=== PATIENT | male | born 1955 | race African-American/Black ===

== ENCOUNTER 2017-04-11 03:02 | Inpatient (IN) | payer MEDICARE, OTHER ==
[2017-04-11] VITALS (21 sets, daily range): BP systolic 63–154; BP diastolic 40–89
[~2017-04-11] VITALS: Ht 177.8 cm; Wt 82.2 kg
[2017-04-11] MEDS ORDERED: PROPOFOL 50 ML IV ONE ×2 (03:11→04:00)
--- NOTE | 2017-04-11 03:21 | PHYS DOC ---
Adult General Chief Complaint Chief Complaint: SHORTNESS OF BREATH HPI HPI This is a 61-year-old male who presents with acute onset of shortness of breath at home and having some mild chest pain as well. Upon arrival, the EMS team states his O2 sats were in the 60 percentile range. Patient was placed on nonrebreather and refusing CPAP mask. Patient apparently per EMS missed a dialysis appointment today. Upon arrival, the patient cannot provide any history as he is lethargic and significantly short of air. No other family at bedside currently to provide any history. Review of Systems Review of Systems 10 point review systems is unable to be obtained secondary to the patient's mental status Current Medications Current Medications Current Medications Medications (Trade) Dose Ordered Sig/Thuan Start Time Stop Time Status Last Admin Dose Admin Propofol 50 ml @ As Directed STK-MED ONCE 04/11/17 03:11 04/11/17 03:12 DC Allergies Allergies Allergies Coded Allergies Type Severity Reaction Last Updated Verified Unable to Assess 04/11/17 No Physical Exam Physical Exam Constitutional: In acute distress, non-verbal. [] HENT: Normocephalic, atraumatic, bilateral external ears normal, oropharynx moist, no oral exudates, nose normal. [] Eyes: PERRLA, conjunctiva normal, no discharge. [] Neck: Normal range of motion, no tenderness, supple, no stridor. [] Cardiovascular:Heart rate tachycardic with regular rhythm, no murmur [] Lungs & Thorax: Rales bilaterally with noted tachypnea and significant respiratory distress [] Abdomen: Bowel sounds normal, soft, no tenderness, no masses, no pulsatile masses. [] Skin: Warm, dry, no erythema, no rash. [] Back: No tenderness, no CVA tenderness. [] Extremities: No tenderness, no cyanosis, no clubbing, ROM intact, no edema. [] Neurologic: No focal deficits noted, unable to obtain full neurologic assessment secondary to the patient's mental status. [] Psychologic: Affect normal, judgement normal, mood normal. [] Current Patient Data Vital Signs Vital Signs Date Time Temp Pulse Resp B/P (MAP) Pulse Ox O2 Delivery O2 Flow Rate FiO2 04/11/17 03:15 97 Ventilator 04/11/17 03:03 97.6 126 4 243/122 (162) 97.6 EKG EKG EKG as interpreted by me shows a sinus tachycardia with a rate of 141 bpm. There is some lateral ischemic findings in leads V4 to V6 with some ST depression noted. EKG does not meet STEMI criteria. Radiology/Procedures Radiology/Procedures One view of the chest as interpreted by me shows an ET tube in appropriate position. OG tube appears appropriate. Patient has massive pulmonary edema as interpreted by me. Course & Med Decision Making Course & Med Decision Making Pertinent Labs and Imaging studies reviewed. (See chart for details) 61-year-old male who presents with acute pulmonary edema was immediately intubated upon arrival for acute respiratory failure. Nitroglycerin drips and propofol drips are currently running. A dose of Lasix was given as well. Portable view of his chest indicates he has extensive pulmonary edema and cannot rule out underlying pneumonia as well. A dose of IV Zosyn will also be given. Laboratory workup is pending at this time. His laboratory workup is consistent with fluid overload with an elevated BNP of over 8000. His blood gas is 7.176 with a pCO2 of 53.6 and pO2 of 88.6 and his HCO3 of 19.4. She is consistent with a respiratory acidosis with some metabolic compensation. Surgery was continuously titrated upward to a rate of 160 g/min and his propofol was also continually titrated upward. His ventilator rate was increased and his PEEP was increased as well. His blood pressure and heart rate improved significantly with both propofol and nitroglycerin drips. His case was discussed with both the hotel front desk clerk, Dr. Guajardo, and the airline hostess, Dr. Leon. His case was discussed with the hospitalist, Dr. Juarez, who agreed to accept the patient for further evaluation and treatment. He was admitted to the ICU without incident. Approximately 60 minutes of critical care time were used in consultation with specialists. Dragon Disclaimer Dragon Disclaimer This electronic medical record was generated, in whole or in part, using a voice recognition dictation system. Intubation Procedure Intub Indication: Respiratory failure Consent: Unable to give consent due to emergent nature. Medications Used: see nursing note Procedure: The patient was placed in the appropriate position. Intubation was performed using direct laryngoscopy with a 7.5 endotracheal tube. ET tube was then appropriately secured. Initial confirmation of placement included bilateral breath sounds, tube fogging, adequate chest rise, adequate pulse oximetry reading. A chest x-ray to verify correct placement of the tube showed appropriate tube position. The patient tolerated the procedure well. Complications: none. Critical Care Time Critical care time was 60 minutes exclusive of procedures. Departure Departure Impression: Primary Impression: Pulmonary edema Additional Impressions: Acute respiratory failure Hypertensive emergency Disposition: 09 ADMITTED INPATIENT Admitting Physician: Danielle Juarez Condition: CRITICAL Referrals: NO PCP (PCP) Problem Qualifiers HIPOLITO CHOI DO April 11, 2017 03:21
[2017-04-11] MEDS ORDERED: PROPOFOL 20 ML IV ONE (03:30)
[2017-04-11] MEDS ORDERED: ETOMIDATE 20 MG/10 ML VIAL. IV ONE (03:30)
[2017-04-11] MEDS ORDERED: NITROGLYCERIN PREMIX 250 ML IV ONE (03:30)
[2017-04-11] MEDS ORDERED: ROCURONIUM 50 MG/5 ML VIAL. IV ONE (03:30)
[2017-04-11] MEDS ORDERED: ONDANSETRON PF 4 MG/2 ML VIAL. IV PRN (03:45)
[2017-04-11] MEDS ORDERED: FUROSEMIDE 40 MG/4 ML VIAL. IVP ONE (03:45)
[2017-04-11 03:57] LABS: BILIRUBIN,URINE NEGATIVE (NEG); GLUCOSE,URINE NEGATIVE (NEG); NITRITE,URINE NEGATIVE (NEG); PH,URINE 7.5; PROTEIN,URINE 100 mg/dL (NEG-TRACE); UROBILINOGEN,URINE 0.2 mg/dL (0.2 mg/dL)
[2017-04-11 03:57] LABS: BASO % 0 % (0-3); EOS % 2 % (0-3); HEMATOCRIT 37.5 % (39.0-53.0); HEMOGLOBIN 11.6 g/dL (13.0-17.5); LYMPH # 5.5 x10^3/uL (1.0-4.8); LYMPH % 42 % (24-48); MEAN CORPUSCULAR HEMOGLOBIN 25 pg (25-35); MEAN CORPUSCULAR HGB CONC 31 g/dL (31-37); MEAN CORPUSCULAR VOLUME 82 fL (79-100); MONO % 6 % (0-9); NEUT % 50 % (31-73); PLATELET COUNT 207 x10^3/uL (140-400); RED BLOOD COUNT 4.56 x10^6/uL (4.30-5.70); RED CELL DISTRIBUTION WIDTH 14.2 % (11.5-14.5); WHITE BLOOD COUNT 13.1 x10^3/uL (4.0-11.0)
[2017-04-11 03:58] LABS: BACTERIA,URINE 0 /HPF (0-FEW); SQUAMOUS EPITHELIAL CELL,UR FEW /LPF
[2017-04-11] MEDS ORDERED: PIP/TAZO PER PHARMACY MC PRN (04:00)
[2017-04-11 04:02] LABS: POTASSIUM ISTAT 4.4 mmol/L (3.5-5.0)
[2017-04-11] MEDS ORDERED: PIPERACILLIN/TAZOBACTAM 2.25 GM in IV NORMAL SALINE 50ML 50 ML IV ONE (04:15)
[2017-04-11] MEDS ORDERED: PROPOFOL 10 MG/ML (50ML) VIAL. IV ONE (04:17)
[2017-04-11 04:19] LABS: ALBUMIN 3.3 g/dL (3.4-5.0); CALCIUM 8.4 mg/dL (8.5-10.1); CREATININE 18.7 mg/dL (0.7-1.3); DIRECT BILIRUBIN 0.2 mg/dL (0.0-0.2); GFR 3.1; POTASSIUM 4.5 mmol/L (3.5-5.1); TOTAL BILIRUBIN 0.4 mg/dL (0.2-1.0); TOTAL PROTEIN 7.8 g/dL (6.4-8.2)
[2017-04-11 04:35] LABS: HCO3 ABG 19 mmol/L (21-28); PCO2 ABG 54 mmHg (35-46); PH ABG 7.18 (7.35-7.45); PO2 ABG 89 mmHg (65-108); SAT O2 ABG 94 % (92-99)
--- NOTE | 2017-04-11 04:51 | ACF ---
Admission Forms Criteria RESPIRATORY FAILURE [facility] Clinical Indications for Admission to Inpatient Care (Place 'X' for any and all applicable criteria): Hospital admission is needed for appropriate care of the patient because of acute respiratory failure or insufficiency as indicated by ANY ONE of the following(1)(2)(3)(4)(5)(6)(7)(8): [ ]I. Mechanical ventilation needed (acute invasive or noninvasive) [ ]II. Severe ventilation deficit as indicated by ANY ONE of the following (9) [ ]a) Respiratory acidosis (pH less than 7.32 and partial pressure of carbon dioxide greater than 40 mm Hg (5.3 kPa)) [ ]b) Partial pressure of carbon dioxide greater than 44 mm Hg (5.9 kPa ) (new) [ ]c) Airflow measurements less than 25% of predicted (eg, peak expiratory flow rate less than 100 L/minute) [ ]d) Forced vital capacity less than 15 mL/kg of ideal body weight, or 50% decrease in vital capacity from baseline [ ]III. Noncardiac pulmonary edema not resolving with rapid emergency treatment (8) [ ]IV. Severe respiratory distress as indicated by ANY ONE of the following: [ ]a) Severe tachypnea (respiratory rate greater than 30, greater than 45 for 6-month-old, greater than 60 for ) [ ]b) Severe hypoxemia (partial pressure of oxygen less than 50 mm Hg ( 6.7 kPa) on greater than 50% oxygen or partial pressure of oxygen to FIO2 ratio less than 200) [ ]c) Mental status deterioration from respiratory disease [ ]V. Airway obstruction or inadequate protection [A](10)(11) The original [employer] content created by [employer] has been revised. The portions of the content which have been revised are identified through the use of italic text or in bold, and [employer] has neither reviewed nor approved the modified material. All other unmodified content is copyright [employer]. Please see references footnoted in the original [employer] edition 2016 JACKSON CAO April 11, 2017 04:51
--- NOTE | 2017-04-11 05:00 | ACF ---
Admission Forms Criteria PULMONARY EDEMA Clinical Indications for Admission to Inpatient Care (Place 'X' for any and all applicable criteria): Admission is indicated by ANY ONE of the following(1)(2)(3)(4): [ ]I. Severe electrolyte abnormalities requiring inpatient care(9) [ ]II. Hemodynamic instability [ ]III. Anasarca [ ]IV. Acute cardiac ischemia causing or associated with failure (Also use Angina or Myocardial Infarction as appropriate) [ ]V. Cardiac arrhythmias of immediate concern [ ]. Precipitating cause for acute decompensation (eg, pneumonia, pulmonary embolism) requires inpatient care [X]VII. Pulmonary edema that is very severe (eg, mechanical ventilation needed, imminent or likely, need for 100% oxygen to keep oxygen saturation above 90%) [ ]VIII. Inpatient admission required rather than observation care (Also use Heart Failure: Observation Care as appropriate) because of ANY ONE of the following: [ ]a) Pulmonary edema that is severe or worsening as indicated by ALL of the following: [ ]i) New need for oxygen therapy to keep oxygen saturation above 90% (or increased FiO2 need from baseline) [ ]ii) Has not improved sufficiently with emergency department or observation care IV diuretics or other heart failure treatments[C] [ ]b) Cognitive impairment that is severe or persistent [ ]c) Increased creatinine (new on laboratory test) with reduction of more than 50% in estimated glomerular filtration rate from baseline. [ ]d) Acute renal insufficiency (progressively (ongoing) rising creatinine (known from past laboratory test) with reduction of more than 25% in estimated glomerular filtration rate from baseline) [ ]e) Acute peripheral ischemia (eg, pulseless, cool, mottled, or cyanotic extremity) [ ]f) Acute renal failure [ ]g) Supplemental O2 or respiratory treatment for >24 hr that are performable only in acute inpatient setting [ ]h) Pulmonary artery catheter monitoring [ ]i) Other condition, treatment or monitoring requiring inpatient admission Extended stay beyond goal length of stay may be needed for(1)(3)(21)(25): [ ]a) Cardiac ischemia, confirmed or suspected as precipitant [ ]b) Cardiogenic shock or refractory pulmonary edema [ ]c) Acute kidney injury or renal failure [ ]d) Respiratory failure (eg, need for noninvasive or invasive mechanical ventilation) (23) [ ]e) Concomitant pneumonia or significant electrolyte abnormality (eg, severe hyponatremia) [ ]f) Newly diagnosed (new onset) atrial fibrillation [ ]g) Stage IV chronic kidney disease (estimated glomerular filtration rate of less than 30 mL/min/1.73m2 (0.50 mL/sec/1.73m2), and not previously on chronic dialysis (Contents from HEART FAILURE clinical indications for admission to inpatient care have been integrated in this form) The original [facility] content created by [facility] [employer] has been revised. The portions of the content which have been revised are identified through the use of italic text or in bold, and [facility] has neither reviewed nor approved the modified material. All other unmodified content is copyright [facility] Please see references footnoted in the original [facility] [employer] edition 2016 Admission Criteria Met?: Yes JACKSON CAO April 11, 2017 05:00
[2017-04-11] MEDS ORDERED: PROPOFOL 100 ML IV ONE (06:05)
[2017-04-11] MEDS ORDERED: PNEUMOCOCCAL VAX SCREEN BY RX. MC ONE (06:15)
--- NOTE | 2017-04-11 07:08 | RAD ---
Portable chest, 04/11/2017: History: Check ET tube placement Comparison is made to a study from 04/20/2010. An ET tube is in place with its tip located 5 cm above the rafia. An NG tube extends into the distal esophagus. The heart size is normal. There are moderate patchy bilateral pulmonary infiltrates. The underlying pulmonary vascularity is poorly defined and congested. No definite pleural fluid is seen. IMPRESSION: 1. The ET tube is in satisfactory position. 2. The tip of the NG tube lies in the distal esophagus. 3. Moderate bilateral pulmonary infiltrates most compatible with pulmonary edema.
--- NOTE | 2017-04-11 07:10 | RAD ---
Portable abdomen, 04/11/2017: History: Check gastric tube placement A supine view of the upper abdomen demonstrates the tip of the NG tube overlying the distal esophagus near the GE junction level. The abdominal gas pattern is unremarkable. Bilateral pulmonary infiltrates are again noted. IMPRESSION: The tip of the NG tube lies in the distal esophagus near the GE junction level.
[2017-04-11 08:13] LABS: HCO3 ABG 19 mmol/L (21-28); PCO2 ABG 34 mmHg (35-46); PH ABG 7.37 (7.35-7.45); PO2 ABG 140 mmHg (65-108); SAT O2 ABG 98 % (92-99)
[2017-04-11 08:16] LABS: FIO2 ABG 100
[2017-04-11] MEDS ORDERED: IV NORMAL SALINE 1000ML BAG 1,000 ML IV PRN ×2 (09:51)
--- NOTE | 2017-04-11 09:58 | PDOC1 ---
History and Physical Current Problem List Problem List Problems Medical Problems: (1) Acute respiratory failure Status: Acute (2) Hypertensive emergency Status: Acute (3) Pulmonary edema Status: Acute Current Medications Current Medications Current Medications Medications (Trade) Dose Ordered Sig/Thuan Start Time Stop Time Status Last Admin Dose Admin Etomidate (Amidate) 20 mg 1X ONCE 04/11/17 03:30 04/11/17 03:31 DC 04/11/17 03:09 20 MG Furosemide (Lasix) 40 mg 1X ONCE 04/11/17 03:45 04/11/17 03:47 DC 04/11/17 03:50 40 MG Nicardipine HCl 50 mg/Sodium Chloride 270 ml @ 0 mls/hr CONT PRN 04/11/17 04:30 Nitroglycerin/ Dextrose 250 ml @ 0 mls/hr 1X ONCE 04/11/17 03:30 04/11/17 03:31 DC 04/11/17 03:21 6 MLS/HR Ondansetron HCl (Zofran) 4 mg PRN Q8HRS PRN 04/11/17 03:45 04/12/17 03:44 Piperacillin Sod/ Tazobactam Sod (Zosyn Per Pharmacy) 1 each PRN DAILY PRN 04/11/17 04:00 Piperacillin Sod/ Tazobactam Sod 2.25 gm/Sodium Chloride 50 ml @ 100 mls/hr Q12H 04/11/17 16:00 Pneumococcal Polyvalent Vaccine (Do NOT chart on this placeholder) 1 each 1X ONCE 04/11/17 06:15 04/11/17 06:16 UNV Pneumococcal Polyvalent Vaccine (Pneumovax 23) 0.5 ml ONCE ONCE 04/12/17 09:00 04/12/17 09:01 Propofol 100 ml @ 0 mls/hr CONT PRN 04/11/17 07:00 Propofol (Diprivan) 20 mg 1X ONCE 04/11/17 04:17 04/11/17 05:45 DC Rocuronium [place] (Zemuron) 50 mg 1X ONCE 04/11/17 03:30 04/11/17 03:31 DC 04/11/17 03:09 50 MG Allergies Allergies Allergies Coded Allergies Type Severity Reaction Last Updated Verified Unable to Assess 04/11/17 No ROS Review of System intubated, d/w family acute sob Physical Exam Physical Exam GEN.: No apparent distress. sedated, intubated. HEENT: Head is normocephalic, atraumatic NECK: Supple. no JVD LUNGS: Rales and crepitus base HEART: RRR, S1, S2 present. Peripheral pulses intact ABDOMEN: Soft, nontender. Positive bowel sounds. EXTREMITIES: Without any cyanosis. NEUROLOGIC: Normal speech, normal tone PSYCHIATRIC: Normal affect, normal mood. SKIN: dry. no visible rash Vitals Vitals Vital Signs Date Time Temp Pulse Resp B/P (MAP) Pulse Ox O2 Delivery O2 Flow Rate FiO2 04/11/17 08:00 100 Ventilator 04/11/17 06:15 86 24 84/50 (61) 04/11/17 05:30 97.5 97.5 04/11/17 04:21 96.0 Labs Labs Laboratory Tests Test 04/11/17 03:30 04/11/17 03:50 04/11/17 03:51 04/11/17 03:54 Urine Collection Type U cath Urine Color Yellow Urine Clarity Clear Urine pH 7.5 Urine Specific Mccarley 1.010 Urine Protein 100 mg/dL (NEG-TRACE) Urine Glucose (UA) Negative mg/dL (NEG) Urine Ketones (Stick) Negative mg/dL (NEG) Urine Blood Moderate (NEG) Urine Nitrite Negative (NEG) Urine Bilirubin Negative (NEG) Urine Urobilinogen Dipstick 0.2 mg/dL (0.2 mg/dL) Urine Leukocyte Esterase Negative (NEG) Urine RBC 6-10 /HPF (0-2) Urine WBC 1-4 /HPF (0-4) Urine Squamous Epithelial Cells Few /LPF Urine Bacteria 0 /HPF (0-FEW) Urine Mucus Mod /LPF White Blood Count 13.1 x10^3/uL (4.0-11.0) Red Blood Count 4.56 x10^6/uL (4.30-5.70) Hemoglobin 11.6 g/dL (13.0-17.5) Hematocrit 37.5 % (39.0-53.0) Mean Corpuscular Volume 82 fL (79-100) Mean Corpuscular Hemoglobin 25 pg (25-35) Mean Corpuscular Hemoglobin Concent 31 g/dL (31-37) Red Cell Distribution Width 14.2 % (11.5-14.5) Platelet Count 207 x10^3/uL (140-400) Neutrophils (%) (Auto) 50 % (31-73) Lymphocytes (%) (Auto) 42 % (24-48) Monocytes (%) (Auto) 6 % (0-9) Eosinophils (%) (Auto) 2 % (0-3) Basophils (%) (Auto) 0 % (0-3) Neutrophils # (Auto) 6.5 x10^3uL (1.8-7.7) Lymphocytes # (Auto) 5.5 x10^3/uL (1.0-4.8) Monocytes # (Auto) 0.8 x10^3/uL (0.0-1.1) Eosinophils # (Auto) 0.3 x10^3/uL (0.0-0.7) Basophils # (Auto) 0.0 x10^3/uL (0.0-0.2) Sodium Level 143 mmol/L (136-145) Potassium Level 4.5 mmol/L (3.5-5.1) Chloride Level 102 mmol/L (98-107) Carbon Dioxide Level 22 mmol/L (21-32) Anion Gap 19 (6-14) 17 mmol/L (6-14) Blood Urea Nitrogen 74 mg/dL (8-26) Creatinine 18.7 mg/dL (0.7-1.3) Estimated GFR (Cockcroft-Gault) 3.1 Glucose Level 178 mg/dL (70-99) 165 mg/dL (70-99) Lactic Acid Level 4.4 mmol/L (0.4-2.0) Calcium Level 8.4 mg/dL (8.5-10.1) Total Bilirubin 0.4 mg/dL (0.2-1.0) Direct Bilirubin 0.2 mg/dL (0.0-0.2) Aspartate Amino Transf (AST/SGOT) 41 U/L (15-37) Alanine Aminotransferase (ALT/SGPT) 33 U/L (16-63) Alkaline Phosphatase 79 U/L (46-116) Troponin I Quantitative 0.030 ng/mL (0.000-0.055) NR-Sxw-W-Type Natriuretic Peptide 8491 pg/mL (0-124) Total Protein 7.8 g/dL (6.4-8.2) Albumin 3.3 g/dL (3.4-5.0) Bedside Troponin I 0.04 ng/ml (<0.08) Bedside Hemoglobin 12.9 g/dL (14-18) Bedside Hematocrit 38 % (37-52) Bedside Sodium 138 mmol/L (135-145) Bedside Potassium 4.4 mmol/L (3.5-5.0) Bedside Chloride 104 mmol/L (98-110) Bedside Total CO2 23 mmol/L (23-32) Bedside Blood Urea Nitrogen 76 mg/dL (8-26) Bedside Creatinine 17.8 mg/dL (0.5-1.4) Bedside Ionized Calcium (Devon) 1.00 mmol/L (1.13-1.32) Test 04/11/17 04:14 04/11/17 06:40 04/11/17 08:20 O2 Saturation 94 % (92-99) 98 % (92-99) Arterial Blood pH 7.18 (7.35-7.45) 7.37 (7.35-7.45) Arterial Blood pCO2 at Patient Temp 54 mmHg (35-46) 34 mmHg (35-46) Arterial Blood pO2 at Patient Temp 89 mmHg (65-108) 140 mmHg (65-108) Arterial Blood HCO3 19 mmol/L (21-28) 19 mmol/L (21-28) Arterial Blood Base Excess -9 mmol/L (-3-3) -5 mmol/L (-3-3) FiO2 100.0 100 Lactic Acid Level 2.6 mmol/L (0.4-2.0) Laboratory Tests Test 04/11/17 03:30 04/11/17 03:50 04/11/17 03:51 04/11/17 03:54 Urine Collection Type U cath Urine Color Yellow Urine Clarity Clear Urine pH 7.5 Urine Specific Mccarley 1.010 Urine Protein 100 mg/dL (NEG-TRACE) Urine Glucose (UA) Negative mg/dL (NEG) Urine Ketones (Stick) Negative mg/dL (NEG) Urine Blood Moderate (NEG) Urine Nitrite Negative (NEG) Urine Bilirubin Negative (NEG) Urine Urobilinogen Dipstick 0.2 mg/dL (0.2 mg/dL) Urine Leukocyte Esterase Negative (NEG) Urine RBC 6-10 /HPF (0-2) Urine WBC 1-4 /HPF (0-4) Urine Squamous Epithelial Cells Few /LPF Urine Bacteria 0 /HPF (0-FEW) Urine Mucus Mod /LPF White Blood Count 13.1 x10^3/uL (4.0-11.0) Red Blood Count 4.56 x10^6/uL (4.30-5.70) Hemoglobin 11.6 g/dL (13.0-17.5) Hematocrit 37.5 % (39.0-53.0) Mean Corpuscular Volume 82 fL (79-100) Mean Corpuscular Hemoglobin 25 pg (25-35) Mean Corpuscular Hemoglobin Concent 31 g/dL (31-37) Red Cell Distribution Width 14.2 % (11.5-14.5) Platelet Count 207 x10^3/uL (140-400) Neutrophils (%) (Auto) 50 % (31-73) Lymphocytes (%) (Auto) 42 % (24-48) Monocytes (%) (Auto) 6 % (0-9) Eosinophils (%) (Auto) 2 % (0-3) Basophils (%) (Auto) 0 % (0-3) Neutrophils # (Auto) 6.5 x10^3uL (1.8-7.7) Lymphocytes # (Auto) 5.5 x10^3/uL (1.0-4.8) Monocytes # (Auto) 0.8 x10^3/uL (0.0-1.1) Eosinophils # (Auto) 0.3 x10^3/uL (0.0-0.7) Basophils # (Auto) 0.0 x10^3/uL (0.0-0.2) Sodium Level 143 mmol/L (136-145) Potassium Level 4.5 mmol/L (3.5-5.1) Chloride Level 102 mmol/L (98-107) Carbon Dioxide Level 22 mmol/L (21-32) Anion Gap 19 (6-14) 17 mmol/L (6-14) Blood Urea Nitrogen 74 mg/dL (8-26) Creatinine 18.7 mg/dL (0.7-1.3) Estimated GFR (Cockcroft-Gault) 3.1 Glucose Level 178 mg/dL (70-99) 165 mg/dL (70-99) Lactic Acid Level 4.4 mmol/L (0.4-2.0) Calcium Level 8.4 mg/dL (8.5-10.1) Total Bilirubin 0.4 mg/dL (0.2-1.0) Direct Bilirubin 0.2 mg/dL (0.0-0.2) Aspartate Amino Transf (AST/SGOT) 41 U/L (15-37) Alanine Aminotransferase (ALT/SGPT) 33 U/L (16-63) Alkaline Phosphatase 79 U/L (46-116) Troponin I Quantitative 0.030 ng/mL (0.000-0.055) FE-Bhn-G-Type Natriuretic Peptide 8491 pg/mL (0-124) Total Protein 7.8 g/dL (6.4-8.2) Albumin 3.3 g/dL (3.4-5.0) Bedside Troponin I 0.04 ng/ml (<0.08) Bedside Hemoglobin 12.9 g/dL (14-18) Bedside Hematocrit 38 % (37-52) Bedside Sodium 138 mmol/L (135-145) Bedside Potassium 4.4 mmol/L (3.5-5.0) Bedside Chloride 104 mmol/L (98-110) Bedside Total CO2 23 mmol/L (23-32) Bedside Blood Urea Nitrogen 76 mg/dL (8-26) Bedside Creatinine 17.8 mg/dL (0.5-1.4) Bedside Ionized Calcium (Devon) 1.00 mmol/L (1.13-1.32) Test 04/11/17 04:14 04/11/17 06:40 04/11/17 08:20 O2 Saturation 94 % (92-99) 98 % (92-99) Arterial Blood pH 7.18 (7.35-7.45) 7.37 (7.35-7.45) Arterial Blood pCO2 at Patient Temp 54 mmHg (35-46) 34 mmHg (35-46) Arterial Blood pO2 at Patient Temp 89 mmHg (65-108) 140 mmHg (65-108) Arterial Blood HCO3 19 mmol/L (21-28) 19 mmol/L (21-28) Arterial Blood Base Excess -9 mmol/L (-3-3) -5 mmol/L (-3-3) FiO2 100.0 100 Lactic Acid Level 2.6 mmol/L (0.4-2.0) VTE Prophylaxis Ordered VTE Prophylaxis Devices: Yes VTE Pharmacological Prophylaxi: Yes BEL SANDOVAL MD April 11, 2017 09:58
[2017-04-11] MEDS ORDERED: diphenhydrAMINE 50 MG/ML VIAL IV PRN ×2 (10:00)
[2017-04-11] MEDS ORDERED: ALBUMIN HUMAN 25% 200 ML IV PRN (10:00)
[2017-04-11] MEDS ORDERED: DIALYSIS PATIENT. MC PRN (10:00)
--- NOTE | 2017-04-11 10:26 | PDOC2 ---
CARDIAC CONSULT DATE OF CONSULT Date of Consult DATE: 04/11/17 TIME: 10:21 REASON FOR CONSULT Reason for Consult: CHF REFERRING PHYSICIAN Referring Physician: Dr. Vincent Alva SOURCE Source: Chart review, Unable to obtain due to (family unavailable) HISTORY OF PRESENT ILLNESS HISTORY OF PRESENT ILLNESS 61 year old male who presented to ER with dyspnea and chest pain occurring at home. Missed HD on Monday. Intubated on arrival due to acidosis. Malignant HTN POA with systolic > 240. Lactate level was 4.4. Initial troponin was 0.03 and then increased to 0.627, No EKG for review. Reason for Visit: CHF; elevated troponin PAST MEDICAL HISTORY Cardiovascular: CHF, HTN GI: Constipation Heme/Onc: Anemia NOS Renal/: Chronic renal failure Endocrine: Hyperparathyroidism PAST SURGICAL HISTORY Past Surgical History: Other (right AVF) FAMILY HISTORY Family History: Family History Unknown SOCIAL HISTORY Social History unknown CURRENT MEDICATIONS CURRENT MEDICATIONS Current Medications Medications (Trade) Dose Ordered Sig/Thuan Route PRN Reason Start Time Stop Time Status Last Admin Dose Admin Nitroglycerin/ Dextrose 250 ml @ 0 mls/hr 1X ONCE IV 04/11/17 03:30 04/11/17 03:31 DC 04/11/17 03:21 Rocuronium [place] (Zemuron) 50 mg 1X ONCE IV 04/11/17 03:30 04/11/17 03:31 DC 04/11/17 03:09 Etomidate (Amidate) 20 mg 1X ONCE IV 04/11/17 03:30 04/11/17 03:31 DC 04/11/17 03:09 Furosemide (Lasix) 40 mg 1X ONCE IVP 04/11/17 03:45 04/11/17 03:47 DC 04/11/17 03:50 Propofol 50 ml @ 0 mls/hr 1X ONCE IV 04/11/17 04:00 04/11/17 04:01 DC 04/11/17 03:16 Piperacillin Sod/ Tazobactam Sod 2.25 gm/Sodium Chloride 50 ml @ 100 mls/hr 1X ONCE IV 04/11/17 04:15 04/11/17 04:44 DC 04/11/17 04:15 ALLERGIES ALLERGIES: Coded Allergies: Unable to Assess (Unverified , 04/11/17) ROS Review of System unobtainable as patient intubated/sedated PHYSICAL EXAM General: No acute distress, Other (sedated) HEENT: Atraumatic Lungs: Other (basilar crackles) Heart: Normal S1, Normal S2, No murmurs Abdomen: Normal bowel sounds, Soft Extremities: No edema, Normal pulses Skin: No rashes Neuro: Other (unable to assess/sedated) Psych/Mental Status: Mental status NL, Mood NL MUSCULOSKELETAL: No deformity VITALS VITALS Vital Signs Date Time Temp Pulse Resp B/P (MAP) Pulse Ox O2 Delivery O2 Flow Rate FiO2 04/11/17 08:00 100 Ventilator 04/11/17 06:15 86 24 84/50 (61) 04/11/17 05:30 97.5 97.5 04/11/17 04:21 96.0 LABS Lab: Laboratory Tests Test 04/11/17 03:30 04/11/17 03:50 04/11/17 03:51 04/11/17 03:54 Urine Collection Type U cath Urine Color Yellow Urine Clarity Clear Urine pH 7.5 Urine Specific [place] 1.010 Urine Protein 100 mg/dL (NEG-TRACE) Urine Glucose (UA) Negative mg/dL (NEG) Urine Ketones (Stick) Negative mg/dL (NEG) Urine Blood Moderate (NEG) Urine Nitrite Negative (NEG) Urine Bilirubin Negative (NEG) Urine Urobilinogen Dipstick 0.2 mg/dL (0.2 mg/dL) Urine Leukocyte Esterase Negative (NEG) Urine RBC 6-10 /HPF (0-2) Urine WBC 1-4 /HPF (0-4) Urine Squamous Epithelial Cells Few /LPF Urine Bacteria 0 /HPF (0-FEW) Urine Mucus Mod /LPF White Blood Count 13.1 x10^3/uL (4.0-11.0) Red Blood Count 4.56 x10^6/uL (4.30-5.70) Hemoglobin 11.6 g/dL (13.0-17.5) Hematocrit 37.5 % (39.0-53.0) Mean Corpuscular Volume 82 fL (79-100) Mean Corpuscular Hemoglobin 25 pg (25-35) Mean Corpuscular Hemoglobin Concent 31 g/dL (31-37) Red Cell Distribution Width 14.2 % (11.5-14.5) Platelet Count 207 x10^3/uL (140-400) Neutrophils (%) (Auto) 50 % (31-73) Lymphocytes (%) (Auto) 42 % (24-48) Monocytes (%) (Auto) 6 % (0-9) Eosinophils (%) (Auto) 2 % (0-3) Basophils (%) (Auto) 0 % (0-3) Neutrophils # (Auto) 6.5 x10^3uL (1.8-7.7) Lymphocytes # (Auto) 5.5 x10^3/uL (1.0-4.8) Monocytes # (Auto) 0.8 x10^3/uL (0.0-1.1) Eosinophils # (Auto) 0.3 x10^3/uL (0.0-0.7) Basophils # (Auto) 0.0 x10^3/uL (0.0-0.2) Sodium Level 143 mmol/L (136-145) Potassium Level 4.5 mmol/L (3.5-5.1) Chloride Level 102 mmol/L (98-107) Carbon Dioxide Level 22 mmol/L (21-32) Anion Gap 19 (6-14) 17 mmol/L (6-14) Blood Urea Nitrogen 74 mg/dL (8-26) Creatinine 18.7 mg/dL (0.7-1.3) Estimated GFR (Cockcroft-Gault) 3.1 Glucose Level 178 mg/dL (70-99) 165 mg/dL (70-99) Lactic Acid Level 4.4 mmol/L (0.4-2.0) Calcium Level 8.4 mg/dL (8.5-10.1) Total Bilirubin 0.4 mg/dL (0.2-1.0) Direct Bilirubin 0.2 mg/dL (0.0-0.2) Aspartate Amino Transf (AST/SGOT) 41 U/L (15-37) Alanine Aminotransferase (ALT/SGPT) 33 U/L (16-63) Alkaline Phosphatase 79 U/L (46-116) Troponin I Quantitative 0.030 ng/mL (0.000-0.055) VQ-Iip-Z-Type Natriuretic Peptide 8491 pg/mL (0-124) Total Protein 7.8 g/dL (6.4-8.2) Albumin 3.3 g/dL (3.4-5.0) Bedside Troponin I 0.04 ng/ml (<0.08) Bedside Hemoglobin 12.9 g/dL (14-18) Bedside Hematocrit 38 % (37-52) Bedside Sodium 138 mmol/L (135-145) Bedside Potassium 4.4 mmol/L (3.5-5.0) Bedside Chloride 104 mmol/L (98-110) Bedside Total CO2 23 mmol/L (23-32) Bedside Blood Urea Nitrogen 76 mg/dL (8-26) Bedside Creatinine 17.8 mg/dL (0.5-1.4) Bedside Ionized Calcium (Devon) 1.00 mmol/L (1.13-1.32) Test 04/11/17 04:14 04/11/17 06:40 04/11/17 08:20 04/11/17 09:30 O2 Saturation 94 % (92-99) 98 % (92-99) Arterial Blood pH 7.18 (7.35-7.45) 7.37 (7.35-7.45) Arterial Blood pCO2 at Patient Temp 54 mmHg (35-46) 34 mmHg (35-46) Arterial Blood pO2 at Patient Temp 89 mmHg (65-108) 140 mmHg (65-108) Arterial Blood HCO3 19 mmol/L (21-28) 19 mmol/L (21-28) Arterial Blood Base Excess -9 mmol/L (-3-3) -5 mmol/L (-3-3) FiO2 100.0 100 Lactic Acid Level 2.6 mmol/L (0.4-2.0) Troponin I Quantitative 0.627 ng/mL (0.000-0.055) IMAGES IMAGES CXR: 1. The ET tube is in satisfactory position. 2. The tip of the NG tube lies in the distal esophagus. 3. Moderate bilateral pulmonary infiltrates most compatible with pulmonary edema. EKG EKG none for review - ordered ECHOCARDIOGRAM ECHOCARDIOGRAM pending ASSESSMENT/PLAN ASSESSMENT/PLAN 1. acute CHF, suspect diastolic will need fluid management via HD/nephrology echo to evaluate LV function 2. NSTEMI suspect demand related due to acute respiratory failure however, with risk factors for ischemic disease will need to consider further evaluation prior to discharge 3. acute respiratory failure vent per pulm 4. HTN control with meds & HD 5. anemia of chronic disease 6. ESRD with HD missed HD last Sat Problems: [employer]MENT April 11, 2017 10:26
--- NOTE | 2017-04-11 11:07 | PDOC2 ---
CONSULT Date of Consult Date of Consult DATE: 04/11/17 TIME: 11:02 Reason for Consult Reason for Consult: ESRD AND HYPERVOLEMIA Referring Physician Referring Physician: GREGG Identification/Chief Complaint Chief Complaint SOB Source Source: Chart review History of Present Illness Reason for Visit: THIS IS A 61 YR OLD ADMITTED WITH SOB. HE WAS INTUBATED IN THE ER DUE TO HYPOXIA AND FAILURE TO MAINTAIN HIS AIRWAY. HE HAS ESRD AND IS ON HD ON TTS. HE SKIPPED HIS SAT DIALYSIS. LABS ARE C/W ESRD. THERE IS MILD LEUCOCYTOSIS. LACTIC ACID IS SLIGHTLY ELEVATED. HE WAS ALSO VERY HYPERTENSIVE ON ADMIT BUT ON NTG GTT IT IS IMPROVED Past Medical History Cardiovascular: CHF, HTN GI: Constipation Heme/Onc: Anemia NOS Renal/: Chronic renal failure Endocrine: Hyperparathyroidism Past Surgical History Past Surgical History RIGHT ARM AVF Social History Quit ALCOHOL: rare Drugs: None Lives: with Family Current Problem List Problem List Problems Medical Problems: (1) Acute respiratory failure Status: Acute (2) Hypertensive emergency Status: Acute (3) Pulmonary edema Status: Acute Current Medications Current Medications Current Medications Propofol 50 ml @ As Directed STK-MED ONCE IV ; Start 04/11/17 at 03:11; Stop at 03:12; Status DC Propofol 20 ml @ 20 mls/hr 1X ONCE IV ; Start 04/11/17 at 03:30; Stop 04/11/17 at 03:47; Status DC Nitroglycerin/ Dextrose 250 ml @ 0 mls/hr 1X ONCE IV Last administered on 04/11 03:21; Start 04/11/17 at 03:30; Stop 04/11/17 at 03:31; Status DC Rocuronium [place] (Zemuron) 50 mg 1X ONCE IV Last administered on 04/11/17 03:09; Start 04/11/17 at 03:30; Stop 04/11/17 at 03:31; Status DC Etomidate (Amidate) 20 mg 1X ONCE IV Last administered on 04/11/17 03:09; Start 04/11/17 at 03:30; Stop 04/11/17 at 03:31; Status DC Furosemide (Lasix) 40 mg 1X ONCE IVP Last administered on 04/11/17 03:50; Start 04/11/17 at 03:45; Stop 04/11/17 at 03:47; Status DC Ondansetron HCl (Zofran) 4 mg PRN Q8HRS PRN IV NAUSEA/VOMITING; Start 04/11/17 at 03:45; Stop 04/12/17 at 03:44 Piperacillin Sod/ Tazobactam Sod (Zosyn Per Pharmacy) 1 each PRN DAILY PRN MC SEE COMMENTS; Start 04/11/17 at 04:00 Propofol 50 ml @ 0 mls/hr 1X ONCE IV Last administered on 04/11/17 03:16; Start 04/11/17 at 04:00; Stop 04/11/17 at 04:01; Status DC Piperacillin Sod/ Tazobactam Sod 2.25 gm/Sodium Chloride 50 ml @ 100 mls/hr 1X ONCE IV Last administered on 04/11/17 04:15; Start 04/11/17 at 04:15; Stop 04/11/17 at 04:44; Status DC Nicardipine HCl 50 mg/Sodium Chloride 270 ml @ 0 mls/hr CONT PRN IV SEE I/O RECORD; Start 04/11/17 at 04:30; Status Cancel Nicardipine HCl 50 mg/Sodium Chloride 270 ml @ 0 mls/hr CONT PRN IV SEE I/O RECORD; Start 04/11/17 at 04:30 Piperacillin Sod/ Tazobactam Sod 2.25 gm/Sodium Chloride 50 ml @ 100 mls/hr Q12H IV ; Start 04/11/17 at 16:00 Propofol (Diprivan) 20 mg 1X ONCE IV ; Start 04/11/17 at 04:17; Stop 04/11/17 at 05:45; Status DC Propofol 100 ml @ As Directed STK-MED ONCE IV ; Start 04/11/17 at 06:05; Stop 04/11/17 at 06:06; Status DC Pneumococcal Polyvalent Vaccine (Do NOT chart on this placeholder) 1 each 1X ONCE MC ; Start 04/11/17 at 06:15; Stop 04/11/17 at 06:16; Status UNV Pneumococcal Polyvalent Vaccine (Pneumovax 23) 0.5 ml ONCE ONCE VAX IM ; Start 04/12/17 at 09:00; Stop 04/12/17 at 09:01 Propofol 100 ml @ 0 mls/hr CONT PRN IV SEE I/O RECORD; Start 04/11/17 at 07:00 Sodium Chloride 1,000 ml @ 1,000 mls/hr Q1H PRN IV hypotension; Start 04/11/17 at 09:51; Stop 04/11/17 at 15:50 Albumin Human 200 ml @ 200 mls/hr 1X PRN PRN IV Hypotension; Start 04/11/17 at 10:00; Stop 04/11/17 at 15:59 Diphenhydramine HCl (Benadryl) 25 mg 1X PRN PRN IV ITCHING; Start 04/11/17 at 10:00; Stop 04/12/17 at 09:59 Diphenhydramine HCl (Benadryl) 25 mg 1X PRN PRN IV ITCHING; Start 04/11/17 at 10:00; Stop 04/12/17 at 09:59 Sodium Chloride 1,000 ml @ 400 mls/hr Q2H30M PRN IV PATENCY; Start 04/11/17 at 09:51; Stop 04/11/17 at 21:50 Info (PHARMACY MONITORING -- do not chart) 1 each PRN DAILY PRN MC SEE COMMENTS ; Start 04/11/17 at 10:00 Allergies Allergies: Coded Allergies: Unable to Assess (Unverified , 04/11/17) ROS Review of System UNABLE TO OBTAIN Physical Exam General: No acute distress HEENT: Atraumatic, PERRLA Lungs: Other (DECREASED AT BASES) Abdomen: Normal bowel sounds Extremities: No edema Neuro: Other (SEDATED) Psych/Mental Status: Other (SEDATED) Vitals VITALS Vital Signs Date Time Temp Pulse Resp B/P (MAP) Pulse Ox O2 Delivery O2 Flow Rate FiO2 04/11/17 08:00 100 Ventilator 04/11/17 06:15 86 24 84/50 (61) 04/11/17 05:30 97.5 97.5 04/11/17 04:21 96.0 Labs Labs Laboratory Tests Test 04/11/17 03:30 04/11/17 03:50 04/11/17 03:51 04/11/17 03:54 Urine Collection Type U cath Urine Color Yellow Urine Clarity Clear Urine pH 7.5 Urine Specific [place] 1.010 Urine Protein 100 mg/dL (NEG-TRACE) Urine Glucose (UA) Negative mg/dL (NEG) Urine Ketones (Stick) Negative mg/dL (NEG) Urine Blood Moderate (NEG) Urine Nitrite Negative (NEG) Urine Bilirubin Negative (NEG) Urine Urobilinogen Dipstick 0.2 mg/dL (0.2 mg/dL) Urine Leukocyte Esterase Negative (NEG) Urine RBC 6-10 /HPF (0-2) Urine WBC 1-4 /HPF (0-4) Urine Squamous Epithelial Cells Few /LPF Urine Bacteria 0 /HPF (0-FEW) Urine Mucus Mod /LPF White Blood Count 13.1 x10^3/uL (4.0-11.0) Red Blood Count 4.56 x10^6/uL (4.30-5.70) Hemoglobin 11.6 g/dL (13.0-17.5) Hematocrit 37.5 % (39.0-53.0) Mean Corpuscular Volume 82 fL (79-100) Mean Corpuscular Hemoglobin 25 pg (25-35) Mean Corpuscular Hemoglobin Concent 31 g/dL (31-37) Red Cell Distribution Width 14.2 % (11.5-14.5) Platelet Count 207 x10^3/uL (140-400) Neutrophils (%) (Auto) 50 % (31-73) Lymphocytes (%) (Auto) 42 % (24-48) Monocytes (%) (Auto) 6 % (0-9) Eosinophils (%) (Auto) 2 % (0-3) Basophils (%) (Auto) 0 % (0-3) Neutrophils # (Auto) 6.5 x10^3uL (1.8-7.7) Lymphocytes # (Auto) 5.5 x10^3/uL (1.0-4.8) Monocytes # (Auto) 0.8 x10^3/uL (0.0-1.1) Eosinophils # (Auto) 0.3 x10^3/uL (0.0-0.7) Basophils # (Auto) 0.0 x10^3/uL (0.0-0.2) Sodium Level 143 mmol/L (136-145) Potassium Level 4.5 mmol/L (3.5-5.1) Chloride Level 102 mmol/L (98-107) Carbon Dioxide Level 22 mmol/L (21-32) Anion Gap 19 (6-14) 17 mmol/L (6-14) Blood Urea Nitrogen 74 mg/dL (8-26) Creatinine 18.7 mg/dL (0.7-1.3) Estimated GFR (Cockcroft-Gault) 3.1 Glucose Level 178 mg/dL (70-99) 165 mg/dL (70-99) Lactic Acid Level 4.4 mmol/L (0.4-2.0) Calcium Level 8.4 mg/dL (8.5-10.1) Total Bilirubin 0.4 mg/dL (0.2-1.0) Direct Bilirubin 0.2 mg/dL (0.0-0.2) Aspartate Amino Transf (AST/SGOT) 41 U/L (15-37) Alanine Aminotransferase (ALT/SGPT) 33 U/L (16-63) Alkaline Phosphatase 79 U/L (46-116) Troponin I Quantitative 0.030 ng/mL (0.000-0.055) LX-Nqy-B-Type Natriuretic Peptide 8491 pg/mL (0-124) Total Protein 7.8 g/dL (6.4-8.2) Albumin 3.3 g/dL (3.4-5.0) Bedside Troponin I 0.04 ng/ml (<0.08) Bedside Hemoglobin 12.9 g/dL (14-18) Bedside Hematocrit 38 % (37-52) Bedside Sodium 138 mmol/L (135-145) Bedside Potassium 4.4 mmol/L (3.5-5.0) Bedside Chloride 104 mmol/L (98-110) Bedside Total CO2 23 mmol/L (23-32) Bedside Blood Urea Nitrogen 76 mg/dL (8-26) Bedside Creatinine 17.8 mg/dL (0.5-1.4) Bedside Ionized Calcium (Devon) 1.00 mmol/L (1.13-1.32) Test 04/11/17 04:14 04/11/17 06:40 04/11/17 08:20 04/11/17 09:30 O2 Saturation 94 % (92-99) 98 % (92-99) Arterial Blood pH 7.18 (7.35-7.45) 7.37 (7.35-7.45) Arterial Blood pCO2 at Patient Temp 54 mmHg (35-46) 34 mmHg (35-46) Arterial Blood pO2 at Patient Temp 89 mmHg (65-108) 140 mmHg (65-108) Arterial Blood HCO3 19 mmol/L (21-28) 19 mmol/L (21-28) Arterial Blood Base Excess -9 mmol/L (-3-3) -5 mmol/L (-3-3) FiO2 100.0 100 Lactic Acid Level 2.6 mmol/L (0.4-2.0) Troponin I Quantitative 0.627 ng/mL (0.000-0.055) Laboratory Tests Test 04/11/17 03:30 04/11/17 03:50 04/11/17 03:51 04/11/17 03:54 Urine Collection Type U cath Urine Color Yellow Urine Clarity Clear Urine pH 7.5 Urine Specific [place] 1.010 Urine Protein 100 mg/dL (NEG-TRACE) Urine Glucose (UA) Negative mg/dL (NEG) Urine Ketones (Stick) Negative mg/dL (NEG) Urine Blood Moderate (NEG) Urine Nitrite Negative (NEG) Urine Bilirubin Negative (NEG) Urine Urobilinogen Dipstick 0.2 mg/dL (0.2 mg/dL) Urine Leukocyte Esterase Negative (NEG) Urine RBC 6-10 /HPF (0-2) Urine WBC 1-4 /HPF (0-4) Urine Squamous Epithelial Cells Few /LPF Urine Bacteria 0 /HPF (0-FEW) Urine Mucus Mod /LPF White Blood Count 13.1 x10^3/uL (4.0-11.0) Red Blood Count 4.56 x10^6/uL (4.30-5.70) Hemoglobin 11.6 g/dL (13.0-17.5) Hematocrit 37.5 % (39.0-53.0) Mean Corpuscular Volume 82 fL (79-100) Mean Corpuscular Hemoglobin 25 pg (25-35) Mean Corpuscular Hemoglobin Concent 31 g/dL (31-37) Red Cell Distribution Width 14.2 % (11.5-14.5) Platelet Count 207 x10^3/uL (140-400) Neutrophils (%) (Auto) 50 % (31-73) Lymphocytes (%) (Auto) 42 % (24-48) Monocytes (%) (Auto) 6 % (0-9) Eosinophils (%) (Auto) 2 % (0-3) Basophils (%) (Auto) 0 % (0-3) Neutrophils # (Auto) 6.5 x10^3uL (1.8-7.7) Lymphocytes # (Auto) 5.5 x10^3/uL (1.0-4.8) Monocytes # (Auto) 0.8 x10^3/uL (0.0-1.1) Eosinophils # (Auto) 0.3 x10^3/uL (0.0-0.7) Basophils # (Auto) 0.0 x10^3/uL (0.0-0.2) Sodium Level 143 mmol/L (136-145) Potassium Level 4.5 mmol/L (3.5-5.1) Chloride Level 102 mmol/L (98-107) Carbon Dioxide Level 22 mmol/L (21-32) Anion Gap 19 (6-14) 17 mmol/L (6-14) Blood Urea Nitrogen 74 mg/dL (8-26) Creatinine 18.7 mg/dL (0.7-1.3) Estimated GFR (Cockcroft-Gault) 3.1 Glucose Level 178 mg/dL (70-99) 165 mg/dL (70-99) Lactic Acid Level 4.4 mmol/L (0.4-2.0) Calcium Level 8.4 mg/dL (8.5-10.1) Total Bilirubin 0.4 mg/dL (0.2-1.0) Direct Bilirubin 0.2 mg/dL (0.0-0.2) Aspartate Amino Transf (AST/SGOT) 41 U/L (15-37) Alanine Aminotransferase (ALT/SGPT) 33 U/L (16-63) Alkaline Phosphatase 79 U/L (46-116) Troponin I Quantitative 0.030 ng/mL (0.000-0.055) AO-Tgf-X-Type Natriuretic Peptide 8491 pg/mL (0-124) Total Protein 7.8 g/dL (6.4-8.2) Albumin 3.3 g/dL (3.4-5.0) Bedside Troponin I 0.04 ng/ml (<0.08) Bedside Hemoglobin 12.9 g/dL (14-18) Bedside Hematocrit 38 % (37-52) Bedside Sodium 138 mmol/L (135-145) Bedside Potassium 4.4 mmol/L (3.5-5.0) Bedside Chloride 104 mmol/L (98-110) Bedside Total CO2 23 mmol/L (23-32) Bedside Blood Urea Nitrogen 76 mg/dL (8-26) Bedside Creatinine 17.8 mg/dL (0.5-1.4) Bedside Ionized Calcium (Devon) 1.00 mmol/L (1.13-1.32) Test 04/11/17 04:14 04/11/17 06:40 04/11/17 08:20 04/11/17 09:30 O2 Saturation 94 % (92-99) 98 % (92-99) Arterial Blood pH 7.18 (7.35-7.45) 7.37 (7.35-7.45) Arterial Blood pCO2 at Patient Temp 54 mmHg (35-46) 34 mmHg (35-46) Arterial Blood pO2 at Patient Temp 89 mmHg (65-108) 140 mmHg (65-108) Arterial Blood HCO3 19 mmol/L (21-28) 19 mmol/L (21-28) Arterial Blood Base Excess -9 mmol/L (-3-3) -5 mmol/L (-3-3) FiO2 100.0 100 Lactic Acid Level 2.6 mmol/L (0.4-2.0) Troponin I Quantitative 0.627 ng/mL (0.000-0.055) Assessment/Plan Assessment/Plan IMP CHF ANEMIA POSSIBLE PNEUMONIA RESP FAILURE ESRD HTN PLAN ENC COMPLIANCE VENT SUPPORT ANTIBIOTICS HD TODAY UF TO DW UPDATED FAMILY YENI COSTA MD April 11, 2017 11:06
[2017-04-11] MEDS ORDERED: DEXTROSE 50% 25 GM / 50ML DISP.SYRIN. IV PRN ×2 (11:15→17:45)
--- NOTE | 2017-04-11 11:46 | HP ---
ADMIT DATE: 04/11/2017 CHIEF COMPLAINT: Shortness of breath. HISTORY OF PRESENT ILLNESS: A 61-year-old -Congol[place] male patient with prior history of diabetes, brought to the hospital for acute shortness of breath. Most of the history obtained from the family member. The patient was last seen was yesterday. He missed the hemodialysis and developed acute shortness of breath, called EMS. At the time of EMS arrival, his saturation was 60%. He was hypoxic at the time of his arrival to the ER and could not able to tolerate BiPAP and he ended up on mechanical ventilation. This morning, the patient is on 60% oxygen and resting comfortably on ventilator and sedated. PAST MEDICAL HISTORY: End-stage renal disease, hypertension and diabetes mellitus. PAST SURGICAL HISTORY: Hemodialysis catheter and peritoneal dialysis catheter. ALLERGIES: Unknown to family members. REVIEW OF SYSTEMS AND PHYSICAL EXAMINATION: Please see my electronic H and P. FAMILY HISTORY: Hypertension. EKG as per ER report; sinus tachycardia from lateral lead V4-V6, ST depressions. LABORATORY FINDINGS: CBC; WBC 13.1, hemoglobin is 11.6, platelets 207. Chemistries: Sodium 143, potassium is 4.5, chloride is 102, BUN is 74, creatinine 18.1, glucose 178 and calcium 8.4. ProBNP 8491. Troponin is less than 0.030. Blood gases; oxygen saturation 94, pH is 7.18, pO2 89, FiO2 100%. IMAGING STUDIES: Chest x-ray; moderate bilateral pulmonary infiltrates compatible with pulmonary edema. ASSESSMENT AND PLAN: 1. Acute hypoxic respiratory failure, on mechanical ventilation, present on admission. 2. End-stage renal disease, on hemodialysis, missed hemodialysis. 3. Type 2 diabetes mellitus, insulin-dependent, hyperglycemia. 4. Mild elevation of troponin . 5. Sinus tachycardia. 6. Obesity. PLAN: 1. The patient is currently sedated and intubated on mechanical ventilation and 60% oxygen. Pulmonology has been consulted. 2. Nephrology has been consulted, scheduled for a hemodialysis today. 3. For questionable infection, he was started on Zosyn. We will repeat chest x-ray in a.m. 4. Not able to provide IV hydration due to fluid overload. 5. Sliding scale insulin. 6. DVT prophylaxis and GI prophylaxis for vent bundle. 7. Daily ABGs and daily chest x-ray. 8. Echocardiogram has been ordered. 9. Three sets of troponin ordered. Cardiology has been consulted. 10. Prognosis guarded. I discussed with family members, daughters and at bedside. Current plan explained, agreeable with the management. BEL SANDOVAL MD DR: JOSE MANUEL/jose alberto JOB#: [id number] / [id number] FILIPE
[2017-04-11] MEDS: PROPOFOL 100 ML IV PRN ×3 (11:54→22:27)
[2017-04-11] MEDS: INSULIN ASPART 300 UNITS/3 ML INSULN.PEN SQ SCH ×2 (11:58→16:39)
--- NOTE | 2017-04-11 13:04 | CARD ---
APPROVED REPORT EXAM: Two-dimensional and M-mode echocardiogram with Doppler and color Doppler. Other Information Quality : Good INDICATION Congestive Heart Failure 2D DIMENSIONS RVDd3.2 (2.9-3.5cm)Left Atrium(2D)3.8 (1.6-4.0cm) IVSd1.1 (0.7-1.1cm)Aortic Root(2D)2.9 (2.0-3.7cm) LVDd5.0 (3.9-5.9cm)LVOT Diameter2.1 (1.8-2.4cm) PWd1.2 (0.7-1.1cm)LVDs3.3 (2.5-4.0cm) FS (%) 34.2 %SV73.7 ml LVEF(%)62.9 (>50%) Aortic Valve AoV Peak Nikos.147.3cm/sAoV VTI26.0cm AO Peak GR.8.7mmHgLVOT VTI 19.63cm AO Mean GR.6mmHgAVA (VTI)2.60cm2 Mitral Valve MV E Zjjfjmbv40.3cm/sMV DECEL GCTB337ml MV A Ifwvnipw675.9cm/sE/A Ratio0.8 TDI Lateral E' P. V5.66cm/sMedial E' P. V4.76cm/s E/Lateral E'13.8E/Medial E'16.4 Tricuspid Valve TR P. Rbslkzpv228xp/sRAP [id number] TR Peak Gr.[id number] LEFT VENTRICLE The left ventricle is normal size. There is mild concentric left ventricular hypertrophy. The Ejectio n Fraction is 35-40%. The systolic function is moderately impaired. There is global hypokinesis of th e left ventricle with moderate inferior and infero-septal hypokinesis. Transmitral Doppler flow patte rn is Grade I-abnormal relaxation pattern. RIGHT VENTRICLE The right ventricle is normal size. The right ventricular systolic function is normal. ATRIA The left atrium size is normal. The right atrium size is normal. The interatrial septum is intact wit h no evidence for an atrial septal defect or patent foramen ovale as noted on 2-D or Doppler imaging. AORTIC VALVE The aortic valve is calcified but opens well and is trileaflet. Doppler and Color Flow revealed no si gnificant aortic regurgitation. There is no significant aortic valvular stenosis. MITRAL VALVE The mitral valve is normal in structure and function. There is no evidence of mitral valve prolapse. There is no mitral valve stenosis. Doppler and Color-flow revealed trace mitral regurgitation. TRICUSPID VALVE The tricuspid valve is normal in structure and function. Doppler and Color Flow revealed trace to mil d tricuspid regurgitation. There is moderate pulmonary hypertension. The PA pressure was estimated at 56 mmHg. There is no tricuspid valve stenosis. PULMONIC VALVE Doppler and Color Flow revealed no pulmonic valvular regurgitation. There is no pulmonic valvular devon nosis. GREAT VESSELS The aortic root is normal in size. The ascending aorta is not well seen. The IVC is dilated and colla pses <50% with inspiration. PERICARDIAL EFFUSION There is no evidence of significant pericardial effusion. Critical Notification Critical Value: No <Conclusion> The Ejection Fraction is 35-40%. The systolic function is moderately impaired. There is global hypokinesis of the left ventricle with moderate inferior and infero-septal hypokinesi s. Doppler and Color Flow revealed trace to mild tricuspid regurgitation. There is moderate pulmonary hy pertension. The PA pressure was estimated at 56 mmHg.
[2017-04-11] MEDS: HEPARIN PF for SUB-Q USE 5,000 UNIT/0.5 ML VIAL. SQ SCH ×2 (14:00→21:42)
[2017-04-11] MEDS ORDERED: MULT1TAB52 PO (14:18)
[2017-04-11] MEDS ORDERED: NPH,100V SQ (14:18)
[2017-04-11] MEDS ORDERED: SEVE800T9 PO (14:18)
[2017-04-11] MEDS ORDERED: METO10TA81 PO (14:18)
--- NOTE | 2017-04-11 14:26 | PDOC ---
PULMONARY PROGRESS NOTES Vitals Vital Signs Date Time Temp Pulse Resp B/P (MAP) Pulse Ox O2 Delivery O2 Flow Rate FiO2 04/11/17 13:16 100 Ventilator 04/11/17 13:00 98.6 97 24 116/73 (87) 98.6 04/11/17 04:21 96.0 Labs Laboratory Tests Test 04/11/17 03:30 04/11/17 03:50 04/11/17 03:51 04/11/17 03:54 Urine Collection Type U cath Urine Color Yellow Urine Clarity Clear Urine pH 7.5 Urine Specific [place] 1.010 Urine Protein 100 mg/dL (NEG-TRACE) Urine Glucose (UA) Negative mg/dL (NEG) Urine Ketones (Stick) Negative mg/dL (NEG) Urine Blood Moderate (NEG) Urine Nitrite Negative (NEG) Urine Bilirubin Negative (NEG) Urine Urobilinogen Dipstick 0.2 mg/dL (0.2 mg/dL) Urine Leukocyte Esterase Negative (NEG) Urine RBC 6-10 /HPF (0-2) Urine WBC 1-4 /HPF (0-4) Urine Squamous Epithelial Cells Few /LPF Urine Bacteria 0 /HPF (0-FEW) Urine Mucus Mod /LPF White Blood Count 13.1 x10^3/uL (4.0-11.0) Red Blood Count 4.56 x10^6/uL (4.30-5.70) Hemoglobin 11.6 g/dL (13.0-17.5) Hematocrit 37.5 % (39.0-53.0) Mean Corpuscular Volume 82 fL (79-100) Mean Corpuscular Hemoglobin 25 pg (25-35) Mean Corpuscular Hemoglobin Concent 31 g/dL (31-37) Red Cell Distribution Width 14.2 % (11.5-14.5) Platelet Count 207 x10^3/uL (140-400) Neutrophils (%) (Auto) 50 % (31-73) Lymphocytes (%) (Auto) 42 % (24-48) Monocytes (%) (Auto) 6 % (0-9) Eosinophils (%) (Auto) 2 % (0-3) Basophils (%) (Auto) 0 % (0-3) Neutrophils # (Auto) 6.5 x10^3uL (1.8-7.7) Lymphocytes # (Auto) 5.5 x10^3/uL (1.0-4.8) Monocytes # (Auto) 0.8 x10^3/uL (0.0-1.1) Eosinophils # (Auto) 0.3 x10^3/uL (0.0-0.7) Basophils # (Auto) 0.0 x10^3/uL (0.0-0.2) Sodium Level 143 mmol/L (136-145) Potassium Level 4.5 mmol/L (3.5-5.1) Chloride Level 102 mmol/L (98-107) Carbon Dioxide Level 22 mmol/L (21-32) Anion Gap 19 (6-14) 17 mmol/L (6-14) Blood Urea Nitrogen 74 mg/dL (8-26) Creatinine 18.7 mg/dL (0.7-1.3) Estimated GFR (Cockcroft-Gault) 3.1 Glucose Level 178 mg/dL (70-99) 165 mg/dL (70-99) Lactic Acid Level 4.4 mmol/L (0.4-2.0) Calcium Level 8.4 mg/dL (8.5-10.1) Total Bilirubin 0.4 mg/dL (0.2-1.0) Direct Bilirubin 0.2 mg/dL (0.0-0.2) Aspartate Amino Transf (AST/SGOT) 41 U/L (15-37) Alanine Aminotransferase (ALT/SGPT) 33 U/L (16-63) Alkaline Phosphatase 79 U/L (46-116) Troponin I Quantitative 0.030 ng/mL (0.000-0.055) WQ-Ccw-V-Type Natriuretic Peptide 8491 pg/mL (0-124) Total Protein 7.8 g/dL (6.4-8.2) Albumin 3.3 g/dL (3.4-5.0) Bedside Troponin I 0.04 ng/ml (<0.08) Bedside Hemoglobin 12.9 g/dL (14-18) Bedside Hematocrit 38 % (37-52) Bedside Sodium 138 mmol/L (135-145) Bedside Potassium 4.4 mmol/L (3.5-5.0) Bedside Chloride 104 mmol/L (98-110) Bedside Total CO2 23 mmol/L (23-32) Bedside Blood Urea Nitrogen 76 mg/dL (8-26) Bedside Creatinine 17.8 mg/dL (0.5-1.4) Bedside Ionized Calcium (Devon) 1.00 mmol/L (1.13-1.32) Test 04/11/17 04:14 04/11/17 06:40 04/11/17 08:20 04/11/17 09:30 O2 Saturation 94 % (92-99) 98 % (92-99) Arterial Blood pH 7.18 (7.35-7.45) 7.37 (7.35-7.45) Arterial Blood pCO2 at Patient Temp 54 mmHg (35-46) 34 mmHg (35-46) Arterial Blood pO2 at Patient Temp 89 mmHg (65-108) 140 mmHg (65-108) Arterial Blood HCO3 19 mmol/L (21-28) 19 mmol/L (21-28) Arterial Blood Base Excess -9 mmol/L (-3-3) -5 mmol/L (-3-3) FiO2 100.0 100 Lactic Acid Level 2.6 mmol/L (0.4-2.0) Troponin I Quantitative 0.627 ng/mL (0.000-0.055) Test 04/11/17 11:56 Glucose (Fingerstick) 89 mg/dL (70-99) Laboratory Tests Test 04/11/17 03:30 04/11/17 03:50 04/11/17 03:51 04/11/17 03:54 Urine Collection Type U cath Urine Color Yellow Urine Clarity Clear Urine pH 7.5 Urine Specific [place] 1.010 Urine Protein 100 mg/dL (NEG-TRACE) Urine Glucose (UA) Negative mg/dL (NEG) Urine Ketones (Stick) Negative mg/dL (NEG) Urine Blood Moderate (NEG) Urine Nitrite Negative (NEG) Urine Bilirubin Negative (NEG) Urine Urobilinogen Dipstick 0.2 mg/dL (0.2 mg/dL) Urine Leukocyte Esterase Negative (NEG) Urine RBC 6-10 /HPF (0-2) Urine WBC 1-4 /HPF (0-4) Urine Squamous Epithelial Cells Few /LPF Urine Bacteria 0 /HPF (0-FEW) Urine Mucus Mod /LPF White Blood Count 13.1 x10^3/uL (4.0-11.0) Red Blood Count 4.56 x10^6/uL (4.30-5.70) Hemoglobin 11.6 g/dL (13.0-17.5) Hematocrit 37.5 % (39.0-53.0) Mean Corpuscular Volume 82 fL (79-100) Mean Corpuscular Hemoglobin 25 pg (25-35) Mean Corpuscular Hemoglobin Concent 31 g/dL (31-37) Red Cell Distribution Width 14.2 % (11.5-14.5) Platelet Count 207 x10^3/uL (140-400) Neutrophils (%) (Auto) 50 % (31-73) Lymphocytes (%) (Auto) 42 % (24-48) Monocytes (%) (Auto) 6 % (0-9) Eosinophils (%) (Auto) 2 % (0-3) Basophils (%) (Auto) 0 % (0-3) Neutrophils # (Auto) 6.5 x10^3uL (1.8-7.7) Lymphocytes # (Auto) 5.5 x10^3/uL (1.0-4.8) Monocytes # (Auto) 0.8 x10^3/uL (0.0-1.1) Eosinophils # (Auto) 0.3 x10^3/uL (0.0-0.7) Basophils # (Auto) 0.0 x10^3/uL (0.0-0.2) Sodium Level 143 mmol/L (136-145) Potassium Level 4.5 mmol/L (3.5-5.1) Chloride Level 102 mmol/L (98-107) Carbon Dioxide Level 22 mmol/L (21-32) Anion Gap 19 (6-14) 17 mmol/L (6-14) Blood Urea Nitrogen 74 mg/dL (8-26) Creatinine 18.7 mg/dL (0.7-1.3) Estimated GFR (Cockcroft-Gault) 3.1 Glucose Level 178 mg/dL (70-99) 165 mg/dL (70-99) Lactic Acid Level 4.4 mmol/L (0.4-2.0) Calcium Level 8.4 mg/dL (8.5-10.1) Total Bilirubin 0.4 mg/dL (0.2-1.0) Direct Bilirubin 0.2 mg/dL (0.0-0.2) Aspartate Amino Transf (AST/SGOT) 41 U/L (15-37) Alanine Aminotransferase (ALT/SGPT) 33 U/L (16-63) Alkaline Phosphatase 79 U/L (46-116) Troponin I Quantitative 0.030 ng/mL (0.000-0.055) BY-Jtg-Q-Type Natriuretic Peptide 8491 pg/mL (0-124) Total Protein 7.8 g/dL (6.4-8.2) Albumin 3.3 g/dL (3.4-5.0) Bedside Troponin I 0.04 ng/ml (<0.08) Bedside Hemoglobin 12.9 g/dL (14-18) Bedside Hematocrit 38 % (37-52) Bedside Sodium 138 mmol/L (135-145) Bedside Potassium 4.4 mmol/L (3.5-5.0) Bedside Chloride 104 mmol/L (98-110) Bedside Total CO2 23 mmol/L (23-32) Bedside Blood Urea Nitrogen 76 mg/dL (8-26) Bedside Creatinine 17.8 mg/dL (0.5-1.4) Bedside Ionized Calcium (Devon) 1.00 mmol/L (1.13-1.32) Test 04/11/17 04:14 04/11/17 06:40 04/11/17 08:20 04/11/17 09:30 O2 Saturation 94 % (92-99) 98 % (92-99) Arterial Blood pH 7.18 (7.35-7.45) 7.37 (7.35-7.45) Arterial Blood pCO2 at Patient Temp 54 mmHg (35-46) 34 mmHg (35-46) Arterial Blood pO2 at Patient Temp 89 mmHg (65-108) 140 mmHg (65-108) Arterial Blood HCO3 19 mmol/L (21-28) 19 mmol/L (21-28) Arterial Blood Base Excess -9 mmol/L (-3-3) -5 mmol/L (-3-3) FiO2 100.0 100 Lactic Acid Level 2.6 mmol/L (0.4-2.0) Troponin I Quantitative 0.627 ng/mL (0.000-0.055) Test 04/11/17 11:56 Glucose (Fingerstick) 89 mg/dL (70-99) Medications Active Scripts Medications Dose Route/Sig Max Daily Dose Days Date Category Renvela (Sevelamer Carbonate) 800 Mg Tablet 2 Tab PO TID 04/11/17 Reported Multivitamins (Multivitamin) 1 Each Tablet 1 Tab PO DAILY 04/11/17 Reported Humulin N (Nph, Human Insulin Isophane) 100 Unit/1 Ml Vial 30 Unit SQ DAILY 04/11/17 Reported Reglan (Metoclopramide Hcl) 10 Mg Tablet 5 Mg PO TID 04/11/17 Reported Impression . FULL CONSULT DICTATED ACUTE RESP FAILURE SEC TO ACUTE PULMONARY EDEMA WILL POSSIBLE EXTUBATE IN AM NIRALI MENESES MD April 11, 2017 14:26
[2017-04-11] MEDS: PANTOPRAZOLE IV PUSH 40 MG VIAL. IVP SCH (16:18)
[2017-04-11 16:26] LABS: HCO3 ABG 29 mmol/L (21-28); PCO2 ABG 30 mmHg (35-46); PO2 ABG 63 mmHg (65-108); SAT O2 ABG 94 % (92-99)
[2017-04-11 16:28] LABS: FIO2 ABG 40; PH ABG 7.61 (7.35-7.45)
[2017-04-11] MEDS: PIPERACILLIN/TAZOBACTAM 2.25 GM in IV NORMAL SALINE 50ML 50 ML IV SCH (16:43)
[2017-04-11] MEDS ORDERED: CARV12.52 PO (19:49)
[2017-04-11] MEDS ORDERED: CALC667T PO (19:49)
[2017-04-11] MEDS ORDERED: CALC0.5C PO (19:49)
[2017-04-11] MEDS ORDERED: ATOR20TA58 PO (19:49)
[2017-04-11] MEDS: CHLORHEXIDINE 0.12% 15 ML MOUTHWASH. MM SCH (21:41)
[2017-04-12] VITALS (24 sets, daily range): BP systolic 67–159; BP diastolic 46–88
[2017-04-12] MEDS: PROPOFOL 100 ML IV PRN ×3 (02:09→11:51)
[2017-04-12] MEDS: PIPERACILLIN/TAZOBACTAM 2.25 GM in IV NORMAL SALINE 50ML 50 ML IV SCH ×3 (04:15→21:41)
--- NOTE | 2017-04-12 04:38 | CONS ---
DATE OF CONSULTATION: 04/11/2017 ATTENDING PHYSICIAN: Dallas Vale M.D. REASON FOR CONSULTATION: The patient is seen in pulmonary consultation at the request of Dr. Vale for acute respiratory failure requiring mechanical ventilation. HISTORY OF PRESENT ILLNESS: The patient is a 61-year-old male with a history of renal failure, apparently missed his dialysis, presented to the Emergency Room with acute onset of shortness of breath and some chest discomfort. He was found to have saturations of 60% on room air. He was in significant respiratory distress. He refused CPAP. He was eventually intubated. He is currently on rate of 24, tidal volume of 600, PEEP of 7 on 40% FiO2. He is currently undergoing hemodialysis. I was asked to manage the vent. Chest x-ray was reviewed, revealed evidence of bilateral pulmonary infiltrates compatible with pulmonary edema. PAST MEDICAL HISTORY: End-stage renal disease, hypertension, diabetes. PAST SURGICAL HISTORY: Status post hemodialysis catheter, peritoneal dialysis catheter. ALLERGIES: Unknown. REVIEW OF SYSTEMS: Unobtainable secondary to the patient's condition. FAMILY HISTORY: Remarkable for hypertension. PHYSICAL EXAMINATION: GENERAL: The patient was sedated, on mechanical ventilation, undergoing hemodialysis. HEENT: Eyes: The sclerae were nonicteric. NECK: Jugular venous distention was not elevated. LUNGS: Anteriorly were clear. CARDIOVASCULAR: Regular rate and rhythm with S1 and S2, no S3. ABDOMEN: Soft, nontender, nondistended. EXTREMITIES: No clubbing or cyanosis. Minimal edema. NEUROLOGIC: The patient was sedated. LABORATORY DATA: White count was slightly elevated. Arterial blood gas initially revealed a pH of 7.18, PaCO2 of 54, pO2 of 89. Repeat arterial blood gas with pH of 7.37, pCO2 of 34, pO2 of 140. Electrolytes were noted. Lactic acid was initially elevated, repeat was decreased. Troponin was elevated. BNP was elevated. IMPRESSION: 1. Acute respiratory failure secondary to acute pulmonary edema. 2. Acute pulmonary edema, suspect combination of missing dialysis and partially cardiac in origin. 3. Cardiomyopathy with recent ejection fraction estimated at 35%. It is unknown if this is new or old. 4. Elevated troponin level, possibly [id number] elevation myocardial infarction. 5. Chronic renal failure. 6. Increased lactic acidosis secondary to increased work of breathing, doubt sepsis. 7. Combination of metabolic and respiratory acidosis, improved. PLAN: 1. Continue hemodialysis, negative fluid balance. 2. Decreased rate to 18, decreased PEEP to 4, repeat arterial blood gas once hemodialysis has been terminated. 3. Possible extubation in the a.m. 4. No need for antibiotics. 5. Monitor glucose. 6. DVT and GI prophylaxis. 7. Consult Cardiology, already performed. I do appreciate the privilege in sharing in the patient's care. Total cumulative critical care time of 45 minutes. NIRALI MENESES MD DR: JAMILA/jose alberto JOB#: [id number] / [id number]
[2017-04-12 05:11] LABS: CALCIUM 8.4 mg/dL (8.5-10.1); CREATININE 12.7 mg/dL (0.7-1.3); GFR 4.9; POTASSIUM 4.4 mmol/L (3.5-5.1)
[2017-04-12 05:26] LABS: BASO % 0 % (0-3); EOS % 0 % (0-3); HEMATOCRIT 31.2 % (39.0-53.0); HEMOGLOBIN 10.3 g/dL (13.0-17.5); LYMPH # 1.1 x10^3/uL (1.0-4.8); LYMPH % 14 % (24-48); MEAN CORPUSCULAR HEMOGLOBIN 26 pg (25-35); MEAN CORPUSCULAR HGB CONC 33 g/dL (31-37); MEAN CORPUSCULAR VOLUME 78 fL (79-100); MONO % 9 % (0-9); NEUT % 76 % (31-73); PLATELET COUNT 116 x10^3/uL (140-400); RED BLOOD COUNT 4.02 x10^6/uL (4.30-5.70); WHITE BLOOD COUNT 7.9 x10^3/uL (4.0-11.0)
[2017-04-12 05:34] LABS: CHOLESTEROL/HDL RATIO 2.3
[2017-04-12] MEDS: HEPARIN PF for SUB-Q USE 5,000 UNIT/0.5 ML VIAL. SQ SCH ×3 (06:11→21:42)
[2017-04-12] MEDS: INSULIN ASPART 300 UNITS/3 ML INSULN.PEN SQ SCH ×4 (07:20→20:37)
[2017-04-12 07:44] LABS: HCO3 ABG 28 mmol/L (21-28); PCO2 ABG 40 mmHg (35-46); PH ABG 7.47 (7.35-7.45); PO2 ABG 87 mmHg (65-108); SAT O2 ABG 96 % (92-99)
[2017-04-12 07:47] LABS: FIO2 ABG 40
--- NOTE | 2017-04-12 08:28 | EKG ---
[facility] [address] [place] [address] Test Date: 2017-04-11 Test Time: 03:11:03 Pat Name: RUSSEL MAE Department: Room: 111 1 Gender: M [employer]otype Operator: : [id number] Requested By: HIPOLITO CHOI Order Number: [id number] Reading MD: Trisha Duran Measurements Intervals [place] Rate: 141 P: 63 TN: 96 QRS: -10 QRSD: 98 T: 122 QT: 282 QTc: 434 Interpretive Statements SINUS TACHYCARDIA LEFTWARD AXIS ST & T ABNORMALITY, CONSIDER ANTEROLATERAL ISCHEMIA RI6.01 Unconfirmed report No previous ECG available for comparison Electronically Signed On 04-13-2017 21:46:03 CDT by Trisha Duran
--- NOTE | 2017-04-12 08:47 | RAD ---
Indication respiratory failure. A single view of the chest was obtained and is compared to a study one day earlier. Widespread pulmonary alveolar infiltrates, most compatible with pulmonary edema, seen previously have improved substantially. There is volume loss in the left lower lobe likely reflecting pleural fluid and atelectasis. There is no pneumothorax. Endotracheal tube is appropriately positioned above the rafia. Nasogastric tube is in the stomach. IMPRESSION: Interval improvement in widespread infiltrates which, previously, likely reflected pulmonary edema. New volume loss in the left lower lobe likely reflecting pleural fluid and atelectasis. Appropriately positioned endotracheal and nasogastric tubes
[2017-04-12] MEDS: CHLORHEXIDINE 0.12% 15 ML MOUTHWASH. MM SCH (09:00)
[2017-04-12] MEDS ORDERED: PNEUMOC CONJ VACC 23-VALENT 0.5 ML VIAL. VAX IM ONE (09:00)
--- NOTE | 2017-04-12 09:59 | PDOC ---
Renal-Progress Notes Subjective Notes Notes REMAINS INTUBATED History of Present Illness Hx of present illness STABLE Vitals Vitals Vital Signs Date Time Temp Pulse Resp B/P (MAP) Pulse Ox O2 Delivery O2 Flow Rate FiO2 04/12/17 07:28 99 Ventilator 04/12/17 06:00 84 12 95/58 (70) 04/12/17 04:00 98.6 98.6 Weight Weight [ ] I.O. Intake and Output Intake and Output 04/12/17 07:00 Intake Total 711 ml Output Total 678 ml Balance 33 ml Intake IV Total 572 ml Tube Feeding 139 ml Output Urine Total 78 ml Gastric Drainage Total 600 ml # Bowel Movements 2 Labs Labs Laboratory Tests Test 04/11/17 11:56 04/11/17 15:39 04/11/17 15:45 04/11/17 16:20 Glucose (Fingerstick) 89 mg/dL (70-99) 105 mg/dL (70-99) O2 Saturation 94 % (92-99) Arterial Blood pH 7.61 (7.35-7.45) Arterial Blood pCO2 at Patient Temp 30 mmHg (35-46) Arterial Blood pO2 at Patient Temp 63 mmHg (65-108) Arterial Blood HCO3 29 mmol/L (21-28) Arterial Blood Base Excess 7 mmol/L (-3-3) FiO2 40 Troponin I Quantitative 0.811 ng/mL (0.000-0.055) Test 04/12/17 00:13 04/12/17 04:10 04/12/17 06:10 04/12/17 07:40 Glucose (Fingerstick) 109 mg/dL (70-99) 124 mg/dL (70-99) White Blood Count 7.9 x10^3/uL (4.0-11.0) Red Blood Count 4.02 x10^6/uL (4.30-5.70) Hemoglobin 10.3 g/dL (13.0-17.5) Hematocrit 31.2 % (39.0-53.0) Mean Corpuscular Volume 78 fL (79-100) Mean Corpuscular Hemoglobin 26 pg (25-35) Mean Corpuscular Hemoglobin Concent 33 g/dL (31-37) Red Cell Distribution Width 14.0 % (11.5-14.5) Platelet Count 116 x10^3/uL (140-400) Neutrophils (%) (Auto) 76 % (31-73) Lymphocytes (%) (Auto) 14 % (24-48) Monocytes (%) (Auto) 9 % (0-9) Eosinophils (%) (Auto) 0 % (0-3) Basophils (%) (Auto) 0 % (0-3) Neutrophils # (Auto) 6.0 x10^3uL (1.8-7.7) Lymphocytes # (Auto) 1.1 x10^3/uL (1.0-4.8) Monocytes # (Auto) 0.7 x10^3/uL (0.0-1.1) Eosinophils # (Auto) 0.0 x10^3/uL (0.0-0.7) Basophils # (Auto) 0.0 x10^3/uL (0.0-0.2) Sodium Level 141 mmol/L (136-145) Potassium Level 4.4 mmol/L (3.5-5.1) Chloride Level 97 mmol/L (98-107) Carbon Dioxide Level 31 mmol/L (21-32) Anion Gap 13 (6-14) Blood Urea Nitrogen 45 mg/dL (8-26) Creatinine 12.7 mg/dL (0.7-1.3) Estimated GFR (Cockcroft-Gault) 4.9 Glucose Level 130 mg/dL (70-99) Calcium Level 8.4 mg/dL (8.5-10.1) Troponin I Quantitative 0.423 ng/mL (0.000-0.055) Triglycerides Level 150 mg/dL (0-150) Cholesterol Level 100 mg/dL (0-200) LDL Cholesterol, Calculated 26 mg/dL (0-100) VLDL Cholesterol, Calculated 30 mg/dL (0-40) Non-HDL Cholesterol Calculated 56 mg/dL (0-129) HDL Cholesterol 44 mg/dL (40-60) Cholesterol/HDL Ratio 2.3 O2 Saturation 96 % (92-99) Arterial Blood pH 7.47 (7.35-7.45) Arterial Blood pCO2 at Patient Temp 40 mmHg (35-46) Arterial Blood pO2 at Patient Temp 87 mmHg (65-108) Arterial Blood HCO3 28 mmol/L (21-28) Arterial Blood Base Excess 4 mmol/L (-3-3) FiO2 40 Micro Micro Microbiology 04/11/17 Blood Culture - Preliminary, Resulted NO GROWTH AFTER 1 DAY Review of Systems Constitutional: yes: no symptom reported Physical Exam General Appearance: no apparent distress Respiratory: bilateral CTA Heart: S1S2 Abdomen: soft, bowel sounds present Genitourinary: bladder flat Extremities: pulses present, no edema, atrophy Assessment Assessment IMP RESP FAILURE HYPERVOLEMIA PULMONARY EDEMA ESRD PLAN HD AGAIN TODAY UF TO DW TOLERATED VENT WEAN YENI COSTA MD April 12, 2017 09:59
[2017-04-12] MEDS ORDERED: IV NORMAL SALINE 1000ML BAG 1,000 ML IV PRN (11:52)
--- NOTE | 2017-04-12 11:53 | PDOC ---
CARDIO Progress Notes Date and Time Date of Service 04/12/2017 Time of Evaluation 1152 Subjective Subjective: Other (intubated/sedated) Vitals Vitals Vital Signs Date Time Temp Pulse Resp B/P (MAP) Pulse Ox O2 Delivery O2 Flow Rate FiO2 04/12/17 10:54 100 Ventilator 04/12/17 06:00 84 12 95/58 (70) 04/12/17 04:00 98.6 98.6 Weight Weight [ ] Stability Assessment Stability Assess.: unstable for transfer (Intesive V. sign monit. req) Input and Output Intake and Output Intake and Output 04/12/17 06:59 Intake Total 711 ml Output Total 678 ml Balance 33 ml Intake IV Total 572 ml Tube Feeding 139 ml Output Urine Total 78 ml Gastric Drainage Total 600 ml # Bowel Movements 2 Laboratory Labs Laboratory Tests Test 04/11/17 11:56 04/11/17 15:39 04/11/17 15:45 04/11/17 16:20 Glucose (Fingerstick) 89 mg/dL (70-99) 105 mg/dL (70-99) O2 Saturation 94 % (92-99) Arterial Blood pH 7.61 (7.35-7.45) Arterial Blood pCO2 at Patient Temp 30 mmHg (35-46) Arterial Blood pO2 at Patient Temp 63 mmHg (65-108) Arterial Blood HCO3 29 mmol/L (21-28) Arterial Blood Base Excess 7 mmol/L (-3-3) FiO2 40 Troponin I Quantitative 0.811 ng/mL (0.000-0.055) Test 04/12/17 00:13 04/12/17 04:10 04/12/17 06:10 04/12/17 07:40 Glucose (Fingerstick) 109 mg/dL (70-99) 124 mg/dL (70-99) White Blood Count 7.9 x10^3/uL (4.0-11.0) Red Blood Count 4.02 x10^6/uL (4.30-5.70) Hemoglobin 10.3 g/dL (13.0-17.5) Hematocrit 31.2 % (39.0-53.0) Mean Corpuscular Volume 78 fL (79-100) Mean Corpuscular Hemoglobin 26 pg (25-35) Mean Corpuscular Hemoglobin Concent 33 g/dL (31-37) Red Cell Distribution Width 14.0 % (11.5-14.5) Platelet Count 116 x10^3/uL (140-400) Neutrophils (%) (Auto) 76 % (31-73) Lymphocytes (%) (Auto) 14 % (24-48) Monocytes (%) (Auto) 9 % (0-9) Eosinophils (%) (Auto) 0 % (0-3) Basophils (%) (Auto) 0 % (0-3) Neutrophils # (Auto) 6.0 x10^3uL (1.8-7.7) Lymphocytes # (Auto) 1.1 x10^3/uL (1.0-4.8) Monocytes # (Auto) 0.7 x10^3/uL (0.0-1.1) Eosinophils # (Auto) 0.0 x10^3/uL (0.0-0.7) Basophils # (Auto) 0.0 x10^3/uL (0.0-0.2) Sodium Level 141 mmol/L (136-145) Potassium Level 4.4 mmol/L (3.5-5.1) Chloride Level 97 mmol/L (98-107) Carbon Dioxide Level 31 mmol/L (21-32) Anion Gap 13 (6-14) Blood Urea Nitrogen 45 mg/dL (8-26) Creatinine 12.7 mg/dL (0.7-1.3) Estimated GFR (Cockcroft-Gault) 4.9 Glucose Level 130 mg/dL (70-99) Calcium Level 8.4 mg/dL (8.5-10.1) Troponin I Quantitative 0.423 ng/mL (0.000-0.055) Triglycerides Level 150 mg/dL (0-150) Cholesterol Level 100 mg/dL (0-200) LDL Cholesterol, Calculated 26 mg/dL (0-100) VLDL Cholesterol, Calculated 30 mg/dL (0-40) Non-HDL Cholesterol Calculated 56 mg/dL (0-129) HDL Cholesterol 44 mg/dL (40-60) Cholesterol/HDL Ratio 2.3 O2 Saturation 96 % (92-99) Arterial Blood pH 7.47 (7.35-7.45) Arterial Blood pCO2 at Patient Temp 40 mmHg (35-46) Arterial Blood pO2 at Patient Temp 87 mmHg (65-108) Arterial Blood HCO3 28 mmol/L (21-28) Arterial Blood Base Excess 4 mmol/L (-3-3) FiO2 40 Microbiology Micro Microbiology 04/11/17 Blood Culture - Preliminary, Resulted NO GROWTH AFTER 1 DAY Physical Exam HEENT: Neck Supple W Full Motion Chest: Symmetric LUNGS: Other (crackles - bases anteriorly) Heart: S1S2, other (tele: SR) Abdomen: Soft N/T Extremities: No Edema Neurology: other (sedated) Assessment Assessment 1. acute CHF, systolic and diastolic LVEF depressed @ 35-40% with inferior and inferoseptal hypokinesis - ? new will need fluid management via HD/nephrology control BP 2. NSTEMI troponin peaked @ 0.8; inferior and inferoseptal hypokinesis on echo risk factors for ischemic disease likely needs ischemic evaluation prior to discharge - ? of cardiac cath done at in the past - will try to obtain records 3. acute respiratory failure vent per pulm 4. HTN control with meds & HD 5. anemia of chronic disease 6. ESRD with HD dialyzing again today CAPO CHEATHAM APRN April 12, 2017 11:53
[2017-04-12] MEDS ORDERED: DIALYSIS PATIENT. MC PRN (12:00)
[2017-04-12] MEDS ORDERED: ASPIRIN 300 MG SUPP.RECT PR SCH (12:00)
--- NOTE | 2017-04-12 12:06 | PDOC ---
PULMONARY PROGRESS NOTES Subjective pt did well on trial Extubated no resp complaints Vitals Vital Signs Date Time Temp Pulse Resp B/P (MAP) Pulse Ox O2 Delivery O2 Flow Rate FiO2 04/12/17 10:54 100 Ventilator 04/12/17 06:00 84 12 95/58 (70) 04/12/17 04:00 98.6 98.6 ROS: No Nausea, No Chest Pain, No Abdominal Pain, No Increase Cough General: Alert Lungs: Clear Cardiovascular: S1, S2 Abdomen: Soft Neuro Exam: Alert Extremities: No Edema Skin: Warm Labs Laboratory Tests Test 04/11/17 03:30 04/11/17 03:50 04/11/17 03:51 04/11/17 03:54 Urine Collection Type U cath Urine Color Yellow Urine Clarity Clear Urine pH 7.5 Urine Specific [place] 1.010 Urine Protein 100 mg/dL (NEG-TRACE) Urine Glucose (UA) Negative mg/dL (NEG) Urine Ketones (Stick) Negative mg/dL (NEG) Urine Blood Moderate (NEG) Urine Nitrite Negative (NEG) Urine Bilirubin Negative (NEG) Urine Urobilinogen Dipstick 0.2 mg/dL (0.2 mg/dL) Urine Leukocyte Esterase Negative (NEG) Urine RBC 6-10 /HPF (0-2) Urine WBC 1-4 /HPF (0-4) Urine Squamous Epithelial Cells Few /LPF Urine Bacteria 0 /HPF (0-FEW) Urine Mucus Mod /LPF White Blood Count 13.1 x10^3/uL (4.0-11.0) Red Blood Count 4.56 x10^6/uL (4.30-5.70) Hemoglobin 11.6 g/dL (13.0-17.5) Hematocrit 37.5 % (39.0-53.0) Mean Corpuscular Volume 82 fL (79-100) Mean Corpuscular Hemoglobin 25 pg (25-35) Mean Corpuscular Hemoglobin Concent 31 g/dL (31-37) Red Cell Distribution Width 14.2 % (11.5-14.5) Platelet Count 207 x10^3/uL (140-400) Neutrophils (%) (Auto) 50 % (31-73) Lymphocytes (%) (Auto) 42 % (24-48) Monocytes (%) (Auto) 6 % (0-9) Eosinophils (%) (Auto) 2 % (0-3) Basophils (%) (Auto) 0 % (0-3) Neutrophils # (Auto) 6.5 x10^3uL (1.8-7.7) Lymphocytes # (Auto) 5.5 x10^3/uL (1.0-4.8) Monocytes # (Auto) 0.8 x10^3/uL (0.0-1.1) Eosinophils # (Auto) 0.3 x10^3/uL (0.0-0.7) Basophils # (Auto) 0.0 x10^3/uL (0.0-0.2) Sodium Level 143 mmol/L (136-145) Potassium Level 4.5 mmol/L (3.5-5.1) Chloride Level 102 mmol/L (98-107) Carbon Dioxide Level 22 mmol/L (21-32) Anion Gap 19 (6-14) 17 mmol/L (6-14) Blood Urea Nitrogen 74 mg/dL (8-26) Creatinine 18.7 mg/dL (0.7-1.3) Estimated GFR (Cockcroft-Gault) 3.1 Glucose Level 178 mg/dL (70-99) 165 mg/dL (70-99) Lactic Acid Level 4.4 mmol/L (0.4-2.0) Calcium Level 8.4 mg/dL (8.5-10.1) Total Bilirubin 0.4 mg/dL (0.2-1.0) Direct Bilirubin 0.2 mg/dL (0.0-0.2) Aspartate Amino Transf (AST/SGOT) 41 U/L (15-37) Alanine Aminotransferase (ALT/SGPT) 33 U/L (16-63) Alkaline Phosphatase 79 U/L (46-116) Troponin I Quantitative 0.030 ng/mL (0.000-0.055) [id number]-Type Natriuretic Peptide 8491 pg/mL (0-124) Total Protein 7.8 g/dL (6.4-8.2) Albumin 3.3 g/dL (3.4-5.0) Hepatitis B Surface Antigen Negative (Negative) Bedside Troponin I 0.04 ng/ml (<0.08) Bedside Hemoglobin 12.9 g/dL (14-18) Bedside Hematocrit 38 % (37-52) Bedside Sodium 138 mmol/L (135-145) Bedside Potassium 4.4 mmol/L (3.5-5.0) Bedside Chloride 104 mmol/L (98-110) Bedside Total CO2 23 mmol/L (23-32) Bedside Blood Urea Nitrogen 76 mg/dL (8-26) Bedside Creatinine 17.8 mg/dL (0.5-1.4) Bedside Ionized Calcium ([place]) 1.00 mmol/L (1.13-1.32) Test 04/11/17 04:14 04/11/17 05:50 04/11/17 06:40 04/11/17 08:20 O2 Saturation 94 % (92-99) 98 % (92-99) Arterial Blood pH 7.18 (7.35-7.45) 7.37 (7.35-7.45) Arterial Blood pCO2 at Patient Temp 54 mmHg (35-46) 34 mmHg (35-46) Arterial Blood pO2 at Patient Temp 89 mmHg (65-108) 140 mmHg (65-108) Arterial Blood HCO3 19 mmol/L (21-28) 19 mmol/L (21-28) Arterial Blood Base Excess -9 mmol/L (-3-3) -5 mmol/L (-3-3) FiO2 100.0 100 Nasal Screen MRSA (PCR) Negative (Negative) Lactic Acid Level 2.6 mmol/L (0.4-2.0) Test 04/11/17 09:30 04/11/17 11:56 04/11/17 15:39 04/11/17 15:45 Troponin I Quantitative 0.627 ng/mL (0.000-0.055) 0.811 ng/mL (0.000-0.055) Glucose (Fingerstick) 89 mg/dL (70-99) O2 Saturation 94 % (92-99) Arterial Blood pH 7.61 (7.35-7.45) Arterial Blood pCO2 at Patient Temp 30 mmHg (35-46) Arterial Blood pO2 at Patient Temp 63 mmHg (65-108) Arterial Blood HCO3 29 mmol/L (21-28) Arterial Blood Base Excess 7 mmol/L (-3-3) FiO2 40 Test 04/11/17 16:20 04/12/17 00:13 04/12/17 04:10 04/12/17 06:10 Glucose (Fingerstick) 105 mg/dL (70-99) 109 mg/dL (70-99) 124 mg/dL (70-99) White Blood Count 7.9 x10^3/uL (4.0-11.0) Red Blood Count 4.02 x10^6/uL (4.30-5.70) Hemoglobin 10.3 g/dL (13.0-17.5) Hematocrit 31.2 % (39.0-53.0) Mean Corpuscular Volume 78 fL (79-100) Mean Corpuscular Hemoglobin 26 pg (25-35) Mean Corpuscular Hemoglobin Concent 33 g/dL (31-37) Red Cell Distribution Width 14.0 % (11.5-14.5) Platelet Count 116 x10^3/uL (140-400) Neutrophils (%) (Auto) 76 % (31-73) Lymphocytes (%) (Auto) 14 % (24-48) Monocytes (%) (Auto) 9 % (0-9) Eosinophils (%) (Auto) 0 % (0-3) Basophils (%) (Auto) 0 % (0-3) Neutrophils # (Auto) 6.0 x10^3uL (1.8-7.7) Lymphocytes # (Auto) 1.1 x10^3/uL (1.0-4.8) Monocytes # (Auto) 0.7 x10^3/uL (0.0-1.1) Eosinophils # (Auto) 0.0 x10^3/uL (0.0-0.7) Basophils # (Auto) 0.0 x10^3/uL (0.0-0.2) Sodium Level 141 mmol/L (136-145) Potassium Level 4.4 mmol/L (3.5-5.1) Chloride Level 97 mmol/L (98-107) Carbon Dioxide Level 31 mmol/L (21-32) Anion Gap 13 (6-14) Blood Urea Nitrogen 45 mg/dL (8-26) Creatinine 12.7 mg/dL (0.7-1.3) Estimated GFR (Cockcroft-Gault) 4.9 Glucose Level 130 mg/dL (70-99) Calcium Level 8.4 mg/dL (8.5-10.1) Troponin I Quantitative 0.423 ng/mL (0.000-0.055) Triglycerides Level 150 mg/dL (0-150) Cholesterol Level 100 mg/dL (0-200) LDL Cholesterol, Calculated 26 mg/dL (0-100) VLDL Cholesterol, Calculated 30 mg/dL (0-40) Non-HDL Cholesterol Calculated 56 mg/dL (0-129) HDL Cholesterol 44 mg/dL (40-60) Cholesterol/HDL Ratio 2.3 Test 04/12/17 07:40 O2 Saturation 96 % (92-99) Arterial Blood pH 7.47 (7.35-7.45) Arterial Blood pCO2 at Patient Temp 40 mmHg (35-46) Arterial Blood pO2 at Patient Temp 87 mmHg (65-108) Arterial Blood HCO3 28 mmol/L (21-28) Arterial Blood Base Excess 4 mmol/L (-3-3) FiO2 40 Laboratory Tests Test 04/11/17 15:39 04/11/17 15:45 04/11/17 16:20 04/12/17 00:13 O2 Saturation 94 % (92-99) Arterial Blood pH 7.61 (7.35-7.45) Arterial Blood pCO2 at Patient Temp 30 mmHg (35-46) Arterial Blood pO2 at Patient Temp 63 mmHg (65-108) Arterial Blood HCO3 29 mmol/L (21-28) Arterial Blood Base Excess 7 mmol/L (-3-3) FiO2 40 Troponin I Quantitative 0.811 ng/mL (0.000-0.055) Glucose (Fingerstick) 105 mg/dL (70-99) 109 mg/dL (70-99) Test 04/12/17 04:10 04/12/17 06:10 04/12/17 07:40 White Blood Count 7.9 x10^3/uL (4.0-11.0) Red Blood Count 4.02 x10^6/uL (4.30-5.70) Hemoglobin 10.3 g/dL (13.0-17.5) Hematocrit 31.2 % (39.0-53.0) Mean Corpuscular Volume 78 fL (79-100) Mean Corpuscular Hemoglobin 26 pg (25-35) Mean Corpuscular Hemoglobin Concent 33 g/dL (31-37) Red Cell Distribution Width 14.0 % (11.5-14.5) Platelet Count 116 x10^3/uL (140-400) Neutrophils (%) (Auto) 76 % (31-73) Lymphocytes (%) (Auto) 14 % (24-48) Monocytes (%) (Auto) 9 % (0-9) Eosinophils (%) (Auto) 0 % (0-3) Basophils (%) (Auto) 0 % (0-3) Neutrophils # (Auto) 6.0 x10^3uL (1.8-7.7) Lymphocytes # (Auto) 1.1 x10^3/uL (1.0-4.8) Monocytes # (Auto) 0.7 x10^3/uL (0.0-1.1) Eosinophils # (Auto) 0.0 x10^3/uL (0.0-0.7) Basophils # (Auto) 0.0 x10^3/uL (0.0-0.2) Sodium Level 141 mmol/L (136-145) Potassium Level 4.4 mmol/L (3.5-5.1) Chloride Level 97 mmol/L (98-107) Carbon Dioxide Level 31 mmol/L (21-32) Anion Gap 13 (6-14) Blood Urea Nitrogen 45 mg/dL (8-26) Creatinine 12.7 mg/dL (0.7-1.3) Estimated GFR (Cockcroft-Gault) 4.9 Glucose Level 130 mg/dL (70-99) Calcium Level 8.4 mg/dL (8.5-10.1) Troponin I Quantitative 0.423 ng/mL (0.000-0.055) Triglycerides Level 150 mg/dL (0-150) Cholesterol Level 100 mg/dL (0-200) LDL Cholesterol, Calculated 26 mg/dL (0-100) VLDL Cholesterol, Calculated 30 mg/dL (0-40) Non-HDL Cholesterol Calculated 56 mg/dL (0-129) HDL Cholesterol 44 mg/dL (40-60) Cholesterol/HDL Ratio 2.3 Glucose (Fingerstick) 124 mg/dL (70-99) O2 Saturation 96 % (92-99) Arterial Blood pH 7.47 (7.35-7.45) Arterial Blood pCO2 at Patient Temp 40 mmHg (35-46) Arterial Blood pO2 at Patient Temp 87 mmHg (65-108) Arterial Blood HCO3 28 mmol/L (21-28) Arterial Blood Base Excess 4 mmol/L (-3-3) FiO2 40 Medications Active Scripts Medications Dose Route/Sig Max Daily Dose Days Date Category Renvela (Sevelamer Carbonate) 800 Mg Tablet 2 Tab PO TID 04/11/17 Reported Multivitamins (Multivitamin) 1 Each Tablet 1 Tab PO DAILY 04/11/17 Reported Humulin N (Nph, Human Insulin Isophane) 100 Unit/1 Ml Vial 30 Unit SQ DAILY 04/11/17 Reported Reglan (Metoclopramide Hcl) 10 Mg Tablet 5 Mg PO TID 04/11/17 Reported Impression . 1. Acute respiratory failure secondary to acute pulmonary edema. 2. Acute pulmonary edema, suspect combination of missing dialysis and partially cardiac in origin. 3. Cardiomyopathy with recent ejection fraction estimated at 35%. It is unknown if this is new or old. 4. Elevated troponin level, possibly [id number] elevation myocardial infarction. 5. Chronic renal failure. 6. Increased lactic acidosis secondary to increased work of breathing, doubt sepsis. 7. Combination of metabolic and respiratory acidosis, improved. Plan . 1. Continue hemodialysis, negative fluid balance. 2. trial did well now extubated 3. 6 min walk prior to d/c 4. No need for antibiotics. 5. Monitor glucose. 6. DVT and GI prophylaxis. 7. Follow card input NIRALI MENESES MD April 12, 2017 12:06
[2017-04-12 14:19] LABS: HCO3 ABG 33 mmol/L (21-28); PCO2 ABG 36 mmHg (35-46); PO2 ABG 129 mmHg (65-108); SAT O2 ABG 98 % (92-99)
[2017-04-12 14:23] LABS: FIO2 ABG 40; PH ABG 7.57 (7.35-7.45)
[2017-04-12] MEDS: PANTOPRAZOLE IV PUSH 40 MG VIAL. IVP SCH (18:10)
--- NOTE | 2017-04-12 20:51 | PDOC ---
PROGRESS NOTES Chief Complaint Chief Complaint cc: sob A/P 1. Acute hypoxic respiratory failure, on mechanical ventilation, present on admission: On 40% oxygen, ABG reviewed, SBT trail today as cxr shows improvement. DC Zosyn in AM If cxr better. Protonix for GI prophylaxis, heparin for DVT prophylaxis. 2. End-stage renal disease, on hemodialysis, missed hemodialysis.: HD today, had yesterday 3. Type 2 diabetes mellitus, insulin-dependent, hyperglycemia.: SSI 4. Cardiomyopathy with elevated troponin: ? had cath at , RN will obtain records, Possible Cath once stable, extubated. optimization of medications 5. Sinus tachycardia. 6. Obesity. Prognosis: guarded. cc time 31 min History of Present Illness History of Present Illness PT Seen this am d/w RN, no family at bedside on 40% oxygen Vitals Vitals Vital Signs Date Time Temp Pulse Resp B/P (MAP) Pulse Ox O2 Delivery O2 Flow Rate FiO2 04/12/17 20:00 98.4 92 14 123/69 (87) 92 Room Air 98.4 04/12/17 17:00 2.0 Physical Exam General: No acute distress, Other (sedated) Heart: Normal S1, Normal S2, No murmurs Lungs: Clear Abdomen: Normal bowel sounds, Soft Extremities: No edema, Normal pulses Skin: No rashes Labs LABS Laboratory Tests Test 04/12/17 00:13 04/12/17 04:10 04/12/17 06:10 04/12/17 07:40 Glucose (Fingerstick) 109 mg/dL (70-99) 124 mg/dL (70-99) White Blood Count 7.9 x10^3/uL (4.0-11.0) Red Blood Count 4.02 x10^6/uL (4.30-5.70) Hemoglobin 10.3 g/dL (13.0-17.5) Hematocrit 31.2 % (39.0-53.0) Mean Corpuscular Volume 78 fL (79-100) Mean Corpuscular Hemoglobin 26 pg (25-35) Mean Corpuscular Hemoglobin Concent 33 g/dL (31-37) Red Cell Distribution Width 14.0 % (11.5-14.5) Platelet Count 116 x10^3/uL (140-400) Neutrophils (%) (Auto) 76 % (31-73) Lymphocytes (%) (Auto) 14 % (24-48) Monocytes (%) (Auto) 9 % (0-9) Eosinophils (%) (Auto) 0 % (0-3) Basophils (%) (Auto) 0 % (0-3) Neutrophils # (Auto) 6.0 x10^3uL (1.8-7.7) Lymphocytes # (Auto) 1.1 x10^3/uL (1.0-4.8) Monocytes # (Auto) 0.7 x10^3/uL (0.0-1.1) Eosinophils # (Auto) 0.0 x10^3/uL (0.0-0.7) Basophils # (Auto) 0.0 x10^3/uL (0.0-0.2) Sodium Level 141 mmol/L (136-145) Potassium Level 4.4 mmol/L (3.5-5.1) Chloride Level 97 mmol/L (98-107) Carbon Dioxide Level 31 mmol/L (21-32) Anion Gap 13 (6-14) Blood Urea Nitrogen 45 mg/dL (8-26) Creatinine 12.7 mg/dL (0.7-1.3) Estimated GFR (Cockcroft-Gault) 4.9 Glucose Level 130 mg/dL (70-99) Calcium Level 8.4 mg/dL (8.5-10.1) Troponin I Quantitative 0.423 ng/mL (0.000-0.055) Triglycerides Level 150 mg/dL (0-150) Cholesterol Level 100 mg/dL (0-200) LDL Cholesterol, Calculated 26 mg/dL (0-100) VLDL Cholesterol, Calculated 30 mg/dL (0-40) Non-HDL Cholesterol Calculated 56 mg/dL (0-129) HDL Cholesterol 44 mg/dL (40-60) Cholesterol/HDL Ratio 2.3 O2 Saturation 96 % (92-99) Arterial Blood pH 7.47 (7.35-7.45) Arterial Blood pCO2 at Patient Temp 40 mmHg (35-46) Arterial Blood pO2 at Patient Temp 87 mmHg (65-108) Arterial Blood HCO3 28 mmol/L (21-28) Arterial Blood Base Excess 4 mmol/L (-3-3) FiO2 40 Test 04/12/17 13:50 04/12/17 20:35 O2 Saturation 98 % (92-99) Arterial Blood pH 7.57 (7.35-7.45) Arterial Blood pCO2 at Patient Temp 36 mmHg (35-46) Arterial Blood pO2 at Patient Temp 129 mmHg (65-108) Arterial Blood HCO3 33 mmol/L (21-28) Arterial Blood Base Excess 10 mmol/L (-3-3) FiO2 40 Glucose (Fingerstick) 212 mg/dL (70-99) Assessment and Plan Assessmemt and Plan Problems Medical Problems: (1) Acute respiratory failure Status: Acute (2) Hypertensive emergency Status: Acute (3) Pulmonary edema Status: Acute Problems: Comment Review of Relevant I have reviewed the following items connie (where applicable) has been applied. Labs Laboratory Tests Test 04/11/17 03:30 04/11/17 03:50 04/11/17 03:51 04/11/17 03:54 Urine Collection Type U cath Urine Color Yellow Urine Clarity Clear Urine pH 7.5 Urine Specific [place] 1.010 Urine Protein 100 mg/dL (NEG-TRACE) Urine Glucose (UA) Negative mg/dL (NEG) Urine Ketones (Stick) Negative mg/dL (NEG) Urine Blood Moderate (NEG) Urine Nitrite Negative (NEG) Urine Bilirubin Negative (NEG) Urine Urobilinogen Dipstick 0.2 mg/dL (0.2 mg/dL) Urine Leukocyte Esterase Negative (NEG) Urine RBC 6-10 /HPF (0-2) Urine WBC 1-4 /HPF (0-4) Urine Squamous Epithelial Cells Few /LPF Urine Bacteria 0 /HPF (0-FEW) Urine Mucus Mod /LPF White Blood Count 13.1 x10^3/uL (4.0-11.0) Red Blood Count 4.56 x10^6/uL (4.30-5.70) Hemoglobin 11.6 g/dL (13.0-17.5) Hematocrit 37.5 % (39.0-53.0) Mean Corpuscular Volume 82 fL (79-100) Mean Corpuscular Hemoglobin 25 pg (25-35) Mean Corpuscular Hemoglobin Concent 31 g/dL (31-37) Red Cell Distribution Width 14.2 % (11.5-14.5) Platelet Count 207 x10^3/uL (140-400) Neutrophils (%) (Auto) 50 % (31-73) Lymphocytes (%) (Auto) 42 % (24-48) Monocytes (%) (Auto) 6 % (0-9) Eosinophils (%) (Auto) 2 % (0-3) Basophils (%) (Auto) 0 % (0-3) Neutrophils # (Auto) 6.5 x10^3uL (1.8-7.7) Lymphocytes # (Auto) 5.5 x10^3/uL (1.0-4.8) Monocytes # (Auto) 0.8 x10^3/uL (0.0-1.1) Eosinophils # (Auto) 0.3 x10^3/uL (0.0-0.7) Basophils # (Auto) 0.0 x10^3/uL (0.0-0.2) Sodium Level 143 mmol/L (136-145) Potassium Level 4.5 mmol/L (3.5-5.1) Chloride Level 102 mmol/L (98-107) Carbon Dioxide Level 22 mmol/L (21-32) Anion Gap 19 (6-14) 17 mmol/L (6-14) Blood Urea Nitrogen 74 mg/dL (8-26) Creatinine 18.7 mg/dL (0.7-1.3) Estimated GFR (Cockcroft-Gault) 3.1 Glucose Level 178 mg/dL (70-99) 165 mg/dL (70-99) Lactic Acid Level 4.4 mmol/L (0.4-2.0) Calcium Level 8.4 mg/dL (8.5-10.1) Total Bilirubin 0.4 mg/dL (0.2-1.0) Direct Bilirubin 0.2 mg/dL (0.0-0.2) Aspartate Amino Transf (AST/SGOT) 41 U/L (15-37) Alanine Aminotransferase (ALT/SGPT) 33 U/L (16-63) Alkaline Phosphatase 79 U/L (46-116) Troponin I Quantitative 0.030 ng/mL (0.000-0.055) CU-[id number]-Type Natriuretic Peptide 8491 pg/mL (0-124) Total Protein 7.8 g/dL (6.4-8.2) Albumin 3.3 g/dL (3.4-5.0) Hepatitis B Surface Antigen Negative (Negative) Bedside Troponin I 0.04 ng/ml (<0.08) Bedside Hemoglobin 12.9 g/dL (14-18) Bedside Hematocrit 38 % (37-52) Bedside Sodium 138 mmol/L (135-145) Bedside Potassium 4.4 mmol/L (3.5-5.0) Bedside Chloride 104 mmol/L (98-110) Bedside Total CO2 23 mmol/L (23-32) Bedside Blood Urea Nitrogen 76 mg/dL (8-26) Bedside Creatinine 17.8 mg/dL (0.5-1.4) Bedside Ionized Calcium ([place]) 1.00 mmol/L (1.13-1.32) Test 04/11/17 04:14 04/11/17 05:50 04/11/17 06:40 04/11/17 08:20 O2 Saturation 94 % (92-99) 98 % (92-99) Arterial Blood pH 7.18 (7.35-7.45) 7.37 (7.35-7.45) Arterial Blood pCO2 at Patient Temp 54 mmHg (35-46) 34 mmHg (35-46) Arterial Blood pO2 at Patient Temp 89 mmHg (65-108) 140 mmHg (65-108) Arterial Blood HCO3 19 mmol/L (21-28) 19 mmol/L (21-28) Arterial Blood Base Excess -9 mmol/L (-3-3) -5 mmol/L (-3-3) FiO2 100.0 100 Nasal Screen MRSA (PCR) Negative (Negative) Lactic Acid Level 2.6 mmol/L (0.4-2.0) Test 04/11/17 09:30 04/11/17 11:56 04/11/17 15:39 04/11/17 15:45 Troponin I Quantitative 0.627 ng/mL (0.000-0.055) 0.811 ng/mL (0.000-0.055) Glucose (Fingerstick) 89 mg/dL (70-99) O2 Saturation 94 % (92-99) Arterial Blood pH 7.61 (7.35-7.45) Arterial Blood pCO2 at Patient Temp 30 mmHg (35-46) Arterial Blood pO2 at Patient Temp 63 mmHg (65-108) Arterial Blood HCO3 29 mmol/L (21-28) Arterial Blood Base Excess 7 mmol/L (-3-3) FiO2 40 Test 04/11/17 16:20 5/24/17 00:13 04/12/17 04:10 04/12/17 06:10 Glucose (Fingerstick) 105 mg/dL (70-99) 109 mg/dL (70-99) 124 mg/dL (70-99) White Blood Count 7.9 x10^3/uL (4.0-11.0) Red Blood Count 4.02 x10^6/uL (4.30-5.70) Hemoglobin 10.3 g/dL (13.0-17.5) Hematocrit 31.2 % (39.0-53.0) Mean Corpuscular Volume 78 fL (79-100) Mean Corpuscular Hemoglobin 26 pg (25-35) Mean Corpuscular Hemoglobin Concent 33 g/dL (31-37) Red Cell Distribution Width 14.0 % (11.5-14.5) Platelet Count 116 x10^3/uL (140-400) Neutrophils (%) (Auto) 76 % (31-73) Lymphocytes (%) (Auto) 14 % (24-48) Monocytes (%) (Auto) 9 % (0-9) Eosinophils (%) (Auto) 0 % (0-3) Basophils (%) (Auto) 0 % (0-3) Neutrophils # (Auto) 6.0 x10^3uL (1.8-7.7) Lymphocytes # (Auto) 1.1 x10^3/uL (1.0-4.8) Monocytes # (Auto) 0.7 x10^3/uL (0.0-1.1) Eosinophils # (Auto) 0.0 x10^3/uL (0.0-0.7) Basophils # (Auto) 0.0 x10^3/uL (0.0-0.2) Sodium Level 141 mmol/L (136-145) Potassium Level 4.4 mmol/L (3.5-5.1) Chloride Level 97 mmol/L (98-107) Carbon Dioxide Level 31 mmol/L (21-32) Anion Gap 13 (6-14) Blood Urea Nitrogen 45 mg/dL (8-26) Creatinine 12.7 mg/dL (0.7-1.3) Estimated GFR (Cockcroft-Gault) 4.9 Glucose Level 130 mg/dL (70-99) Calcium Level 8.4 mg/dL (8.5-10.1) Troponin I Quantitative 0.423 ng/mL (0.000-0.055) Triglycerides Level 150 mg/dL (0-150) Cholesterol Level 100 mg/dL (0-200) LDL Cholesterol, Calculated 26 mg/dL (0-100) VLDL Cholesterol, Calculated 30 mg/dL (0-40) Non-HDL Cholesterol Calculated 56 mg/dL (0-129) HDL Cholesterol 44 mg/dL (40-60) Cholesterol/HDL Ratio 2.3 Test 04/12/17 07:40 04/12/17 13:50 04/12/17 20:35 O2 Saturation 96 % (92-99) 98 % (92-99) Arterial Blood pH 7.47 (7.35-7.45) 7.57 (7.35-7.45) Arterial Blood pCO2 at Patient Temp 40 mmHg (35-46) 36 mmHg (35-46) Arterial Blood pO2 at Patient Temp 87 mmHg (65-108) 129 mmHg (65-108) Arterial Blood HCO3 28 mmol/L (21-28) 33 mmol/L (21-28) Arterial Blood Base Excess 4 mmol/L (-3-3) 10 mmol/L (-3-3) FiO2 40 40 Glucose (Fingerstick) 212 mg/dL (70-99) Laboratory Tests Test 04/12/17 00:13 04/12/17 04:10 04/12/17 06:10 04/12/17 07:40 Glucose (Fingerstick) 109 mg/dL (70-99) 124 mg/dL (70-99) White Blood Count 7.9 x10^3/uL (4.0-11.0) Red Blood Count 4.02 x10^6/uL (4.30-5.70) Hemoglobin 10.3 g/dL (13.0-17.5) Hematocrit 31.2 % (39.0-53.0) Mean Corpuscular Volume 78 fL (79-100) Mean Corpuscular Hemoglobin 26 pg (25-35) Mean Corpuscular Hemoglobin Concent 33 g/dL (31-37) Red Cell Distribution Width 14.0 % (11.5-14.5) Platelet Count 116 x10^3/uL (140-400) Neutrophils (%) (Auto) 76 % (31-73) Lymphocytes (%) (Auto) 14 % (24-48) Monocytes (%) (Auto) 9 % (0-9) Eosinophils (%) (Auto) 0 % (0-3) Basophils (%) (Auto) 0 % (0-3) Neutrophils # (Auto) 6.0 x10^3uL (1.8-7.7) Lymphocytes # (Auto) 1.1 x10^3/uL (1.0-4.8) Monocytes # (Auto) 0.7 x10^3/uL (0.0-1.1) Eosinophils # (Auto) 0.0 x10^3/uL (0.0-0.7) Basophils # (Auto) 0.0 x10^3/uL (0.0-0.2) Sodium Level 141 mmol/L (136-145) Potassium Level 4.4 mmol/L (3.5-5.1) Chloride Level 97 mmol/L (98-107) Carbon Dioxide Level 31 mmol/L (21-32) Anion Gap 13 (6-14) Blood Urea Nitrogen 45 mg/dL (8-26) Creatinine 12.7 mg/dL (0.7-1.3) Estimated GFR (Cockcroft-Gault) 4.9 Glucose Level 130 mg/dL (70-99) Calcium Level 8.4 mg/dL (8.5-10.1) Troponin I Quantitative 0.423 ng/mL (0.000-0.055) Triglycerides Level 150 mg/dL (0-150) Cholesterol Level 100 mg/dL (0-200) LDL Cholesterol, Calculated 26 mg/dL (0-100) VLDL Cholesterol, Calculated 30 mg/dL (0-40) Non-HDL Cholesterol Calculated 56 mg/dL (0-129) HDL Cholesterol 44 mg/dL (40-60) Cholesterol/HDL Ratio 2.3 O2 Saturation 96 % (92-99) Arterial Blood pH 7.47 (7.35-7.45) Arterial Blood pCO2 at Patient Temp 40 mmHg (35-46) Arterial Blood pO2 at Patient Temp 87 mmHg (65-108) Arterial Blood HCO3 28 mmol/L (21-28) Arterial Blood Base Excess 4 mmol/L (-3-3) FiO2 40 Test 04/12/17 13:50 04/12/17 20:35 O2 Saturation 98 % (92-99) Arterial Blood pH 7.57 (7.35-7.45) Arterial Blood pCO2 at Patient Temp 36 mmHg (35-46) Arterial Blood pO2 at Patient Temp 129 mmHg (65-108) Arterial Blood HCO3 33 mmol/L (21-28) Arterial Blood Base Excess 10 mmol/L (-3-3) FiO2 40 Glucose (Fingerstick) 212 mg/dL (70-99) Microbiology 04/11/17 Blood Culture - Preliminary, Resulted NO GROWTH AFTER 1 DAY Medications Current Medications Propofol 50 ml @ As Directed STK-MED ONCE IV ; Start 04/11/17 at 03:11; Stop at 03:12; Status DC Propofol 20 ml @ 20 mls/hr 1X ONCE IV ; Start 04/11/17 at 03:30; Stop 04/11/17 at 03:47; Status DC Nitroglycerin/ Dextrose 250 ml @ 0 mls/hr 1X ONCE IV Last administered on 04/11 03:21; Start 04/11/17 at 03:30; Stop 04/11/17 at 03:31; Status DC Rocuronium Alfred (Zemuron) 50 mg 1X ONCE IV Last administered on 04/11/17 03:09; Start 04/11/17 at 03:30; Stop 04/11/17 at 03:31; Status DC Etomidate (Amidate) 20 mg 1X ONCE IV Last administered on 04/11/17 03:09; Start 04/11/17 at 03:30; Stop 04/11/17 at 03:31; Status DC Furosemide (Lasix) 40 mg 1X ONCE IVP Last administered on 04/11/17 03:50; Start 04/11/17 at 03:45; Stop 04/11/17 at 03:47; Status DC Ondansetron HCl (Zofran) 4 mg PRN Q8HRS PRN IV NAUSEA/VOMITING; Start 04/11/17 at 03:45; Stop 04/12/17 at 03:44; Status DC Piperacillin Sod/ Tazobactam Sod (Zosyn Per Pharmacy) 1 each PRN DAILY PRN MC SEE COMMENTS; Start 04/11/17 at 04:00; Stop 04/11/17 at 13:08; Status DC Propofol 50 ml @ 0 mls/hr 1X ONCE IV Last administered on 04/11/17 03:16; Start 04/11/17 at 04:00; Stop 04/11/17 at 04:01; Status DC Piperacillin Sod/ Tazobactam Sod 2.25 gm/Sodium Chloride 50 ml @ 100 mls/hr 1X ONCE IV Last administered on 04/11/17 04:15; Start 04/11/17 at 04:15; Stop 04/11/17 at 04:44; Status DC Nicardipine HCl 50 mg/Sodium Chloride 270 ml @ 0 mls/hr CONT PRN IV SEE I/O RECORD; Start 04/11/17 at 04:30; Status Cancel Nicardipine HCl 50 mg/Sodium Chloride 270 ml @ 0 mls/hr CONT PRN IV SEE I/O RECORD; Start 04/11/17 at 04:30; Stop 04/12/17 at 19:01; Status DC Piperacillin Sod/ Tazobactam Sod 2.25 gm/Sodium Chloride 50 ml @ 100 mls/hr Q12H IV Last administered on 04/12/17 04:15; Start 04/11/17 at 16:00; Stop at 08:25; Status DC Propofol (Diprivan) 20 mg 1X ONCE IV Last administered on 04/11/17 04:17; Start 04/11/17 at 04:17; Stop 04/11/17 at 05:45; Status DC Propofol 100 ml @ As Directed STK-MED ONCE IV ; Start 04/11/17 at 06:05; Stop 04/11/17 at 06:06; Status DC Pneumococcal Polyvalent Vaccine (Do NOT chart on this placeholder) 1 each 1X ONCE MC ; Start 04/11/17 at 06:15; Stop 04/11/17 at 06:16; Status UNV Pneumococcal Polyvalent Vaccine (Pneumovax 23) 0.5 ml ONCE ONCE VAX IM ; Start 04/12/17 at 09:00; Stop 04/12/17 at 09:01; Status DC Propofol 100 ml @ 0 mls/hr CONT PRN IV SEE I/O RECORD Last administered on 04/12 11:51; Start 04/11/17 at 07:00; Stop 04/12/17 at 19:01; Status DC Sodium Chloride 1,000 ml @ 1,000 mls/hr Q1H PRN IV hypotension; Start 04/11/17 at 09:51; Stop 04/11/17 at 15:50; Status DC Albumin Human 200 ml @ 200 mls/hr 1X PRN PRN IV Hypotension Last administered on 04/11/17 14:03; Start 04/11/17 at 10:00; Stop 04/11/17 at 15:59; Status DC Diphenhydramine HCl (Benadryl) 25 mg 1X PRN PRN IV ITCHING; Start 04/11/17 at 10:00; Stop 04/12/17 at 09:59; Status DC Diphenhydramine HCl (Benadryl) 25 mg 1X PRN PRN IV ITCHING; Start 04/11/17 at 10:00; Stop 04/12/17 at 09:59; Status DC Sodium Chloride 1,000 ml @ 400 mls/hr Q2H30M PRN IV PATENCY; Start 04/11/17 at 09:51; Stop 04/11/17 at 21:50; Status DC Info (PHARMACY MONITORING -- do not chart) 1 each PRN DAILY PRN MC SEE COMMENTS ; Start 04/11/17 at 10:00 Pantoprazole Sodium (Protonix Vial) 40 mg DAILYAC IVP Last administered on 04/12 18:10; Start 04/11/17 at 11:30 Heparin Sodium (Porcine) (Heparin Sq) 5,000 unit Q8HRS SQ Last administered on 04/12/17 18:12; Start 04/11/17 at 14:00 Insulin Aspart (NovoLOG) 0-9 UNITS TIDWMEALS SQ ; Start 04/11/17 at 12:00; Stop 04/12/17 at 07:21; Status DC Dextrose (Dextrose 50%-Water Syringe) 12.5 gm PRN Q15MIN PRN IV SEE COMMENTS; Start 04/11/17 at 11:15; Stop 04/12/17 at 09:30; Status DC Chlorhexidine Gluconate (Peridex) 15 ml BID MM Last administered on 04/11/17 21:41; Start 04/11/17 at 21:00; Stop 04/12/17 at 19:01; Status DC Dextrose (Dextrose 50%-Water Syringe) 12.5 gm PRN Q15MIN PRN IV SEE COMMENTS; Start 04/11/17 at 17:45 Insulin Aspart (NovoLOG) 0-9 UNITS Q6HRS SQ ; Start 04/12/17 at 12:00; Stop at 19:01; Status DC Piperacillin Sod/ Tazobactam Sod 2.25 gm/Sodium Chloride 50 ml @ 100 mls/hr Q8HRS IV Last administered on 04/12/17 18:10; Start 04/12/17 at 14:00 Aspirin (Aspirin) 300 mg DAILY ID ; Start 04/12/17 at 12:00; Stop 04/12/17 at 19 :01; Status DC Sodium Chloride 1,000 ml @ 400 mls/hr Q2H30M PRN IV PATENCY; Start 04/12/17 at 11:52; Stop 04/12/17 at 23:51 Info (PHARMACY MONITORING -- do not chart) 1 each PRN DAILY PRN MC SEE COMMENTS ; Start 04/12/17 at 12:00; Status UNV Insulin Aspart (NovoLOG) 0-9 UNITS QIDACHS SQ Last administered on 04/12/17 20 :37; Start 04/12/17 at 21:00 Aspirin (Ecotrin) 325 mg DAILYWBKFT PO ; Start 04/13/17 at 08:00 Active Scripts Active Reported Calcium Acetate 667 Mg Tablet 667 Mg PO TIDWMEALS Calcitriol 0.5 Mcg Capsule 1 Cap PO DAILY Carvedilol 12.5 Mg Tablet 1 Tab PO BID Atorvastatin Calcium 20 Mg Tablet 1 Tab PO DAILY Renvela (Sevelamer Carbonate) 800 Mg Tablet 2 Tab PO TID Multivitamins (Multivitamin) 1 Each Tablet 1 Tab PO DAILY Humulin N (Nph, Human Insulin Isophane) 100 Unit/1 Ml Vial 30 Unit SQ DAILY Reglan (Metoclopramide Hcl) 10 Mg Tablet 5 Mg PO TID Vitals/I & O Vital Sign - Last 24 Hours 04/11/17 04/11/17 04/11/17 04/11/17 21:00 22:00 22:05 23:00 Pulse 96 93 91 Resp 12 13 20 B/P (MAP) 111/59 (76) 123/68 (86) 140/73 (95) Pulse Ox 100 97 100 99 O2 Delivery Ventilator Ventilator Ventilator Ventilator 5/23/04/12/17 04/12/17 04/12/17 23:20 00:00 00:00 00:55 Temp 98.9 98.9 Pulse 92 Resp 16 B/P (MAP) 126/88 (101) Pulse Ox 100 99 100 O2 Delivery Ventilator Ventilator Mechanical Ventilator Ventilator 04/12/17 04/12/17 04/12/17 04/12/17 01:00 02:00 03:00 03:01 Pulse 90 89 84 Resp 16 B/P (MAP) 115/58 (77) 116/61 (79) 118/60 (79) Pulse Ox 98 96 99 97 O2 Delivery Ventilator Ventilator Ventilator Ventilator 04/12/17 04/12/17 04/12/17 04/12/17 04:00 04:00 05:00 05:35 Temp 98.6 98.6 Pulse 86 86 Resp 14 B/P (MAP) 123/66 (85) 98/58 (71) Pulse Ox 98 98 99 O2 Delivery Mechanical Ventilator Ventilator Ventilator Ventilator 04/12/17 04/12/17 04/12/17 04/12/17 06:00 07:00 07:28 08:00 Pulse 84 84 Resp 12 12 B/P (MAP) 95/58 (70) 113/64 (80) Pulse Ox 98 98 99 O2 Delivery Ventilator Ventilator Ventilator Mechanical Ventilator 04/12/17 04/12/17 04/12/17 04/12/17 08:00 09:00 09:30 10:00 Temp 97.6 97.6 Pulse 84 84 84 Resp 12 12 12 B/P (MAP) 105/63 (77) 67/46 (53) 113/69 (84) Pulse Ox 98 98 99 98 O2 Delivery Ventilator Ventilator Ventilator Ventilator 04/12/17 04/12/17 04/12/17 04/12/17 10:54 11:00 12:00 12:00 Temp 97.2 97.2 Pulse 84 84 Resp 12 12 B/P (MAP) 147/83 (104) 136/82 (100) Pulse Ox 100 98 98 O2 Delivery Ventilator Ventilator Ventilator Mechanical Ventilator 04/12/17 04/12/17 04/12/17 04/12/17 13:00 13:20 14:00 15:00 Pulse 84 84 90 Resp 12 12 12 B/P (MAP) 139/82 (101) 159/78 (105) 142/76 (98) Pulse Ox 100 100 97 O2 Delivery Ventilator T-Tube Nasal Cannula Nasal Cannula O2 Flow Rate 2.0 2.0 04/12/17 04/12/17 04/12/17 04/12/17 16:00 16:00 17:00 18:00 Temp 98.2 98.2 Pulse 92 96 94 Resp 12 12 12 B/P (MAP) 142/69 (93) 149/79 (102) 150/83 (105) Pulse Ox 97 97 97 O2 Delivery Nasal Cannula Room Air Nasal Cannula Room Air O2 Flow Rate 2.0 2.0 04/12/17 04/12/17 04/12/17 19:00 19:56 20:00 Temp 98.4 98.4 Pulse 102 92 Resp 20 14 B/P (MAP) 137/79 (98) 123/69 (87) Pulse Ox 93 92 O2 Delivery Room Air Room Air Room Air Intake and Output 04/11/17 04/11/17 04/12/17 15:00 23:00 07:00 Intake Total 323 ml 388 ml Output Total 35 ml 605 ml 38 ml Balance -35 ml -282 ml 350 ml Nutrition Consultation Dietary Evaluation: Recommendations by RD: Increase Calorie Intake Comments: Rec. TF's when medically appropriate: Novasource Renal, goal rate 45 ml/hr start at 20 ml/hr, increase by 20 ml/hr q8h to goal maintenance flushes 30 cc q8h if IVF's running Expected Outcomes/Goals: Tolerate TF's at goal rate - met meet 75% estimated nutrition needs - met Malnutrition Findings: Reduced Asset Card Clerk Strength: N/A Reduced Asset Card Clerk Strength (Non-Sev: N/A Malnutrition related to morbid: No Weight Status: Overweight BEL SANDOVAL MD April 12, 2017 20:51
[2017-04-13] VITALS (20 sets, daily range): BP systolic 114–193; BP diastolic 57–101
[2017-04-13 04:31] LABS: HEMATOCRIT 30.4 % (39.0-53.0); HEMOGLOBIN 9.9 g/dL (13.0-17.5); RED BLOOD COUNT 3.86 x10^6/uL (4.30-5.70); RED CELL DISTRIBUTION WIDTH 13.9 % (11.5-14.5); WHITE BLOOD COUNT 6.1 x10^3/uL (4.0-11.0)
[2017-04-13 04:45] LABS: CALCIUM 8.8 mg/dL (8.5-10.1); GFR 6.4; POTASSIUM 4.1 mmol/L (3.5-5.1)
[2017-04-13] MEDS: PIPERACILLIN/TAZOBACTAM 2.25 GM in IV NORMAL SALINE 50ML 50 ML IV SCH (06:04)
[2017-04-13] MEDS: HEPARIN PF for SUB-Q USE 5,000 UNIT/0.5 ML VIAL. SQ SCH ×3 (06:05→22:10)
[2017-04-13] MEDS: INSULIN ASPART 300 UNITS/3 ML INSULN.PEN SQ SCH ×4 (07:30→20:50)
[2017-04-13] MEDS: ASPIRIN ENTERIC COATED 325 MG TABLET.DR. PO SCH (09:02)
[2017-04-13] MEDS: PANTOPRAZOLE IV PUSH 40 MG VIAL. IVP SCH (09:02)
--- NOTE | 2017-04-13 11:42 | PDOC ---
Renal-Progress Notes Subjective Notes Notes FEELS WELL History of Present Illness Hx of present illness EXTUBATED Vitals Vitals Vital Signs Date Time Temp Pulse Resp B/P (MAP) Pulse Ox O2 Delivery O2 Flow Rate FiO2 04/13/17 11:00 82 10 114/64 (81) 95 Nasal Cannula 2.0 04/13/17 08:00 99.3 99.3 Weight Weight [ ] Stability Assess. Stability Assess.: unstable for transfer (Intesive V. sign monit. req) I.O. Intake and Output Intake and Output 04/13/17 07:00 Intake Total 530 ml Output Total 338 ml Balance 192 ml Intake Oral 480 ml IV Total 50 ml Tube Feeding 0 ml Output Urine Total 338 ml Labs Labs Laboratory Tests Test 04/12/17 13:50 04/12/17 20:35 04/13/17 04:00 04/13/17 08:54 O2 Saturation 98 % (92-99) Arterial Blood pH 7.57 (7.35-7.45) Arterial Blood pCO2 at Patient Temp 36 mmHg (35-46) Arterial Blood pO2 at Patient Temp 129 mmHg (65-108) Arterial Blood HCO3 33 mmol/L (21-28) Arterial Blood Base Excess 10 mmol/L (-3-3) FiO2 40 Glucose (Fingerstick) 212 mg/dL (70-99) 104 mg/dL (70-99) White Blood Count 6.1 x10^3/uL (4.0-11.0) Red Blood Count 3.86 x10^6/uL (4.30-5.70) Hemoglobin 9.9 g/dL (13.0-17.5) Hematocrit 30.4 % (39.0-53.0) Mean Corpuscular Volume 79 fL (79-100) Mean Corpuscular Hemoglobin 26 pg (25-35) Mean Corpuscular Hemoglobin Concent 33 g/dL (31-37) Red Cell Distribution Width 13.9 % (11.5-14.5) Platelet Count 116 x10^3/uL (140-400) Sodium Level 143 mmol/L (136-145) Potassium Level 4.1 mmol/L (3.5-5.1) Chloride Level 100 mmol/L (98-107) Carbon Dioxide Level 30 mmol/L (21-32) Anion Gap 13 (6-14) Blood Urea Nitrogen 32 mg/dL (8-26) Creatinine 10.0 mg/dL (0.7-1.3) Estimated GFR (Cockcroft-Gault) 6.4 Glucose Level 93 mg/dL (70-99) Calcium Level 8.8 mg/dL (8.5-10.1) Micro Micro Microbiology 04/11/17 Blood Culture - Preliminary, Resulted NO GROWTH AFTER 2 DAYS Physical Exam General Appearance: no apparent distress Respiratory: bilateral CTA Heart: S1S2 Abdomen: soft, bowel sounds present Genitourinary: bladder flat Extremities: pulses present, no edema, atrophy Neurology: other (sedated) Assessment Assessment IMP RESP FAILURE HYPERVOLEMIA PULMONARY EDEMA ESRD PLAN HD TODAY UF TO DW TOLERATED ENC COMPLIANCE YENI COSTA MD April 13, 2017 11:42
--- NOTE | 2017-04-13 12:19 | PDOC ---
CARDIO Progress Notes Date and Time Date of Service 04/13/17 Time of Evaluation 1045 Subjective Subjective: No Chest Pain, No shortness of breath, Other Vitals Vitals Vital Signs Date Time Temp Pulse Resp B/P (MAP) Pulse Ox O2 Delivery O2 Flow Rate FiO2 04/13/17 11:00 82 10 114/64 (81) 95 Nasal Cannula 2.0 04/13/17 08:00 99.3 99.3 Weight Weight [ ] Input and Output Intake and Output Intake and Output 04/13/17 07:00 Intake Total 530 ml Output Total 338 ml Balance 192 ml Intake Oral 480 ml IV Total 50 ml Tube Feeding 0 ml Output Urine Total 338 ml Laboratory Labs Laboratory Tests Test 04/12/17 13:50 04/12/17 20:35 04/13/17 04:00 04/13/17 08:54 O2 Saturation 98 % (92-99) Arterial Blood pH 7.57 (7.35-7.45) Arterial Blood pCO2 at Patient Temp 36 mmHg (35-46) Arterial Blood pO2 at Patient Temp 129 mmHg (65-108) Arterial Blood HCO3 33 mmol/L (21-28) Arterial Blood Base Excess 10 mmol/L (-3-3) FiO2 40 Glucose (Fingerstick) 212 mg/dL (70-99) 104 mg/dL (70-99) White Blood Count 6.1 x10^3/uL (4.0-11.0) Red Blood Count 3.86 x10^6/uL (4.30-5.70) Hemoglobin 9.9 g/dL (13.0-17.5) Hematocrit 30.4 % (39.0-53.0) Mean Corpuscular Volume 79 fL (79-100) Mean Corpuscular Hemoglobin 26 pg (25-35) Mean Corpuscular Hemoglobin Concent 33 g/dL (31-37) Red Cell Distribution Width 13.9 % (11.5-14.5) Platelet Count 116 x10^3/uL (140-400) Sodium Level 143 mmol/L (136-145) Potassium Level 4.1 mmol/L (3.5-5.1) Chloride Level 100 mmol/L (98-107) Carbon Dioxide Level 30 mmol/L (21-32) Anion Gap 13 (6-14) Blood Urea Nitrogen 32 mg/dL (8-26) Creatinine 10.0 mg/dL (0.7-1.3) Estimated GFR (Cockcroft-Gault) 6.4 Glucose Level 93 mg/dL (70-99) Calcium Level 8.8 mg/dL (8.5-10.1) Microbiology Micro Microbiology 04/11/17 Blood Culture - Preliminary, Resulted NO GROWTH AFTER 2 DAYS Physical Exam HEENT: Neck Supple W Full Motion Chest: Symmetric LUNGS: Other (diminished bases) Heart: S1S2, RRR, other (tele: SR) Abdomen: Soft N/T Extremities: 2+ Dorsalis Pedis, No Edema Neurology: alert, oriented, follow commands Assessment Assessment 1. acute CHF, systolic and diastolic LVEF depressed @ 35-40% with inferior and inferoseptal hypokinesis - ? new Add IRMA, BB for optimization fluid offloading/management via HD per nephrology maintain BP control 2. NSTEMI troponin peaked @ 0.8; inferior and inferoseptal hypokinesis on echo risk factors for ischemic disease; Records requested from [facility]. consider further ischemic evaluation, in the form of a stress test, in the am 3. acute respiratory failure extubated 04/12 per pulm 4. HTN control with meds & HD 5. anemia of chronic disease 6. ESRD with HD per nephrology HARPER MCKEON APRN April 13, 2017 12:19
--- NOTE | 2017-04-13 12:55 | PDOC ---
PROGRESS NOTES Chief Complaint Chief Complaint Shortness of breath Acute hypoxic respiratory failure End-stage renal disease, on hemodialysis Type 2 diabetes mellitus, insulin-dependent Cardiomyopathy with elevated troponin Sinus tachycardia Obesity History of Present Illness History of Present Illness Patient was extubated and sitting up in bed eating breakfast this morning Said he feels better and would like to go home Discussed care with nurse, discussed transferring up to floor Vitals Vitals Vital Signs Date Time Temp Pulse Resp B/P (MAP) Pulse Ox O2 Delivery O2 Flow Rate FiO2 04/13/17 11:00 82 10 114/64 (81) 95 Nasal Cannula 2.0 04/13/17 08:00 99.3 99.3 Physical Exam General: Alert, Oriented X3, Cooperative, No acute distress Heart: Regular rate, Normal S1, Normal S2, No murmurs Lungs: Clear, Other (no wheezing) Abdomen: Normal bowel sounds, Soft Extremities: No edema, Normal pulses Skin: No rashes, No breakdown Labs LABS Laboratory Tests Test 04/12/17 13:50 04/12/17 20:35 04/13/17 04:00 04/13/17 08:54 O2 Saturation 98 % (92-99) Arterial Blood pH 7.57 (7.35-7.45) Arterial Blood pCO2 at Patient Temp 36 mmHg (35-46) Arterial Blood pO2 at Patient Temp 129 mmHg (65-108) Arterial Blood HCO3 33 mmol/L (21-28) Arterial Blood Base Excess 10 mmol/L (-3-3) FiO2 40 Glucose (Fingerstick) 212 mg/dL (70-99) 104 mg/dL (70-99) White Blood Count 6.1 x10^3/uL (4.0-11.0) Red Blood Count 3.86 x10^6/uL (4.30-5.70) Hemoglobin 9.9 g/dL (13.0-17.5) Hematocrit 30.4 % (39.0-53.0) Mean Corpuscular Volume 79 fL (79-100) Mean Corpuscular Hemoglobin 26 pg (25-35) Mean Corpuscular Hemoglobin Concent 33 g/dL (31-37) Red Cell Distribution Width 13.9 % (11.5-14.5) Platelet Count 116 x10^3/uL (140-400) Sodium Level 143 mmol/L (136-145) Potassium Level 4.1 mmol/L (3.5-5.1) Chloride Level 100 mmol/L (98-107) Carbon Dioxide Level 30 mmol/L (21-32) Anion Gap 13 (6-14) Blood Urea Nitrogen 32 mg/dL (8-26) Creatinine 10.0 mg/dL (0.7-1.3) Estimated GFR (Cockcroft-Gault) 6.4 Glucose Level 93 mg/dL (70-99) Calcium Level 8.8 mg/dL (8.5-10.1) Test 04/13/17 12:38 Glucose (Fingerstick) 130 mg/dL (70-99) Review of Systems Review of Systems General: denies weakness GI: denies N/V/D/C Assessment and Plan Assessmemt and Plan Problems Medical Problems: (1) Acute respiratory failure Status: Acute (2) Hypertensive emergency Status: Acute (3) Pulmonary edema Status: Acute Shortness of breath Acute hypoxic respiratory failure End-stage renal disease, on hemodialysis Type 2 diabetes mellitus, insulin-dependent NSTEMI Cardiomyopathy with elevated troponin Sinus tachycardia Obesity Plan: -Transfer to floor -Cardio following- added IRMA-i and BB for acute CHF -Renal following- managing HD -Pulm following- would be ok to D/C antibiotics -Plan for 6-min walk prior to discharge -Discharge disposition pending ok from subspecialists -Subspecialist input appreciated -Will recheck am labs -PT/OT as appropriate Problems: Comment Review of Relevant I have reviewed the following items connie (where applicable) has been applied. Labs Laboratory Tests Test 04/11/17 15:39 04/11/17 15:45 04/11/17 16:20 04/12/17 00:13 O2 Saturation 94 % (92-99) Arterial Blood pH 7.61 (7.35-7.45) Arterial Blood pCO2 at Patient Temp 30 mmHg (35-46) Arterial Blood pO2 at Patient Temp 63 mmHg (65-108) Arterial Blood HCO3 29 mmol/L (21-28) Arterial Blood Base Excess 7 mmol/L (-3-3) FiO2 40 Troponin I Quantitative 0.811 ng/mL (0.000-0.055) Glucose (Fingerstick) 105 mg/dL (70-99) 109 mg/dL (70-99) Test 04/12/17 04:10 04/12/17 06:10 04/12/17 07:40 04/12/17 13:50 White Blood Count 7.9 x10^3/uL (4.0-11.0) Red Blood Count 4.02 x10^6/uL (4.30-5.70) Hemoglobin 10.3 g/dL (13.0-17.5) Hematocrit 31.2 % (39.0-53.0) Mean Corpuscular Volume 78 fL (79-100) Mean Corpuscular Hemoglobin 26 pg (25-35) Mean Corpuscular Hemoglobin Concent 33 g/dL (31-37) Red Cell Distribution Width 14.0 % (11.5-14.5) Platelet Count 116 x10^3/uL (140-400) Neutrophils (%) (Auto) 76 % (31-73) Lymphocytes (%) (Auto) 14 % (24-48) Monocytes (%) (Auto) 9 % (0-9) Eosinophils (%) (Auto) 0 % (0-3) Basophils (%) (Auto) 0 % (0-3) Neutrophils # (Auto) 6.0 x10^3uL (1.8-7.7) Lymphocytes # (Auto) 1.1 x10^3/uL (1.0-4.8) Monocytes # (Auto) 0.7 x10^3/uL (0.0-1.1) Eosinophils # (Auto) 0.0 x10^3/uL (0.0-0.7) Basophils # (Auto) 0.0 x10^3/uL (0.0-0.2) Sodium Level 141 mmol/L (136-145) Potassium Level 4.4 mmol/L (3.5-5.1) Chloride Level 97 mmol/L (98-107) Carbon Dioxide Level 31 mmol/L (21-32) Anion Gap 13 (6-14) Blood Urea Nitrogen 45 mg/dL (8-26) Creatinine 12.7 mg/dL (0.7-1.3) Estimated GFR (Cockcroft-Gault) 4.9 Glucose Level 130 mg/dL (70-99) Calcium Level 8.4 mg/dL (8.5-10.1) Troponin I Quantitative 0.423 ng/mL (0.000-0.055) Triglycerides Level 150 mg/dL (0-150) Cholesterol Level 100 mg/dL (0-200) LDL Cholesterol, Calculated 26 mg/dL (0-100) VLDL Cholesterol, Calculated 30 mg/dL (0-40) Non-HDL Cholesterol Calculated 56 mg/dL (0-129) HDL Cholesterol 44 mg/dL (40-60) Cholesterol/HDL Ratio 2.3 Glucose (Fingerstick) 124 mg/dL (70-99) O2 Saturation 96 % (92-99) 98 % (92-99) Arterial Blood pH 7.47 (7.35-7.45) 7.57 (7.35-7.45) Arterial Blood pCO2 at Patient Temp 40 mmHg (35-46) 36 mmHg (35-46) Arterial Blood pO2 at Patient Temp 87 mmHg (65-108) 129 mmHg (65-108) Arterial Blood HCO3 28 mmol/L (21-28) 33 mmol/L (21-28) Arterial Blood Base Excess 4 mmol/L (-3-3) 10 mmol/L (-3-3) FiO2 40 40 Test 04/12/17 20:35 04/13/17 04:00 04/13/17 08:54 04/13/17 12:38 Glucose (Fingerstick) 212 mg/dL (70-99) 104 mg/dL (70-99) 130 mg/dL (70-99) White Blood Count 6.1 x10^3/uL (4.0-11.0) Red Blood Count 3.86 x10^6/uL (4.30-5.70) Hemoglobin 9.9 g/dL (13.0-17.5) Hematocrit 30.4 % (39.0-53.0) Mean Corpuscular Volume 79 fL (79-100) Mean Corpuscular Hemoglobin 26 pg (25-35) Mean Corpuscular Hemoglobin Concent 33 g/dL (31-37) Red Cell Distribution Width 13.9 % (11.5-14.5) Platelet Count 116 x10^3/uL (140-400) Sodium Level 143 mmol/L (136-145) Potassium Level 4.1 mmol/L (3.5-5.1) Chloride Level 100 mmol/L (98-107) Carbon Dioxide Level 30 mmol/L (21-32) Anion Gap 13 (6-14) Blood Urea Nitrogen 32 mg/dL (8-26) Creatinine 10.0 mg/dL (0.7-1.3) Estimated GFR (Cockcroft-Gault) 6.4 Glucose Level 93 mg/dL (70-99) Calcium Level 8.8 mg/dL (8.5-10.1) Laboratory Tests Test 04/12/17 13:50 04/12/17 20:35 04/13/17 04:00 04/13/17 08:54 O2 Saturation 98 % (92-99) Arterial Blood pH 7.57 (7.35-7.45) Arterial Blood pCO2 at Patient Temp 36 mmHg (35-46) Arterial Blood pO2 at Patient Temp 129 mmHg (65-108) Arterial Blood HCO3 33 mmol/L (21-28) Arterial Blood Base Excess 10 mmol/L (-3-3) FiO2 40 Glucose (Fingerstick) 212 mg/dL (70-99) 104 mg/dL (70-99) White Blood Count 6.1 x10^3/uL (4.0-11.0) Red Blood Count 3.86 x10^6/uL (4.30-5.70) Hemoglobin 9.9 g/dL (13.0-17.5) Hematocrit 30.4 % (39.0-53.0) Mean Corpuscular Volume 79 fL (79-100) Mean Corpuscular Hemoglobin 26 pg (25-35) Mean Corpuscular Hemoglobin Concent 33 g/dL (31-37) Red Cell Distribution Width 13.9 % (11.5-14.5) Platelet Count 116 x10^3/uL (140-400) Sodium Level 143 mmol/L (136-145) Potassium Level 4.1 mmol/L (3.5-5.1) Chloride Level 100 mmol/L (98-107) Carbon Dioxide Level 30 mmol/L (21-32) Anion Gap 13 (6-14) Blood Urea Nitrogen 32 mg/dL (8-26) Creatinine 10.0 mg/dL (0.7-1.3) Estimated GFR (Cockcroft-Gault) 6.4 Glucose Level 93 mg/dL (70-99) Calcium Level 8.8 mg/dL (8.5-10.1) Test 04/13/17 12:38 Glucose (Fingerstick) 130 mg/dL (70-99) Microbiology 04/11/17 Blood Culture - Preliminary, Resulted NO GROWTH AFTER 2 DAYS Medications Current Medications Propofol 50 ml @ As Directed STK-MED ONCE IV ; Start 04/11/17 at 03:11; Stop at 03:12; Status DC Propofol 20 ml @ 20 mls/hr 1X ONCE IV ; Start 04/11/17 at 03:30; Stop 04/11/17 at 03:47; Status DC Nitroglycerin/ Dextrose 250 ml @ 0 mls/hr 1X ONCE IV Last administered on 04/11 03:21; Start 04/11/17 at 03:30; Stop 04/11/17 at 03:31; Status DC Rocuronium [place] (Zemuron) 50 mg 1X ONCE IV Last administered on 04/11/17 03:09; Start 04/11/17 at 03:30; Stop 04/11/17 at 03:31; Status DC Etomidate (Amidate) 20 mg 1X ONCE IV Last administered on 04/11/17 03:09; Start 04/11/17 at 03:30; Stop 04/11/17 at 03:31; Status DC Furosemide (Lasix) 40 mg 1X ONCE IVP Last administered on 04/11/17 03:50; Start 04/11/17 at 03:45; Stop 04/11/17 at 03:47; Status DC Ondansetron HCl (Zofran) 4 mg PRN Q8HRS PRN IV NAUSEA/VOMITING; Start 04/11/17 at 03:45; Stop 04/12/17 at 03:44; Status DC Piperacillin Sod/ Tazobactam Sod (Zosyn Per Pharmacy) 1 each PRN DAILY PRN MC SEE COMMENTS; Start 04/11/17 at 04:00; Stop 04/11/17 at 13:08; Status DC Propofol 50 ml @ 0 mls/hr 1X ONCE IV Last administered on 04/11/17 03:16; Start 04/11/17 at 04:00; Stop 04/11/17 at 04:01; Status DC Piperacillin Sod/ Tazobactam Sod 2.25 gm/Sodium Chloride 50 ml @ 100 mls/hr 1X ONCE IV Last administered on 04/11/17 04:15; Start 04/11/17 at 04:15; Stop 04/11/17 at 04:44; Status DC Nicardipine HCl 50 mg/Sodium Chloride 270 ml @ 0 mls/hr CONT PRN IV SEE I/O RECORD; Start 04/11/17 at 04:30; Status Cancel Nicardipine HCl 50 mg/Sodium Chloride 270 ml @ 0 mls/hr CONT PRN IV SEE I/O RECORD; Start 04/11/17 at 04:30; Stop 04/12/17 at 19:01; Status DC Piperacillin Sod/ Tazobactam Sod 2.25 gm/Sodium Chloride 50 ml @ 100 mls/hr Q12H IV Last administered on 04/12/17 04:15; Start 04/11/17 at 16:00; Stop at 08:25; Status DC Propofol (Diprivan) 20 mg 1X ONCE IV Last administered on 04/11/17 04:17; Start 04/11/17 at 04:17; Stop 04/11/17 at 05:45; Status DC Propofol 100 ml @ As Directed STK-MED ONCE IV ; Start 04/11/17 at 06:05; Stop 04/11/17 at 06:06; Status DC Pneumococcal Polyvalent Vaccine (Do NOT chart on this placeholder) 1 each 1X ONCE MC ; Start 04/11/17 at 06:15; Stop 04/11/17 at 06:16; Status UNV Pneumococcal Polyvalent Vaccine (Pneumovax 23) 0.5 ml ONCE ONCE VAX IM ; Start 04/12/17 at 09:00; Stop 04/12/17 at 09:01; Status DC Propofol 100 ml @ 0 mls/hr CONT PRN IV SEE I/O RECORD Last administered on 04/12 11:51; Start 04/11/17 at 07:00; Stop 04/12/17 at 19:01; Status DC Sodium Chloride 1,000 ml @ 1,000 mls/hr Q1H PRN IV hypotension; Start 04/11/17 at 09:51; Stop 04/11/17 at 15:50; Status DC Albumin Human 200 ml @ 200 mls/hr 1X PRN PRN IV Hypotension Last administered on 04/11/17 14:03; Start 04/11/17 at 10:00; Stop 04/11/17 at 15:59; Status DC Diphenhydramine HCl (Benadryl) 25 mg 1X PRN PRN IV ITCHING; Start 04/11/17 at 10:00; Stop 04/12/17 at 09:59; Status DC Diphenhydramine HCl (Benadryl) 25 mg 1X PRN PRN IV ITCHING; Start 04/11/17 at 10:00; Stop 04/12/17 at 09:59; Status DC Sodium Chloride 1,000 ml @ 400 mls/hr Q2H30M PRN IV PATENCY; Start 04/11/17 at 09:51; Stop 04/11/17 at 21:50; Status DC Info (PHARMACY MONITORING -- do not chart) 1 each PRN DAILY PRN MC SEE COMMENTS ; Start 04/11/17 at 10:00 Pantoprazole Sodium (Protonix Vial) 40 mg DAILYAC IVP Last administered on 04/13 09:02; Start 04/11/17 at 11:30 Heparin Sodium (Porcine) (Heparin Sq) 5,000 unit Q8HRS SQ Last administered on 04/13/17 06:05; Start 04/11/17 at 14:00 Insulin Aspart (NovoLOG) 0-9 UNITS TIDWMEALS SQ ; Start 04/11/17 at 12:00; Stop 04/12/17 at 07:21; Status DC Dextrose (Dextrose 50%-Water Syringe) 12.5 gm PRN Q15MIN PRN IV SEE COMMENTS; Start 04/11/17 at 11:15; Stop 04/12/17 at 09:30; Status DC Chlorhexidine Gluconate (Peridex) 15 ml BID MM Last administered on 04/11/17 21:41; Start 04/11/17 at 21:00; Stop 04/12/17 at 19:01; Status DC Dextrose (Dextrose 50%-Water Syringe) 12.5 gm PRN Q15MIN PRN IV SEE COMMENTS; Start 04/11/17 at 17:45 Insulin Aspart (NovoLOG) 0-9 UNITS Q6HRS SQ ; Start 04/12/17 at 12:00; Stop at 19:01; Status DC Piperacillin Sod/ Tazobactam Sod 2.25 gm/Sodium Chloride 50 ml @ 100 mls/hr Q8HRS IV Last administered on 04/13/17 06:04; Start 04/12/17 at 14:00 Aspirin (Aspirin) 300 mg DAILY FL ; Start 04/12/17 at 12:00; Stop 04/12/17 at 19 :01; Status DC Sodium Chloride 1,000 ml @ 400 mls/hr Q2H30M PRN IV PATENCY; Start 04/12/17 at 11:52; Stop 04/12/17 at 23:51; Status DC Info (PHARMACY MONITORING -- do not chart) 1 each PRN DAILY PRN MC SEE COMMENTS ; Start 04/12/17 at 12:00; Status UNV Insulin Aspart (NovoLOG) 0-9 UNITS QIDACHS SQ Last administered on 04/12/17 20 :37; Start 04/12/17 at 21:00 Aspirin (Ecotrin) 325 mg DAILYWBKFT PO Last administered on 04/13/17 09:02; Start 04/13/17 at 08:00 Lisinopril (Prinivil) 5 mg DAILY PO ; Start 04/13/17 at 13:00 Metoprolol Tartrate (Lopressor) 12.5 mg BID PO ; Start 04/13/17 at 21:00; Status UNV Carvedilol (Coreg) 3.125 mg BIDWMEALS PO ; Start 04/13/17 at 17:00 Active Scripts Active Reported Calcium Acetate 667 Mg Tablet 667 Mg PO TIDWMEALS Calcitriol 0.5 Mcg Capsule 1 Cap PO DAILY Carvedilol 12.5 Mg Tablet 1 Tab PO BID Atorvastatin Calcium 20 Mg Tablet 1 Tab PO DAILY Renvela (Sevelamer Carbonate) 800 Mg Tablet 2 Tab PO TID Multivitamins (Multivitamin) 1 Each Tablet 1 Tab PO DAILY Humulin N (Nph, Human Insulin Isophane) 100 Unit/1 Ml Vial 30 Unit SQ DAILY Reglan (Metoclopramide Hcl) 10 Mg Tablet 5 Mg PO TID Vitals/I & O Vital Sign - Last 24 Hours 04/12/17 04/12/17 04/12/17 04/12/17 13:00 13:20 14:00 15:00 Pulse 84 84 90 Resp 12 12 12 B/P (MAP) 139/82 (101) 159/78 (105) 142/76 (98) Pulse Ox 100 100 97 O2 Delivery Ventilator T-Tube Nasal Cannula Nasal Cannula O2 Flow Rate 2.0 2.0 5/24/17 5/24/17 5/24/17 5/24/17 16:00 16:00 17:00 18:00 Temp 98.2 98.2 Pulse 92 96 94 Resp 12 12 12 B/P (MAP) 142/69 (93) 149/79 (102) 150/83 (105) Pulse Ox 97 97 97 O2 Delivery Nasal Cannula Room Air Nasal Cannula Room Air O2 Flow Rate 2.0 2.0 04/12/17 04/12/17 04/12/17 04/12/17 19:00 19:56 20:00 21:00 Temp 98.4 98.4 Pulse 102 92 93 Resp 20 14 18 B/P (MAP) 137/79 (98) 123/69 (87) 143/73 (96) Pulse Ox 93 92 95 O2 Delivery Room Air Room Air Room Air Room Air 04/12/17 04/12/17 04/12/17 04/13/17 22:00 23:00 23:59 00:00 Temp 98.3 98.3 Pulse 90 94 87 Resp 18 12 14 B/P (MAP) 142/80 (100) 152/76 (101) 139/75 (96) Pulse Ox 97 96 96 O2 Delivery Room Air Room Air Room Air Room Air 04/13/17 04/13/17 04/13/17 04/13/17 01:00 02:00 03:00 04:00 Temp 100.0 100.0 Pulse 90 90 89 86 Resp 12 22 22 22 B/P (MAP) 118/57 (77) 139/71 (93) 138/71 (93) 138/82 (100) Pulse Ox 98 98 90 97 O2 Delivery Nasal Cannula Nasal Cannula Nasal Cannula Nasal Cannula O2 Flow Rate 2.0 2.0 2.0 2.0 04/13/17 04/13/17 04/13/17 04/13/17 04:00 05:00 06:00 07:00 Pulse 87 84 80 Resp 19 23 21 B/P (MAP) 133/69 (90) 139/73 (95) 156/62 (93) Pulse Ox 98 99 96 O2 Delivery Room Air Nasal Cannula Nasal Cannula Nasal Cannula O2 Flow Rate 2.0 2.0 2.0 04/13/17 04/13/17 04/13/17 04/13/17 08:00 08:00 09:00 10:00 Temp 99.3 99.3 Pulse 91 92 80 Resp 20 26 16 B/P (MAP) 175/79 (111) 127/80 (96) 161/83 (109) Pulse Ox 97 97 98 O2 Delivery Room Air Nasal Cannula Nasal Cannula Nasal Cannula O2 Flow Rate 2.0 2.0 2.0 04/13/17 11:00 Pulse 82 Resp 10 B/P (MAP) 114/64 (81) Pulse Ox 95 O2 Delivery Nasal Cannula O2 Flow Rate 2.0 Intake and Output 04/12/17 04/12/17 04/13/17 15:00 23:00 07:00 Intake Total 0 ml 530 ml Output Total 283 ml 55 ml Balance 0 ml 247 ml -55 ml Nutrition Consultation Dietary Evaluation: Recommendations by RD: Increase Calorie Intake Comments: Rec. add the renal diet restriction Encourage good PO intake Offer a Novasource Renal protein supplement if intake is < 50% of meals Expected Outcomes/Goals: meet 75% estimated nutrition needs - met Malnutrition Findings: Reduced Inspector Receiving Strength: N/A Reduced Inspector Receiving Strength (Non-Sev: N/A Malnutrition related to morbid: No Weight Status: Overweight ELIZABETH ESCOBEDO III DO April 13, 2017 12:55
[2017-04-13] MEDS ORDERED: DIALYSIS PATIENT. MC PRN (14:15)
--- NOTE | 2017-04-13 14:48 | PDOC ---
PULMONARY PROGRESS NOTES Subjective Extubated no resp complaints Vitals Vital Signs Date Time Temp Pulse Resp B/P (MAP) Pulse Ox O2 Delivery O2 Flow Rate FiO2 04/13/17 14:00 88 34 184/100 (128) 97 Nasal Cannula 2.0 04/13/17 12:59 100.3 100.3 ROS: No Nausea, No Chest Pain, No Abdominal Pain, No Increase Cough General: Alert Lungs: Clear Cardiovascular: S1, S2 Abdomen: Soft Neuro Exam: Alert Extremities: No Edema Skin: Warm Labs Laboratory Tests Test 04/11/17 15:39 04/11/17 15:45 04/11/17 16:20 04/12/17 00:13 O2 Saturation 94 % (92-99) Arterial Blood pH 7.61 (7.35-7.45) Arterial Blood pCO2 at Patient Temp 30 mmHg (35-46) Arterial Blood pO2 at Patient Temp 63 mmHg (65-108) Arterial Blood HCO3 29 mmol/L (21-28) Arterial Blood Base Excess 7 mmol/L (-3-3) FiO2 40 Troponin I Quantitative 0.811 ng/mL (0.000-0.055) Glucose (Fingerstick) 105 mg/dL (70-99) 109 mg/dL (70-99) Test 04/12/17 04:10 04/12/17 06:10 04/12/17 07:40 04/12/17 13:50 White Blood Count 7.9 x10^3/uL (4.0-11.0) Red Blood Count 4.02 x10^6/uL (4.30-5.70) Hemoglobin 10.3 g/dL (13.0-17.5) Hematocrit 31.2 % (39.0-53.0) Mean Corpuscular Volume 78 fL (79-100) Mean Corpuscular Hemoglobin 26 pg (25-35) Mean Corpuscular Hemoglobin Concent 33 g/dL (31-37) Red Cell Distribution Width 14.0 % (11.5-14.5) Platelet Count 116 x10^3/uL (140-400) Neutrophils (%) (Auto) 76 % (31-73) Lymphocytes (%) (Auto) 14 % (24-48) Monocytes (%) (Auto) 9 % (0-9) Eosinophils (%) (Auto) 0 % (0-3) Basophils (%) (Auto) 0 % (0-3) Neutrophils # (Auto) 6.0 x10^3uL (1.8-7.7) Lymphocytes # (Auto) 1.1 x10^3/uL (1.0-4.8) Monocytes # (Auto) 0.7 x10^3/uL (0.0-1.1) Eosinophils # (Auto) 0.0 x10^3/uL (0.0-0.7) Basophils # (Auto) 0.0 x10^3/uL (0.0-0.2) Sodium Level 141 mmol/L (136-145) Potassium Level 4.4 mmol/L (3.5-5.1) Chloride Level 97 mmol/L (98-107) Carbon Dioxide Level 31 mmol/L (21-32) Anion Gap 13 (6-14) Blood Urea Nitrogen 45 mg/dL (8-26) Creatinine 12.7 mg/dL (0.7-1.3) Estimated GFR (Cockcroft-Gault) 4.9 Glucose Level 130 mg/dL (70-99) Calcium Level 8.4 mg/dL (8.5-10.1) Troponin I Quantitative 0.423 ng/mL (0.000-0.055) Triglycerides Level 150 mg/dL (0-150) Cholesterol Level 100 mg/dL (0-200) LDL Cholesterol, Calculated 26 mg/dL (0-100) VLDL Cholesterol, Calculated 30 mg/dL (0-40) Non-HDL Cholesterol Calculated 56 mg/dL (0-129) HDL Cholesterol 44 mg/dL (40-60) Cholesterol/HDL Ratio 2.3 Glucose (Fingerstick) 124 mg/dL (70-99) O2 Saturation 96 % (92-99) 98 % (92-99) Arterial Blood pH 7.47 (7.35-7.45) 7.57 (7.35-7.45) Arterial Blood pCO2 at Patient Temp 40 mmHg (35-46) 36 mmHg (35-46) Arterial Blood pO2 at Patient Temp 87 mmHg (65-108) 129 mmHg (65-108) Arterial Blood HCO3 28 mmol/L (21-28) 33 mmol/L (21-28) Arterial Blood Base Excess 4 mmol/L (-3-3) 10 mmol/L (-3-3) FiO2 40 40 Test 04/12/17 20:35 04/13/17 04:00 04/13/17 08:54 04/13/17 12:38 Glucose (Fingerstick) 212 mg/dL (70-99) 104 mg/dL (70-99) 130 mg/dL (70-99) White Blood Count 6.1 x10^3/uL (4.0-11.0) Red Blood Count 3.86 x10^6/uL (4.30-5.70) Hemoglobin 9.9 g/dL (13.0-17.5) Hematocrit 30.4 % (39.0-53.0) Mean Corpuscular Volume 79 fL (79-100) Mean Corpuscular Hemoglobin 26 pg (25-35) Mean Corpuscular Hemoglobin Concent 33 g/dL (31-37) Red Cell Distribution Width 13.9 % (11.5-14.5) Platelet Count 116 x10^3/uL (140-400) Sodium Level 143 mmol/L (136-145) Potassium Level 4.1 mmol/L (3.5-5.1) Chloride Level 100 mmol/L (98-107) Carbon Dioxide Level 30 mmol/L (21-32) Anion Gap 13 (6-14) Blood Urea Nitrogen 32 mg/dL (8-26) Creatinine 10.0 mg/dL (0.7-1.3) Estimated GFR (Cockcroft-Gault) 6.4 Glucose Level 93 mg/dL (70-99) Calcium Level 8.8 mg/dL (8.5-10.1) Laboratory Tests Test 04/12/17 20:35 04/13/17 04:00 04/13/17 08:54 04/13/17 12:38 Glucose (Fingerstick) 212 mg/dL (70-99) 104 mg/dL (70-99) 130 mg/dL (70-99) White Blood Count 6.1 x10^3/uL (4.0-11.0) Red Blood Count 3.86 x10^6/uL (4.30-5.70) Hemoglobin 9.9 g/dL (13.0-17.5) Hematocrit 30.4 % (39.0-53.0) Mean Corpuscular Volume 79 fL (79-100) Mean Corpuscular Hemoglobin 26 pg (25-35) Mean Corpuscular Hemoglobin Concent 33 g/dL (31-37) Red Cell Distribution Width 13.9 % (11.5-14.5) Platelet Count 116 x10^3/uL (140-400) Sodium Level 143 mmol/L (136-145) Potassium Level 4.1 mmol/L (3.5-5.1) Chloride Level 100 mmol/L (98-107) Carbon Dioxide Level 30 mmol/L (21-32) Anion Gap 13 (6-14) Blood Urea Nitrogen 32 mg/dL (8-26) Creatinine 10.0 mg/dL (0.7-1.3) Estimated GFR (Cockcroft-Gault) 6.4 Glucose Level 93 mg/dL (70-99) Calcium Level 8.8 mg/dL (8.5-10.1) Medications Active Scripts Medications Dose Route/Sig Max Daily Dose Days Date Category Renvela (Sevelamer Carbonate) 800 Mg Tablet 2 Tab PO TID 04/11/17 Reported Multivitamins (Multivitamin) 1 Each Tablet 1 Tab PO DAILY 04/11/17 Reported Humulin N (Nph, Human Insulin Isophane) 100 Unit/1 Ml Vial 30 Unit SQ DAILY 04/11/17 Reported Reglan (Metoclopramide Hcl) 10 Mg Tablet 5 Mg PO TID 04/11/17 Reported Impression . 1. Acute respiratory failure secondary to acute pulmonary edema. 2. Acute pulmonary edema, suspect combination of missing dialysis 3. Cardiomyopathy with recent ejection fraction estimated at 35%. 4. Elevated troponin level, possibly [id number] elevation myocardial infarction. 5. Chronic renal failure. 6. Increased lactic acidosis secondary to increased work of breathing, doubt sepsis. 7. Combination of metabolic and respiratory acidosis, improved. Plan . HD today home in am ok by me 1. Continue hemodialysis, negative fluid balance. 2. extubated 3. 6 min walk prior to d/c 4. No need for antibiotics. 5. Monitor glucose. 6. DVT and GI prophylaxis. 7. Follow card input NIRALI MENESES MD April 13, 2017 14:48
[2017-04-13] MEDS: LISINOPRIL 5 MG TABLET. PO SCH (18:35)
[2017-04-13] MEDS: CARVEDILOL 3.125 MG TABLET. PO SCH (18:36)
[2017-04-13] MEDS ORDERED: METOPROLOL TART IMMED RELEASE 25 MG TABLET. PO SCH (21:00)
[2017-04-13] MEDS ORDERED: diphenhydrAMINE HCL 25 MG CAPSULE PO PRN (22:30)
[2017-04-14 03:45] VITALS: BP 140/80
[2017-04-14 04:09] LABS: BASO # 0.1 x10^3/uL (0.0-0.2); BASO % 1 % (0-3); EOS % 2 % (0-3); HEMATOCRIT 33.7 % (39.0-53.0); HEMOGLOBIN 10.5 g/dL (13.0-17.5); LYMPH # 1.1 x10^3/uL (1.0-4.8); LYMPH % 17 % (24-48); MEAN CORPUSCULAR HEMOGLOBIN 25 pg (25-35); MEAN CORPUSCULAR HGB CONC 31 g/dL (31-37); MEAN CORPUSCULAR VOLUME 80 fL (79-100); MONO % 12 % (0-9); NEUT % 68 % (31-73); PLATELET COUNT 143 x10^3/uL (140-400); RED BLOOD COUNT 4.21 x10^6/uL (4.30-5.70); RED CELL DISTRIBUTION WIDTH 13.8 % (11.5-14.5); WHITE BLOOD COUNT 6.3 x10^3/uL (4.0-11.0)
[2017-04-14 04:51] LABS: CALCIUM 9.1 mg/dL (8.5-10.1); CREATININE 7.8 mg/dL (0.7-1.3); GFR 8.6; POTASSIUM 4.3 mmol/L (3.5-5.1)
[2017-04-14] MEDS: HEPARIN PF for SUB-Q USE 5,000 UNIT/0.5 ML VIAL. SQ SCH (06:06)
[2017-04-14 07:00] VITALS: BP 160/86
[2017-04-14] MEDS: INSULIN ASPART 300 UNITS/3 ML INSULN.PEN SQ SCH ×2 (07:30→11:30)
[2017-04-14] MEDS ORDERED: REGADENOSON 0.4 MG/5 ML DISP.SYRIN. IV ONE (08:45)
[2017-04-14 11:00] VITALS: BP 160/86
[2017-04-14] MEDS ORDERED: ONDANSETRON PF 4 MG/2 ML VIAL. IV ONE (11:00)
[2017-04-14] MEDS: PANTOPRAZOLE IV PUSH 40 MG VIAL. IVP SCH (11:04)
--- NOTE | 2017-04-14 11:16 | PDOC ---
Renal-Progress Notes Subjective Notes Notes NO SOB History of Present Illness Hx of present illness NO CHANGE Vitals Vitals Vital Signs Date Time Temp Pulse Resp B/P (MAP) Pulse Ox O2 Delivery O2 Flow Rate FiO2 04/14/17 08:00 Room Air 2.0 04/14/17 07:00 99.3 91 20 160/86 (110) 92 99.3 Weight Weight [ ] I.O. Intake and Output Intake and Output 04/14/17 06:59 Intake Total 400 ml Output Total 70 ml Balance 330 ml Intake Oral 400 ml Output Urine Total 70 ml Labs Labs Laboratory Tests Test 04/13/17 12:38 04/13/17 17:13 04/13/17 20:31 04/14/17 04:00 Glucose (Fingerstick) 130 mg/dL (70-99) 113 mg/dL (70-99) 152 mg/dL (70-99) White Blood Count 6.3 x10^3/uL (4.0-11.0) Red Blood Count 4.21 x10^6/uL (4.30-5.70) Hemoglobin 10.5 g/dL (13.0-17.5) Hematocrit 33.7 % (39.0-53.0) Mean Corpuscular Volume 80 fL (79-100) Mean Corpuscular Hemoglobin 25 pg (25-35) Mean Corpuscular Hemoglobin Concent 31 g/dL (31-37) Red Cell Distribution Width 13.8 % (11.5-14.5) Platelet Count 143 x10^3/uL (140-400) Neutrophils (%) (Auto) 68 % (31-73) Lymphocytes (%) (Auto) 17 % (24-48) Monocytes (%) (Auto) 12 % (0-9) Eosinophils (%) (Auto) 2 % (0-3) Basophils (%) (Auto) 1 % (0-3) Neutrophils # (Auto) 4.3 x10^3uL (1.8-7.7) Lymphocytes # (Auto) 1.1 x10^3/uL (1.0-4.8) Monocytes # (Auto) 0.8 x10^3/uL (0.0-1.1) Eosinophils # (Auto) 0.1 x10^3/uL (0.0-0.7) Basophils # (Auto) 0.1 x10^3/uL (0.0-0.2) Sodium Level 142 mmol/L (136-145) Potassium Level 4.3 mmol/L (3.5-5.1) Chloride Level 100 mmol/L (98-107) Carbon Dioxide Level 29 mmol/L (21-32) Anion Gap 13 (6-14) Blood Urea Nitrogen 17 mg/dL (8-26) Creatinine 7.8 mg/dL (0.7-1.3) Estimated GFR (Cockcroft-Gault) 8.6 Glucose Level 113 mg/dL (70-99) Calcium Level 9.1 mg/dL (8.5-10.1) Troponin I Quantitative 0.096 ng/mL (0.000-0.055) Test 04/14/17 07:30 Glucose (Fingerstick) 120 mg/dL (70-99) Micro Micro Microbiology 04/11/17 Blood Culture - Preliminary, Resulted NO GROWTH AFTER 3 DAYS Physical Exam General Appearance: no apparent distress Respiratory: bilateral CTA Heart: S1S2 Abdomen: soft, bowel sounds present Genitourinary: bladder flat Extremities: pulses present, no edema, atrophy Neurology: alert, oriented, follow commands Assessment Assessment IMP RESP FAILURE HYPERVOLEMIA PULMONARY EDEMA ESRD PLAN HD TOMORROW STRESS TEST PENDING ENC COMPLIANCE YENI COSTA MD April 14, 2017 11:16
[2017-04-14 12:10] VITALS: BP 160/86
[2017-04-14] MEDS: CARVEDILOL 3.125 MG TABLET. PO SCH (12:10)
[2017-04-14] MEDS: LISINOPRIL 5 MG TABLET. PO SCH (12:10)
[2017-04-14] MEDS: ASPIRIN ENTERIC COATED 325 MG TABLET.DR. PO SCH (12:10)
--- NOTE | 2017-04-14 12:43 | PDOC ---
CARDIO Progress Notes Date and Time Date of Service 04/14/17 Time of Evaluation 1240 Subjective Subjective: No Chest Pain, No shortness of breath, Other (anxious to go home ) Vitals Vitals Vital Signs Date Time Temp Pulse Resp B/P (MAP) Pulse Ox O2 Delivery O2 Flow Rate FiO2 04/14/17 12:10 100 04/14/17 12:10 160/86 04/14/17 11:00 99.1 20 92 Room Air 99.1 04/14/17 08:00 2.0 Weight Weight [ ] Input and Output Intake and Output Intake and Output 04/14/17 07:00 Intake Total 400 ml Output Total 70 ml Balance 330 ml Intake Oral 400 ml Output Urine Total 70 ml Laboratory Labs Laboratory Tests Test 04/13/17 17:13 04/13/17 20:31 04/14/17 04:00 04/14/17 07:30 Glucose (Fingerstick) 113 mg/dL (70-99) 152 mg/dL (70-99) 120 mg/dL (70-99) White Blood Count 6.3 x10^3/uL (4.0-11.0) Red Blood Count 4.21 x10^6/uL (4.30-5.70) Hemoglobin 10.5 g/dL (13.0-17.5) Hematocrit 33.7 % (39.0-53.0) Mean Corpuscular Volume 80 fL (79-100) Mean Corpuscular Hemoglobin 25 pg (25-35) Mean Corpuscular Hemoglobin Concent 31 g/dL (31-37) Red Cell Distribution Width 13.8 % (11.5-14.5) Platelet Count 143 x10^3/uL (140-400) Neutrophils (%) (Auto) 68 % (31-73) Lymphocytes (%) (Auto) 17 % (24-48) Monocytes (%) (Auto) 12 % (0-9) Eosinophils (%) (Auto) 2 % (0-3) Basophils (%) (Auto) 1 % (0-3) Neutrophils # (Auto) 4.3 x10^3uL (1.8-7.7) Lymphocytes # (Auto) 1.1 x10^3/uL (1.0-4.8) Monocytes # (Auto) 0.8 x10^3/uL (0.0-1.1) Eosinophils # (Auto) 0.1 x10^3/uL (0.0-0.7) Basophils # (Auto) 0.1 x10^3/uL (0.0-0.2) Sodium Level 142 mmol/L (136-145) Potassium Level 4.3 mmol/L (3.5-5.1) Chloride Level 100 mmol/L (98-107) Carbon Dioxide Level 29 mmol/L (21-32) Anion Gap 13 (6-14) Blood Urea Nitrogen 17 mg/dL (8-26) Creatinine 7.8 mg/dL (0.7-1.3) Estimated GFR (Cockcroft-Gault) 8.6 Glucose Level 113 mg/dL (70-99) Calcium Level 9.1 mg/dL (8.5-10.1) Troponin I Quantitative 0.096 ng/mL (0.000-0.055) Test 04/14/17 12:12 Glucose (Fingerstick) 142 mg/dL (70-99) Microbiology Micro Microbiology 04/11/17 Blood Culture - Preliminary, Resulted NO GROWTH AFTER 3 DAYS Physical Exam HEENT: Neck Supple W Full Motion Chest: Symmetric LUNGS: Clear to Auscultation Heart: S1S2, RRR, other (tele: SR) Abdomen: Soft N/T Extremities: 2+ Dorsalis Pedis, No Edema Neurology: alert, oriented, follow commands Assessment Assessment 1. acute CHF, systolic and diastolic LVEF depressed @ 35-40% with inferior and inferoseptal hypokinesis continue medical management fluid offloading/management via HD per nephrology maintain BP control 2. NSTEMI troponin peaked @ 0.8; inferior and inferoseptal hypokinesis on echo MPI underway today to r/o ischemia; if negative, may discharge from a cardiac standpoint Patient to followup with routine cardiology in 4-6 weeks. 3. acute respiratory failure extubated 04/12 per pulm 4. HTN control with meds & HD 5. anemia of chronic disease 6. ESRD with HD per nephrology HARPER MCKEON APRN April 14, 2017 12:43
--- NOTE | 2017-04-14 13:28 | RAD ---
APPROVED REPORT Test Type: Pharmacological Stress Nurse/Tech: Tabitha Vivas R.N. Test Indications: SOA Cardiac History: HTN Medications: SEE EMR Medical History: COPD Resting ECG: SR Resting Heart Rate: 88 bpm Resting Blood Pressure: 155/89mmHg Pretest Chest Pain: None Nurse/Tech Notes S1S2, lungs severely diminished in all lobes, denied chest pain, SOA or dizziness. Pt was observed dr landon bowles in his room prior to arrival in [place]. Noncompliant with NPO order. Consent: The procedure was explained to the patient in lay terms. Informed consent was witnessed. Arnaldo eout was entered into [employer]. History and Stress Test performed by Tabitha Vivas R.N. Pharm. Details Pharmacologic stress testing was performed using 0.4mg per 5ml of regadenoson given intravenously ove r 7-10 seconds. Stress Symptoms Nausea, Vomiting. SOA. POST EXERCISE Reason for Termination: Infusion complete Max HR: 118 bpm Max Blood Pressure: 186/100mmHg Blood Pressure response to exercise: Normal blood pressure response during stress. Heart Rate response to exercise: Normal Chest Pain: No. Arrhythmia: No. ST Change: Yes. Slight changes from baseline in multiple leads. INTERPRETATION Stress EKG Conclusion: Baseline EKG showed sinus rhythm. Non diagnostic changes at peak stress. No arrhythmias. Imaging Protocol IMAGE PROTOCOL: Rest Tc-99m/stress Tc-99m 1 day Rest: Stress: Viability: Radiopharm.Tc99m [id number] Sestamibi Dose10.5mCi 34mCi Duration 15min. 10min. Img Date 04/14/2017 04/14/2017 Inj-Img [id number]. 60min. Rest Admin Site:IV - Left AntecubitalAdministrator:RT Leslie (R)(N) Stress Admin Site: IV - Left AntecubitalAdministrator: MIGNON Calixto STRESS DATA End Diast. Vol.137.0mlAv. Heart Rate93.0bpm End Syst. Vol.52.0mlCO Index BSA0.0L/min Myocardial Hvpi185.0gEject. Nymxwnzm09.0% Stress Rates Pk. Fill Rate2.56EDV/secLVtime Pk. Fill 159.26msec Pk. Empty Rate4.24ESV/secLVtime Pk. Huvun956.14msec 1/3 Pk. Fill1.61EDV/sec Stress Scores Regional WT0.00Summed WT9.00 Regional WM0.00Summed WM8.00 Study quality was good. Left Ventricular size was Normal at Rest and Stress. Lung uptake was Normal. Left Ventricular ejection fraction is 62%. The rest and stress images show normal perfusion, normal contraction and thickening. LV Perf. Quant 17 Seg. SSS3.00 17 Seg. SRS4.00 17 Seg. SDS1.00 Stress Defect Extent (% LAD)0.00Rest Defect Extent (% LAD)0.00Rev. Defect Extent (% LAD)0.00 Stress Defect Extent (% LCX) 6.30Rest Defect Extent (% LCX)0.00Rev. Defect Extent (% LCX)2.50 Stress Defect Extent (% RCA)4.40Rest Defect Extent (% RCA)0.00Rev. Defect Extent (% RCA)0.00 Stress Defect Extent (% JOSEPH)2.80Rest Defect Extent (% JOSEPH)0.00Rev. Defect Extent (% JOSEPH)0.40 Conclusion 1. Regadenoson cardioisotope stress test did not show any evidence of ischemia or infarct. 2. Normal left ventricular systolic function with ejection fraction calculated at 62%. 3. Low risk for cardiac events.
--- NOTE | 2017-04-14 13:35 | PDOC ---
PULMONARY PROGRESS NOTES Subjective Extubated no resp complaints Vitals Vital Signs Date Time Temp Pulse Resp B/P (MAP) Pulse Ox O2 Delivery O2 Flow Rate FiO2 04/14/17 12:10 100 04/14/17 12:10 160/86 04/14/17 11:00 99.1 20 92 Room Air 99.1 04/14/17 08:00 2.0 ROS: No Nausea, No Chest Pain, No Abdominal Pain, No Increase Cough General: Alert Lungs: Clear Cardiovascular: S1, S2 Abdomen: Soft Neuro Exam: Alert Extremities: No Edema Skin: Warm Labs Laboratory Tests Test 04/12/17 13:50 04/12/17 20:35 04/13/17 04:00 04/13/17 08:54 O2 Saturation 98 % (92-99) Arterial Blood pH 7.57 (7.35-7.45) Arterial Blood pCO2 at Patient Temp 36 mmHg (35-46) Arterial Blood pO2 at Patient Temp 129 mmHg (65-108) Arterial Blood HCO3 33 mmol/L (21-28) Arterial Blood Base Excess 10 mmol/L (-3-3) FiO2 40 Glucose (Fingerstick) 212 mg/dL (70-99) 104 mg/dL (70-99) White Blood Count 6.1 x10^3/uL (4.0-11.0) Red Blood Count 3.86 x10^6/uL (4.30-5.70) Hemoglobin 9.9 g/dL (13.0-17.5) Hematocrit 30.4 % (39.0-53.0) Mean Corpuscular Volume 79 fL (79-100) Mean Corpuscular Hemoglobin 26 pg (25-35) Mean Corpuscular Hemoglobin Concent 33 g/dL (31-37) Red Cell Distribution Width 13.9 % (11.5-14.5) Platelet Count 116 x10^3/uL (140-400) Sodium Level 143 mmol/L (136-145) Potassium Level 4.1 mmol/L (3.5-5.1) Chloride Level 100 mmol/L (98-107) Carbon Dioxide Level 30 mmol/L (21-32) Anion Gap 13 (6-14) Blood Urea Nitrogen 32 mg/dL (8-26) Creatinine 10.0 mg/dL (0.7-1.3) Estimated GFR (Cockcroft-Gault) 6.4 Glucose Level 93 mg/dL (70-99) Calcium Level 8.8 mg/dL (8.5-10.1) Test 04/13/17 12:38 04/13/17 17:13 04/13/17 20:31 04/14/17 04:00 Glucose (Fingerstick) 130 mg/dL (70-99) 113 mg/dL (70-99) 152 mg/dL (70-99) White Blood Count 6.3 x10^3/uL (4.0-11.0) Red Blood Count 4.21 x10^6/uL (4.30-5.70) Hemoglobin 10.5 g/dL (13.0-17.5) Hematocrit 33.7 % (39.0-53.0) Mean Corpuscular Volume 80 fL (79-100) Mean Corpuscular Hemoglobin 25 pg (25-35) Mean Corpuscular Hemoglobin Concent 31 g/dL (31-37) Red Cell Distribution Width 13.8 % (11.5-14.5) Platelet Count 143 x10^3/uL (140-400) Neutrophils (%) (Auto) 68 % (31-73) Lymphocytes (%) (Auto) 17 % (24-48) Monocytes (%) (Auto) 12 % (0-9) Eosinophils (%) (Auto) 2 % (0-3) Basophils (%) (Auto) 1 % (0-3) Neutrophils # (Auto) 4.3 x10^3uL (1.8-7.7) Lymphocytes # (Auto) 1.1 x10^3/uL (1.0-4.8) Monocytes # (Auto) 0.8 x10^3/uL (0.0-1.1) Eosinophils # (Auto) 0.1 x10^3/uL (0.0-0.7) Basophils # (Auto) 0.1 x10^3/uL (0.0-0.2) Sodium Level 142 mmol/L (136-145) Potassium Level 4.3 mmol/L (3.5-5.1) Chloride Level 100 mmol/L (98-107) Carbon Dioxide Level 29 mmol/L (21-32) Anion Gap 13 (6-14) Blood Urea Nitrogen 17 mg/dL (8-26) Creatinine 7.8 mg/dL (0.7-1.3) Estimated GFR (Cockcroft-Gault) 8.6 Glucose Level 113 mg/dL (70-99) Calcium Level 9.1 mg/dL (8.5-10.1) Troponin I Quantitative 0.096 ng/mL (0.000-0.055) Test 04/14/17 07:30 04/14/17 12:12 Glucose (Fingerstick) 120 mg/dL (70-99) 142 mg/dL (70-99) Laboratory Tests Test 04/13/17 17:13 04/13/17 20:31 04/14/17 04:00 04/14/17 07:30 Glucose (Fingerstick) 113 mg/dL (70-99) 152 mg/dL (70-99) 120 mg/dL (70-99) White Blood Count 6.3 x10^3/uL (4.0-11.0) Red Blood Count 4.21 x10^6/uL (4.30-5.70) Hemoglobin 10.5 g/dL (13.0-17.5) Hematocrit 33.7 % (39.0-53.0) Mean Corpuscular Volume 80 fL (79-100) Mean Corpuscular Hemoglobin 25 pg (25-35) Mean Corpuscular Hemoglobin Concent 31 g/dL (31-37) Red Cell Distribution Width 13.8 % (11.5-14.5) Platelet Count 143 x10^3/uL (140-400) Neutrophils (%) (Auto) 68 % (31-73) Lymphocytes (%) (Auto) 17 % (24-48) Monocytes (%) (Auto) 12 % (0-9) Eosinophils (%) (Auto) 2 % (0-3) Basophils (%) (Auto) 1 % (0-3) Neutrophils # (Auto) 4.3 x10^3uL (1.8-7.7) Lymphocytes # (Auto) 1.1 x10^3/uL (1.0-4.8) Monocytes # (Auto) 0.8 x10^3/uL (0.0-1.1) Eosinophils # (Auto) 0.1 x10^3/uL (0.0-0.7) Basophils # (Auto) 0.1 x10^3/uL (0.0-0.2) Sodium Level 142 mmol/L (136-145) Potassium Level 4.3 mmol/L (3.5-5.1) Chloride Level 100 mmol/L (98-107) Carbon Dioxide Level 29 mmol/L (21-32) Anion Gap 13 (6-14) Blood Urea Nitrogen 17 mg/dL (8-26) Creatinine 7.8 mg/dL (0.7-1.3) Estimated GFR (Cockcroft-Gault) 8.6 Glucose Level 113 mg/dL (70-99) Calcium Level 9.1 mg/dL (8.5-10.1) Troponin I Quantitative 0.096 ng/mL (0.000-0.055) Test 04/14/17 12:12 Glucose (Fingerstick) 142 mg/dL (70-99) Medications Active Scripts Medications Dose Route/Sig Max Daily Dose Days Date Category Renvela (Sevelamer Carbonate) 800 Mg Tablet 2 Tab PO TID 04/11/17 Reported Multivitamins (Multivitamin) 1 Each Tablet 1 Tab PO DAILY 04/11/17 Reported Humulin N (Nph, Human Insulin Isophane) 100 Unit/1 Ml Vial 30 Unit SQ DAILY 04/11/17 Reported Reglan (Metoclopramide Hcl) 10 Mg Tablet 5 Mg PO TID 04/11/17 Reported Impression . 1. Acute respiratory failure secondary to acute pulmonary edema. 2. Acute pulmonary edema, suspect combination of missing dialysis 3. Cardiomyopathy with recent ejection fraction estimated at 35%. 4. Elevated troponin level, possibly hsy-TL-[id number] elevation myocardial infarction. 5. Chronic renal failure. 6. Increased lactic acidosis secondary to increased work of breathing, doubt sepsis. 7. Combination of metabolic and respiratory acidosis, improved. Plan . D/C TODAY NO NEED FOR FOLLOW UP NIRALI MENESES MD April 14, 2017 13:35
--- NOTE | 2017-04-15 01:20 | DS ---
DATE OF DISCHARGE: 04/14/2017 ADMISSION DIAGNOSES: Respiratory failure, chest pain, congestive heart failure, [id number] systolic and diastolic, pulmonary edema. DISCHARGE DIAGNOSES: Resolving respiratory failure with pulmonary edema. HOSPITAL COURSE: The patient is a pleasant 61-year-old male who presented with respiratory failure. Basically, he was new onset heart failure. He also has some chest pain. He was admitted. We diuresed him. We checked serial enzymes, serial EKGs. We consulted Cardiology. He was taken for a stress test today, it was negative. He is at his baseline. We plan to discharge with close outpatient followup. DISPOSITION: Home. ACTIVITY: As tolerated. DIET: Low sodium. MEDICATIONS: Please see the MRAD. TOTAL TIME ON DISCHARGE: 38 minutes. ELIZABETH ESCOBEDO DO DR: CHOLO/jose alberto JOB#: [id number] / [id number]
== END 2017-04-14 16:03 | disposition home or self-care (01) | DRG 208 ==
LOC: ER 03:02 → 1 WEST ICU 03:27 → 2 NORTH 04-13 19:30
PROVIDERS: ADMIT Internal Medicine; ATTEND Internal Medicine
PROC: 5A1945Z Respiratory Ventilation, 24-96 Consecutive Hours (ICD-10-PCS; principal; 2017-04-11)
PROC: 0BH17EZ Insertion of Endotracheal Airway into Trachea, Via Natural or Artificial Opening (ICD-10-PCS; 2017-04-11)
PROC: 5A1D60Z (ICD-10-PCS; 2017-04-11)
DX: J96.01 Acute respiratory failure with hypoxia (principal); I21.4 Non-ST elevation (NSTEMI) myocardial infarction; N18.6 End stage renal disease; I50.43 Acute on chronic combined systolic (congestive) and diastolic (congestive) heart failure; I13.2 Hypertensive heart and chronic kidney disease with heart failure and with stage 5 chronic kidney disease, or end stage renal disease; I16.1 Hypertensive emergency; I42.9 Cardiomyopathy, unspecified; E87.4 Mixed disorder of acid-base balance; J81.1 Chronic pulmonary edema; D63.8 Anemia in other chronic diseases classified elsewhere; D72.829 Elevated white blood cell count, unspecified; E11.22 Type 2 diabetes mellitus with diabetic chronic kidney disease; E66.9 Obesity, unspecified; E21.3 Hyperparathyroidism, unspecified; Z79.4 Long term (current) use of insulin; Z82.49 Family history of ischemic heart disease and other diseases of the circulatory system; Z99.2 Dependence on renal dialysis; Z68.26 Body mass index [BMI] 26.0-26.9, adult
CPT/HCPCS: 31500; 36415; 36600; 71010; 74000; 78452; 80047; 80048; 80061; 80076; 81001; 82805; 82962; 83605; 83880; 84484; 85027; 87040; 87340; 87341; 87641; 90732; 93005; 93017; 93306; 94002; 94003; 96365; 96368; 96374; 96375; 96376; A9500; C9113; J1815; J1940; J2405; J2543; J2704; J2785; J3490; P9046; Q0163; 99291-25

== ENCOUNTER 2017-06-03 10:32 | Inpatient (IN) | payer MEDICARE, MEDICAID ==
[~2017-06-03] VITALS: Ht 175.3 cm; Wt 81.2 kg
[~2017-06-03 10:32] MED LIST: ATOR20TA58 PO; CALC0.5C PO; CALC667T PO; CARV12.52 PO; METO10TA81 PO; MULT1TAB52 PO; NPH,100V SQ; SEVE800T9 PO
[2017-06-03] MEDS ORDERED: IPRATRPIUM/ALBUTEROL 0.5/2.5MG 3 ML NEBU. NEB ONE (10:45)
[2017-06-03] MEDS ORDERED: ASPIRIN 325 MG TABLET PO ONE (10:45)
[2017-06-03 11:01] LABS: BASO # 0.1 x10^3/uL (0.0-0.2); BASO % 1 % (0-3); EOS % 2 % (0-3); HEMATOCRIT 33.8 % (39.0-53.0); LYMPH # 1.4 x10^3/uL (1.0-4.8); LYMPH % 26 % (24-48); MEAN CORPUSCULAR HEMOGLOBIN 26 pg (25-35); MEAN CORPUSCULAR HGB CONC 33 g/dL (31-37); MEAN CORPUSCULAR VOLUME 79 fL (79-100); MONO % 10 % (0-9); NEUT % 60 % (31-73); PLATELET COUNT 171 x10^3/uL (140-400); RED CELL DISTRIBUTION WIDTH 14.2 % (11.5-14.5); WHITE BLOOD COUNT 5.4 x10^3/uL (4.0-11.0)
--- NOTE | 2017-06-03 11:18 | EKG ---
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
[2017-06-03 11:23] LABS: INR 1.1 (0.8-1.1); PROTHROMBIN TIME PATIENT 13.7 SEC (11.7-14.0)
--- NOTE | 2017-06-03 11:33 | RAD ---
AP chest. History: COPD, short of breath AP view was taken of the chest. Comparison is made with a study from March. The heart is upper normal in size. There are bilateral areas of infiltrate. There is also slight interstitial prominence which could be mild edema. Impression: 1. Poor inspiration. 2. Mild basilar infiltrates versus edema.
[2017-06-03 11:37] LABS: CALCIUM 8.6 mg/dL (8.5-10.1); CREATININE 9.4 mg/dL (0.7-1.3); GFR 6.9; POTASSIUM 3.3 mmol/L (3.5-5.1)
[2017-06-03 11:43] LABS: ALBUMIN 3.1 g/dL (3.4-5.0); ALBUMIN/GLOBULIN RATIO 0.8 (1.0-1.7); TOTAL BILIRUBIN 0.6 mg/dL (0.2-1.0); TOTAL PROTEIN 6.8 g/dL (6.4-8.2)
[2017-06-03] MEDS ORDERED: AZITHROMYCIN 500 MG in IV NORMAL SALINE 250ML 250 ML IV ONE (12:30)
[2017-06-03] MEDS ORDERED: AZITHRMYCN 500MG IVPB FOR OMNI 250 ML IV ONE (13:45)
--- NOTE | 2017-06-03 14:45 | PHYS DOC ---
Past Medical History Past Medical History: CVA, Diabetes-Type II, High Cholesterol, Hypertension, Renal Failure Additional Past Medical Histor: UNKNOWN MEDICAL HISTORY Past Surgical History: Other Additional Past Surgical Histo: DIALYSIS SHUNT PLACED IN RUE, [facility] RIGHT SIDE CHEST Alcohol Use: None Drug Use: None Adult General Chief Complaint Chief Complaint: SHORTNESS OF BREATH HPI HPI Patient is a 61 year old male who presents with dyspnea. The patient reports 3 week history of dyspnea worst in the mornings after prolonged orthopnea, as well as exertional dyspnea. Denies fevers/chills, cough, chest pain, lower extremity pain/swelling. He has ESRD on HD, reports compliance with Monday/ /Monday regimen, scheduled for dialysis today at 1500. He reports compliance with medications & does have history of HTN. Reports he is a former smokers, unsure of history of COPD. Review of Systems Review of Systems Constitutional: Denies fever or chills Eyes: Denies change in visual acuity HENT: Denies nasal congestion or sore throat Respiratory: Denies cough, reports shortness of breath Cardiovascular: Denies chest pain or edema GI: Denies abdominal pain, nausea, vomiting, bloody stools or diarrhea Musculoskeletal: Denies back pain or joint pain Integument: Denies rash or skin lesions Neurologic: Denies headache, focal weakness or sensory changes Current Medications Current Medications Current Medications Medications (Trade) Dose Ordered Sig/Thuan Start Time Stop Time Status Last Admin Dose Admin Albuterol/ Ipratropium (Duoneb) 3 ml 1X ONCE 06/03/17 10:45 06/03/17 10:53 DC 06/03/17 10:55 3 ML Aspirin (Eleonora Aspirin) 325 mg 1X ONCE 06/03/17 10:45 06/03/17 10:53 DC 06/03/17 10:56 325 MG Allergies Allergies Allergies Coded Allergies Type Severity Reaction Last Updated Verified No Known Drug Allergies 04/13/17 No Physical Exam Physical Exam Constitutional: Well developed, well nourished, no acute distress, non-toxic appearance. HENT: Normocephalic, atraumatic, bilateral external ears normal, oropharynx moist, nose normal. Eyes: conjunctiva normal, no discharge. Neck: supple, no stridor. Cardiovascular: RRR, no murmurs, no edema. Lungs & Thorax: diminished, crackles in bases, no wheezing, no respiratory distress. mild tachypnea. Abdomen: soft, nontender, nondistended. Skin: Warm, dry, no erythema, no rash. Back: No tenderness. Extremities: No tenderness, no edema. no calf tenderness or swelling. Neurologic: Alert and oriented X 3, no focal deficits noted. Psychologic: Affect normal, judgement normal, mood normal. Current Patient Data Vital Signs Vital Signs Date Time Temp Pulse Resp B/P (MAP) Pulse Ox O2 Delivery O2 Flow Rate FiO2 06/03/17 11:45 78 20 179/100 (126) 95 Room Air 06/03/17 10:41 98.4 98.4 Lab Values Laboratory Tests Test 06/03/17 10:45 06/03/17 11:15 White Blood Count 5.4 x10^3/uL (4.0-11.0) Red Blood Count 4.30 x10^6/uL (4.30-5.70) Hemoglobin 11.0 g/dL (13.0-17.5) L Hematocrit 33.8 % (39.0-53.0) L Mean Corpuscular Volume 79 fL (79-100) Mean Corpuscular Hemoglobin 26 pg (25-35) Mean Corpuscular Hemoglobin Concent 33 g/dL (31-37) Red Cell Distribution Width 14.2 % (11.5-14.5) Platelet Count 171 x10^3/uL (140-400) Neutrophils (%) (Auto) 60 % (31-73) Lymphocytes (%) (Auto) 26 % (24-48) Monocytes (%) (Auto) 10 % (0-9) H Eosinophils (%) (Auto) 2 % (0-3) Basophils (%) (Auto) 1 % (0-3) Neutrophils # (Auto) 3.3 x10^3uL (1.8-7.7) Lymphocytes # (Auto) 1.4 x10^3/uL (1.0-4.8) Monocytes # (Auto) 0.6 x10^3/uL (0.0-1.1) Eosinophils # (Auto) 0.1 x10^3/uL (0.0-0.7) Basophils # (Auto) 0.1 x10^3/uL (0.0-0.2) Prothrombin Time 13.7 SEC (11.7-14.0) Prothrombin Time INR 1.1 (0.8-1.1) PTT 31 SEC (24-38) Troponin I Quantitative 0.024 ng/mL (0.000-0.055) NJ-Nut-A-Type Natriuretic Peptide 66613 pg/mL (0-124) H Sodium Level 143 mmol/L (136-145) Potassium Level 3.3 mmol/L (3.5-5.1) L Chloride Level 103 mmol/L (98-107) Carbon Dioxide Level 35 mmol/L (21-32) H Anion Gap 5 (6-14) L Blood Urea Nitrogen 29 mg/dL (8-26) H Creatinine 9.4 mg/dL (0.7-1.3) H Estimated GFR (Cockcroft-Gault) 6.9 BUN/Creatinine Ratio 3 (6-20) L Glucose Level 138 mg/dL (70-99) H Calcium Level 8.6 mg/dL (8.5-10.1) Phosphorus Level 3.4 mg/dL (2.6-4.7) Total Bilirubin 0.6 mg/dL (0.2-1.0) Aspartate Amino Transferase (AST) 25 U/L (15-37) Alanine Aminotransferase (ALT) 20 U/L (16-63) Alkaline Phosphatase 75 U/L (46-116) Total Protein 6.8 g/dL (6.4-8.2) Albumin 3.1 g/dL (3.4-5.0) L Albumin/Globulin Ratio 0.8 (1.0-1.7) L Laboratory Tests 06/03/17 10:45 Laboratory Tests 06/03/17 11:15 EKG EKG interpreted by me: NSR rate 77, no acute ST/T wave changes, normal intervals, no ectopy.[] Radiology/Procedures Radiology/Procedures PROCEDURE: CHEST AP ONLY AP chest. History: COPD, short of breath AP view was taken of the chest. Comparison is made with a study from March. The heart is upper normal in size. There are bilateral areas of infiltrate. There is also slight interstitial prominence which could be mild edema. Impression: 1. Poor inspiration. 2. Mild basilar infiltrates versus edema. DICTATED and SIGNED BY: LEIGHTON BURR MD DATE: 06/03/17 1128[] Course & Med Decision Making Course & Med Decision Making Pertinent Labs and Imaging studies reviewed. (See chart for details) The patient presents with dyspnea. He has mild symptoms at rest. CXR shows pulmonary edema with possible superimposed infiltrate. Will give antibiotics for pneumonia, will defer to admitting team for additional meds but will initially cover with rocephin & azithromycin, even though broad spectrum will be beneficial for dialysis, because of uncertainty of actual presence of pneumonia. Recommended admission to the hospital for further evaluation & treatment, & the patient agreed with plan of care. Discussed with Dr. Garcia who agrees to admit to inpatient status, nephrology consult to Dr. Guajardo. The patient is admitted in stable condition. [] Dragon Disclaimer Dragon Disclaimer This electronic medical record was generated, in whole or in part, using a voice recognition dictation system. Departure Departure Impression: Primary Impression: CHF (congestive heart failure) Additional Impressions: Dyspnea Bacterial pneumonia End stage renal disease Disposition: ADMITTED INPATIENT Admitting Physician: Stuart Garcia Condition: STABLE Referrals: NO PCP (PCP) Problem Qualifiers ADAMARIS SEGOVIA MD Jun 03, 2017 14:45
--- NOTE | 2017-06-03 17:03 | PDOC1 ---
History and Physical Date of Admission Date of Admission 06/03/17 Identification/Chief Complaint Chief Complaint sob Problems: Source Source: Patient History of Present Illness History of Present Illness 61yo M, ESRD on HD TTS , DIAstolic CHF came to ERfor sob he said didnot miss HD he has mild cough with some mucus, no fever, chills, chest pain. He has copd, quit smoking for 6years, but not on any COPD meds, said his previous doc dced it. cannot find a PCP for a while, not managing insulin well, getting meds from HD center Past Medical History Cardiovascular: CHF, HTN GI: Constipation Heme/Onc: Anemia NOS Renal/: Chronic renal failure Endocrine: Hyperparathyroidism Past Surgical History Past Surgical History: Other Family History Family History: Family History Unknown Social History Smoke: No ALCOHOL: rare Drugs: None Current Medications Current Medications Current Medications Medications (Trade) Dose Ordered Sig/Thuan Start Time Stop Time Status Last Admin Dose Admin Albuterol/ Ipratropium (Duoneb) 3 ml 1X ONCE 06/03/17 10:45 06/03/17 10:53 DC 06/03/17 10:55 3 ML Aspirin (Eleonora Aspirin) 325 mg 1X ONCE 06/03/17 10:45 06/03/17 10:53 DC 06/03/17 10:56 325 MG Azithromycin 250 ml @ 250 mls/hr 1X ONCE 06/03/17 13:45 06/03/17 14:44 DC 06/03/17 13:50 250 MLS/HR Azithromycin 500 mg/Sodium Chloride 250 ml @ 250 mls/hr 1X ONCE 06/03/17 12:30 06/03/17 13:29 Cancel Ceftriaxone Sodium 50 ml @ 100 mls/hr 1X ONCE 06/03/17 12:30 06/03/17 12:59 DC 06/03/17 12:34 100 MLS/HR Allergies Allergies Allergies Coded Allergies Type Severity Reaction Last Updated Verified No Known Drug Allergies 04/13/17 No ROS Review of System CONSTITUTIONAL: No fever or chills EYES: No recent changes SKIN: No rash or itching CARDIOVASCULAR: No chest pain, syncope, palpitations, or edema RESPIRATORY: No SOB or cough GASTROINTESTINAL: No nausea, vomiting or abdominal pain NEUROLOGICAL: No headaches or weakness ENDOCRINE: No cold or heat intolerance GENITOURINARY: No urgency or frequency of urination MUSCULOSKELETAL: No back pain or joint pain LYMPHATICS: No enlarged lymph nodes PSYCHIATRIC: No anxiety or depression Physical Exam Physical Exam GEN.: No apparent distress. Alert and oriented. HEENT: Head is normocephalic, atraumatic NECK: Supple. LUNGS: Clear to auscultation. HEART: RRR, S1, S2 present. Peripheral pulses intact ABDOMEN: Soft, nontender. Positive bowel sounds. EXTREMITIES: Without any cyanosis. NEUROLOGIC: Normal speech, normal tone PSYCHIATRIC: Normal affect, normal mood. SKIN: No ulcerations Vitals Vitals Vital Signs Date Time Temp Pulse Resp B/P (MAP) Pulse Ox O2 Delivery O2 Flow Rate FiO2 06/03/17 14:43 86 20 201/107 (138) 95 Room Air 06/03/17 10:41 98.4 98.4 Labs Labs Laboratory Tests Test 06/03/17 10:45 06/03/17 11:15 White Blood Count 5.4 x10^3/uL (4.0-11.0) Red Blood Count 4.30 x10^6/uL (4.30-5.70) Hemoglobin 11.0 g/dL (13.0-17.5) Hematocrit 33.8 % (39.0-53.0) Mean Corpuscular Volume 79 fL (79-100) Mean Corpuscular Hemoglobin 26 pg (25-35) Mean Corpuscular Hemoglobin Concent 33 g/dL (31-37) Red Cell Distribution Width 14.2 % (11.5-14.5) Platelet Count 171 x10^3/uL (140-400) Neutrophils (%) (Auto) 60 % (31-73) Lymphocytes (%) (Auto) 26 % (24-48) Monocytes (%) (Auto) 10 % (0-9) Eosinophils (%) (Auto) 2 % (0-3) Basophils (%) (Auto) 1 % (0-3) Neutrophils # (Auto) 3.3 x10^3uL (1.8-7.7) Lymphocytes # (Auto) 1.4 x10^3/uL (1.0-4.8) Monocytes # (Auto) 0.6 x10^3/uL (0.0-1.1) Eosinophils # (Auto) 0.1 x10^3/uL (0.0-0.7) Basophils # (Auto) 0.1 x10^3/uL (0.0-0.2) Prothrombin Time 13.7 SEC (11.7-14.0) Prothromb Time International Ratio 1.1 (0.8-1.1) Activated Partial Thromboplast Time 31 SEC (24-38) Troponin I Quantitative 0.024 ng/mL (0.000-0.055) JZ-Tgc-Z-Type Natriuretic Peptide 08806 pg/mL (0-124) Sodium Level 143 mmol/L (136-145) Potassium Level 3.3 mmol/L (3.5-5.1) Chloride Level 103 mmol/L (98-107) Carbon Dioxide Level 35 mmol/L (21-32) Anion Gap 5 (6-14) Blood Urea Nitrogen 29 mg/dL (8-26) Creatinine 9.4 mg/dL (0.7-1.3) Estimated GFR (Cockcroft-Gault) 6.9 BUN/Creatinine Ratio 3 (6-20) Glucose Level 138 mg/dL (70-99) Calcium Level 8.6 mg/dL (8.5-10.1) Total Bilirubin 0.6 mg/dL (0.2-1.0) Aspartate Amino Transf (AST/SGOT) 25 U/L (15-37) Alanine Aminotransferase (ALT/SGPT) 20 U/L (16-63) Alkaline Phosphatase 75 U/L (46-116) Total Protein 6.8 g/dL (6.4-8.2) Albumin 3.1 g/dL (3.4-5.0) Albumin/Globulin Ratio 0.8 (1.0-1.7) Laboratory Tests Test 06/03/17 10:45 06/03/17 11:15 White Blood Count 5.4 x10^3/uL (4.0-11.0) Red Blood Count 4.30 x10^6/uL (4.30-5.70) Hemoglobin 11.0 g/dL (13.0-17.5) Hematocrit 33.8 % (39.0-53.0) Mean Corpuscular Volume 79 fL (79-100) Mean Corpuscular Hemoglobin 26 pg (25-35) Mean Corpuscular Hemoglobin Concent 33 g/dL (31-37) Red Cell Distribution Width 14.2 % (11.5-14.5) Platelet Count 171 x10^3/uL (140-400) Neutrophils (%) (Auto) 60 % (31-73) Lymphocytes (%) (Auto) 26 % (24-48) Monocytes (%) (Auto) 10 % (0-9) Eosinophils (%) (Auto) 2 % (0-3) Basophils (%) (Auto) 1 % (0-3) Neutrophils # (Auto) 3.3 x10^3uL (1.8-7.7) Lymphocytes # (Auto) 1.4 x10^3/uL (1.0-4.8) Monocytes # (Auto) 0.6 x10^3/uL (0.0-1.1) Eosinophils # (Auto) 0.1 x10^3/uL (0.0-0.7) Basophils # (Auto) 0.1 x10^3/uL (0.0-0.2) Prothrombin Time 13.7 SEC (11.7-14.0) Prothromb Time International Ratio 1.1 (0.8-1.1) Activated Partial Thromboplast Time 31 SEC (24-38) Troponin I Quantitative 0.024 ng/mL (0.000-0.055) RG-Sll-G-Type Natriuretic Peptide 26903 pg/mL (0-124) Sodium Level 143 mmol/L (136-145) Potassium Level 3.3 mmol/L (3.5-5.1) Chloride Level 103 mmol/L (98-107) Carbon Dioxide Level 35 mmol/L (21-32) Anion Gap 5 (6-14) Blood Urea Nitrogen 29 mg/dL (8-26) Creatinine 9.4 mg/dL (0.7-1.3) Estimated GFR (Cockcroft-Gault) 6.9 BUN/Creatinine Ratio 3 (6-20) Glucose Level 138 mg/dL (70-99) Calcium Level 8.6 mg/dL (8.5-10.1) Total Bilirubin 0.6 mg/dL (0.2-1.0) Aspartate Amino Transf (AST/SGOT) 25 U/L (15-37) Alanine Aminotransferase (ALT/SGPT) 20 U/L (16-63) Alkaline Phosphatase 75 U/L (46-116) Total Protein 6.8 g/dL (6.4-8.2) Albumin 3.1 g/dL (3.4-5.0) Albumin/Globulin Ratio 0.8 (1.0-1.7) VTE Prophylaxis Ordered VTE Prophylaxis Devices: Yes VTE Pharmacological Prophylaxi: Yes Assessment/Plan Assessment/Plan dyspnea, 2/2 pulmanory edema likely with ESRD ON Hd, AND chf diastolic CHF esrd on HD TTS DM2 HTN HLD H/O cva MILD malnutrition hypokalemia HTN urgency plan: cont home meds cont HD ssi for now add meds for copd dvt ppx sw for PCP issues ENRIQUE CARPENTER MD Jun 03, 2017 17:03
[2017-06-03] MEDS ORDERED: hydrALAZINE 20 MG/ML VIAL. IVP PRN (17:15)
[2017-06-03] MEDS ORDERED: MORPHINE SULFATE 2 MG/ML DISP.SYRIN. IV PRN (17:15)
[2017-06-03] MEDS ORDERED: DEXTROSE 50% 25 GM / 50ML DISP.SYRIN. IV PRN (17:15)
[2017-06-03] MEDS ORDERED: ACETAMINOPHEN 325 MG TABLET. PO PRN (17:15)
[2017-06-03] MEDS ORDERED: ONDANSETRON PF 4 MG/2 ML VIAL. IV PRN (17:15)
[2017-06-03] MEDS ORDERED: DOCUSATE SODIUM 100 MG CAPSULE. PO PRN (17:15)
[2017-06-03] MEDS ORDERED: ALBUTEROL SULFATE 2.5 MG/3 ML NEBU. NEB PRN (17:15)
[2017-06-03] MEDS ORDERED: SEVELAMER CARBONATE 800 MG TABLET. PO SCH (18:00)
[2017-06-03] MEDS ORDERED: LABETALOL 20 MG/4 ML DISP.SYRIN. IVP PRN (19:00)
[2017-06-03] MEDS ORDERED: DIALYSIS PATIENT. MC PRN (19:00)
[2017-06-03] MEDS ORDERED: cloNIDine HCL 0.1 MG TABLET PO ONE (19:45)
[2017-06-03] MEDS ORDERED: LABETALOL 20 MG/4 ML DISP.SYRIN. IVP ONE (19:45)
[2017-06-03] MEDS: IPRATRPIUM/ALBUTEROL 0.5/2.5MG 3 ML NEBU. NEB SCH (21:02)
[2017-06-03] MEDS: ATORVASTATIN CALCIUM 20 MG TABLET PO SCH (21:50)
[2017-06-03] MEDS: METOCLOPRAMIDE 10 MG TABLET. PO SCH (21:51)
[2017-06-03] MEDS: CARVEDILOL 12.5 MG TABLET. PO SCH (21:52)
[2017-06-03] MEDS: traMADol 50 MG TABLET PO PRN (21:53)
[2017-06-03] MEDS: HEPARIN PF for SUB-Q USE 5,000 UNIT/0.5 ML VIAL. SQ SCH (22:00)
[2017-06-03 22:30] VITALS: BP 205/122
[2017-06-03 23:48] VITALS: BP 139/80
[2017-06-04 03:30] VITALS: BP 161/90
[2017-06-04] MEDS: traMADol 50 MG TABLET PO PRN ×2 (04:08→19:26)
--- NOTE | 2017-06-04 04:47 | ACF ---
Admission Forms Criteria HEART FAILURE: COMMON COMPLICATIONS (Place 'X' for any and all applicable criteria): Ongoing inpatient care may be indicated for heart failure with 1 or more of the following (1)(2)(3)(4)(5)(6)(7)(8): [ ]I. New-onset heart failure [ ]II. Acute cardiac ischemia causing or associated with failure [ ]III. Ongoing need for care for primary condition requiring frequent therapy adjustments because of changes in cardiac function (eg, drug dosage changes for drugs that are renally metabolized) [ X]IV. Complications of heart failure, including 1 or more of the following: [ ]a) Hemodynamic instability [ ]b) Pericardial effusion [ ]c) Symptomatic pleural effusion [ ]d) Hypoxemia [ ]e) Tachypnea [X ]f) Dyspnea [ ]g) Syncope [ ]h) Altered mental status [ ]i) Acute renal insufficiency that is severe (reduction of more than 50% in estimated glomerular filtration rate from baseline) or progressive reduction of more than 25% in estimated glomerular filtration rate from baseline, with creatinine continuing to rise) [ ]j) Debilitating anasarca (eg tissue breakdown with infection, inability to void due to edema) (E) [ ]k) Clinically significant metabolic abnormalities due to heart failure (eg, new-onset metabolic acidosis) Extended stay may be needed until ALL of the following are present (1)(3)(18)(41 )(55) [ ]a) Hemodynamic stability [ ]b) Stable and effective diuretic regimen established (or patient on stable dialysis regimen if in chronic renal failure) [ ]c) Volume status acceptable on oral medication [ ]d) Breathing comfortably at rest [ ]e) Saturation of arterial oxygen greater than 90% or at acceptable baseline [ ]f) Pulmonary edema absent or improved [ ]g) Peripheral or sacral edema absent or improved [ ]h) Renal function stable and manageable at a lower level of care [ ]i) Complications (eg, pleural effusion) resolved or manageable at a lower level of care [ ]g) Patient or caregiver has received written discharge instructions or educational material addressing activity level, diet, discharge medications, follow-up appointment, weight monitoring, and what to do if symptoms worsen.(25)(26) The original [facility] content created by [employer] has been revised. The portions of the content which have been revised are identified through the use of italic text, and [facility] has neither reviewed nor approved the modified material.All other unmodified content is copyright [facility]. Please see references footnoted in the original [facility] edition 2015 Admission Criteria Met?: Yes BRYANNA DEE Jun 04, 2017 04:47
[2017-06-04 05:35] LABS: BASO # 0.1 x10^3/uL (0.0-0.2); BASO % 2 % (0-3); EOS % 3 % (0-3); HEMATOCRIT 32.9 % (39.0-53.0); HEMOGLOBIN 10.8 g/dL (13.0-17.5); LYMPH # 1.4 x10^3/uL (1.0-4.8); LYMPH % 29 % (24-48); MEAN CORPUSCULAR HEMOGLOBIN 26 pg (25-35); MEAN CORPUSCULAR HGB CONC 33 g/dL (31-37); MEAN CORPUSCULAR VOLUME 79 fL (79-100); MONO % 10 % (0-9); NEUT % 56 % (31-73); PLATELET COUNT 147 x10^3/uL (140-400); RED BLOOD COUNT 4.17 x10^6/uL (4.30-5.70); RED CELL DISTRIBUTION WIDTH 14.5 % (11.5-14.5); WHITE BLOOD COUNT 4.7 x10^3/uL (4.0-11.0)
[2017-06-04 05:45] LABS: CALCIUM 8.6 mg/dL (8.5-10.1); GFR 11.6; POTASSIUM 3.8 mmol/L (3.5-5.1)
[2017-06-04] MEDS: HEPARIN PF for SUB-Q USE 5,000 UNIT/0.5 ML VIAL. SQ SCH ×3 (06:29→21:12)
[2017-06-04 07:00] VITALS: BP 174/100
[2017-06-04] MEDS: IPRATRPIUM/ALBUTEROL 0.5/2.5MG 3 ML NEBU. NEB SCH ×4 (07:35→19:26)
[2017-06-04] MEDS: INSULIN ASPART 300 UNITS/3 ML INSULN.PEN SQ SCH ×3 (08:00→17:00)
[2017-06-04] MEDS ORDERED: CALCIUM ACETATE 667 MG PO SCH (08:00)
[2017-06-04] MEDS: MULTIVITAMIN with MINERAL TABLET. PO SCH (09:28)
[2017-06-04] MEDS: CALCITRIOL 0.25 MCG CAPSULE. PO SCH (09:28)
[2017-06-04] MEDS: CARVEDILOL 12.5 MG TABLET. PO SCH ×2 (09:28→17:20)
[2017-06-04] MEDS: METOCLOPRAMIDE 10 MG TABLET. PO SCH ×3 (09:29→21:09)
[2017-06-04] MEDS ORDERED: LISINOPRIL 40 MG TABLET. PO SCH (10:00)
[2017-06-04 11:00] VITALS: BP 193/102
--- NOTE | 2017-06-04 12:37 | PDOC2 ---
CONSULT Date of Consult Date of Consult DATE: 06/04/17 TIME: 12:33 Reason for Consult Reason for Consult: SOB AND ESRD Referring Physician Referring Physician: PAULINE Identification/Chief Complaint Chief Complaint SOB Problems: Source Source: Chart review, Patient History of Present Illness Reason for Visit: THIS IS A 61 YR OLD PT ADMITTED WITH SOB AND HYPERVOLEMIA. HE HAS ESRD CASA IS ON OP HD ON TTS. LABS ARE C/W ESRD. HE HAS BEEN NON COMPLIANT WITH HIS MEDS. BP IS VERY HIGH. Past Medical History Cardiovascular: CHF, HTN GI: Constipation Heme/Onc: Anemia NOS Renal/: Chronic renal failure Endocrine: Hyperparathyroidism Past Surgical History Past Surgical History LEFT ARM AVF Past Surgical History: Other Family History Family History: Family History Unknown Social History No ALCOHOL: rare Drugs: None Lives: with Family Current Problem List Problem List Problems Medical Problems: (1) Bacterial pneumonia Status: Acute (2) Dyspnea Status: Acute (3) End stage renal disease Status: Acute Current Medications Current Medications Current Medications Albuterol/ Ipratropium (Duoneb) 3 ml 1X ONCE NEB Last administered on 10:55; Start 06/03/17 at 10:45; Stop 06/03/17 at 10:53; Status DC Aspirin (Eleonora Aspirin) 325 mg 1X ONCE PO Last administered on 06/03/17 10:56 ; Start 06/03/17 at 10:45; Stop 06/03/17 at 10:53; Status DC Ceftriaxone Sodium 50 ml @ 100 mls/hr 1X ONCE IV Last administered on 12:34; Start 06/03/17 at 12:30; Stop 06/03/17 at 12:59; Status DC Azithromycin 500 mg/Sodium Chloride 250 ml @ 250 mls/hr 1X ONCE IV ; Start at 12:30; Stop 06/03/17 at 13:29; Status Cancel Azithromycin 250 ml @ 250 mls/hr 1X ONCE IV Last administered on 06/03/17 13 :50; Start 06/03/17 at 13:45; Stop 06/03/17 at 14:44; Status DC Atorvastatin Calcium (Lipitor) 20 mg QHS PO Last administered on 06/03/17 21: 50; Start 06/03/17 at 21:00 Carvedilol (Coreg) 12.5 mg BIDWMEALS PO Last administered on 06/04/17 09:28; Start 06/03/17 at 18:00 Metoclopramide HCl (Reglan) 5 mg TID PO Last administered on 06/04/17 09:29; Start 06/03/17 at 21:00 Sevelamer Carbonate (Renvela) 1,600 mg TIDWMEALS PO ; Start 06/03/17 at 18:00; Status Cancel Calcitriol (Rocaltrol) 0.5 mcg DAILY PO Last administered on 06/04/17 09:28; Start 06/04/17 at 09:00 Non-Formulary Medication 667 mg TIDWMEALS PO ; Start 06/04/17 at 08:00; Status UNV Multivitamins (Thera M Plus) 1 tab DAILY PO Last administered on 06/04/17 09: 28; Start 06/04/17 at 09:00 Acetaminophen (Tylenol) 650 mg PRN Q6HRS PRN PO FEVER; Start 06/03/17 at 17:15 Ondansetron HCl (Zofran) 4 mg PRN Q6HRS PRN IV NAUSEA/VOMITING; Start 06/03/17 at 17:15 Morphine Sulfate 2 mg PRN Q2HR PRN IV PAIN; Start 06/03/17 at 17:15 Tramadol HCl (Ultram) 50 mg PRN Q6HRS PRN PO PAIN Last administered on 04:08; Start 06/03/17 at 17:15 Hydralazine HCl (Apresoline) 10 mg PRN Q4HRS PRN IVP ELEVATED BP, SEE COMMENTS ; Start 06/03/17 at 17:15 Docusate Sodium (Colace) 100 mg PRN DAILY PRN PO CONSTIPATION; Start 06/03/17 at 17:15 Albuterol/ Ipratropium (Duoneb) 3 ml RTQID NEB Last administered on 06/04/17 11:26; Start 06/03/17 at 20:00 Albuterol Sulfate (Ventolin Neb Soln) 2.5 mg PRN Q2HR PRN NEB SHORTNESS OF BREATH; Start 06/03/17 at 17:15 Guaifenesin (Mucinex) 600 mg BID PO Last administered on 06/04/17 09:28; Start 06/03/17 at 21:00 Insulin Aspart (NovoLOG) 0-5 UNITS TIDWMEALS SQ ; Start 06/04/17 at 08:00 Dextrose (Dextrose 50%-Water Syringe) 12.5 gm PRN Q15MIN PRN IV SEE COMMENTS; Start 06/03/17 at 17:15 Heparin Sodium (Porcine) (Heparin Sq) 5,000 unit Q8HRS SQ Last administered on 06/04/17 06:29; Start 06/03/17 at 22:00 Labetalol HCl (Normodyne) 10 mg PRN Q1HR PRN IVP SBP > 180 Last administered on 06/03/17 19:16; Start 06/03/17 at 19:00; Stop 06/04/17 at 18:59 Info (PHARMACY MONITORING -- do not chart) 1 each PRN DAILY PRN MC SEE COMMENTS ; Start 06/03/17 at 19:00 Labetalol HCl (Normodyne) 10 mg 1X ONCE IVP Last administered on 06/03/17 19: 55; Start 06/03/17 at 19:45; Stop 06/03/17 at 19:57; Status DC Clonidine HCl (Catapres) 0.2 mg 1X ONCE PO Last administered on 06/03/17 21: 52; Start 06/03/17 at 19:45; Stop 06/03/17 at 19:57; Status DC Lisinopril (Prinivil) 40 mg DAILY PO Last administered on 06/04/17 12:24; Start 06/04/17 at 10:00 Active Scripts Active Reported Calcium Acetate 667 Mg Tablet 667 Mg PO TIDWMEALS Calcitriol 0.5 Mcg Capsule 1 Cap PO DAILY Carvedilol 12.5 Mg Tablet 1 Tab PO BID Atorvastatin Calcium 20 Mg Tablet 1 Tab PO DAILY Renvela (Sevelamer Carbonate) 800 Mg Tablet 2 Tab PO TID Multivitamins (Multivitamin) 1 Each Tablet 1 Tab PO DAILY Humulin N (Nph, Human Insulin Isophane) 100 Unit/1 Ml Vial 30 Unit SQ DAILY Reglan (Metoclopramide Hcl) 10 Mg Tablet 5 Mg PO TID Allergies Allergies: Coded Allergies: No Known Drug Allergies (Unverified , 04/13/17) ROS General: YES: Fatigue, Malaise PSYCHOLOGICAL ROS: YES: Anxiety Eyes: Yes Decreased vision HEENT: YES: Heacaches Respiratory: YES: Cough, Orthopnea, Shortness of breath Cardiovascular: yes Orthopnea, yes Edema Gastrointestinal: Yes Constipation Genitourinary: YES Other (ANURIA) Musculoskeletal: Yes Muscular Weakness Neurological: Yes Weakness Skin: Yes Dry Skin Physical Exam General: Alert, Oriented X3, Cooperative, No acute distress HEENT: Atraumatic, PERRLA Lungs: Other (BASILAR RALES) Heart: Regular rate, Normal S2 Abdomen: Normal bowel sounds, Soft, No tenderness Extremities: No clubbing Skin: No breakdown Neuro: Normal speech, Normal tone, Sensation intact Psych/Mental Status: Mental status NL, Mood NL MUSCULOSKELETAL: No joint tenderness, No deformity, No swelling Vitals VITALS Vital Signs Date Time Temp Pulse Resp B/P (MAP) Pulse Ox O2 Delivery O2 Flow Rate FiO2 06/04/17 12:24 72 174/102 06/04/17 11:26 97 Room Air 06/04/17 11:00 98.2 16 98.2 Labs Labs Laboratory Tests Test 06/03/17 10:45 06/03/17 11:15 06/04/17 04:38 06/04/17 07:09 White Blood Count 5.4 x10^3/uL (4.0-11.0) 4.7 x10^3/uL (4.0-11.0) Red Blood Count 4.30 x10^6/uL (4.30-5.70) 4.17 x10^6/uL (4.30-5.70) Hemoglobin 11.0 g/dL (13.0-17.5) 10.8 g/dL (13.0-17.5) Hematocrit 33.8 % (39.0-53.0) 32.9 % (39.0-53.0) Mean Corpuscular Volume 79 fL (79-100) 79 fL (79-100) Mean Corpuscular Hemoglobin 26 pg (25-35) 26 pg (25-35) Mean Corpuscular Hemoglobin Concent 33 g/dL (31-37) 33 g/dL (31-37) Red Cell Distribution Width 14.2 % (11.5-14.5) 14.5 % (11.5-14.5) Platelet Count 171 x10^3/uL (140-400) 147 x10^3/uL (140-400) Neutrophils (%) (Auto) 60 % (31-73) 56 % (31-73) Lymphocytes (%) (Auto) 26 % (24-48) 29 % (24-48) Monocytes (%) (Auto) 10 % (0-9) 10 % (0-9) Eosinophils (%) (Auto) 2 % (0-3) 3 % (0-3) Basophils (%) (Auto) 1 % (0-3) 2 % (0-3) Neutrophils # (Auto) 3.3 x10^3uL (1.8-7.7) 2.7 x10^3uL (1.8-7.7) Lymphocytes # (Auto) 1.4 x10^3/uL (1.0-4.8) 1.4 x10^3/uL (1.0-4.8) Monocytes # (Auto) 0.6 x10^3/uL (0.0-1.1) 0.5 x10^3/uL (0.0-1.1) Eosinophils # (Auto) 0.1 x10^3/uL (0.0-0.7) 0.2 x10^3/uL (0.0-0.7) Basophils # (Auto) 0.1 x10^3/uL (0.0-0.2) 0.1 x10^3/uL (0.0-0.2) Prothrombin Time 13.7 SEC (11.7-14.0) Prothromb Time International Ratio 1.1 (0.8-1.1) Activated Partial Thromboplast Time 31 SEC (24-38) Troponin I Quantitative 0.024 ng/mL (0.000-0.055) HO-Nrm-U-Type Natriuretic Peptide 45178 pg/mL (0-124) Sodium Level 143 mmol/L (136-145) 142 mmol/L (136-145) Potassium Level 3.3 mmol/L (3.5-5.1) 3.8 mmol/L (3.5-5.1) Chloride Level 103 mmol/L (98-107) 105 mmol/L (98-107) Carbon Dioxide Level 35 mmol/L (21-32) 32 mmol/L (21-32) Anion Gap 5 (6-14) 5 (6-14) Blood Urea Nitrogen 29 mg/dL (8-26) 15 mg/dL (8-26) Creatinine 9.4 mg/dL (0.7-1.3) 6.0 mg/dL (0.7-1.3) Estimated GFR (Cockcroft-Gault) 6.9 11.6 BUN/Creatinine Ratio 3 (6-20) Glucose Level 138 mg/dL (70-99) 128 mg/dL (70-99) Calcium Level 8.6 mg/dL (8.5-10.1) 8.6 mg/dL (8.5-10.1) Phosphorus Level 3.4 mg/dL (2.6-4.7) Total Bilirubin 0.6 mg/dL (0.2-1.0) Aspartate Amino Transf (AST/SGOT) 25 U/L (15-37) Alanine Aminotransferase (ALT/SGPT) 20 U/L (16-63) Alkaline Phosphatase 75 U/L (46-116) Total Protein 6.8 g/dL (6.4-8.2) Albumin 3.1 g/dL (3.4-5.0) Albumin/Globulin Ratio 0.8 (1.0-1.7) Glucose (Fingerstick) 131 mg/dL (70-99) Test 06/04/17 11:11 Glucose (Fingerstick) 145 mg/dL (70-99) Laboratory Tests Test 06/04/17 04:38 06/04/17 07:09 06/04/17 11:11 White Blood Count 4.7 x10^3/uL (4.0-11.0) Red Blood Count 4.17 x10^6/uL (4.30-5.70) Hemoglobin 10.8 g/dL (13.0-17.5) Hematocrit 32.9 % (39.0-53.0) Mean Corpuscular Volume 79 fL (79-100) Mean Corpuscular Hemoglobin 26 pg (25-35) Mean Corpuscular Hemoglobin Concent 33 g/dL (31-37) Red Cell Distribution Width 14.5 % (11.5-14.5) Platelet Count 147 x10^3/uL (140-400) Neutrophils (%) (Auto) 56 % (31-73) Lymphocytes (%) (Auto) 29 % (24-48) Monocytes (%) (Auto) 10 % (0-9) Eosinophils (%) (Auto) 3 % (0-3) Basophils (%) (Auto) 2 % (0-3) Neutrophils # (Auto) 2.7 x10^3uL (1.8-7.7) Lymphocytes # (Auto) 1.4 x10^3/uL (1.0-4.8) Monocytes # (Auto) 0.5 x10^3/uL (0.0-1.1) Eosinophils # (Auto) 0.2 x10^3/uL (0.0-0.7) Basophils # (Auto) 0.1 x10^3/uL (0.0-0.2) Sodium Level 142 mmol/L (136-145) Potassium Level 3.8 mmol/L (3.5-5.1) Chloride Level 105 mmol/L (98-107) Carbon Dioxide Level 32 mmol/L (21-32) Anion Gap 5 (6-14) Blood Urea Nitrogen 15 mg/dL (8-26) Creatinine 6.0 mg/dL (0.7-1.3) Estimated GFR (Cockcroft-Gault) 11.6 Glucose Level 128 mg/dL (70-99) Calcium Level 8.6 mg/dL (8.5-10.1) Glucose (Fingerstick) 131 mg/dL (70-99) 145 mg/dL (70-99) Assessment/Plan Assessment/Plan IMP HYPERVOLEMIA CHF-PROB ACUTE DIASTOLIC MALIGNANT HTN ANEMIA HX OF NON COMPLIANCE PLAN HD LAST NIGHT EMERGENTLY HD TTS HOLD RUBEN TILL BP CONTROL IS BETTER INCREASE LISINOPRIL TO BID ADD NORVASC ENC COMPLIANCE YENI COSTA MD Jun 04, 2017 12:37
[2017-06-04] MEDS ORDERED: cloNIDine HCL 0.1 MG TABLET PO ONE (12:45)
[2017-06-04] MEDS: amLODIPine BESYLATE 5 MG TABLET PO SCH (13:02)
--- NOTE | 2017-06-04 13:19 | PDOC ---
PROGRESS NOTES Chief Complaint Chief Complaint dyspnea, 2/2 pulmanory edema likely with ESRD ON Hd, AND chf diastolic CHF esrd on HD TTS DM2 HTN urgency HLD H/O cva MILD malnutrition hypokalemia copd plan: cont home meds cont HD TTF ssi for now add meds for copd dvt ppx sw for PCP issues cont coreg, add lisinopril, increased by renal , also add amlodipin check hba1c History of Present Illness History of Present Illness said since no PCP, getting meds from HD center, but doesnot have enough meds and HD center mess up his meds, not taking insulin for 1 month too BP very high also nobody asked him to do nebs for copd, cough better today with nebs Vitals Vitals Vital Signs Date Time Temp Pulse Resp B/P (MAP) Pulse Ox O2 Delivery O2 Flow Rate FiO2 06/04/17 13:02 72 174/102 06/04/17 11:26 97 Room Air 06/04/17 11:00 98.2 16 98.2 Physical Exam General: Alert, Oriented X3, Cooperative, No acute distress Heart: Regular rate, Normal S2 Lungs: Clear Abdomen: Normal bowel sounds, Soft, No tenderness Extremities: No clubbing Skin: No breakdown Labs LABS Laboratory Tests Test 06/04/17 04:38 06/04/17 07:09 06/04/17 11:11 White Blood Count 4.7 x10^3/uL (4.0-11.0) Red Blood Count 4.17 x10^6/uL (4.30-5.70) Hemoglobin 10.8 g/dL (13.0-17.5) Hematocrit 32.9 % (39.0-53.0) Mean Corpuscular Volume 79 fL (79-100) Mean Corpuscular Hemoglobin 26 pg (25-35) Mean Corpuscular Hemoglobin Concent 33 g/dL (31-37) Red Cell Distribution Width 14.5 % (11.5-14.5) Platelet Count 147 x10^3/uL (140-400) Neutrophils (%) (Auto) 56 % (31-73) Lymphocytes (%) (Auto) 29 % (24-48) Monocytes (%) (Auto) 10 % (0-9) Eosinophils (%) (Auto) 3 % (0-3) Basophils (%) (Auto) 2 % (0-3) Neutrophils # (Auto) 2.7 x10^3uL (1.8-7.7) Lymphocytes # (Auto) 1.4 x10^3/uL (1.0-4.8) Monocytes # (Auto) 0.5 x10^3/uL (0.0-1.1) Eosinophils # (Auto) 0.2 x10^3/uL (0.0-0.7) Basophils # (Auto) 0.1 x10^3/uL (0.0-0.2) Sodium Level 142 mmol/L (136-145) Potassium Level 3.8 mmol/L (3.5-5.1) Chloride Level 105 mmol/L (98-107) Carbon Dioxide Level 32 mmol/L (21-32) Anion Gap 5 (6-14) Blood Urea Nitrogen 15 mg/dL (8-26) Creatinine 6.0 mg/dL (0.7-1.3) Estimated GFR (Cockcroft-Gault) 11.6 Glucose Level 128 mg/dL (70-99) Calcium Level 8.6 mg/dL (8.5-10.1) Glucose (Fingerstick) 131 mg/dL (70-99) 145 mg/dL (70-99) Review of Systems Review of Systems no fever, chills, sob or chest pain Assessment and Plan Assessmemt and Plan Problems Medical Problems: (1) Bacterial pneumonia Status: Acute (2) Dyspnea Status: Acute (3) End stage renal disease Status: Acute Problems: Comment Review of Relevant I have reviewed the following items connie (where applicable) has been applied. Labs Laboratory Tests Test 06/03/17 10:45 06/03/17 11:15 06/04/17 04:38 06/04/17 07:09 White Blood Count 5.4 x10^3/uL (4.0-11.0) 4.7 x10^3/uL (4.0-11.0) Red Blood Count 4.30 x10^6/uL (4.30-5.70) 4.17 x10^6/uL (4.30-5.70) Hemoglobin 11.0 g/dL (13.0-17.5) 10.8 g/dL (13.0-17.5) Hematocrit 33.8 % (39.0-53.0) 32.9 % (39.0-53.0) Mean Corpuscular Volume 79 fL (79-100) 79 fL (79-100) Mean Corpuscular Hemoglobin 26 pg (25-35) 26 pg (25-35) Mean Corpuscular Hemoglobin Concent 33 g/dL (31-37) 33 g/dL (31-37) Red Cell Distribution Width 14.2 % (11.5-14.5) 14.5 % (11.5-14.5) Platelet Count 171 x10^3/uL (140-400) 147 x10^3/uL (140-400) Neutrophils (%) (Auto) 60 % (31-73) 56 % (31-73) Lymphocytes (%) (Auto) 26 % (24-48) 29 % (24-48) Monocytes (%) (Auto) 10 % (0-9) 10 % (0-9) Eosinophils (%) (Auto) 2 % (0-3) 3 % (0-3) Basophils (%) (Auto) 1 % (0-3) 2 % (0-3) Neutrophils # (Auto) 3.3 x10^3uL (1.8-7.7) 2.7 x10^3uL (1.8-7.7) Lymphocytes # (Auto) 1.4 x10^3/uL (1.0-4.8) 1.4 x10^3/uL (1.0-4.8) Monocytes # (Auto) 0.6 x10^3/uL (0.0-1.1) 0.5 x10^3/uL (0.0-1.1) Eosinophils # (Auto) 0.1 x10^3/uL (0.0-0.7) 0.2 x10^3/uL (0.0-0.7) Basophils # (Auto) 0.1 x10^3/uL (0.0-0.2) 0.1 x10^3/uL (0.0-0.2) Prothrombin Time 13.7 SEC (11.7-14.0) Prothromb Time International Ratio 1.1 (0.8-1.1) Activated Partial Thromboplast Time 31 SEC (24-38) Troponin I Quantitative 0.024 ng/mL (0.000-0.055) YT-Byf-M-Type Natriuretic Peptide 98975 pg/mL (0-124) Sodium Level 143 mmol/L (136-145) 142 mmol/L (136-145) Potassium Level 3.3 mmol/L (3.5-5.1) 3.8 mmol/L (3.5-5.1) Chloride Level 103 mmol/L (98-107) 105 mmol/L (98-107) Carbon Dioxide Level 35 mmol/L (21-32) 32 mmol/L (21-32) Anion Gap 5 (6-14) 5 (6-14) Blood Urea Nitrogen 29 mg/dL (8-26) 15 mg/dL (8-26) Creatinine 9.4 mg/dL (0.7-1.3) 6.0 mg/dL (0.7-1.3) Estimated GFR (Cockcroft-Gault) 6.9 11.6 BUN/Creatinine Ratio 3 (6-20) Glucose Level 138 mg/dL (70-99) 128 mg/dL (70-99) Calcium Level 8.6 mg/dL (8.5-10.1) 8.6 mg/dL (8.5-10.1) Phosphorus Level 3.4 mg/dL (2.6-4.7) Total Bilirubin 0.6 mg/dL (0.2-1.0) Aspartate Amino Transf (AST/SGOT) 25 U/L (15-37) Alanine Aminotransferase (ALT/SGPT) 20 U/L (16-63) Alkaline Phosphatase 75 U/L (46-116) Total Protein 6.8 g/dL (6.4-8.2) Albumin 3.1 g/dL (3.4-5.0) Albumin/Globulin Ratio 0.8 (1.0-1.7) Glucose (Fingerstick) 131 mg/dL (70-99) Test 06/04/17 11:11 Glucose (Fingerstick) 145 mg/dL (70-99) Laboratory Tests Test 06/04/17 04:38 06/04/17 07:09 06/04/17 11:11 White Blood Count 4.7 x10^3/uL (4.0-11.0) Red Blood Count 4.17 x10^6/uL (4.30-5.70) Hemoglobin 10.8 g/dL (13.0-17.5) Hematocrit 32.9 % (39.0-53.0) Mean Corpuscular Volume 79 fL (79-100) Mean Corpuscular Hemoglobin 26 pg (25-35) Mean Corpuscular Hemoglobin Concent 33 g/dL (31-37) Red Cell Distribution Width 14.5 % (11.5-14.5) Platelet Count 147 x10^3/uL (140-400) Neutrophils (%) (Auto) 56 % (31-73) Lymphocytes (%) (Auto) 29 % (24-48) Monocytes (%) (Auto) 10 % (0-9) Eosinophils (%) (Auto) 3 % (0-3) Basophils (%) (Auto) 2 % (0-3) Neutrophils # (Auto) 2.7 x10^3uL (1.8-7.7) Lymphocytes # (Auto) 1.4 x10^3/uL (1.0-4.8) Monocytes # (Auto) 0.5 x10^3/uL (0.0-1.1) Eosinophils # (Auto) 0.2 x10^3/uL (0.0-0.7) Basophils # (Auto) 0.1 x10^3/uL (0.0-0.2) Sodium Level 142 mmol/L (136-145) Potassium Level 3.8 mmol/L (3.5-5.1) Chloride Level 105 mmol/L (98-107) Carbon Dioxide Level 32 mmol/L (21-32) Anion Gap 5 (6-14) Blood Urea Nitrogen 15 mg/dL (8-26) Creatinine 6.0 mg/dL (0.7-1.3) Estimated GFR (Cockcroft-Gault) 11.6 Glucose Level 128 mg/dL (70-99) Calcium Level 8.6 mg/dL (8.5-10.1) Glucose (Fingerstick) 131 mg/dL (70-99) 145 mg/dL (70-99) Medications Current Medications Albuterol/ Ipratropium (Duoneb) 3 ml 1X ONCE NEB Last administered on t 10:55; Start 06/03/17 at 10:45; Stop 06/03/17 at 10:53; Status DC Aspirin (Eleonora Aspirin) 325 mg 1X ONCE PO Last administered on 06/03/17 10:56 ; Start 06/03/17 at 10:45; Stop 06/03/17 at 10:53; Status DC Ceftriaxone Sodium 50 ml @ 100 mls/hr 1X ONCE IV Last administered on 12:34; Start 06/03/17 at 12:30; Stop 06/03/17 at 12:59; Status DC Azithromycin 500 mg/Sodium Chloride 250 ml @ 250 mls/hr 1X ONCE IV ; Start at 12:30; Stop 06/03/17 at 13:29; Status Cancel Azithromycin 250 ml @ 250 mls/hr 1X ONCE IV Last administered on 06/03/17 13 :50; Start 06/03/17 at 13:45; Stop 06/03/17 at 14:44; Status DC Atorvastatin Calcium (Lipitor) 20 mg QHS PO Last administered on 06/03/17 21: 50; Start 06/03/17 at 21:00 Carvedilol (Coreg) 12.5 mg BIDWMEALS PO Last administered on 06/04/17 09:28; Start 06/03/17 at 18:00 Metoclopramide HCl (Reglan) 5 mg TID PO Last administered on 06/04/17 09:29; Start 06/03/17 at 21:00 Sevelamer Carbonate (Renvela) 1,600 mg TIDWMEALS PO ; Start 06/03/17 at 18:00; Status Cancel Calcitriol (Rocaltrol) 0.5 mcg DAILY PO Last administered on 06/04/17 09:28; Start 06/04/17 at 09:00 Non-Formulary Medication 667 mg TIDWMEALS PO ; Start 06/04/17 at 08:00; Status UNV Multivitamins (Thera M Plus) 1 tab DAILY PO Last administered on 06/04/17 09: 28; Start 06/04/17 at 09:00 Acetaminophen (Tylenol) 650 mg PRN Q6HRS PRN PO FEVER; Start 06/03/17 at 17:15 Ondansetron HCl (Zofran) 4 mg PRN Q6HRS PRN IV NAUSEA/VOMITING; Start 06/03/17 at 17:15 Morphine Sulfate 2 mg PRN Q2HR PRN IV PAIN; Start 06/03/17 at 17:15 Tramadol HCl (Ultram) 50 mg PRN Q6HRS PRN PO PAIN Last administered on 04:08; Start 06/03/17 at 17:15 Hydralazine HCl (Apresoline) 10 mg PRN Q4HRS PRN IVP ELEVATED BP, SEE COMMENTS ; Start 06/03/17 at 17:15 Docusate Sodium (Colace) 100 mg PRN DAILY PRN PO CONSTIPATION; Start 06/03/17 at 17:15 Albuterol/ Ipratropium (Duoneb) 3 ml RTQID NEB Last administered on 06/04/17 11:26; Start 06/03/17 at 20:00 Albuterol Sulfate (Ventolin Neb Soln) 2.5 mg PRN Q2HR PRN NEB SHORTNESS OF BREATH; Start 06/03/17 at 17:15 Guaifenesin (Mucinex) 600 mg BID PO Last administered on 06/04/17 09:28; Start 06/03/17 at 21:00 Insulin Aspart (NovoLOG) 0-5 UNITS TIDWMEALS SQ ; Start 06/04/17 at 08:00 Dextrose (Dextrose 50%-Water Syringe) 12.5 gm PRN Q15MIN PRN IV SEE COMMENTS; Start 06/03/17 at 17:15 Heparin Sodium (Porcine) (Heparin Sq) 5,000 unit Q8HRS SQ Last administered on 06/04/17 13:01; Start 06/03/17 at 22:00 Labetalol HCl (Normodyne) 10 mg PRN Q1HR PRN IVP SBP > 180 Last administered on 06/03/17 19:16; Start 06/03/17 at 19:00; Stop 06/04/17 at 18:59 Info (PHARMACY MONITORING -- do not chart) 1 each PRN DAILY PRN MC SEE COMMENTS ; Start 06/03/17 at 19:00 Labetalol HCl (Normodyne) 10 mg 1X ONCE IVP Last administered on 06/03/17 19: 55; Start 06/03/17 at 19:45; Stop 06/03/17 at 19:57; Status DC Clonidine HCl (Catapres) 0.2 mg 1X ONCE PO Last administered on 06/03/17 21: 52; Start 06/03/17 at 19:45; Stop 06/03/17 at 19:57; Status DC Lisinopril (Prinivil) 40 mg DAILY PO Last administered on 06/04/17 12:24; Start 06/04/17 at 10:00; Stop 06/04/17 at 12:38; Status DC Lisinopril (Prinivil) 40 mg BID PO ; Start 06/04/17 at 21:00 Amlodipine Besylate (Norvasc) 5 mg DAILY PO Last administered on 06/04/17 13: 02; Start 06/04/17 at 13:00 Clonidine HCl (Catapres) 0.1 mg 1X ONCE PO ; Start 06/04/17 at 12:45; Stop at 12:52; Status DC Active Scripts Active Reported Calcium Acetate 667 Mg Tablet 667 Mg PO TIDWMEALS Calcitriol 0.5 Mcg Capsule 1 Cap PO DAILY Carvedilol 12.5 Mg Tablet 1 Tab PO BID Atorvastatin Calcium 20 Mg Tablet 1 Tab PO DAILY Renvela (Sevelamer Carbonate) 800 Mg Tablet 2 Tab PO TID Multivitamins (Multivitamin) 1 Each Tablet 1 Tab PO DAILY Humulin N (Nph, Human Insulin Isophane) 100 Unit/1 Ml Vial 30 Unit SQ DAILY Vitals/I & O Vital Sign - Last 24 Hours 06/03/17 06/03/17 06/03/17 06/03/17 13:45 14:15 14:43 19:16 Pulse 86 88 86 73 Resp 20 20 20 B/P (MAP) 228/109 (148) 192/102 (132) 201/107 (138) 193/107 Pulse Ox 95 94 95 O2 Delivery Room Air Room Air Room Air 06/03/17 06/03/17 06/03/17 06/03/17 19:55 21:02 21:45 21:52 Pulse 75 75 B/P (MAP) 197/106 205/122 Pulse Ox 96 O2 Delivery Room Air Room Air 06/03/17 06/03/17 06/03/17 06/03/17 21:52 21:53 22:30 22:30 Temp 98.4 98.1 98.4 98.1 Pulse 75 77 77 Resp 22 B/P (MAP) 205/122 205/122 (149) 205/122 (149) Pulse Ox 96 96 O2 Delivery Room Air Room Air Room Air 06/03/17 06/03/17 06/04/17 06/04/17 22:30 23:48 03:30 04:08 Temp 98.4 98.1 97.9 98.4 98.1 97.9 Pulse 77 81 83 Resp 19 17 B/P (MAP) 205/122 (149) 139/80 (99) 161/90 (113) Pulse Ox 96 91 95 O2 Delivery Room Air Room Air Room Air Room Air 06/04/17 06/04/17 06/04/17 06/04/17 05:08 07:00 07:35 08:00 Temp 98.1 98.1 Pulse 86 Resp 16 B/P (MAP) 174/100 (124) Pulse Ox 98 96 O2 Delivery Room Air Room Air Room Air Room Air 06/04/17 06/04/17 06/04/17 06/04/17 09:28 11:00 11:26 12:24 Temp 98.2 98.2 Pulse 86 72 72 Resp 16 B/P (MAP) 174/100 193/102 (132) 174/102 Pulse Ox 98 97 O2 Delivery Room Air Room Air 06/04/17 13:02 Pulse 72 B/P (MAP) 174/102 Intake and Output 06/03/17 06/03/17 06/04/17 15:00 23:00 07:00 Intake Total 300 ml 480 ml 150 ml Balance 300 ml 480 ml 150 ml ENRIQUE CARPENTER MD Jun 04, 2017 13:19
[2017-06-04 15:00] VITALS: BP 165/89
[2017-06-04 19:40] VITALS: BP 147/86
[2017-06-04] MEDS: LISINOPRIL 40 MG TABLET. PO SCH (21:09)
[2017-06-04] MEDS: ATORVASTATIN CALCIUM 20 MG TABLET PO SCH (21:09)
[2017-06-04 23:20] VITALS: BP 168/95
[2017-06-05 03:30] VITALS: BP 169/92
[2017-06-05] MEDS: traMADol 50 MG TABLET PO PRN (03:45)
[2017-06-05 05:11] LABS: BASO # 0.1 x10^3/uL (0.0-0.2); BASO % 1 % (0-3); EOS % 3 % (0-3); HEMATOCRIT 33.6 % (39.0-53.0); HEMOGLOBIN 10.6 g/dL (13.0-17.5); LYMPH # 1.7 x10^3/uL (1.0-4.8); LYMPH % 30 % (24-48); MEAN CORPUSCULAR HEMOGLOBIN 25 pg (25-35); MEAN CORPUSCULAR HGB CONC 32 g/dL (31-37); MEAN CORPUSCULAR VOLUME 81 fL (79-100); MONO % 10 % (0-9); NEUT % 55 % (31-73); PLATELET COUNT 151 x10^3/uL (140-400); RED BLOOD COUNT 4.17 x10^6/uL (4.30-5.70); RED CELL DISTRIBUTION WIDTH 14.7 % (11.5-14.5); WHITE BLOOD COUNT 5.4 x10^3/uL (4.0-11.0)
[2017-06-05] MEDS: HEPARIN PF for SUB-Q USE 5,000 UNIT/0.5 ML VIAL. SQ SCH ×3 (05:34→22:14)
[2017-06-05 05:47] LABS: CALCIUM 8.2 mg/dL (8.5-10.1); CREATININE 8.3 mg/dL (0.7-1.3); POTASSIUM 3.8 mmol/L (3.5-5.1)
[2017-06-05 07:00] VITALS: BP 167/101
[2017-06-05] MEDS: IPRATRPIUM/ALBUTEROL 0.5/2.5MG 3 ML NEBU. NEB SCH ×4 (07:16→19:57)
[2017-06-05] MEDS: INSULIN ASPART 300 UNITS/3 ML INSULN.PEN SQ SCH ×3 (08:00→17:00)
[2017-06-05] MEDS: amLODIPine BESYLATE 5 MG TABLET PO SCH (09:22)
[2017-06-05] MEDS: CALCITRIOL 0.25 MCG CAPSULE. PO SCH (09:23)
[2017-06-05] MEDS: LISINOPRIL 40 MG TABLET. PO SCH ×2 (09:23→21:20)
[2017-06-05] MEDS: MULTIVITAMIN with MINERAL TABLET. PO SCH (09:24)
[2017-06-05] MEDS: CARVEDILOL 12.5 MG TABLET. PO SCH ×2 (09:24→17:28)
[2017-06-05] MEDS: METOCLOPRAMIDE 10 MG TABLET. PO SCH ×3 (09:28→21:18)
--- NOTE | 2017-06-05 10:48 | PDOC ---
SUBJECTIVE ROS ESRD Pt denies complaints. he has however conveyed to the RN that he may need more Uf on Hd CVS: no Orthopnea, no CP RESP: improved SOB, no JOSUE; improved wheezing GI: no Nausea, no Vomiting : n Dysuria, no Urgency OBJECTIVE Vital Signs Vital Signs Date Time Temp Pulse Resp B/P (MAP) Pulse Ox O2 Delivery O2 Flow Rate FiO2 06/05/17 09:24 78 167/101 06/05/17 07:18 97 Room Air 06/05/17 07:00 98.4 20 98.4 I & 0 Intake and Output 06/05/17 07:00 Intake Total 1430 ml Output Total 0 ml Balance 1430 ml Intake Oral 1430 ml Output Urine Total 0 ml PHYSICAL EXAM Physical Exam GEN: Awake, Oriented x 3, In no distress EYES: Vision Unchanged, Conjunctiva Normal EN: No EN Drainage, Mucous Membranes moist NECK: no JVD, min JVP, Supple, no Thyromegaly CVS: S1S2, ? soft Murmur, No Gallop, No Rub,no Edema RESP: no Rales, no Rhonchi,no Acc. Muscle Use; rare audible wheeze GI: BS + ve, NO Bruit, Non Tender, Non Distended : n CVA tenderness, no Suprapubic Tenderness DIAGNOSIS/ASSESSMENT Assessment & Plan ESRD: Current fluid and E-lyte status does not necessitate emergent need for dialysis. Will re-evaluate for dialysis in the am and continue on TSTat schedule. ? Fl Overload (as noted on CXR) - Challenge Dry wt in am with HD ANEMIA; Aranesp will be ordered once Bp are < 150s, Transfuse with next HD as needed HTN: Current BP meds as reviewed. See orders for changes. BONE & MINERAL: follow phos daily and alter bidner regimen as needed Discussed Plan of Care with pt at bedside - denies Illicit substance use Problems: COMMENT/RELEVANT DATA Meds Current Medications Medications (Trade) Dose Ordered Sig/Thuan Start Time Stop Time Status Last Admin Dose Admin Acetaminophen (Tylenol) 650 mg PRN Q6HRS PRN 06/03/17 17:15 Albuterol Sulfate (Ventolin Neb Soln) 2.5 mg PRN Q2HR PRN 06/03/17 17:15 Albuterol/ Ipratropium (Duoneb) 3 ml RTQID 06/03/17 20:00 06/05/17 07:16 3 ML Amlodipine Besylate (Norvasc) 5 mg DAILY 06/04/17 13:00 06/05/17 09:22 5 MG Aspirin (Eleonora Aspirin) 325 mg 1X ONCE 06/03/17 10:45 06/03/17 10:53 DC 06/03/17 10:56 325 MG Atorvastatin Calcium (Lipitor) 20 mg QHS 06/03/17 21:00 06/04/17 21:09 20 MG Azithromycin 250 ml @ 250 mls/hr 1X ONCE 06/03/17 13:45 06/03/17 14:44 DC 06/03/17 13:50 250 MLS/HR Azithromycin 500 mg/Sodium Chloride 250 ml @ 250 mls/hr 1X ONCE 06/03/17 12:30 06/03/17 13:29 Cancel Calcitriol (Rocaltrol) 0.5 mcg DAILY 06/04/17 09:00 06/05/17 09:23 0.5 MCG Carvedilol (Coreg) 12.5 mg BIDWMEALS 06/03/17 18:00 06/05/17 09:24 12.5 MG Ceftriaxone Sodium 50 ml @ 100 mls/hr 1X ONCE 06/03/17 12:30 06/03/17 12:59 DC 06/03/17 12:34 100 MLS/HR Clonidine HCl (Catapres) 0.1 mg 1X ONCE 06/04/17 12:45 06/04/17 12:52 DC Dextrose (Dextrose 50%-Water Syringe) 12.5 gm PRN Q15MIN PRN 06/03/17 17:15 Docusate Sodium (Colace) 100 mg PRN DAILY PRN 06/03/17 17:15 06/05/17 09:25 100 MG Guaifenesin (Mucinex) 600 mg BID 06/03/17 21:00 06/05/17 09:28 600 MG Heparin Sodium (Porcine) (Heparin Sq) 5,000 unit Q8HRS 06/03/17 22:00 06/05/17 05:34 5,000 UNIT Hydralazine HCl (Apresoline) 10 mg PRN Q4HRS PRN 06/03/17 17:15 Info (PHARMACY MONITORING -- do not chart) 1 each PRN DAILY PRN 06/03/17 19:00 Insulin Aspart (NovoLOG) 0-5 UNITS TIDWMEALS 06/04/17 08:00 Labetalol HCl (Normodyne) 10 mg 1X ONCE 06/03/17 19:45 06/03/17 19:57 DC 06/03/17 19:55 10 MG Lisinopril (Prinivil) 40 mg BID 06/04/17 21:00 06/05/17 09:23 40 MG Metoclopramide HCl (Reglan) 5 mg TID 06/03/17 21:00 06/05/17 09:28 5 MG Morphine Sulfate 2 mg PRN Q2HR PRN 06/03/17 17:15 Multivitamins (Thera M Plus) 1 tab DAILY 06/04/17 09:00 06/05/17 09:24 1 TAB Non-Formulary Medication 667 mg TIDWMEALS 06/04/17 08:00 UNV Ondansetron HCl (Zofran) 4 mg PRN Q6HRS PRN 06/03/17 17:15 Sevelamer Carbonate (Renvela) 1,600 mg TIDWMEALS 06/03/17 18:00 Cancel Tramadol HCl (Ultram) 50 mg PRN Q6HRS PRN 06/03/17 17:15 06/05/17 03:45 50 MG Lab Laboratory Tests Test 06/04/17 11:11 06/04/17 16:36 06/04/17 20:46 06/05/17 04:00 Glucose (Fingerstick) 145 mg/dL (70-99) 125 mg/dL (70-99) 131 mg/dL (70-99) White Blood Count 5.4 x10^3/uL (4.0-11.0) Red Blood Count 4.17 x10^6/uL (4.30-5.70) Hemoglobin 10.6 g/dL (13.0-17.5) Hematocrit 33.6 % (39.0-53.0) Mean Corpuscular Volume 81 fL (79-100) Mean Corpuscular Hemoglobin 25 pg (25-35) Mean Corpuscular Hemoglobin Concent 32 g/dL (31-37) Red Cell Distribution Width 14.7 % (11.5-14.5) Platelet Count 151 x10^3/uL (140-400) Neutrophils (%) (Auto) 55 % (31-73) Lymphocytes (%) (Auto) 30 % (24-48) Monocytes (%) (Auto) 10 % (0-9) Eosinophils (%) (Auto) 3 % (0-3) Basophils (%) (Auto) 1 % (0-3) Neutrophils # (Auto) 3.0 x10^3uL (1.8-7.7) Lymphocytes # (Auto) 1.7 x10^3/uL (1.0-4.8) Monocytes # (Auto) 0.5 x10^3/uL (0.0-1.1) Eosinophils # (Auto) 0.2 x10^3/uL (0.0-0.7) Basophils # (Auto) 0.1 x10^3/uL (0.0-0.2) Sodium Level 143 mmol/L (136-145) Potassium Level 3.8 mmol/L (3.5-5.1) Chloride Level 105 mmol/L (98-107) Carbon Dioxide Level 29 mmol/L (21-32) Anion Gap 9 (6-14) Blood Urea Nitrogen 29 mg/dL (8-26) Creatinine 8.3 mg/dL (0.7-1.3) Estimated GFR (Cockcroft-Gault) 8.0 Glucose Level 93 mg/dL (70-99) Calcium Level 8.2 mg/dL (8.5-10.1) ROSANA STEWART MD Jun 05, 2017 10:48
[2017-06-05 11:00] VITALS: BP 172/101
--- NOTE | 2017-06-05 13:27 | PDOC ---
PROGRESS NOTES Chief Complaint Chief Complaint dyspnea, 2/2 pulmanory edema likely with ESRD ON Hd, AND chf diastolic CHF esrd on HD TTS DM2 HTN urgency HLD H/O cva MILD malnutrition hypokalemia copd plan: cont home meds cont HD TTF ssi for now add meds for copd dvt ppx sw for PCP issues cont coreg, add lisinopril, increased by renal , also add amlodipine check hba1c, pt not need insulin as this time point, cont monitor dc tmr when BP CONTROLLED better History of Present Illness History of Present Illness said since no PCP, getting meds from HD center, but doesnot have enough meds and HD center mess up his meds, not taking insulin for 1 month too BP very high also nobody asked him to do nebs for copd, cough better today with nebs Vitals Vitals Vital Signs Date Time Temp Pulse Resp B/P (MAP) Pulse Ox O2 Delivery O2 Flow Rate FiO2 06/05/17 12:26 Room Air 06/05/17 11:00 98.2 81 22 172/101 (124) 97 98.2 Physical Exam General: Alert, Oriented X3, Cooperative, No acute distress Heart: Regular rate, Normal S2 Lungs: Clear Abdomen: Normal bowel sounds, Soft, No tenderness Extremities: No clubbing Skin: No breakdown Labs LABS Laboratory Tests Test 06/04/17 16:36 06/04/17 20:46 06/05/17 04:00 06/05/17 12:01 Glucose (Fingerstick) 125 mg/dL (70-99) 131 mg/dL (70-99) 110 mg/dL (70-99) White Blood Count 5.4 x10^3/uL (4.0-11.0) Red Blood Count 4.17 x10^6/uL (4.30-5.70) Hemoglobin 10.6 g/dL (13.0-17.5) Hematocrit 33.6 % (39.0-53.0) Mean Corpuscular Volume 81 fL (79-100) Mean Corpuscular Hemoglobin 25 pg (25-35) Mean Corpuscular Hemoglobin Concent 32 g/dL (31-37) Red Cell Distribution Width 14.7 % (11.5-14.5) Platelet Count 151 x10^3/uL (140-400) Neutrophils (%) (Auto) 55 % (31-73) Lymphocytes (%) (Auto) 30 % (24-48) Monocytes (%) (Auto) 10 % (0-9) Eosinophils (%) (Auto) 3 % (0-3) Basophils (%) (Auto) 1 % (0-3) Neutrophils # (Auto) 3.0 x10^3uL (1.8-7.7) Lymphocytes # (Auto) 1.7 x10^3/uL (1.0-4.8) Monocytes # (Auto) 0.5 x10^3/uL (0.0-1.1) Eosinophils # (Auto) 0.2 x10^3/uL (0.0-0.7) Basophils # (Auto) 0.1 x10^3/uL (0.0-0.2) Sodium Level 143 mmol/L (136-145) Potassium Level 3.8 mmol/L (3.5-5.1) Chloride Level 105 mmol/L (98-107) Carbon Dioxide Level 29 mmol/L (21-32) Anion Gap 9 (6-14) Blood Urea Nitrogen 29 mg/dL (8-26) Creatinine 8.3 mg/dL (0.7-1.3) Estimated GFR (Cockcroft-Gault) 8.0 Glucose Level 93 mg/dL (70-99) Calcium Level 8.2 mg/dL (8.5-10.1) Review of Systems Review of Systems no fever, chills, sob or chest pain Assessment and Plan Assessmemt and Plan Problems Medical Problems: (1) Bacterial pneumonia Status: Acute (2) Dyspnea Status: Acute (3) End stage renal disease Status: Acute Problems: Comment Review of Relevant I have reviewed the following items connie (where applicable) has been applied. Labs Laboratory Tests Test 06/04/17 04:38 06/04/17 07:09 06/04/17 11:11 06/04/17 16:36 White Blood Count 4.7 x10^3/uL (4.0-11.0) Red Blood Count 4.17 x10^6/uL (4.30-5.70) Hemoglobin 10.8 g/dL (13.0-17.5) Hematocrit 32.9 % (39.0-53.0) Mean Corpuscular Volume 79 fL (79-100) Mean Corpuscular Hemoglobin 26 pg (25-35) Mean Corpuscular Hemoglobin Concent 33 g/dL (31-37) Red Cell Distribution Width 14.5 % (11.5-14.5) Platelet Count 147 x10^3/uL (140-400) Neutrophils (%) (Auto) 56 % (31-73) Lymphocytes (%) (Auto) 29 % (24-48) Monocytes (%) (Auto) 10 % (0-9) Eosinophils (%) (Auto) 3 % (0-3) Basophils (%) (Auto) 2 % (0-3) Neutrophils # (Auto) 2.7 x10^3uL (1.8-7.7) Lymphocytes # (Auto) 1.4 x10^3/uL (1.0-4.8) Monocytes # (Auto) 0.5 x10^3/uL (0.0-1.1) Eosinophils # (Auto) 0.2 x10^3/uL (0.0-0.7) Basophils # (Auto) 0.1 x10^3/uL (0.0-0.2) Sodium Level 142 mmol/L (136-145) Potassium Level 3.8 mmol/L (3.5-5.1) Chloride Level 105 mmol/L (98-107) Carbon Dioxide Level 32 mmol/L (21-32) Anion Gap 5 (6-14) Blood Urea Nitrogen 15 mg/dL (8-26) Creatinine 6.0 mg/dL (0.7-1.3) Estimated GFR (Cockcroft-Gault) 11.6 Glucose Level 128 mg/dL (70-99) Calcium Level 8.6 mg/dL (8.5-10.1) Glucose (Fingerstick) 131 mg/dL (70-99) 145 mg/dL (70-99) 125 mg/dL (70-99) Test 06/04/17 20:46 06/05/17 04:00 06/05/17 12:01 Glucose (Fingerstick) 131 mg/dL (70-99) 110 mg/dL (70-99) White Blood Count 5.4 x10^3/uL (4.0-11.0) Red Blood Count 4.17 x10^6/uL (4.30-5.70) Hemoglobin 10.6 g/dL (13.0-17.5) Hematocrit 33.6 % (39.0-53.0) Mean Corpuscular Volume 81 fL (79-100) Mean Corpuscular Hemoglobin 25 pg (25-35) Mean Corpuscular Hemoglobin Concent 32 g/dL (31-37) Red Cell Distribution Width 14.7 % (11.5-14.5) Platelet Count 151 x10^3/uL (140-400) Neutrophils (%) (Auto) 55 % (31-73) Lymphocytes (%) (Auto) 30 % (24-48) Monocytes (%) (Auto) 10 % (0-9) Eosinophils (%) (Auto) 3 % (0-3) Basophils (%) (Auto) 1 % (0-3) Neutrophils # (Auto) 3.0 x10^3uL (1.8-7.7) Lymphocytes # (Auto) 1.7 x10^3/uL (1.0-4.8) Monocytes # (Auto) 0.5 x10^3/uL (0.0-1.1) Eosinophils # (Auto) 0.2 x10^3/uL (0.0-0.7) Basophils # (Auto) 0.1 x10^3/uL (0.0-0.2) Sodium Level 143 mmol/L (136-145) Potassium Level 3.8 mmol/L (3.5-5.1) Chloride Level 105 mmol/L (98-107) Carbon Dioxide Level 29 mmol/L (21-32) Anion Gap 9 (6-14) Blood Urea Nitrogen 29 mg/dL (8-26) Creatinine 8.3 mg/dL (0.7-1.3) Estimated GFR (Cockcroft-Gault) 8.0 Glucose Level 93 mg/dL (70-99) Calcium Level 8.2 mg/dL (8.5-10.1) Laboratory Tests Test 06/04/17 16:36 06/04/17 20:46 06/05/17 04:00 06/05/17 12:01 Glucose (Fingerstick) 125 mg/dL (70-99) 131 mg/dL (70-99) 110 mg/dL (70-99) White Blood Count 5.4 x10^3/uL (4.0-11.0) Red Blood Count 4.17 x10^6/uL (4.30-5.70) Hemoglobin 10.6 g/dL (13.0-17.5) Hematocrit 33.6 % (39.0-53.0) Mean Corpuscular Volume 81 fL (79-100) Mean Corpuscular Hemoglobin 25 pg (25-35) Mean Corpuscular Hemoglobin Concent 32 g/dL (31-37) Red Cell Distribution Width 14.7 % (11.5-14.5) Platelet Count 151 x10^3/uL (140-400) Neutrophils (%) (Auto) 55 % (31-73) Lymphocytes (%) (Auto) 30 % (24-48) Monocytes (%) (Auto) 10 % (0-9) Eosinophils (%) (Auto) 3 % (0-3) Basophils (%) (Auto) 1 % (0-3) Neutrophils # (Auto) 3.0 x10^3uL (1.8-7.7) Lymphocytes # (Auto) 1.7 x10^3/uL (1.0-4.8) Monocytes # (Auto) 0.5 x10^3/uL (0.0-1.1) Eosinophils # (Auto) 0.2 x10^3/uL (0.0-0.7) Basophils # (Auto) 0.1 x10^3/uL (0.0-0.2) Sodium Level 143 mmol/L (136-145) Potassium Level 3.8 mmol/L (3.5-5.1) Chloride Level 105 mmol/L (98-107) Carbon Dioxide Level 29 mmol/L (21-32) Anion Gap 9 (6-14) Blood Urea Nitrogen 29 mg/dL (8-26) Creatinine 8.3 mg/dL (0.7-1.3) Estimated GFR (Cockcroft-Gault) 8.0 Glucose Level 93 mg/dL (70-99) Calcium Level 8.2 mg/dL (8.5-10.1) Medications Current Medications Albuterol/ Ipratropium (Duoneb) 3 ml 1X ONCE NEB Last administered on t 10:55; Start 06/03/17 at 10:45; Stop 06/03/17 at 10:53; Status DC Aspirin (Eleonora Aspirin) 325 mg 1X ONCE PO Last administered on 06/03/17 10:56 ; Start 06/03/17 at 10:45; Stop 06/03/17 at 10:53; Status DC Ceftriaxone Sodium 50 ml @ 100 mls/hr 1X ONCE IV Last administered on 12:34; Start 06/03/17 at 12:30; Stop 06/03/17 at 12:59; Status DC Azithromycin 500 mg/Sodium Chloride 250 ml @ 250 mls/hr 1X ONCE IV ; Start at 12:30; Stop 06/03/17 at 13:29; Status Cancel Azithromycin 250 ml @ 250 mls/hr 1X ONCE IV Last administered on 06/03/17 13 :50; Start 06/03/17 at 13:45; Stop 06/03/17 at 14:44; Status DC Atorvastatin Calcium (Lipitor) 20 mg QHS PO Last administered on 06/04/17 21: 09; Start 06/03/17 at 21:00 Carvedilol (Coreg) 12.5 mg BIDWMEALS PO Last administered on 06/05/17 09:24; Start 06/03/17 at 18:00 Metoclopramide HCl (Reglan) 5 mg TID PO Last administered on 06/05/17 09:28; Start 06/03/17 at 21:00 Sevelamer Carbonate (Renvela) 1,600 mg TIDWMEALS PO ; Start 06/03/17 at 18:00; Status Cancel Calcitriol (Rocaltrol) 0.5 mcg DAILY PO Last administered on 06/05/17 09:23; Start 06/04/17 at 09:00 Non-Formulary Medication 667 mg TIDWMEALS PO ; Start 06/04/17 at 08:00; Status UNV Multivitamins (Thera M Plus) 1 tab DAILY PO Last administered on 06/05/17 09: 24; Start 06/04/17 at 09:00 Acetaminophen (Tylenol) 650 mg PRN Q6HRS PRN PO FEVER; Start 06/03/17 at 17:15 Ondansetron HCl (Zofran) 4 mg PRN Q6HRS PRN IV NAUSEA/VOMITING; Start 06/03/17 at 17:15 Morphine Sulfate 2 mg PRN Q2HR PRN IV PAIN; Start 06/03/17 at 17:15 Tramadol HCl (Ultram) 50 mg PRN Q6HRS PRN PO PAIN Last administered on 03:45; Start 06/03/17 at 17:15 Hydralazine HCl (Apresoline) 10 mg PRN Q4HRS PRN IVP ELEVATED BP, SEE COMMENTS ; Start 06/03/17 at 17:15 Docusate Sodium (Colace) 100 mg PRN DAILY PRN PO CONSTIPATION Last administered on 06/05/17 09:25; Start 06/03/17 at 17:15 Albuterol/ Ipratropium (Duoneb) 3 ml RTQID NEB Last administered on 06/05/17 12:25; Start 06/03/17 at 20:00 Albuterol Sulfate (Ventolin Neb Soln) 2.5 mg PRN Q2HR PRN NEB SHORTNESS OF BREATH; Start 06/03/17 at 17:15 Guaifenesin (Mucinex) 600 mg BID PO Last administered on 06/05/17 09:28; Start 06/03/17 at 21:00 Insulin Aspart (NovoLOG) 0-5 UNITS TIDWMEALS SQ ; Start 06/04/17 at 08:00 Dextrose (Dextrose 50%-Water Syringe) 12.5 gm PRN Q15MIN PRN IV SEE COMMENTS; Start 06/03/17 at 17:15 Heparin Sodium (Porcine) (Heparin Sq) 5,000 unit Q8HRS SQ Last administered on 06/05/17 05:34; Start 06/03/17 at 22:00 Labetalol HCl (Normodyne) 10 mg PRN Q1HR PRN IVP SBP > 180 Last administered on 06/03/17 19:16; Start 06/03/17 at 19:00; Stop 06/04/17 at 18:59; Status DC Info (PHARMACY MONITORING -- do not chart) 1 each PRN DAILY PRN MC SEE COMMENTS ; Start 06/03/17 at 19:00 Labetalol HCl (Normodyne) 10 mg 1X ONCE IVP Last administered on 06/03/17 19: 55; Start 06/03/17 at 19:45; Stop 06/03/17 at 19:57; Status DC Clonidine HCl (Catapres) 0.2 mg 1X ONCE PO Last administered on 06/03/17 21: 52; Start 06/03/17 at 19:45; Stop 06/03/17 at 19:57; Status DC Lisinopril (Prinivil) 40 mg DAILY PO Last administered on 06/04/17 12:24; Start 06/04/17 at 10:00; Stop 06/04/17 at 12:38; Status DC Lisinopril (Prinivil) 40 mg BID PO Last administered on 06/05/17 09:23; Start 06/04/17 at 21:00 Amlodipine Besylate (Norvasc) 5 mg DAILY PO Last administered on 06/05/17 09: 22; Start 06/04/17 at 13:00; Stop 06/05/17 at 10:49; Status DC Clonidine HCl (Catapres) 0.1 mg 1X ONCE PO ; Start 06/04/17 at 12:45; Stop at 12:52; Status DC Amlodipine Besylate (Norvasc) 10 mg DAILY PO ; Start 06/06/17 at 09:00 Active Scripts Active Reported Calcium Acetate 667 Mg Tablet 667 Mg PO TIDWMEALS Calcitriol 0.5 Mcg Capsule 1 Cap PO DAILY Carvedilol 12.5 Mg Tablet 1 Tab PO BID Atorvastatin Calcium 20 Mg Tablet 1 Tab PO DAILY Renvela (Sevelamer Carbonate) 800 Mg Tablet 2 Tab PO TID Multivitamins (Multivitamin) 1 Each Tablet 1 Tab PO DAILY Humulin N (Nph, Human Insulin Isophane) 100 Unit/1 Ml Vial 30 Unit SQ DAILY Vitals/I & O Vital Sign - Last 24 Hours 06/04/17 06/04/17 06/04/17 06/04/17 15:00 16:05 17:20 19:26 Temp 98.6 98.6 Pulse 78 78 Resp 16 18 B/P (MAP) 165/89 (114) 165/89 Pulse Ox 98 O2 Delivery Room Air Room Air Room Air 06/04/17 06/04/17 06/04/17 06/04/17 19:27 19:40 20:05 21:09 Temp 98.4 98.4 Pulse 78 78 Resp 18 B/P (MAP) 147/86 (106) 147/86 Pulse Ox 97 O2 Delivery Room Air Room Air Room Air 06/04/17 06/05/17 06/05/17 06/05/17 23:20 03:30 03:45 04:45 Temp 98.5 98.7 98.5 98.7 Pulse 82 83 Resp 18 20 18 18 B/P (MAP) 168/95 (119) 169/92 (117) Pulse Ox 94 93 O2 Delivery Room Air Room Air Room Air 06/05/17 06/05/17 06/05/17 06/05/17 07:00 07:18 09:22 09:23 Temp 98.4 98.4 Pulse 78 78 78 Resp 20 B/P (MAP) 167/101 (123) 167/101 167/101 Pulse Ox 94 97 O2 Delivery Room Air Room Air 06/05/17 06/05/17 06/05/17 09:24 11:00 12:26 Temp 98.2 98.2 Pulse 78 81 Resp 22 B/P (MAP) 167/101 172/101 (124) Pulse Ox 97 O2 Delivery Room Air Room Air Intake and Output 06/04/17 06/04/17 06/05/17 15:00 23:00 07:00 Intake Total 550 ml 360 ml 520 ml Output Total 0 ml Balance 550 ml 360 ml 520 ml Nutrition Consultation Dietary Evaluation: Recommendations by RD: Increase Calorie Intake, Protein supplementation Comments: Add boost glucose control TID due to wt loss and poor intake at home encouraged nutrient dense foods / snacks as needed Expected Outcomes/Goals: meet 75% estimated nutrition needs 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
[2017-06-05 15:00] VITALS: BP 162/90
[2017-06-05 19:15] VITALS: BP 167/91
[2017-06-05] MEDS: ATORVASTATIN CALCIUM 20 MG TABLET PO SCH (21:17)
[2017-06-05] MEDS ORDERED: ZOLPIDEM 5 MG TABLET. PO PRN (21:45)
[2017-06-05 23:20] VITALS: BP 165/102
[2017-06-06 02:50] VITALS: BP 178/103
[2017-06-06 05:08] LABS: BASO # 0.1 x10^3/uL (0.0-0.2); BASO % 1 % (0-3); EOS % 4 % (0-3); HEMATOCRIT 33.8 % (39.0-53.0); HEMOGLOBIN 10.5 g/dL (13.0-17.5); LYMPH # 1.4 x10^3/uL (1.0-4.8); LYMPH % 26 % (24-48); MEAN CORPUSCULAR HEMOGLOBIN 25 pg (25-35); MEAN CORPUSCULAR HGB CONC 31 g/dL (31-37); MEAN CORPUSCULAR VOLUME 80 fL (79-100); MONO % 11 % (0-9); NEUT % 58 % (31-73); PLATELET COUNT 161 x10^3/uL (140-400); RED BLOOD COUNT 4.23 x10^6/uL (4.30-5.70); RED CELL DISTRIBUTION WIDTH 14.6 % (11.5-14.5); WHITE BLOOD COUNT 5.2 x10^3/uL (4.0-11.0)
[2017-06-06 05:35] LABS: CALCIUM 8.4 mg/dL (8.5-10.1); CREATININE 10.5 mg/dL (0.7-1.3); GFR 6.1; POTASSIUM 3.9 mmol/L (3.5-5.1)
[2017-06-06] MEDS: HEPARIN PF for SUB-Q USE 5,000 UNIT/0.5 ML VIAL. SQ SCH (06:33)
[2017-06-06 07:00] VITALS: BP 203/107
[2017-06-06] MEDS: IPRATRPIUM/ALBUTEROL 0.5/2.5MG 3 ML NEBU. NEB SCH (07:10)
[2017-06-06] MEDS: CARVEDILOL 12.5 MG TABLET. PO SCH ×2 (07:45→14:34)
[2017-06-06] MEDS: LISINOPRIL 40 MG TABLET. PO SCH (07:45)
[2017-06-06] MEDS: traMADol 50 MG TABLET PO PRN (07:46)
[2017-06-06] MEDS: INSULIN ASPART 300 UNITS/3 ML INSULN.PEN SQ SCH (08:00)
[2017-06-06] MEDS: MULTIVITAMIN with MINERAL TABLET. PO SCH (09:00)
[2017-06-06] MEDS ORDERED: amLODIPine BESYLATE 10 MG TABLET PO SCH (09:00)
[2017-06-06] MEDS: METOCLOPRAMIDE 10 MG TABLET. PO SCH (09:00)
[2017-06-06] MEDS: CALCITRIOL 0.25 MCG CAPSULE. PO SCH (09:00)
--- NOTE | 2017-06-06 09:49 | PDOC ---
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 Vitals Vital Signs Vital Signs Date Time Temp Pulse Resp B/P (MAP) Pulse Ox O2 Delivery O2 Flow Rate FiO2 06/06/17 08:00 Room Air 06/06/17 07:46 84 215/110 06/06/17 07:11 99 06/06/17 07:00 98.3 18 98.3 Labs Last Labs Laboratory Tests Test 06/04/17 11:11 06/04/17 16:36 06/04/17 20:46 06/05/17 04:00 Glucose (Fingerstick) 145 mg/dL (70-99) 125 mg/dL (70-99) 131 mg/dL (70-99) White Blood Count 5.4 x10^3/uL (4.0-11.0) Red Blood Count 4.17 x10^6/uL (4.30-5.70) Hemoglobin 10.6 g/dL (13.0-17.5) Hematocrit 33.6 % (39.0-53.0) Mean Corpuscular Volume 81 fL (79-100) Mean Corpuscular Hemoglobin 25 pg (25-35) Mean Corpuscular Hemoglobin Concent 32 g/dL (31-37) Red Cell Distribution Width 14.7 % (11.5-14.5) Platelet Count 151 x10^3/uL (140-400) Neutrophils (%) (Auto) 55 % (31-73) Lymphocytes (%) (Auto) 30 % (24-48) Monocytes (%) (Auto) 10 % (0-9) Eosinophils (%) (Auto) 3 % (0-3) Basophils (%) (Auto) 1 % (0-3) Neutrophils # (Auto) 3.0 x10^3uL (1.8-7.7) Lymphocytes # (Auto) 1.7 x10^3/uL (1.0-4.8) Monocytes # (Auto) 0.5 x10^3/uL (0.0-1.1) Eosinophils # (Auto) 0.2 x10^3/uL (0.0-0.7) Basophils # (Auto) 0.1 x10^3/uL (0.0-0.2) Sodium Level 143 mmol/L (136-145) Potassium Level 3.8 mmol/L (3.5-5.1) Chloride Level 105 mmol/L (98-107) Carbon Dioxide Level 29 mmol/L (21-32) Anion Gap 9 (6-14) Blood Urea Nitrogen 29 mg/dL (8-26) Creatinine 8.3 mg/dL (0.7-1.3) Estimated GFR (Cockcroft-Gault) 8.0 Glucose Level 93 mg/dL (70-99) Hemoglobin A1c 5.2 % (4.8-5.6) Calcium Level 8.2 mg/dL (8.5-10.1) Test 06/05/17 12:01 06/05/17 17:12 06/05/17 20:45 06/06/17 03:35 Glucose (Fingerstick) 110 mg/dL (70-99) 115 mg/dL (70-99) 128 mg/dL (70-99) White Blood Count 5.2 x10^3/uL (4.0-11.0) Red Blood Count 4.23 x10^6/uL (4.30-5.70) Hemoglobin 10.5 g/dL (13.0-17.5) Hematocrit 33.8 % (39.0-53.0) Mean Corpuscular Volume 80 fL (79-100) Mean Corpuscular Hemoglobin 25 pg (25-35) Mean Corpuscular Hemoglobin Concent 31 g/dL (31-37) Red Cell Distribution Width 14.6 % (11.5-14.5) Platelet Count 161 x10^3/uL (140-400) Neutrophils (%) (Auto) 58 % (31-73) Lymphocytes (%) (Auto) 26 % (24-48) Monocytes (%) (Auto) 11 % (0-9) Eosinophils (%) (Auto) 4 % (0-3) Basophils (%) (Auto) 1 % (0-3) Neutrophils # (Auto) 3.0 x10^3uL (1.8-7.7) Lymphocytes # (Auto) 1.4 x10^3/uL (1.0-4.8) Monocytes # (Auto) 0.6 x10^3/uL (0.0-1.1) Eosinophils # (Auto) 0.2 x10^3/uL (0.0-0.7) Basophils # (Auto) 0.1 x10^3/uL (0.0-0.2) Sodium Level 142 mmol/L (136-145) Potassium Level 3.9 mmol/L (3.5-5.1) Chloride Level 103 mmol/L (98-107) Carbon Dioxide Level 27 mmol/L (21-32) Anion Gap 12 (6-14) Blood Urea Nitrogen 40 mg/dL (8-26) Creatinine 10.5 mg/dL (0.7-1.3) Estimated GFR (Cockcroft-Gault) 6.1 Glucose Level 104 mg/dL (70-99) Calcium Level 8.4 mg/dL (8.5-10.1) TY-Kgs-P-Type Natriuretic Peptide 19300 pg/mL (0-124) Test 06/06/17 08:23 Glucose (Fingerstick) 127 mg/dL (70-99) Laboratory Tests Test 06/05/17 12:01 06/05/17 17:12 06/05/17 20:45 06/06/17 03:35 Glucose (Fingerstick) 110 mg/dL (70-99) 115 mg/dL (70-99) 128 mg/dL (70-99) White Blood Count 5.2 x10^3/uL (4.0-11.0) Red Blood Count 4.23 x10^6/uL (4.30-5.70) Hemoglobin 10.5 g/dL (13.0-17.5) Hematocrit 33.8 % (39.0-53.0) Mean Corpuscular Volume 80 fL (79-100) Mean Corpuscular Hemoglobin 25 pg (25-35) Mean Corpuscular Hemoglobin Concent 31 g/dL (31-37) Red Cell Distribution Width 14.6 % (11.5-14.5) Platelet Count 161 x10^3/uL (140-400) Neutrophils (%) (Auto) 58 % (31-73) Lymphocytes (%) (Auto) 26 % (24-48) Monocytes (%) (Auto) 11 % (0-9) Eosinophils (%) (Auto) 4 % (0-3) Basophils (%) (Auto) 1 % (0-3) Neutrophils # (Auto) 3.0 x10^3uL (1.8-7.7) Lymphocytes # (Auto) 1.4 x10^3/uL (1.0-4.8) Monocytes # (Auto) 0.6 x10^3/uL (0.0-1.1) Eosinophils # (Auto) 0.2 x10^3/uL (0.0-0.7) Basophils # (Auto) 0.1 x10^3/uL (0.0-0.2) Sodium Level 142 mmol/L (136-145) Potassium Level 3.9 mmol/L (3.5-5.1) Chloride Level 103 mmol/L (98-107) Carbon Dioxide Level 27 mmol/L (21-32) Anion Gap 12 (6-14) Blood Urea Nitrogen 40 mg/dL (8-26) Creatinine 10.5 mg/dL (0.7-1.3) Estimated GFR (Cockcroft-Gault) 6.1 Glucose Level 104 mg/dL (70-99) Calcium Level 8.4 mg/dL (8.5-10.1) DC-Jol-C-Type Natriuretic Peptide 69196 pg/mL (0-124) Test 06/06/17 08:23 Glucose (Fingerstick) 127 mg/dL (70-99) Assessment Assessment Problems Medical Problems: (1) Bacterial pneumonia Status: Acute (2) Dyspnea Status: Acute (3) End stage renal disease Status: Acute Problems: Plan Plan of Care Problems Medical Problems: (1) Bacterial pneumonia Status: Acute (2) Dyspnea Status: Acute (3) End stage renal disease Status: Acute ROSANA STEWART MD Jun 06, 2017 09:49
[2017-06-06] MEDS ORDERED: LISI40TA PO (11:10)
[2017-06-06] MEDS ORDERED: CARV12.52 PO (11:10)
[2017-06-06] MEDS ORDERED: AMLO10TA2 PO (11:10)
--- NOTE | 2017-06-06 13:48 | PDOC3 ---
Discharge Summary [facility] Date of Admission: Jun 03, 2017 Discharge Date: Jun 06, 2017 Admitting Diagnosis dyspnea, 2/2 pulmanory edema likely with ESRD ON Hd, AND chf diastolic CHF esrd on HD TTS DM2, controlled wo meds HTN urgency HLD H/O cva MILD malnutrition hypokalemia copd Problems: Final Diagnosis CONSULTS renal Brief Hospital Course 61yo M, ESRD on HD TTS , DIAstolic CHF came to ERfor sob he said didnot miss HD he has mild cough with some mucus, no fever, chills, chest pain. He has copd, quit smoking for 6years, but not on any COPD meds, said his previous doc dced it. cannot find a PCP for a while, not managing insulin well, getting meds from HD center. Pt feels sob better with duoneb, HD. High BP better with more HTN meds. dc today if ok with renal, cont coreg, lisinopril bid, amlodipine, no need insulin, HBA1C 5.7. SW provided PCP list. dc time 35min. General: Alert, Oriented X3, Cooperative, No acute distress Heart: Regular rate, Normal S2 Lungs: Clear Abdomen: Normal bowel sounds, Soft, No tenderness Extremities: No clubbing Skin: No breakdown Patient History: Problems: Disposition home CONDITION AT DISCHARGE: Improved Diet renal Scheduled Amlodipine Besylate (Amlodipine Besylate), 10 MG PO DAILY Atorvastatin Calcium (Atorvastatin Calcium), 1 TAB PO DAILY, (Reported) Calcitriol (Calcitriol), 1 CAP PO DAILY, (Reported) Calcium Acetate (Calcium Acetate), 667 MG PO TIDWMEALS, (Reported) Carvedilol (Carvedilol), 1 TAB PO BID Lisinopril (Lisinopril), 40 MG PO BID Multivitamin (Multivitamins), 1 TAB PO DAILY, (Reported) Sevelamer Carbonate (Renvela), 2 TAB PO TID, (Reported) Discontinued Medications Metoclopramide Hcl (Reglan), 5 MG PO TID, (Reported) Nph, Human Insulin Isophane (Humulin N), 30 UNIT SQ DAILY, (Reported) Follow Up pcp in 2 weeks ENRIQUE CARPENTER MD Jun 06, 2017 13:48
[2017-06-06 14:34] VITALS: BP 215/110
== END 2017-06-06 19:38 | disposition home or self-care (01) | DRG 291 ==
LOC: ER 10:32 → 2 NORTH 11:47
PROVIDERS: ADMIT Internal Medicine; ATTEND Internal Medicine
PROC: 5A1D00Z (ICD-10-PCS; principal; 2017-06-06)
DX: I13.2 Hypertensive heart and chronic kidney disease with heart failure and with stage 5 chronic kidney disease, or end stage renal disease (principal); I50.31 Acute diastolic (congestive) heart failure; N18.6 End stage renal disease; J15.9 Unspecified bacterial pneumonia; E44.1 Mild protein-calorie malnutrition; J44.0 Chronic obstructive pulmonary disease with (acute) lower respiratory infection; E11.22 Type 2 diabetes mellitus with diabetic chronic kidney disease; E78.00 Pure hypercholesterolemia, unspecified; E78.5 Hyperlipidemia, unspecified; E21.3 Hyperparathyroidism, unspecified; K59.00 Constipation, unspecified; D64.9 Anemia, unspecified; E87.6 Hypokalemia; I16.0 Hypertensive urgency; Z86.73 Personal history of transient ischemic attack (TIA), and cerebral infarction without residual deficits; Z91.14 Patient's other noncompliance with medication regimen; Z91.19 Patient's noncompliance with other medical treatment and regimen; Z99.2 Dependence on renal dialysis; Z68.26 Body mass index [BMI] 26.0-26.9, adult; Z87.891 Personal history of nicotine dependence
CPT/HCPCS: 36415; 71010; 80048; 80053; 82962; 83036; 83880; 84100; 84484; 85027; 85610; 85730; 93005; 94250; 94640; 94760; 96365; 96367; A6539; J0456; J0690; J1815; J3490; J7613; J7620; J8597; 99285-25

== ENCOUNTER 2017-09-12 09:11 | Inpatient (IN) | payer MEDICAID, MEDICARE ==
[2017-09-12] VITALS (10 sets, daily range): BP systolic 133–200; BP diastolic 81–110
[~2017-09-12] VITALS: Ht 175.3 cm; Wt 65.8 kg
[~2017-09-12 09:11] MED LIST changes: +AMLO10TA2 PO; +LISI40TA PO
[2017-09-12] MEDS ORDERED: LISINOPRIL 10 MG TABLET PO ONE (09:45)
[2017-09-12] MEDS ORDERED: amLODIPine BESYLATE 5 MG TABLET PO ONE (09:45)
[2017-09-12] MEDS ORDERED: ALPRAZolam 0.5 MG TABLET PO ONE (09:45)
[2017-09-12 10:01] LABS: BASO # 0.1 x10^3/uL (0.0-0.2); BASO % 1 % (0-3); EOS % 3 % (0-3); HEMOGLOBIN 13.4 g/dL (13.0-17.5); LYMPH # 1.6 x10^3/uL (1.0-4.8); LYMPH % 26 % (24-48); MEAN CORPUSCULAR HEMOGLOBIN 25 pg (25-35); MEAN CORPUSCULAR HGB CONC 33 g/dL (31-37); MEAN CORPUSCULAR VOLUME 77 fL (79-100); MONO % 9 % (0-9); NEUT % 62 % (31-73); PLATELET COUNT 192 x10^3/uL (140-400); RED BLOOD COUNT 5.34 x10^6/uL (4.30-5.70); RED CELL DISTRIBUTION WIDTH 15.7 % (11.5-14.5); WHITE BLOOD COUNT 6.2 x10^3/uL (4.0-11.0)
[2017-09-12 10:11] LABS: CREATININE 11.4 mg/dL (0.7-1.3); GFR 5.5; POTASSIUM 3.9 mmol/L (3.5-5.1)
[2017-09-12 10:15] LABS: ETHANOL < 10 mg/dL (0-10)
--- NOTE | 2017-09-12 13:18 | PHYS DOC ---
Past Medical History Past Medical History: CVA, Diabetes-Type II, High Cholesterol, Hypertension, Renal Failure Additional Past Medical Histor: UNKNOWN MEDICAL HISTORY Past Surgical History: Other Additional Past Surgical Histo: DIALYSIS SHUNT PLACED IN RUE, OLD DIALYSIS PORTS RIGHT SIDE CHEST Alcohol Use: None Drug Use: None Adult General Chief Complaint Chief Complaint: SHORTNESS OF BREATH HPI HPI Patient is a 62 year old male who presents with an episode of shortness of breath. Pt pt stated he was home and became very anxious and short of breath. The pt reports he started thinking that "i'm just a burden to everyone, it'd be better if I was ". Pt denies he has any plan to hurt himself. he did not take his blood pressure medications today. Denies sob at this time, denies chest pain, no cough or fevers. Pt see's Review of Systems Review of Systems Constitutional: Denies fever or chills [] Eyes: Denies change in visual acuity, redness, or eye pain [] HENT: Denies nasal congestion or sore throat [] Respiratory: Denies cough or shortness of breath [] Cardiovascular: denies chest pain GI: Denies abdominal pain, nausea, vomiting, bloody stools or diarrhea [] : Denies dysuria or hematuria [] Musculoskeletal: Denies back pain or joint pain [] Integument: Denies rash or skin lesions [] Neurologic: Denies headache, focal weakness or sensory changes [] Psych: depressed, anxious Current Medications Current Medications Current Medications Medications (Trade) Dose Ordered Sig/Thuan Start Time Stop Time Status Last Admin Dose Admin Alprazolam (Xanax) 1 mg 1X ONCE 09/12/17 09:45 09/12/17 09:46 DC 09/12/17 10:47 1 MG Amlodipine Besylate (Norvasc) 10 mg 1X ONCE 09/12/17 09:45 09/12/17 09:46 DC 09/12/17 10:46 10 MG Lisinopril (Prinivil) 40 mg 1X ONCE 09/12/17 09:45 09/12/17 09:46 DC 09/12/17 09:45 40 MG Allergies Allergies Allergies Coded Allergies Type Severity Reaction Last Updated Verified No Known Drug Allergies 04/13/17 No Physical Exam Physical Exam Constitutional: Well developed, well nourished, crying, difficult historian as pt is crying HENT: Normocephalic, atraumatic, bilateral external ears normal, oropharynx moist, no oral exudates, nose normal. [] Eyes: PERRLA, EOMI, conjunctiva normal, no discharge. [] Neck: Normal range of motion, no tenderness, supple, no stridor. [] Cardiovascular:Heart rate regular with regular rhythm Lungs & Thorax: Bilateral breath sounds clear to auscultation , moderate air movement, no wheeze or crackles Abdomen: soft, no tenderness, no masses, no pulsatile masses. [] Skin: Warm, dry, no erythema, no rash. [] Back: No tenderness, no CVA tenderness. [] Extremities: No tenderness, no cyanosis, no clubbing, ROM intact, no edema, neg homens Neurologic: Alert and oriented X 3, normal motor function, normal sensory function, no focal deficits noted. [] Psychologic: Affect normal, judgement normal, mood normal. [] Current Patient Data Vital Signs Vital Signs Date Time Temp Pulse Resp B/P (MAP) Pulse Ox O2 Delivery O2 Flow Rate FiO2 09/12/17 10:13 96 16 247/125 (165) 91 Room Air 09/12/17 09:11 97.7 97.7 Lab Values Laboratory Tests Test 09/12/17 09:28 White Blood Count 6.2 x10^3/uL (4.0-11.0) Red Blood Count 5.34 x10^6/uL (4.30-5.70) Hemoglobin 13.4 g/dL (13.0-17.5) Hematocrit 41.0 % (39.0-53.0) Mean Corpuscular Volume 77 fL (79-100) L Mean Corpuscular Hemoglobin 25 pg (25-35) Mean Corpuscular Hemoglobin Concent 33 g/dL (31-37) Red Cell Distribution Width 15.7 % (11.5-14.5) H Platelet Count 192 x10^3/uL (140-400) Neutrophils (%) (Auto) 62 % (31-73) Lymphocytes (%) (Auto) 26 % (24-48) Monocytes (%) (Auto) 9 % (0-9) Eosinophils (%) (Auto) 3 % (0-3) Basophils (%) (Auto) 1 % (0-3) Neutrophils # (Auto) 3.8 x10^3uL (1.8-7.7) Lymphocytes # (Auto) 1.6 x10^3/uL (1.0-4.8) Monocytes # (Auto) 0.5 x10^3/uL (0.0-1.1) Eosinophils # (Auto) 0.2 x10^3/uL (0.0-0.7) Basophils # (Auto) 0.1 x10^3/uL (0.0-0.2) Sodium Level 139 mmol/L (136-145) Potassium Level 3.9 mmol/L (3.5-5.1) Chloride Level 97 mmol/L (98-107) L Carbon Dioxide Level 28 mmol/L (21-32) Anion Gap 14 (6-14) Blood Urea Nitrogen 37 mg/dL (8-26) H Creatinine 11.4 mg/dL (0.7-1.3) H Estimated GFR (Cockcroft-Gault) 5.5 Glucose Level 103 mg/dL (70-99) H Calcium Level 9.0 mg/dL (8.5-10.1) Salicylates Level < 2.8 mg/dL (2.8-20.0) L Salicylate Last Dose Date Unknown Salicylate Last Dose Time Unknown Acetaminophen Level < 2 mcg/ml (10-30) L Acetaminophen Last Dose Date Unknown Acetaminophen Last Dose Time Unknown Ethyl Alcohol Level < 10 mg/dL (0-10) Laboratory Tests 09/12/17 09:28 Laboratory Tests 09/12/17 09:28 EKG EKG [] Radiology/Procedures Radiology/Procedures [] Course & Med Decision Making Course & Med Decision Making Pertinent Labs and Imaging studies reviewed. (See chart for details) Pt's pressure is significantly elevated. Pt given his dose of amlodipine and lisinopril. After period of time, no improvement of his blood pressure. I talked with Dr. Lobato, who accepted admission for accelerated hypertension. Pt will also need to have psych evaluation and be dialyzed. I discussed with Dr. Guajardo. Pt on Cardene drip for blood pressure. Total critical care time: 32 minutes Dragon Disclaimer Dragon Disclaimer This electronic medical record was generated, in whole or in part, using a voice recognition dictation system. Departure Departure Impression: Primary Impression: Accelerated hypertension Additional Impressions: Depression End stage renal disease Disposition: 09 ADMITTED INPATIENT Admitting Physician: Bi Lobato Condition: GUARDED Referrals: BI LOBATO MD (PCP) Problem Qualifiers SHARIF CAGLE MD Sep 12, 2017 13:18
[2017-09-12] MEDS ORDERED: IV NORMAL SALINE 1000ML BAG 1,000 ML IV PRN ×2 (15:33)
[2017-09-12] MEDS ORDERED: DIALYSIS PATIENT. MC PRN ×2 (15:45)
--- NOTE | 2017-09-12 16:36 | PDOC2 ---
CONSULT Date of Consult Date of Consult DATE: 09/12/17 TIME: 16:32 Reason for Consult Reason for Consult: ESRD Referring Physician Referring Physician: CHERYLE Identification/Chief Complaint Chief Complaint DEPRESSION Problems: Source Source: Chart review, Patient History of Present Illness Reason for Visit: THIS IS A 62 YR OLD ADMITTED WITH A MISSED HD TX TODAY. HE IS ALSO VERY DEPRESSED. ALMOST SUICIDAL. FEELS LIKE A BURDEN TO PEOPLE. LABS ARE C/W ESRD. HE HAS NOT BEEN TAKING HIS MEDS. ALSO VERY HYPERTENSIVE Past Medical History Cardiovascular: CHF, HTN GI: Constipation Heme/Onc: Anemia NOS Renal/: Chronic renal failure Endocrine: Hyperparathyroidism Past Surgical History Past Surgical History LEFT ARM AVF Past Surgical History: Other Family History Family History: Family History Unknown Social History ALCOHOL: rare Drugs: None Lives: with Family Current Problem List Problem List Problems Medical Problems: (1) Accelerated hypertension Status: Acute Current Medications Current Medications Current Medications Alprazolam (Xanax) 1 mg 1X ONCE PO Last administered on 09/12/17 10:47; Start 09/12/17 at 09:45; Stop 09/12/17 at 09:46; Status DC Amlodipine Besylate (Norvasc) 10 mg 1X ONCE PO Last administered on 10:46; Start 09/12/17 at 09:45; Stop 09/12/17 at 09:46; Status DC Lisinopril (Prinivil) 40 mg 1X ONCE PO Last administered on 09/12/17 09:45; Start 09/12/17 at 09:45; Stop 09/12/17 at 09:46; Status DC Nicardipine HCl 50 mg/Sodium Chloride 270 ml @ 0 mls/hr CONT PRN IV SEE I/O RECORD Last administered on 09/12/17 11:18; Start 09/12/17 at 10:30 Sodium Chloride 1,000 ml @ 1,000 mls/hr Q1H PRN IV hypotension; Start at 15:33; Stop 09/12/17 at 21:32 Sodium Chloride 1,000 ml @ 400 mls/hr Q2H30M PRN IV PATENCY; Start 09/12/17 at 15:33; Stop 09/13/17 at 03:32 Info (PHARMACY MONITORING -- do not chart) 1 each PRN DAILY PRN MC SEE COMMENTS ; Start 09/12/17 at 15:45; Stop 09/12/17 at 15:45; Status DC Info (PHARMACY MONITORING -- do not chart) 1 each PRN DAILY PRN MC SEE COMMENTS ; Start 09/12/17 at 15:45 Active Scripts Active Lisinopril 40 Mg Tablet 40 Mg PO BID 30 Days Amlodipine Besylate 10 Mg Tablet 10 Mg PO DAILY 30 Days Carvedilol 12.5 Mg Tablet 1 Tab PO BID 30 Days Reported Calcium Acetate 667 Mg Tablet 667 Mg PO TIDWMEALS Calcitriol 0.5 Mcg Capsule 1 Cap PO DAILY Atorvastatin Calcium 20 Mg Tablet 1 Tab PO DAILY Renvela (Sevelamer Carbonate) 800 Mg Tablet 2 Tab PO TID Multivitamins (Multivitamin) 1 Each Tablet 1 Tab PO DAILY Allergies Allergies: Coded Allergies: No Known Drug Allergies (Unverified , 04/13/17) ROS General: YES: Fatigue, Appetite PSYCHOLOGICAL ROS: YES: Anxiety, Depression Eyes: Yes Decreased vision HEENT: YES: Heacaches Respiratory: YES: Cough, Shortness of breath Gastrointestinal: Yes Constipation Genitourinary: YES Other (ANURIA) Musculoskeletal: Yes Muscular Weakness Neurological: Yes Weakness Skin: Yes Dry Skin Physical Exam General: Alert, Oriented X3, Cooperative, No acute distress HEENT: Atraumatic, PERRLA Lungs: Clear to auscultation, Normal air movement Heart: Regular rate, Normal S1, Normal S2 Abdomen: Normal bowel sounds, Soft, No tenderness Extremities: No clubbing Neuro: Normal speech, Cranial nerves 3-12 NL Psych/Mental Status: Mental status NL, Mood NL MUSCULOSKELETAL: No deformity, No swelling Vitals VITALS Vital Signs Date Time Temp Pulse Resp B/P (MAP) Pulse Ox O2 Delivery O2 Flow Rate FiO2 09/12/17 15:00 98.6 87 20 180/100 (126) 96 Nasal Cannula 2.0 98.6 Labs Labs Laboratory Tests Test 09/12/17 09:28 White Blood Count 6.2 x10^3/uL (4.0-11.0) Red Blood Count 5.34 x10^6/uL (4.30-5.70) Hemoglobin 13.4 g/dL (13.0-17.5) Hematocrit 41.0 % (39.0-53.0) Mean Corpuscular Volume 77 fL (79-100) Mean Corpuscular Hemoglobin 25 pg (25-35) Mean Corpuscular Hemoglobin Concent 33 g/dL (31-37) Red Cell Distribution Width 15.7 % (11.5-14.5) Platelet Count 192 x10^3/uL (140-400) Neutrophils (%) (Auto) 62 % (31-73) Lymphocytes (%) (Auto) 26 % (24-48) Monocytes (%) (Auto) 9 % (0-9) Eosinophils (%) (Auto) 3 % (0-3) Basophils (%) (Auto) 1 % (0-3) Neutrophils # (Auto) 3.8 x10^3uL (1.8-7.7) Lymphocytes # (Auto) 1.6 x10^3/uL (1.0-4.8) Monocytes # (Auto) 0.5 x10^3/uL (0.0-1.1) Eosinophils # (Auto) 0.2 x10^3/uL (0.0-0.7) Basophils # (Auto) 0.1 x10^3/uL (0.0-0.2) Sodium Level 139 mmol/L (136-145) Potassium Level 3.9 mmol/L (3.5-5.1) Chloride Level 97 mmol/L (98-107) Carbon Dioxide Level 28 mmol/L (21-32) Anion Gap 14 (6-14) Blood Urea Nitrogen 37 mg/dL (8-26) Creatinine 11.4 mg/dL (0.7-1.3) Estimated GFR (Cockcroft-Gault) 5.5 Glucose Level 103 mg/dL (70-99) Calcium Level 9.0 mg/dL (8.5-10.1) Salicylates Level < 2.8 mg/dL (2.8-20.0) Salicylate Last Dose Date Unknown Salicylate Last Dose Time Unknown Acetaminophen Level < 2 mcg/ml (10-30) Acetaminophen Last Dose Date Unknown Acetaminophen Last Dose Time Unknown Ethyl Alcohol Level < 10 mg/dL (0-10) Laboratory Tests Test 09/12/17 09:28 White Blood Count 6.2 x10^3/uL (4.0-11.0) Red Blood Count 5.34 x10^6/uL (4.30-5.70) Hemoglobin 13.4 g/dL (13.0-17.5) Hematocrit 41.0 % (39.0-53.0) Mean Corpuscular Volume 77 fL (79-100) Mean Corpuscular Hemoglobin 25 pg (25-35) Mean Corpuscular Hemoglobin Concent 33 g/dL (31-37) Red Cell Distribution Width 15.7 % (11.5-14.5) Platelet Count 192 x10^3/uL (140-400) Neutrophils (%) (Auto) 62 % (31-73) Lymphocytes (%) (Auto) 26 % (24-48) Monocytes (%) (Auto) 9 % (0-9) Eosinophils (%) (Auto) 3 % (0-3) Basophils (%) (Auto) 1 % (0-3) Neutrophils # (Auto) 3.8 x10^3uL (1.8-7.7) Lymphocytes # (Auto) 1.6 x10^3/uL (1.0-4.8) Monocytes # (Auto) 0.5 x10^3/uL (0.0-1.1) Eosinophils # (Auto) 0.2 x10^3/uL (0.0-0.7) Basophils # (Auto) 0.1 x10^3/uL (0.0-0.2) Sodium Level 139 mmol/L (136-145) Potassium Level 3.9 mmol/L (3.5-5.1) Chloride Level 97 mmol/L (98-107) Carbon Dioxide Level 28 mmol/L (21-32) Anion Gap 14 (6-14) Blood Urea Nitrogen 37 mg/dL (8-26) Creatinine 11.4 mg/dL (0.7-1.3) Estimated GFR (Cockcroft-Gault) 5.5 Glucose Level 103 mg/dL (70-99) Calcium Level 9.0 mg/dL (8.5-10.1) Salicylates Level < 2.8 mg/dL (2.8-20.0) Salicylate Last Dose Date Unknown Salicylate Last Dose Time Unknown Acetaminophen Level < 2 mcg/ml (10-30) Acetaminophen Last Dose Date Unknown Acetaminophen Last Dose Time Unknown Ethyl Alcohol Level < 10 mg/dL (0-10) Assessment/Plan Assessment/Plan IMP ESRD HTN ANEMIA NON COMPLIANCE DEPRESSION PLAN HD TODAY UF TO DW MAY NEED PSYCH EVAL CONT HOME MEDS NO RUBEN DUE TO HTN AND HIGH H/H YENI COSTA MD Sep 12, 2017 16:36
[2017-09-12] MEDS: LISINOPRIL 40 MG TABLET. PO SCH ×2 (21:37→21:49)
[2017-09-12] MEDS ORDERED: LISINOPRIL 40 MG TABLET. PO SCH (21:45)
[2017-09-12] MEDS: ACETAMINOPHEN 325 MG TABLET. PO PRN (21:50)
[2017-09-12] MEDS: CARVEDILOL 12.5 MG TABLET. PO SCH (21:50)
[2017-09-12] MEDS: ATORVASTATIN CALCIUM 20 MG TABLET PO SCH (21:50)
[2017-09-12] MEDS: ONDANSETRON PF 4 MG/2 ML VIAL. IV PRN (23:31)
[2017-09-12] MEDS ORDERED: ALPRAZolam 1 MG TABLET PO ONE (23:45)
[2017-09-13 03:05] VITALS: BP 132/73
[2017-09-13 07:00] VITALS: BP 140/78
[2017-09-13] MEDS: INSULIN ASPART 300 UNITS/3 ML INSULN.PEN SQ SCH ×3 (08:30→16:30)
[2017-09-13] MEDS: LISINOPRIL 40 MG TABLET. PO SCH ×2 (08:38→22:20)
[2017-09-13] MEDS: amLODIPine BESYLATE 10 MG TABLET PO SCH (08:38)
[2017-09-13] MEDS: CARVEDILOL 12.5 MG TABLET. PO SCH ×2 (08:39→17:00)
[2017-09-13] MEDS ORDERED: CARVEDILOL 12.5 MG TABLET. PO SCH (09:00)
--- NOTE | 2017-09-13 09:23 | EKG ---
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
--- NOTE | 2017-09-13 09:34 | PDOC ---
Provider Note Provider Note Patient seen. c/o weight loss -40 lbs.Not eating well.Depressed.Feels homeless even though he has a place to stay. Has insomnia for 3 days. Recently seen in the office for the first time- had run out of meds- that were filled.States he is taking them Started in office on Albuterol for dyspnea. Start Remeron,Celexa. The patient was seen and examined by me. Chart reviewed and plan of care formulated. Discussed with, reviewed and agree with BUSINESS BROKER's notes, plan of care and orders with modifications as necessary. For more details regarding further plans, please refer to the orders. see History and Physical . BI LOBATO MD Sep 13, 2017 09:34
[2017-09-13] MEDS: CITALOPRAM 10 MG TABLET. PO SCH (09:41)
[2017-09-13 10:15] LABS: CKMB MASS 0.9 ng/mL (0.0-3.6)
[2017-09-13] MEDS ORDERED: INSULIN DETEMIR 300 UNITS/3 ML INSULN.PEN. SQ SCH ×2 (10:30→21:00)
--- NOTE | 2017-09-13 10:46 | PDOC2 ---
CARDIAC CONSULT DATE OF CONSULT Date of Consult DATE: 09/13/17 TIME: 10:40 REASON FOR CONSULT Reason for Consult: CHF REFERRING PHYSICIAN Referring Physician: Evangelina Pacheco APRN SOURCE Source: Chart review, Patient HISTORY OF PRESENT ILLNESS HISTORY OF PRESENT ILLNESS This is a 62 yo male who presented secondary to shortness of breath. Patient reports son called EMS as he had difficulty sleeping and was depressed/crying. If presently living with sister, who also has patient son, daughter, and ex- living with her. Is tearful; has been "put out" by multiple children recently. Feels as if he is not wanted by his family. Does not want to return to his current living situation. Denies any suicidal ideations. Does report some recent shortness of breath and orthopnea at time, although presently denies. Does not routinely take his medications as often forgets to take them. Denies any chest pain, palpitations, dizziness, diaphoresis, or nausea/vomiting. Reports compliance with HD. BP noted to be significantly elevated upon arrival. Cardene gtt initiated. Home medications haven been resumed and blood pressure now better controlled. PAST MEDICAL HISTORY Cardiovascular: CHF, HTN Pulmonary: No pertinent hx GI: No pertinent hx Heme/Onc: Anemia NOS Hepatobiliary: No pertinent hx Psych: Depression Rheumatologic: No pertinent hx Infectious disease: No pertinent hx ENT: No pertinent hx Renal/: Chronic renal failure Endocrine: Hyperparathyroidism Dermatology: No pertinent hx PAST SURGICAL HISTORY Past Surgical History right AVF FAMILY HISTORY Family History: Hypertension SOCIAL HISTORY ALCOHOL: none Drugs: None Lives: with Family CURRENT MEDICATIONS CURRENT MEDICATIONS Current Medications Medications (Trade) Dose Ordered Sig/Thuan Route PRN Reason Start Time Stop Time Status Last Admin Dose Admin Amlodipine Besylate (Norvasc) 10 mg DAILY PO 09/13/17 09:00 09/13/17 08:38 Atorvastatin Calcium (Lipitor) 20 mg HS PO 09/12/17 21:45 09/12/17 21:50 Ondansetron HCl (Zofran) 4 mg PRN Q6HRS PRN IV NAUSEA/VOMITING 09/12/17 21:45 09/12/17 23:31 Acetaminophen (Tylenol) 650 mg PRN Q8HRS PRN PO PAIN 09/12/17 21:45 09/12/17 21:50 Carvedilol (Coreg) 12.5 mg BIDWMEALS PO 09/12/17 22:00 09/13/17 08:39 Lisinopril (Prinivil) 40 mg BID PO 09/12/17 22:00 09/13/17 08:38 Alprazolam (Xanax) 1 mg 1X ONCE PO 09/12/17 23:45 09/12/17 23:46 DC 09/12/17 23:47 Citalopram Hydrobromide (CeleXA) 10 mg DAILY PO 09/13/17 10:00 09/13/17 09:41 ALLERGIES ALLERGIES: Coded Allergies: No Known Drug Allergies (Unverified , 04/13/17) ROS Review of System 14 point ROS conducted with pertinent positives noted above in HPI. PHYSICAL EXAM General: Alert, Oriented X3, Cooperative, No acute distress HEENT: Atraumatic, Mucous membr. moist/pink Lungs: Other (diminished bases) Heart: Regular rate, Normal S1, Normal S2 Abdomen: Soft, No tenderness Extremities: No edema, Normal pulses Skin: No significant lesion Neuro: Normal speech, Sensation intact Psych/Mental Status: Mental status NL, Other (tearful) MUSCULOSKELETAL: Osteoarthritic changes both hands VITALS VITALS Vital Signs Date Time Temp Pulse Resp B/P (MAP) Pulse Ox O2 Delivery O2 Flow Rate FiO2 09/13/17 08:39 79 140/78 09/13/17 07:00 98.4 16 96 Room Air 98.4 09/13/17 03:05 2.0 LABS Lab: Laboratory Tests Test 09/13/17 08:37 09/13/17 09:35 Glucose (Fingerstick) 84 mg/dL (70-99) Creatine Kinase 132 U/L (39-308) Creatine Kinase MB (Mass) 0.9 ng/mL (0.0-3.6) Creatine Kinase MB Relative Index 0.7 % (0-4) Troponin I Quantitative 0.044 ng/mL (0.000-0.055) ECHOCARDIOGRAM ECHOCARDIOGRAM <Conclusion> The Ejection Fraction is 35-40%. The systolic function is moderately impaired. There is global hypokinesis of the left ventricle with moderate inferior and infero-septal hypokinesis. Doppler and Color Flow revealed trace to mild tricuspid regurgitation. There is moderate pulmonary hypertension. The PA pressure was estimated at 56 mmHg. DATE: 04/11/17 1303 STRESS TEST STRESS TEST Conclusion 1. Regadenoson cardioisotope stress test did not show any evidence of ischemia or infarct. 2. Normal left ventricular systolic function with ejection fraction calculated at 62%. 3. Low risk for cardiac events. DATE: 04/14/17 1328 ASSESSMENT/PLAN ASSESSMENT/PLAN 1. Chronic systolic HF; LVEF 35-40%. Appears compensated at this time. 2. Malignant hypertension; now controlled 3. ESRD on HD; TTS. 4. Depression; Celexa initiated 5. Noncompliance; discussed/encouraged compliance Recommendations Home antiHTN therapy resumed. Maintain BP control Continue optimization therapy. Fluid offloading via HD as per nephrology Obtain CXR Consult social worker psychiatric Problems: HARPER MCKEON APRN Sep 13, 2017 10:46
[2017-09-13 11:00] VITALS: BP 130/75
--- NOTE | 2017-09-13 11:49 | PDOC ---
Renal-Progress Notes Subjective Notes Notes FEELING BETTER History of Present Illness Hx of present illness STABLE Vitals Vitals Vital Signs Date Time Temp Pulse Resp B/P (MAP) Pulse Ox O2 Delivery O2 Flow Rate FiO2 09/13/17 11:00 98.4 72 16 130/75 (93) 96 Room Air 98.4 09/13/17 03:05 2.0 Weight Weight [ ] I.O. Intake and Output Intake and Output 09/14/17 07:00 Intake Total 240 ml Balance 240 ml Intake Oral 240 ml Labs Labs Laboratory Tests Test 09/13/17 08:37 09/13/17 09:35 Glucose (Fingerstick) 84 mg/dL (70-99) Creatine Kinase 132 U/L (39-308) Creatine Kinase MB (Mass) 0.9 ng/mL (0.0-3.6) Creatine Kinase MB Relative Index 0.7 % (0-4) Troponin I Quantitative 0.044 ng/mL (0.000-0.055) Review of Systems Constitutional: yes: alert, oriented Ears/Nose/Throat: Yes: no symptom reported Eyes: Yes: no symptom reported Pulmonary: Yes no symptom reported Cardiovascular: Yes no symptom reported Gastrointestional: Yes: no symptom reported, constipation Genitourinary: Yes: other (ANURIA) Musculoskeletal: Yes: muscle stiffness Skin: Yes no symptom reported Psychiatric/Neurological: Yes: anxiety Endocrine: Yes: no symptom reported Physical Exam General Appearance: no apparent distress Skin: warm Respiratory: bilateral CTA Heart: S1S2, RRR Abdomen: soft Genitourinary: bladder flat Extremities: pulses present, no edema, atrophy Neurology: alert, oriented Assessment Assessment IMP ESRD ANEMIA HTN DEPRESSION HYPERVOLEMIA PLAN RESUME HD TOMORROW CONT HOME MEDS ANTIDEPRESSANTS CONT TO ENC D/W YENI RIVERA MD Sep 13, 2017 11:49
[2017-09-13] MEDS: BUDESONIDE 0.5 MG/2 ML NEBU. NEB SCH ×2 (12:25→20:18)
--- NOTE | 2017-09-13 12:31 | PDOC1 ---
HISTORY AND PHYSICAL Chief Complaint Chief Complaint This 62 year old male has been admitted with a chief complaint of shortness of breath. He was first seen by Dr. Klein in the office 09/04/17 with c/o generalized abdominal pain and weight loss of 30 pounds over the last 6 months. Labs were obtained with Hgb stable at 11, Hba1c 5.7, Total cholesterol 118, HDL 55, LDL 45 and Tg 91. He has ESRD and is on dialysis TTS. He did not go to dialysis yesterday due to onset shortness of breath acutely. He reports this morning he has been waking suddenly with shortness of breath when sleeping for some time now. He was admitted in March 2017 and treated for newly diagnosed systolic/diastolic CHF acute. Also NSTEMI with stress test negative for ischemia. He was admitted in May 2017 for acute CHF and hypertensive urgency. During the OV 09/04/17 he reports being compliant with medications and dialysis. As stated previously, he reports increased shortness of breath yesterday and presented to the ED. His blood pressure was acutely elevated with patient reporting he did not take his BP meds before coming to ED. His home dose of amlodipine 10mg and Lisinopril 20mg was given. A short infusion of Cardene was started and stopped once his BP responded to the oral meds. Xanax 1mg x 2 separate doses was given for anxiety and insomnia in ED and after admit to ICU ( CVC overflow). Basic labs were obtained in the ED and are unremarkable. [place] also voiced that he felt like a burden for his family. He does not express any suicidal intent. Problem List Problems Medical Problems: (1) Accelerated hypertension Status: Acute (2) Depression Status: Acute (3) End stage renal disease Status: Acute Past Medical History Cardiovascular: CHF (EF 35-40% diastolic and systolic ECHO 03/2017 ), HTN, [place] ( NSTEMI March 2017, MPI negative ischemia ), Hyperlipidemia, Valve insufficiency ( mild TR) Pulmonary: COPD CENTRAL NERVOUS SYSTEM: CVA (h/o CVA ) GI: Constipation Heme/Onc: Anemia NOS (ESRD and Fe deficiency ) Renal/: Chronic renal failure (ESRD HD TTS ) Endocrine: Diabetes (Type II controlled with diet ), Hyperparathyroidism ( secondary ) Past Surgical History Past Surgical History: Other (Fistula Right UE ) Past Family History Family History: Hypertension Past Social History PSH former smoker, no ETOH or illicit drug use. Review of Symptoms Review of Symptoms A 14 point ROS was completed with the following noted as positive: per HPI Other systems reviewed and negative. Medications Medications reviewed and reconciled. Allergy Allergies Coded Allergies Type Severity Reaction Last Updated Verified No Known Drug Allergies 04/13/17 No Physical Exam Physical Exam General appearance - sleepy, ill appearing, and in no distress Mental Status - alert, oriented to person, place, and time, affect appropriate to mood once fully awake Head - normal Chest - clear to auscultation, no wheezes, rales or rhonchi, crackles R post lower lobe Heart - S1 and S2 normal Abdomen - soft, nontender, nondistended, BS+ Neurological - sleepy from xanax, no acute focal neurological deficit noted. Musculoskeletal - no muscular tenderness noted Extremities - no pedal edema Skin - warm and dry VTE Prophylaxis Ordered VTE Prophylaxis Devices: Yes VTE Pharmacological Prophylaxi: No Assessment Labs Laboratory Tests Test 09/12/17 09:28 09/12/17 23:18 09/13/17 08:37 09/13/17 09:35 White Blood Count 6.2 x10^3/uL (4.0-11.0) Red Blood Count 5.34 x10^6/uL (4.30-5.70) Hemoglobin 13.4 g/dL (13.0-17.5) Hematocrit 41.0 % (39.0-53.0) Mean Corpuscular Volume 77 fL (79-100) Mean Corpuscular Hemoglobin 25 pg (25-35) Mean Corpuscular Hemoglobin Concent 33 g/dL (31-37) Red Cell Distribution Width 15.7 % (11.5-14.5) Platelet Count 192 x10^3/uL (140-400) Neutrophils (%) (Auto) 62 % (31-73) Lymphocytes (%) (Auto) 26 % (24-48) Monocytes (%) (Auto) 9 % (0-9) Eosinophils (%) (Auto) 3 % (0-3) Basophils (%) (Auto) 1 % (0-3) Neutrophils # (Auto) 3.8 x10^3uL (1.8-7.7) Lymphocytes # (Auto) 1.6 x10^3/uL (1.0-4.8) Monocytes # (Auto) 0.5 x10^3/uL (0.0-1.1) Eosinophils # (Auto) 0.2 x10^3/uL (0.0-0.7) Basophils # (Auto) 0.1 x10^3/uL (0.0-0.2) Sodium Level 139 mmol/L (136-145) Potassium Level 3.9 mmol/L (3.5-5.1) Chloride Level 97 mmol/L (98-107) Carbon Dioxide Level 28 mmol/L (21-32) Anion Gap 14 (6-14) Blood Urea Nitrogen 37 mg/dL (8-26) Creatinine 11.4 mg/dL (0.7-1.3) Estimated GFR (Cockcroft-Gault) 5.5 Glucose Level 103 mg/dL (70-99) Calcium Level 9.0 mg/dL (8.5-10.1) Salicylates Level < 2.8 mg/dL (2.8-20.0) Salicylate Last Dose Date Unknown Salicylate Last Dose Time Unknown Acetaminophen Level < 2 mcg/ml (10-30) Acetaminophen Last Dose Date Unknown Acetaminophen Last Dose Time Unknown Ethyl Alcohol Level < 10 mg/dL (0-10) Nasal Screen MRSA (PCR) Negative (Negative) Glucose (Fingerstick) 84 mg/dL (70-99) Creatine Kinase 132 U/L (39-308) Creatine Kinase MB (Mass) 0.9 ng/mL (0.0-3.6) Creatine Kinase MB Relative Index 0.7 % (0-4) Troponin I Quantitative 0.044 ng/mL (0.000-0.055) Laboratory Tests Test 09/12/17 23:18 09/13/17 08:37 09/13/17 09:35 Nasal Screen MRSA (PCR) Negative (Negative) Glucose (Fingerstick) 84 mg/dL (70-99) Creatine Kinase 132 U/L (39-308) Creatine Kinase MB (Mass) 0.9 ng/mL (0.0-3.6) Creatine Kinase MB Relative Index 0.7 % (0-4) Troponin I Quantitative 0.044 ng/mL (0.000-0.055) Plan Plan 1. acute on chronic diastolic/systolic CHF EF35-40% 2. hypertensive urgency 3. depression/insomnia 4. DM II ESRD diet controlled \ 5. ESRD HD TTS 6. hyperlipidemia 7. anemia CKD/Fe def 8. weight loss 9. constipation 10. secondary hyperparathyroidism 11. h/o NSTEMI March 2017 12. moderate chronic PCL malnutrition PLAN: Admit 09/13/17 CHF - admit wt 158#, cardiology consult hypertensive urgency - improved, continue home meds depression/insomnia -Remeron and celexa initiated ESRD - in patient HD DM II -office records indicate N70/30 insulin bid, last admit reviewed--Hba1c 5.7 off insulin --DC levemir, continue SSI weight loss - 04/11/17 181.3# ([facility] discharge), office visit 09/04/17 161.4#, admit PMC 158#. Will obtain CT scan abdomen pelvis with IV contrast to evaluate prior to dialysis. dyspnea on waking - check RA nocturnal sat to eval prior to discharge. For more details regarding further plans, please refer to the orders. VÍCTOR SINGLETON APRN Sep 13, 2017 12:30
[2017-09-13] MEDS: SEVELAMER CARBONATE 800 MG TABLET. PO SCH ×2 (13:22→17:41)
--- NOTE | 2017-09-13 15:23 | RAD ---
Examination: Single frontal the chest History : shortness of breath Comparison: 06/03/2017 Findings: The cardiomediastinal silhouette grossly appears unremarkable. Faint right lung base airspace opacities likely atelectasis or infiltrates. Impression: Faint right lung base airspace opacities likely atelectasis or infiltrate. Follow-up to resolution.
[2017-09-13 16:57] VITALS: BP 103/61
[2017-09-13 19:58] VITALS: BP 137/81
[2017-09-13] MEDS: IPRATRPIUM/ALBUTEROL 0.5/2.5MG 3 ML NEBU. NEB SCH (20:18)
[2017-09-13] MEDS ORDERED: MIRTAZAPINE 7.5 MG TABLET. PO SCH (21:00)
[2017-09-13] MEDS: ATORVASTATIN CALCIUM 20 MG TABLET PO SCH (22:19)
[2017-09-13 23:28] VITALS: BP 150/80
[2017-09-14] MEDS ORDERED: LORazepam 0.5 MG TABLET PO ONE (02:00)
[2017-09-14 03:32] VITALS: BP 177/98
[2017-09-14 04:19] LABS: BASO # 0.1 x10^3/uL (0.0-0.2); BASO % 1 % (0-3); EOS % 2 % (0-3); HEMATOCRIT 33.9 % (39.0-53.0); LYMPH # 1.7 x10^3/uL (1.0-4.8); LYMPH % 34 % (24-48); MEAN CORPUSCULAR HEMOGLOBIN 25 pg (25-35); MEAN CORPUSCULAR HGB CONC 32 g/dL (31-37); MEAN CORPUSCULAR VOLUME 77 fL (79-100); MONO % 12 % (0-9); NEUT % 50 % (31-73); PLATELET COUNT 154 x10^3/uL (140-400); RED CELL DISTRIBUTION WIDTH 16.1 % (11.5-14.5); WHITE BLOOD COUNT 4.9 x10^3/uL (4.0-11.0)
[2017-09-14 04:48] LABS: ALBUMIN 3.1 g/dL (3.4-5.0); CREATININE 9.9 mg/dL (0.7-1.3); GFR 6.5; POTASSIUM 4.1 mmol/L (3.5-5.1); TOTAL BILIRUBIN 0.5 mg/dL (0.2-1.0); TOTAL PROTEIN 6.3 g/dL (6.4-8.2)
[2017-09-14 07:09] VITALS: BP 151/97
[2017-09-14] MEDS: INSULIN ASPART 300 UNITS/3 ML INSULN.PEN SQ SCH ×4 (07:30→18:14)
[2017-09-14] MEDS: BUDESONIDE 0.5 MG/2 ML NEBU. NEB SCH ×2 (07:52→19:42)
[2017-09-14] MEDS: IPRATRPIUM/ALBUTEROL 0.5/2.5MG 3 ML NEBU. NEB SCH ×2 (07:52→19:42)
[2017-09-14] MEDS: CARVEDILOL 12.5 MG TABLET. PO SCH ×3 (08:00→18:06)
[2017-09-14] MEDS: SEVELAMER CARBONATE 800 MG TABLET. PO SCH ×3 (08:00→18:06)
[2017-09-14] MEDS ORDERED: CONTRAST GIVEN MC PRN (08:15)
[2017-09-14] MEDS ORDERED: IOHEXOL 240 MG/ML 50ML VIAL. PO ONE (08:30)
[2017-09-14] MEDS ORDERED: IOHEXOL 300 MG/ML 75 ML VIAL IV ONE (08:30)
--- NOTE | 2017-09-14 08:47 | PDOC ---
TRISTONANGLEVÍCTOR KITCHEN AIDE 09/14/17 0847: IM PROGRESS NOTES- Subjective Subjective awake, no chest pain. Trouble sleeping at night for years, worse after son murdered in 2000. Homeless since released from [facility] and has beens staying with family but this is not working out well. Objective Objective no acute distress, alert Vitals Vital Signs Date Time Temp Pulse Resp B/P (MAP) Pulse Ox O2 Delivery O2 Flow Rate FiO2 09/14/17 07:53 95 Room Air 09/14/17 07:09 97.3 76 18 151/97 (115) 97.3 Physical Exam Physical Exam General appearance - alert,well appearing, and in no distress Mental Status - alert, oriented to person, place, and time, affect appropriate to mood Head - normal Chest - clear to auscultation, no wheezes, rales or rhonchi, symmetric air entry Heart - S1 and S2 normal Abdomen - soft, nontender, nondistended, no masses or organomegaly Neurological - no acute focal neurological deficits noted. Musculoskeletal - no muscular tenderness noted Extremities - no pedal edema Skin - warm and dry Labs Laboratory Tests Test 09/12/17 09:28 09/12/17 23:18 09/13/17 08:37 09/13/17 09:35 White Blood Count 6.2 x10^3/uL (4.0-11.0) Red Blood Count 5.34 x10^6/uL (4.30-5.70) Hemoglobin 13.4 g/dL (13.0-17.5) Hematocrit 41.0 % (39.0-53.0) Mean Corpuscular Volume 77 fL (79-100) Mean Corpuscular Hemoglobin 25 pg (25-35) Mean Corpuscular Hemoglobin Concent 33 g/dL (31-37) Red Cell Distribution Width 15.7 % (11.5-14.5) Platelet Count 192 x10^3/uL (140-400) Neutrophils (%) (Auto) 62 % (31-73) Lymphocytes (%) (Auto) 26 % (24-48) Monocytes (%) (Auto) 9 % (0-9) Eosinophils (%) (Auto) 3 % (0-3) Basophils (%) (Auto) 1 % (0-3) Neutrophils # (Auto) 3.8 x10^3uL (1.8-7.7) Lymphocytes # (Auto) 1.6 x10^3/uL (1.0-4.8) Monocytes # (Auto) 0.5 x10^3/uL (0.0-1.1) Eosinophils # (Auto) 0.2 x10^3/uL (0.0-0.7) Basophils # (Auto) 0.1 x10^3/uL (0.0-0.2) Sodium Level 139 mmol/L (136-145) Potassium Level 3.9 mmol/L (3.5-5.1) Chloride Level 97 mmol/L (98-107) Carbon Dioxide Level 28 mmol/L (21-32) Anion Gap 14 (6-14) Blood Urea Nitrogen 37 mg/dL (8-26) Creatinine 11.4 mg/dL (0.7-1.3) Estimated GFR (Cockcroft-Gault) 5.5 Glucose Level 103 mg/dL (70-99) Calcium Level 9.0 mg/dL (8.5-10.1) Salicylates Level < 2.8 mg/dL (2.8-20.0) Salicylate Last Dose Date Unknown Salicylate Last Dose Time Unknown Acetaminophen Level < 2 mcg/ml (10-30) Acetaminophen Last Dose Date Unknown Acetaminophen Last Dose Time Unknown Ethyl Alcohol Level < 10 mg/dL (0-10) Nasal Screen MRSA (PCR) Negative (Negative) Glucose (Fingerstick) 84 mg/dL (70-99) Creatine Kinase 132 U/L (39-308) Creatine Kinase MB (Mass) 0.9 ng/mL (0.0-3.6) Creatine Kinase MB Relative Index 0.7 % (0-4) Troponin I Quantitative 0.044 ng/mL (0.000-0.055) Test 09/13/17 12:32 09/13/17 16:45 09/13/17 21:18 09/14/17 03:50 Glucose (Fingerstick) 121 mg/dL (70-99) 149 mg/dL (70-99) 88 mg/dL (70-99) White Blood Count 4.9 x10^3/uL (4.0-11.0) Red Blood Count 4.40 x10^6/uL (4.30-5.70) Hemoglobin 11.0 g/dL (13.0-17.5) Hematocrit 33.9 % (39.0-53.0) Mean Corpuscular Volume 77 fL (79-100) Mean Corpuscular Hemoglobin 25 pg (25-35) Mean Corpuscular Hemoglobin Concent 32 g/dL (31-37) Red Cell Distribution Width 16.1 % (11.5-14.5) Platelet Count 154 x10^3/uL (140-400) Neutrophils (%) (Auto) 50 % (31-73) Lymphocytes (%) (Auto) 34 % (24-48) Monocytes (%) (Auto) 12 % (0-9) Eosinophils (%) (Auto) 2 % (0-3) Basophils (%) (Auto) 1 % (0-3) Neutrophils # (Auto) 2.4 x10^3uL (1.8-7.7) Lymphocytes # (Auto) 1.7 x10^3/uL (1.0-4.8) Monocytes # (Auto) 0.6 x10^3/uL (0.0-1.1) Eosinophils # (Auto) 0.1 x10^3/uL (0.0-0.7) Basophils # (Auto) 0.1 x10^3/uL (0.0-0.2) Sodium Level 137 mmol/L (136-145) Potassium Level 4.1 mmol/L (3.5-5.1) Chloride Level 97 mmol/L (98-107) Carbon Dioxide Level 31 mmol/L (21-32) Anion Gap 9 (6-14) Blood Urea Nitrogen 31 mg/dL (8-26) Creatinine 9.9 mg/dL (0.7-1.3) Estimated GFR (Cockcroft-Gault) 6.5 BUN/Creatinine Ratio 3 (6-20) Glucose Level 97 mg/dL (70-99) Calcium Level 9.0 mg/dL (8.5-10.1) Magnesium Level 2.1 mg/dL (1.8-2.4) Total Bilirubin 0.5 mg/dL (0.2-1.0) Aspartate Amino Transf (AST/SGOT) 25 U/L (15-37) Alanine Aminotransferase (ALT/SGPT) 16 U/L (16-63) Alkaline Phosphatase 96 U/L (46-116) Total Protein 6.3 g/dL (6.4-8.2) Albumin 3.1 g/dL (3.4-5.0) Albumin/Globulin Ratio 1.0 (1.0-1.7) Thyroid Stimulating Hormone (TSH) 0.858 uIU/mL (0.358-3.74) Test 09/14/17 07:10 Glucose (Fingerstick) 87 mg/dL (70-99) Laboratory Tests Test 09/13/17 08:37 09/13/17 09:35 09/13/17 12:32 09/13/17 16:45 Glucose (Fingerstick) 84 mg/dL (70-99) 121 mg/dL (70-99) 149 mg/dL (70-99) Creatine Kinase 132 U/L (39-308) Creatine Kinase MB (Mass) 0.9 ng/mL (0.0-3.6) Creatine Kinase MB Relative Index 0.7 % (0-4) Troponin I Quantitative 0.044 ng/mL (0.000-0.055) Test 09/13/17 21:18 09/14/17 03:50 09/14/17 07:10 Glucose (Fingerstick) 88 mg/dL (70-99) 87 mg/dL (70-99) White Blood Count 4.9 x10^3/uL (4.0-11.0) Red Blood Count 4.40 x10^6/uL (4.30-5.70) Hemoglobin 11.0 g/dL (13.0-17.5) Hematocrit 33.9 % (39.0-53.0) Mean Corpuscular Volume 77 fL (79-100) Mean Corpuscular Hemoglobin 25 pg (25-35) Mean Corpuscular Hemoglobin Concent 32 g/dL (31-37) Red Cell Distribution Width 16.1 % (11.5-14.5) Platelet Count 154 x10^3/uL (140-400) Neutrophils (%) (Auto) 50 % (31-73) Lymphocytes (%) (Auto) 34 % (24-48) Monocytes (%) (Auto) 12 % (0-9) Eosinophils (%) (Auto) 2 % (0-3) Basophils (%) (Auto) 1 % (0-3) Neutrophils # (Auto) 2.4 x10^3uL (1.8-7.7) Lymphocytes # (Auto) 1.7 x10^3/uL (1.0-4.8) Monocytes # (Auto) 0.6 x10^3/uL (0.0-1.1) Eosinophils # (Auto) 0.1 x10^3/uL (0.0-0.7) Basophils # (Auto) 0.1 x10^3/uL (0.0-0.2) Sodium Level 137 mmol/L (136-145) Potassium Level 4.1 mmol/L (3.5-5.1) Chloride Level 97 mmol/L (98-107) Carbon Dioxide Level 31 mmol/L (21-32) Anion Gap 9 (6-14) Blood Urea Nitrogen 31 mg/dL (8-26) Creatinine 9.9 mg/dL (0.7-1.3) Estimated GFR (Cockcroft-Gault) 6.5 BUN/Creatinine Ratio 3 (6-20) Glucose Level 97 mg/dL (70-99) Calcium Level 9.0 mg/dL (8.5-10.1) Magnesium Level 2.1 mg/dL (1.8-2.4) Total Bilirubin 0.5 mg/dL (0.2-1.0) Aspartate Amino Transf (AST/SGOT) 25 U/L (15-37) Alanine Aminotransferase (ALT/SGPT) 16 U/L (16-63) Alkaline Phosphatase 96 U/L (46-116) Total Protein 6.3 g/dL (6.4-8.2) Albumin 3.1 g/dL (3.4-5.0) Albumin/Globulin Ratio 1.0 (1.0-1.7) Thyroid Stimulating Hormone (TSH) 0.858 uIU/mL (0.358-3.74) Meds Current Medications Albuterol/ Ipratropium (Duoneb) 3 ml RTBID NEB Last administered on 09/14/17 07:52; Start 09/13/17 at 20:00 Amlodipine Besylate (Norvasc) 10 mg DAILY PO Last administered on 09/13/17 08 :38; Start 09/13/17 at 09:00 Budesonide (Pulmicort) 0.5 mg RTBID NEB Last administered on 09/14/17 07:52; Start 09/13/17 at 10:00 Carvedilol (Coreg) 12.5 mg BID PO ; Start 09/13/17 at 09:00; Stop 09/13/17 at 09:00; Status DC Citalopram Hydrobromide (CeleXA) 10 mg DAILY PO Last administered on 09:41; Start 09/13/17 at 10:00 Info (Do NOT chart on this entry -- for MONITORING) 1 each PRN DAILY PRN MC SEE COMMENTS; Start 09/14/17 at 08:15; Stop 09/16/17 at 08:14 Insulin Detemir (Levemir) 10 units QHS SQ ; Start 09/13/17 at 21:00; Stop at 21:00; Status DC Insulin Detemir (Levemir) 20 units DAILY08 SQ ; Start 09/13/17 at 10:30; Stop 09/13/17 at 13:15; Status DC Iohexol (Omnipaque 240 Mg/ml) 30 ml 1X ONCE PO ; Start 09/14/17 at 08:30; Stop 09/14/17 at 08:31 Iohexol (Omnipaque 300 Mg/ml) 75 ml 1X ONCE IV ; Start 09/14/17 at 08:30; Stop 09/14/17 at 08:31 Lorazepam (Ativan) 0.5 mg 1X ONCE PO Last administered on 09/14/17 02:23; Start 09/14/17 at 02:00; Stop 09/14/17 at 02:01; Status DC Mirtazapine (Remeron) 7.5 mg QHS PO Last administered on 09/13/17 22:20; Start 09/13/17 at 21:00 Sevelamer Carbonate (Renvela) 800 mg TIDWMEALS PO Last administered on 17:41; Start 09/13/17 at 12:00 Assessment Assessment 1. acute on chronic diastolic/systolic CHF EF35-40% 2. hypertensive urgency 3. depression/insomnia 4. DM II ESRD diet controlled \ 5. ESRD HD TTS 6. hyperlipidemia 7. anemia CKD/Fe def 8. weight loss 9. constipation 10. secondary hyperparathyroidism 11. h/o NSTEMI March 2017 12. moderate chronic PCL malnutrition PLAN: 09/14/17 CHF - wt 157# hypertensive urgency improved ESRD - in patient hemodialysis DM II - diet controlled wt loss - CT abd w and w/o contrast pending RA nocturnal sat delayed due to not sleeping last night Admit 09/13/17 CHF - admit wt 158#, cardiology consult hypertensive urgency - improved, continue home meds depression/insomnia -Remeron and celexa initiated ESRD - in patient HD DM II -office records indicate N70/30 insulin bid, last admit reviewed--Hba1c 5.7 off insulin --DC levemir, continue SSI weight loss - 04/11/17 181.3# ([facility] discharge), office visit 09/04/17 161.4#, admit PMC 158#. Will obtain CT scan abdomen pelvis with IV contrast to evaluate prior to dialysis. dyspnea on waking - check RA nocturnal sat to eval prior to discharge. For more details regarding further plans, please refer to the orders. Plan Plan For more details regarding further plans, please refer to the orders. Nutrition Consultation Dietary Evaluation: Recommendations by RD: Increase Calorie Intake, Protein supplementation Comments: Will liberalize diet to regular to promote PO intake Will add Novasource Renal TID Expected Outcomes/Goals: PO intake to meet > 65% est needs Interpretation of weight loss: >10% in 6 months Malnutrition Findings: Food and Nutrition Intake (Mod: <75% est energy req 7days Weight Status: Appropriate BI LOBATO MD 09/14/17 0851: IM PROGRESS NOTES- Assessment Assessment Patient was yelling and woke up confused and agitated last night.IV Ativan given.He states that he had a bad dream.Has chronic insomnia. Increase Remeron to 15 mg daily.continue celexa. He is homeless.h/o many social issues including drug abuse,incarceration. The patient was seen and examined by me. Chart reviewed and plan of care formulated. Discussed with, reviewed and agree with REVOLVING FIELD ASSEMBLER's notes, plan of care and orders with modifications as necessary. For more details regarding further plans, please refer to the orders. VÍCTOR SINGLETON APRN Sep 14, 2017 08:47 BI LOBATO MD Sep 14, 2017 08:51
[2017-09-14] MEDS: amLODIPine BESYLATE 10 MG TABLET PO SCH ×2 (09:00→14:25)
[2017-09-14] MEDS: CITALOPRAM 10 MG TABLET. PO SCH (09:00)
[2017-09-14] MEDS: LISINOPRIL 40 MG TABLET. PO SCH ×3 (09:00→21:41)
--- NOTE | 2017-09-14 10:17 | RAD ---
Examination: CT of the abdomen pelvis with oral and IV contrast History: History of 30 pound weight loss in 6 months Comparison: None available Technique: Axial CT images of the abdomen pelvis were performed with oral and IV contrast. Coronal and sagittal reformats were performed. PQRS Compliance Statement: One or more of the following individualized dose reduction techniques were utilized for this examination: 1. Automated exposure control 2. Adjustment of the mA and/or kV according to patient size 3. Use of iterative reconstruction technique Findings: Linear bibasal lung airspace opacities likely atelectasis or infiltrate. No evidence of free air identified in the abdomen. The visualized liver, demonstrates mild decreased attenuation. The visualized spleen, adrenals grossly appears unremarkable. The stomach is mildly distended. The small bowel is nondilated. The appendix is normal. There is mild thickened appearance of the wall of the ascending colon. Feces and gas noted throughout the colon. The bilateral kidneys enhance symmetrically. Multiple cystic structures identified in the bilateral kidneys probably cysts. There is mild fat stranding identified about the bilateral kidneys. Moderate to severe aortic atherosclerosis. Mildly enlarged prostate gland. Moderate degenerative changes thoracolumbar spine. There is sclerosis of the endplates at L4-L5, L5-S1 and T9-T10 and T10-T11 vertebral levels. There are large Schmorl's nodes or lytic foci identified at T10, T11, L2, L3 vertebral levels. Impression: 1. Mild fat stranding identified about the bilateral kidneys, nonspecific. Pyelonephritis is not completely excluded. Correlate with lab values. 2.There are large Schmorl's nodes or lytic foci identified at T10, T11, L2, L3 vertebral levels. Recommend MRI thoracic and lumbar spine for further evaluation. 3. Mild hepatic steatosis. 4. Bibasal lung consolidation changes likely pneumonia or atelectasis.
[2017-09-14] MEDS ORDERED: IV NORMAL SALINE 1000ML BAG 1,000 ML IV PRN ×2 (10:20)
[2017-09-14] MEDS ORDERED: ALBUMIN HUMAN 25% 200 ML IV PRN (10:30)
[2017-09-14] MEDS ORDERED: diphenhydrAMINE 50 MG/ML VIAL IV PRN (10:30)
[2017-09-14] MEDS ORDERED: LABETALOL 20 MG/4 ML DISP.SYRIN. IVP PRN (10:30)
[2017-09-14] MEDS ORDERED: DIALYSIS PATIENT. MC PRN ×2 (10:30)
--- NOTE | 2017-09-14 12:49 | PDOC ---
Renal-Progress Notes Subjective Notes Notes FEELING BETTER History of Present Illness Hx of present illness STABLE Vitals Vitals Vital Signs Date Time Temp Pulse Resp B/P (MAP) Pulse Ox O2 Delivery O2 Flow Rate FiO2 09/14/17 07:53 95 Room Air 09/14/17 07:09 97.3 76 18 151/97 (115) 97.3 Weight Weight [ ] Labs Labs Laboratory Tests Test 09/13/17 16:45 09/13/17 21:18 09/14/17 03:50 09/14/17 07:10 Glucose (Fingerstick) 149 mg/dL (70-99) 88 mg/dL (70-99) 87 mg/dL (70-99) White Blood Count 4.9 x10^3/uL (4.0-11.0) Red Blood Count 4.40 x10^6/uL (4.30-5.70) Hemoglobin 11.0 g/dL (13.0-17.5) Hematocrit 33.9 % (39.0-53.0) Mean Corpuscular Volume 77 fL (79-100) Mean Corpuscular Hemoglobin 25 pg (25-35) Mean Corpuscular Hemoglobin Concent 32 g/dL (31-37) Red Cell Distribution Width 16.1 % (11.5-14.5) Platelet Count 154 x10^3/uL (140-400) Neutrophils (%) (Auto) 50 % (31-73) Lymphocytes (%) (Auto) 34 % (24-48) Monocytes (%) (Auto) 12 % (0-9) Eosinophils (%) (Auto) 2 % (0-3) Basophils (%) (Auto) 1 % (0-3) Neutrophils # (Auto) 2.4 x10^3uL (1.8-7.7) Lymphocytes # (Auto) 1.7 x10^3/uL (1.0-4.8) Monocytes # (Auto) 0.6 x10^3/uL (0.0-1.1) Eosinophils # (Auto) 0.1 x10^3/uL (0.0-0.7) Basophils # (Auto) 0.1 x10^3/uL (0.0-0.2) Sodium Level 137 mmol/L (136-145) Potassium Level 4.1 mmol/L (3.5-5.1) Chloride Level 97 mmol/L (98-107) Carbon Dioxide Level 31 mmol/L (21-32) Anion Gap 9 (6-14) Blood Urea Nitrogen 31 mg/dL (8-26) Creatinine 9.9 mg/dL (0.7-1.3) Estimated GFR (Cockcroft-Gault) 6.5 BUN/Creatinine Ratio 3 (6-20) Glucose Level 97 mg/dL (70-99) Calcium Level 9.0 mg/dL (8.5-10.1) Magnesium Level 2.1 mg/dL (1.8-2.4) Total Bilirubin 0.5 mg/dL (0.2-1.0) Aspartate Amino Transf (AST/SGOT) 25 U/L (15-37) Alanine Aminotransferase (ALT/SGPT) 16 U/L (16-63) Alkaline Phosphatase 96 U/L (46-116) Total Protein 6.3 g/dL (6.4-8.2) Albumin 3.1 g/dL (3.4-5.0) Albumin/Globulin Ratio 1.0 (1.0-1.7) Thyroid Stimulating Hormone (TSH) 0.858 uIU/mL (0.358-3.74) Review of Systems Constitutional: yes: alert, oriented Ears/Nose/Throat: Yes: no symptom reported Eyes: Yes: no symptom reported Pulmonary: Yes no symptom reported Cardiovascular: Yes no symptom reported Gastrointestional: Yes: no symptom reported, constipation Genitourinary: Yes: other (ANURIA) Musculoskeletal: Yes: muscle stiffness Skin: Yes no symptom reported Psychiatric/Neurological: Yes: anxiety Endocrine: Yes: no symptom reported Physical Exam General Appearance: no apparent distress Skin: warm Respiratory: bilateral CTA Heart: S1S2, RRR Abdomen: soft Genitourinary: bladder flat Extremities: pulses present, no edema, atrophy Neurology: alert, oriented Assessment Assessment IMP ESRD ANEMIA HTN DEPRESSION HYPERVOLEMIA-RESOLVED PLAN HD TODAY UF TO DW YENI COSTA MD Sep 14, 2017 12:49
[2017-09-14 15:07] VITALS: BP 155/87
--- NOTE | 2017-09-14 15:34 | RESP ---
DATE OF SERVICE: The patient underwent a nocturnal desaturation study on 09/13/2017 performed on room air. The patient had no significant periods of oxyhemoglobin desaturation. His total time spent above 90% was 99.2% at times. IMPRESSION: Nocturnal desaturation study did not reveal any significant periods of desaturation. If clinically warranted, perform a polysomnogram. NIRALI MENESES MD DR: JAMILA/jose alberto JOB#: [id number] / [id number] BI Corrigan MD
[2017-09-14 19:45] VITALS: BP 112/70
[2017-09-14] MEDS: ONDANSETRON PF 4 MG/2 ML VIAL. IV PRN (20:19)
[2017-09-14] MEDS: ATORVASTATIN CALCIUM 20 MG TABLET PO SCH (21:41)
[2017-09-14] MEDS: MIRTAZAPINE 15 MG TABLET PO SCH (21:42)
[2017-09-14 23:09] VITALS: BP 126/74
[2017-09-15] VITALS (10 sets, daily range): BP systolic 108–145; BP diastolic 66–83
[2017-09-15 04:19] LABS: BASO # 0.1 x10^3/uL (0.0-0.2); BASO % 1 % (0-3); EOS % 2 % (0-3); HEMATOCRIT 36.1 % (39.0-53.0); HEMOGLOBIN 11.6 g/dL (13.0-17.5); LYMPH # 1.5 x10^3/uL (1.0-4.8); LYMPH % 28 % (24-48); MEAN CORPUSCULAR HEMOGLOBIN 25 pg (25-35); MEAN CORPUSCULAR HGB CONC 32 g/dL (31-37); MEAN CORPUSCULAR VOLUME 77 fL (79-100); MONO % 14 % (0-9); NEUT % 55 % (31-73); PLATELET COUNT 155 x10^3/uL (140-400); RED BLOOD COUNT 4.67 x10^6/uL (4.30-5.70); RED CELL DISTRIBUTION WIDTH 16.3 % (11.5-14.5); WHITE BLOOD COUNT 5.2 x10^3/uL (4.0-11.0)
[2017-09-15 04:53] LABS: ALBUMIN 3.1 g/dL (3.4-5.0); ALBUMIN/GLOBULIN RATIO 0.8 (1.0-1.7); CALCIUM 8.9 mg/dL (8.5-10.1); GFR 9.7; POTASSIUM 4.3 mmol/L (3.5-5.1); TOTAL BILIRUBIN 0.5 mg/dL (0.2-1.0); TOTAL PROTEIN 6.9 g/dL (6.4-8.2)
[2017-09-15] MEDS: IPRATRPIUM/ALBUTEROL 0.5/2.5MG 3 ML NEBU. NEB SCH ×2 (07:14→20:34)
[2017-09-15] MEDS: BUDESONIDE 0.5 MG/2 ML NEBU. NEB SCH ×2 (07:14→20:34)
[2017-09-15] MEDS: INSULIN ASPART 300 UNITS/3 ML INSULN.PEN SQ SCH ×3 (07:30→16:30)
[2017-09-15] MEDS: SEVELAMER CARBONATE 800 MG TABLET. PO SCH ×3 (08:10→17:43)
[2017-09-15] MEDS: LISINOPRIL 40 MG TABLET. PO SCH ×2 (08:11→20:56)
[2017-09-15] MEDS: amLODIPine BESYLATE 10 MG TABLET PO SCH (08:11)
[2017-09-15] MEDS: CITALOPRAM 10 MG TABLET. PO SCH (08:12)
[2017-09-15] MEDS: CARVEDILOL 12.5 MG TABLET. PO SCH ×2 (08:12→17:44)
[2017-09-15] MEDS: ONDANSETRON PF 4 MG/2 ML VIAL. IV PRN (08:19)
--- NOTE | 2017-09-15 08:47 | PDOC ---
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 09/15/17 0847: IM PROGRESS NOTES- Subjective Subjective slept some better through night reports weakness with weight loss-agrees to SNU [place] Objective Objective no acute distress, alert Vitals Vital Signs Date Time Temp Pulse Resp B/P (MAP) Pulse Ox O2 Delivery O2 Flow Rate FiO2 09/15/17 08:12 76 129/79 09/15/17 07:15 92 Room Air 09/15/17 07:00 98.5 18 98.5 Physical Exam Physical Exam General appearance - alert,well appearing, and in no distress Mental Status - alert, oriented to person, place, and time, affect appropriate to mood Head - normal Chest - coarse wheezes posterior Heart - S1 and S2 normal Abdomen - soft, nontender, nondistended, no masses or organomegaly Neurological - no acute focal neurological deficits noted. Musculoskeletal - no muscular tenderness noted Extremities - no pedal edema Skin - warm and dry Labs Laboratory Tests Test 09/13/17 08:37 09/13/17 09:35 09/13/17 12:32 09/13/17 16:45 Glucose (Fingerstick) 84 mg/dL (70-99) 121 mg/dL (70-99) 149 mg/dL (70-99) Creatine Kinase 132 U/L (39-308) Creatine Kinase MB (Mass) 0.9 ng/mL (0.0-3.6) Creatine Kinase MB Relative Index 0.7 % (0-4) Troponin I Quantitative 0.044 ng/mL (0.000-0.055) Test 09/13/17 21:18 09/14/17 03:50 09/14/17 07:10 09/14/17 14:18 Glucose (Fingerstick) 88 mg/dL (70-99) 87 mg/dL (70-99) 86 mg/dL (70-99) White Blood Count 4.9 x10^3/uL (4.0-11.0) Red Blood Count 4.40 x10^6/uL (4.30-5.70) Hemoglobin 11.0 g/dL (13.0-17.5) Hematocrit 33.9 % (39.0-53.0) Mean Corpuscular Volume 77 fL (79-100) Mean Corpuscular Hemoglobin 25 pg (25-35) Mean Corpuscular Hemoglobin Concent 32 g/dL (31-37) Red Cell Distribution Width 16.1 % (11.5-14.5) Platelet Count 154 x10^3/uL (140-400) Neutrophils (%) (Auto) 50 % (31-73) Lymphocytes (%) (Auto) 34 % (24-48) Monocytes (%) (Auto) 12 % (0-9) Eosinophils (%) (Auto) 2 % (0-3) Basophils (%) (Auto) 1 % (0-3) Neutrophils # (Auto) 2.4 x10^3uL (1.8-7.7) Lymphocytes # (Auto) 1.7 x10^3/uL (1.0-4.8) Monocytes # (Auto) 0.6 x10^3/uL (0.0-1.1) Eosinophils # (Auto) 0.1 x10^3/uL (0.0-0.7) Basophils # (Auto) 0.1 x10^3/uL (0.0-0.2) Sodium Level 137 mmol/L (136-145) Potassium Level 4.1 mmol/L (3.5-5.1) Chloride Level 97 mmol/L (98-107) Carbon Dioxide Level 31 mmol/L (21-32) Anion Gap 9 (6-14) Blood Urea Nitrogen 31 mg/dL (8-26) Creatinine 9.9 mg/dL (0.7-1.3) Estimated GFR (Cockcroft-Gault) 6.5 BUN/Creatinine Ratio 3 (6-20) Glucose Level 97 mg/dL (70-99) Calcium Level 9.0 mg/dL (8.5-10.1) Magnesium Level 2.1 mg/dL (1.8-2.4) Total Bilirubin 0.5 mg/dL (0.2-1.0) Aspartate Amino Transf (AST/SGOT) 25 U/L (15-37) Alanine Aminotransferase (ALT/SGPT) 16 U/L (16-63) Alkaline Phosphatase 96 U/L (46-116) Total Protein 6.3 g/dL (6.4-8.2) Albumin 3.1 g/dL (3.4-5.0) Albumin/Globulin Ratio 1.0 (1.0-1.7) Thyroid Stimulating Hormone (TSH) 0.858 uIU/mL (0.358-3.74) Test 09/14/17 16:47 09/14/17 20:31 09/15/17 03:54 09/15/17 07:29 Glucose (Fingerstick) 179 mg/dL (70-99) 112 mg/dL (70-99) 105 mg/dL (70-99) White Blood Count 5.2 x10^3/uL (4.0-11.0) Red Blood Count 4.67 x10^6/uL (4.30-5.70) Hemoglobin 11.6 g/dL (13.0-17.5) Hematocrit 36.1 % (39.0-53.0) Mean Corpuscular Volume 77 fL (79-100) Mean Corpuscular Hemoglobin 25 pg (25-35) Mean Corpuscular Hemoglobin Concent 32 g/dL (31-37) Red Cell Distribution Width 16.3 % (11.5-14.5) Platelet Count 155 x10^3/uL (140-400) Neutrophils (%) (Auto) 55 % (31-73) Lymphocytes (%) (Auto) 28 % (24-48) Monocytes (%) (Auto) 14 % (0-9) Eosinophils (%) (Auto) 2 % (0-3) Basophils (%) (Auto) 1 % (0-3) Neutrophils # (Auto) 2.9 x10^3uL (1.8-7.7) Lymphocytes # (Auto) 1.5 x10^3/uL (1.0-4.8) Monocytes # (Auto) 0.7 x10^3/uL (0.0-1.1) Eosinophils # (Auto) 0.1 x10^3/uL (0.0-0.7) Basophils # (Auto) 0.1 x10^3/uL (0.0-0.2) Sodium Level 135 mmol/L (136-145) Potassium Level 4.3 mmol/L (3.5-5.1) Chloride Level 96 mmol/L (98-107) Carbon Dioxide Level 33 mmol/L (21-32) Anion Gap 6 (6-14) Blood Urea Nitrogen 23 mg/dL (8-26) Creatinine 7.0 mg/dL (0.7-1.3) Estimated GFR (Cockcroft-Gault) 9.7 BUN/Creatinine Ratio 3 (6-20) Glucose Level 101 mg/dL (70-99) Calcium Level 8.9 mg/dL (8.5-10.1) Total Bilirubin 0.5 mg/dL (0.2-1.0) Aspartate Amino Transf (AST/SGOT) 29 U/L (15-37) Alanine Aminotransferase (ALT/SGPT) 22 U/L (16-63) Alkaline Phosphatase 103 U/L (46-116) Total Protein 6.9 g/dL (6.4-8.2) Albumin 3.1 g/dL (3.4-5.0) Albumin/Globulin Ratio 0.8 (1.0-1.7) Laboratory Tests Test 09/14/17 14:18 09/14/17 16:47 09/14/17 20:31 09/15/17 03:54 Glucose (Fingerstick) 86 mg/dL (70-99) 179 mg/dL (70-99) 112 mg/dL (70-99) White Blood Count 5.2 x10^3/uL (4.0-11.0) Red Blood Count 4.67 x10^6/uL (4.30-5.70) Hemoglobin 11.6 g/dL (13.0-17.5) Hematocrit 36.1 % (39.0-53.0) Mean Corpuscular Volume 77 fL (79-100) Mean Corpuscular Hemoglobin 25 pg (25-35) Mean Corpuscular Hemoglobin Concent 32 g/dL (31-37) Red Cell Distribution Width 16.3 % (11.5-14.5) Platelet Count 155 x10^3/uL (140-400) Neutrophils (%) (Auto) 55 % (31-73) Lymphocytes (%) (Auto) 28 % (24-48) Monocytes (%) (Auto) 14 % (0-9) Eosinophils (%) (Auto) 2 % (0-3) Basophils (%) (Auto) 1 % (0-3) Neutrophils # (Auto) 2.9 x10^3uL (1.8-7.7) Lymphocytes # (Auto) 1.5 x10^3/uL (1.0-4.8) Monocytes # (Auto) 0.7 x10^3/uL (0.0-1.1) Eosinophils # (Auto) 0.1 x10^3/uL (0.0-0.7) Basophils # (Auto) 0.1 x10^3/uL (0.0-0.2) Sodium Level 135 mmol/L (136-145) Potassium Level 4.3 mmol/L (3.5-5.1) Chloride Level 96 mmol/L (98-107) Carbon Dioxide Level 33 mmol/L (21-32) Anion Gap 6 (6-14) Blood Urea Nitrogen 23 mg/dL (8-26) Creatinine 7.0 mg/dL (0.7-1.3) Estimated GFR (Cockcroft-Gault) 9.7 BUN/Creatinine Ratio 3 (6-20) Glucose Level 101 mg/dL (70-99) Calcium Level 8.9 mg/dL (8.5-10.1) Total Bilirubin 0.5 mg/dL (0.2-1.0) Aspartate Amino Transf (AST/SGOT) 29 U/L (15-37) Alanine Aminotransferase (ALT/SGPT) 22 U/L (16-63) Alkaline Phosphatase 103 U/L (46-116) Total Protein 6.9 g/dL (6.4-8.2) Albumin 3.1 g/dL (3.4-5.0) Albumin/Globulin Ratio 0.8 (1.0-1.7) Test 09/15/17 07:29 Glucose (Fingerstick) 105 mg/dL (70-99) Meds Current Medications Albumin Human 200 ml @ 200 mls/hr 1X PRN PRN IV Hypotension; Start 09/14/17 at 10:30; Stop 09/14/17 at 16:29; Status DC Diphenhydramine HCl (Benadryl) 25 mg 1X PRN PRN IV ITCHING; Start 09/14/17 at 10:30; Stop 09/15/17 at 10:29 Info (PHARMACY MONITORING -- do not chart) 1 each PRN DAILY PRN MC SEE COMMENTS ; Start 09/14/17 at 10:30; Stop 09/14/17 at 10:32; Status DC Info (PHARMACY MONITORING -- do not chart) 1 each PRN DAILY PRN MC SEE COMMENTS ; Start 09/14/17 at 10:30; Status UNV Labetalol HCl (Normodyne) 10 mg PRN Q1HR PRN IVP SBP > 180; Start 09/14/17 at 10:30; Stop 09/15/17 at 10:29 Mirtazapine (Remeron) 15 mg QHS PO Last administered on 09/14/17t 21:42; Start 09/14/17 at 21:00 Sodium Chloride 1,000 ml @ 400 mls/hr Q2H30M PRN IV PATENCY; Start 09/14/17 at 10:20; Stop 09/14/17 at 22:19; Status DC Sodium Chloride 1,000 ml @ 1,000 mls/hr Q1H PRN IV hypotension; Start at 10:20; Stop 09/14/17 at 16:19; Status DC Assessment Assessment 1. acute on chronic diastolic/systolic CHF EF35-40% 2. hypertensive urgency 3. depression/insomnia 4. DM II ESRD diet controlled \ 5. ESRD HD TTS 6. hyperlipidemia 7. anemia CKD/Fe def 8. weight loss 9. constipation 10. secondary hyperparathyroidism 11. h/o NSTEMI March 2017 12. moderate chronic PCL malnutrition PLAN: 09/15/17 CHF - wt 152.06 coarse wheezing posterior DM II BS 101-179 no insulin wt loss - CT abd pelvis w/ contrast neg GI -question of lytic lesions thoracic/ lumbar spine -consult Dr. Bob Nocturnal Sat RA study 09/13 invalid -he was awake all night -it will need repeated - d/w Art RT insomnia -improved with increase in Remeron, continue Celexa for depression 09/14/17 CHF - wt 157# hypertensive urgency improved ESRD - in patient hemodialysis DM II - diet controlled wt loss - CT abd w and w/o contrast pending RA nocturnal sat delayed due to not sleeping last night -will need need repeated Admit 09/13/17 CHF - admit wt 158#, cardiology consult hypertensive urgency - improved, continue home meds depression/insomnia -Remeron and celexa initiated ESRD - in patient HD DM II -office records indicate N70/30 insulin bid, last admit reviewed--Hba1c 5.7 off insulin --DC levemir, continue SSI weight loss - 04/11/17 181.3# ([facility] discharge), office visit 09/04/17 161.4#, admit PMC 158#. Will obtain CT scan abdomen pelvis with IV contrast to evaluate prior to dialysis. dyspnea on waking - check RA nocturnal sat to eval prior to discharge. For more details regarding further plans, please refer to the orders. Social issues -was incarcerated for dealing drugs - he was not using drugs. Homeless since released from jail in November. SNU at discharge for weakness -would benefit from additional PT OT Plan Plan For more details regarding further plans, please refer to the orders. Nutrition Consultation Dietary Evaluation: Recommendations by RD: Increase Calorie Intake, Protein supplementation Comments: continue Novasource Renal TID Expected Outcomes/Goals: PO intake to meet > 75% est needs- not met, goal ongoing Interpretation of weight loss: >10% in 6 months Malnutrition Findings: Food and Nutrition Intake (Mod: <75% est energy req 7days Weight Status: Appropriate BI LOBATO MD 09/15/17 0933: IM PROGRESS NOTES- Assessment Assessment D/w patient and family extensively- condition,Rx,options-continues to have wt loss and significant back pain. He also has fullness in stomach with vomiting after he eats- ? gastroparesis - may need GI workup later. Encourage supplements. Order CT chest,MRI thoracic and lumbar spine.Has possible lytic lesions in the spine. The patient was seen and examined by me. Chart reviewed and plan of care formulated. Discussed with, reviewed and agree with MICA LAMINATING MACHINE FEEDER's notes, plan of care and orders with modifications as necessary. For more details regarding further plans, please refer to the orders. VÍCTOR SINGLETON APRN Sep 15, 2017 08:47 BI LOBATO MD Sep 15, 2017 09:33
--- NOTE | 2017-09-15 10:32 | RAD ---
EXAM: Thoracic spine MRI without contrast. HISTORY: Chronic pain. Lytic lesions. TECHNIQUE: Multiplanar, multisequence magnetic resonance imaging of the thoracic spine was performed without contrast. Intravenous contrast could not be administered due to severe renal insufficiency. COMPARISON: None. FINDINGS: There is slight reversal of cervical lordosis. There is minimal anterolisthesis at the upper thoracic vertebral levels. The vertebral bodies are normal in height. There is no acute or subacute fracture. There is diffusely decreased T1 marrow signal intensity. There is T1 and T2 hyperintensity and increased signal on inversion recovery images within T9 and T10. There is associated severe T9-T10 endplate irregularity with anterior osteophytosis and Schmorl's node formation. There is additional endplate remodeling at the majority of the cervical and thoracic levels with superimposed endplate Schmorl's nodes. There is deformation of the cervical and thoracic spinal cord at multiple levels due to central canal stenosis, described in detail below. There is linear T2 hyperintensity within the spinal cord extending from the inferior aspect of C7 to the mid aspect of T1, likely due to a prominent central canal or slight syringohydromyelia. No additional convincing spinal cord lesion is seen on axial images. There are multiple cysts within the visualized portions of the kidneys. At C7-T1, there is a disc bulge and endplate remodeling. There is mild facet arthropathy. There is mild anterolisthesis. There is mild right and moderate left foraminal stenosis. At T1-T2, T2-T3, T3-T4, T4-T5, T5-T6, T6-T7, T7-T8, there are minimal disc bulges. There is mild anterior predominant endplate osteophytosis. There is no significant foraminal or central canal stenosis. At T8-T9, there is a shallow left paracentral disc protrusion superimposed on a disc bulge and anterior predominant endplate osteophytosis. There is no stenosis. At T9-T10, there is a shallow left paracentral to foraminal disc protrusion superimposed on a disc bulge and anterior predominant endplate osteophytosis. There is severe endplate irregularity at this level. There is slight hypertrophy of the ligamentum flavum. There is [id number] bilateral foraminal stenosis. There is minimal central canal stenosis. At T10-T11, there is a diffuse disc bulge and endplate osteophytosis. There is hypertrophy of the ligamentum flavum. There is moderate right greater than left foraminal stenosis. There is moderate central canal stenosis with slight deformation of the spinal cord. At T11-T12, there is no stenosis. IMPRESSION: 1. Severe endplate irregularly with adjacent marrow signal abnormality at T9-T10. The differential includes advanced degenerative change as well as the sequela of prior discitis/osteomyelitis. The degree of marrow edema at this level and absence of fluid within the disc space does not favor active discitis/osteomyelitis. 2. Multilevel degenerative change throughout the cervical and thoracic spine, described in detail above. 3. Diffusely decreased T1 marrow signal intensity. The differential includes anemia, obesity, chronic cigarette smoking history as well as neoplastic and nonneoplastic marrow infiltrative processes. There is no focal osseous lesion to suggest a lytic or sclerotic metastasis. Evaluation is limited due to the absence of contrast. 4. 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 Electronically signed by: Evelyne Kapoor MD (09/15/2017 10:28 AM) [email or web address]
--- NOTE | 2017-09-15 10:53 | RAD ---
EXAM: Lumbar spine MRI without contrast. HISTORY: Chronic pain. Lytic lesions. TECHNIQUE: Multiplanar, multisequence magnetic resonance imaging of the lumbar spine was performed without contrast. Intravenous contrast could not be administered due to severe renal insufficiency. COMPARISON: None. FINDINGS: There is slight retrolisthesis of L4 on L5. There is severe degenerative endplate irregular with the patient T1 and T2 marrow hyperintensity at L5-S1, and to lesser extent, L4-L5. There multiple endplate Schmorl's nodes throughout the lumbar spine. There is disc space narrowing predominantly at the lumbosacral junction. The conus terminates at T12. There is diffusely decreased T1 marrow signal intensity. There are atrophic kidneys containing multiple cysts. There is a slightly ectatic infrarenal abdominal aorta measuring 2.5 cm. At L1-L2, there is mild facet arthropathy. There is no stenosis. At L2-L3, there is mild facet arthropathy. There is no stenosis. At L3-L4, there is a left extraforaminal to lateral disc protrusion and annular tear imposed on a disc bulge and endplate remodeling. There is mild left foraminal stenosis with abutment of the exiting left L3 nerve root. At L4-L5, there is a broad-based posterior central disc protrusion and annular tear superimposed on a diffuse disc bulge and endplate osteophytosis. There is [id number] bilateral facet arthropathy. There is moderate bilateral foraminal stenosis with abutment of the exiting L4 nerve roots. At L5-S1, there is a diffuse disc bulge and endplate osteophytosis. There is mild left greater than right facet arthropathy. There is moderate right and mild left foraminal stenosis with abutment of the exiting L5 nerve roots. There are pars interarticularis defects at this level. IMPRESSION: 1. Severe endplate irregularly with adjacent marrow signal abnormality at L5-S1, and to lesser extent, L4-L5. This is likely due to advanced degenerative change or the sequela of prior discitis/osteomyelitis. The degree of marrow edema and absence of fluid within the disc spaces does not suggest active discitis/osteomyelitis. 2. Multilevel degenerative change throughout the lumbar spine, described in detail above. This results in foraminal stenosis primarily at the lower lumbar levels. 3. Decreased T1 marrow signal intensity. The differential includes anemia, obesity, chronic cigarette smoking history as well as a marrow infiltrative process. There are superimposed areas of signal change within the marrow which are degenerative or due to prominent Schmorl's nodes. No convincing lytic or sclerotic metastasis is seen, with evaluation limited due to the absence of contrast. 4. Pars defects L5-S1. 5. Renal atrophy and multiple renal cysts. Electronically signed by: Evelyne Kapoor MD (09/15/2017 10:50 AM) [email or web address]
[2017-09-15] MEDS: ACETAMINOPHEN 325 MG TABLET. PO PRN (12:17)
--- NOTE | 2017-09-15 12:47 | PDOC ---
Provider Note Provider Note Med Onc consult: 1. Bone lesions - abnormal MRI: Decreased T1 marrow signal intensity. The differential includes anemia, obesity, chronic cigarette smoking history as well as a marrow infiltrative process. I will order BM bx See dictation FAMILIA HAMEED MD Sep 15, 2017 12:47
--- NOTE | 2017-09-15 12:52 | PDOC ---
Renal-Progress Notes Subjective Notes Notes NONE History of Present Illness Hx of present illness NO CHANGE Vitals Vitals Vital Signs Date Time Temp Pulse Resp B/P (MAP) Pulse Ox O2 Delivery O2 Flow Rate FiO2 09/15/17 11:00 98.7 72 18 133/78 (96) 99 Room Air 98.7 Weight Weight [ ] Labs Labs Laboratory Tests Test 09/14/17 14:18 09/14/17 16:47 09/14/17 20:31 09/15/17 03:54 Glucose (Fingerstick) 86 mg/dL (70-99) 179 mg/dL (70-99) 112 mg/dL (70-99) White Blood Count 5.2 x10^3/uL (4.0-11.0) Red Blood Count 4.67 x10^6/uL (4.30-5.70) Hemoglobin 11.6 g/dL (13.0-17.5) Hematocrit 36.1 % (39.0-53.0) Mean Corpuscular Volume 77 fL (79-100) Mean Corpuscular Hemoglobin 25 pg (25-35) Mean Corpuscular Hemoglobin Concent 32 g/dL (31-37) Red Cell Distribution Width 16.3 % (11.5-14.5) Platelet Count 155 x10^3/uL (140-400) Neutrophils (%) (Auto) 55 % (31-73) Lymphocytes (%) (Auto) 28 % (24-48) Monocytes (%) (Auto) 14 % (0-9) Eosinophils (%) (Auto) 2 % (0-3) Basophils (%) (Auto) 1 % (0-3) Neutrophils # (Auto) 2.9 x10^3uL (1.8-7.7) Lymphocytes # (Auto) 1.5 x10^3/uL (1.0-4.8) Monocytes # (Auto) 0.7 x10^3/uL (0.0-1.1) Eosinophils # (Auto) 0.1 x10^3/uL (0.0-0.7) Basophils # (Auto) 0.1 x10^3/uL (0.0-0.2) Sodium Level 135 mmol/L (136-145) Potassium Level 4.3 mmol/L (3.5-5.1) Chloride Level 96 mmol/L (98-107) Carbon Dioxide Level 33 mmol/L (21-32) Anion Gap 6 (6-14) Blood Urea Nitrogen 23 mg/dL (8-26) Creatinine 7.0 mg/dL (0.7-1.3) Estimated GFR (Cockcroft-Gault) 9.7 BUN/Creatinine Ratio 3 (6-20) Glucose Level 101 mg/dL (70-99) Calcium Level 8.9 mg/dL (8.5-10.1) Total Bilirubin 0.5 mg/dL (0.2-1.0) Aspartate Amino Transf (AST/SGOT) 29 U/L (15-37) Alanine Aminotransferase (ALT/SGPT) 22 U/L (16-63) Alkaline Phosphatase 103 U/L (46-116) Total Protein 6.9 g/dL (6.4-8.2) Albumin 3.1 g/dL (3.4-5.0) Albumin/Globulin Ratio 0.8 (1.0-1.7) Prostate Specific Antigen 1.04 ng/mL (0.00-4.00) Test 09/15/17 07:29 Glucose (Fingerstick) 105 mg/dL (70-99) Review of Systems Constitutional: yes: alert, oriented Ears/Nose/Throat: Yes: no symptom reported Eyes: Yes: no symptom reported Pulmonary: Yes no symptom reported Cardiovascular: Yes no symptom reported Gastrointestional: Yes: no symptom reported, constipation Genitourinary: Yes: other (ANURIA) Musculoskeletal: Yes: muscle stiffness Skin: Yes no symptom reported Psychiatric/Neurological: Yes: anxiety Endocrine: Yes: no symptom reported Physical Exam General Appearance: no apparent distress Skin: warm Respiratory: bilateral CTA Heart: S1S2, RRR Abdomen: soft Genitourinary: bladder flat Extremities: pulses present, no edema, atrophy Neurology: alert, oriented Assessment Assessment IMP ESRD ANEMIA HTN DEPRESSION HYPERVOLEMIA-RESOLVED ? GAMMOPATHY PLAN HD TOMORROW BM BX YENI COSTA MD Sep 15, 2017 12:52
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
[2017-09-15] MEDS ORDERED: fentaNYL PF VIAL 250 MCG/5 ML VIAL ONE (15:09)
[2017-09-15] MEDS ORDERED: MIDAZOLAM HCL/PF 5 MG/5 ML VIAL. ONE (15:09)
[2017-09-15] MEDS ORDERED: FLUMAZENIL 0.5 MG/5 ML VIAL. IV ONE (15:09)
[2017-09-15] MEDS ORDERED: NALOXONE 0.4 MG/ML VIAL. ONE (15:10)
[2017-09-15] MEDS ORDERED: LIDOCAINE 1% / SOD BICARB 8.4% 20 ML VIAL. IJ ONE ×2 (15:17→15:45)
[2017-09-15 15:39] LABS: INR 1.1 (0.8-1.1); PROTHROMBIN TIME PATIENT 13.9 SEC (11.7-14.0)
[2017-09-15] MEDS ORDERED: fentaNYL PF VIAL 100 MCG/2 ML VIAL IV ONE (15:45)
[2017-09-15] MEDS ORDERED: fentaNYL PF VIAL 250 MCG/5 ML VIAL IV ONE (15:45)
[2017-09-15] MEDS ORDERED: MIDAZOLAM HCL/PF 5 MG/5 ML VIAL. IV ONE (15:45)
--- NOTE | 2017-09-15 15:48 | RAD ---
CT-guided bone marrow biopsy. 09/15/2017 3:44 PM Indication: bone lesions, eval for myeloma Discussion: The risks and benefits of the procedure, including but not limited to, bleeding and infection were discussed patient. Informed consent was obtained. The patient was brought to the CT scanner and placed in the prone position. A timeout procedure was performed. Icicle Machine Operator CT imaging of the pelvis demonstrated left ilium amenable to bone marrow biopsy. The overlying soft tissues were prepped and draped using maximum sterile barrier technique. 1% lidocaine without epinephrine was administered for local anesthesia. Under intermittent CT guidance, an OncControl needle was advanced into the bone marrow of the left iliac crest. 2 Aspirates and 1 core biopsy samples were obtained. Samples were delivered to pathology was present at the time of procedure. The needle was removed and manual pressure held to achieve hemostasis. No immediate complications were identified. The procedure was performed under conscious sedation including continuous cardiopulmonary monitoring via dedicated sedation nurse. Sedation time: 20 minutes Impression: Successful CT-guided bone marrow biopsy of the left iliac crest . PQRS Compliance Statement: One or more of the following individualized dose reduction techniques were utilized for this examination: 1. Automated exposure control 2. Adjustment of the mA and/or kV according to patient size 3. Use of iterative reconstruction technique
[2017-09-15] MEDS: ATORVASTATIN CALCIUM 20 MG TABLET PO SCH (20:55)
[2017-09-15] MEDS: MIRTAZAPINE 15 MG TABLET PO SCH (20:55)
--- NOTE | 2017-09-15 23:45 | CONS ---
DATE OF CONSULTATION: 09/15/2017 MEDICAL ONCOLOGY CONSULTATION REQUESTING PHYSICIAN: Joyce Klein MD REASON FOR CONSULTATION: Lytic bone lesions. HISTORY OF PRESENT ILLNESS: The patient is a 62-year-old gentleman who was admitted to [facility] on 09/12/2017 for shortness of breath. He also has a 30 pound weight loss in 6 months' duration. He has end-stage renal disease and is on hemodialysis. He has history of congestive heart failure. He was thought to be having acute on chronic congestive heart failure during this admission. He underwent CT scan of the chest, abdomen and pelvis on 09/14/2017. This revealed large Schmorl nodes or lytic foci in the thoracic and the lumbar vertebrae and hence, an MRI was done on 09/15/2017, which revealed multilevel degenerative disease. Decreased T1 marrow signal intensity, which could be due to anemia, obesity, smoking or a bone marrow infiltrative process, hence I was consulted. His CBC on 09/12/2017 revealed a WBC of 6.2, hemoglobin 13.4, platelet count 192 and then, he developed anemia with a hemoglobin of 11.6 on 09/15/2017. I was asked to see him for bone lesions and abnormal MRI. PAST MEDICAL HISTORY: Congestive heart failure, COPD, hyperlipidemia, hypertension, myocardial infarction, tricuspid valve regurgitation, COPD, CVA, anemia, chronic kidney disease, end-stage renal disease, diabetes mellitus. FAMILY HISTORY: Positive for hypertension. SOCIAL HISTORY: Former smoker. No alcohol abuse. REVIEW OF SYSTEMS: A 12-point review of system was performed. Pertinent positives are mentioned in the history of present illness. Rest of the system review is negative. PHYSICAL EXAMINATION: GENERAL APPEARANCE: The patient is a 62-year-old gentleman who is in no acute cardiorespiratory distress. VITAL SIGNS: Blood pressure 116/69, temperature 98.1. HEENT: Head atraumatic, normocephalic. Eyes: No icterus. NECK: Supple. CHEST: Bilaterally symmetrical. HEART: S1, S2 normal. ABDOMEN: Soft, nontender. CENTRAL NERVOUS SYSTEM: No focal deficits. LYMPHATICS: No lymphadenopathy. SKIN: No rashes. PSYCHOLOGIC: Mood and affect are appropriate. IMPRESSION AND PLAN: 1. Bone lesions. These could be osteolytic lesions versus benign lesions. MRI was more suggestive of a degenerative benign process. However, there was also a comment over possible bone marrow infiltration. Hence, I will proceed with a bone marrow aspiration and biopsy for further evaluation. I would also obtain serum protein electrophoresis and immunofixation studies. I discussed in detail with the patient and he understands and agrees with the plan. I also discussed with the registered nurse. 2. Anemia, secondary to end-stage renal disease. Continue to monitor. 3. End-stage renal disease. Appreciate Nephrology evaluation. He is on hemodialysis. FAMILIA HAMEED MD DR: DANIEL/jose alberto JOB#: [id number] / [id number] JOYCE Corrigan MD MTDD
[2017-09-16 03:15] VITALS: BP 121/74
[2017-09-16 05:13] LABS: BASO # 0.1 x10^3/uL (0.0-0.2); BASO % 2 % (0-3); EOS % 3 % (0-3); HEMATOCRIT 34.3 % (39.0-53.0); LYMPH # 1.5 x10^3/uL (1.0-4.8); LYMPH % 34 % (24-48); MEAN CORPUSCULAR HEMOGLOBIN 25 pg (25-35); MEAN CORPUSCULAR HGB CONC 32 g/dL (31-37); MEAN CORPUSCULAR VOLUME 77 fL (79-100); MONO % 17 % (0-9); NEUT % 44 % (31-73); PLATELET COUNT 150 x10^3/uL (140-400); RED BLOOD COUNT 4.45 x10^6/uL (4.30-5.70); RED CELL DISTRIBUTION WIDTH 16.1 % (11.5-14.5); WHITE BLOOD COUNT 4.6 x10^3/uL (4.0-11.0)
[2017-09-16 05:22] LABS: INR 1.1 (0.8-1.1); PROTHROMBIN TIME PATIENT 13.9 SEC (11.7-14.0)
[2017-09-16 05:58] LABS: ALBUMIN 3.1 g/dL (3.4-5.0); ALBUMIN/GLOBULIN RATIO 0.8 (1.0-1.7); CREATININE 9.5 mg/dL (0.7-1.3); GFR 6.8; POTASSIUM 4.4 mmol/L (3.5-5.1); TOTAL BILIRUBIN 0.4 mg/dL (0.2-1.0); TOTAL PROTEIN 6.8 g/dL (6.4-8.2)
[2017-09-16 07:00] VITALS: BP 143/82
[2017-09-16] MEDS: INSULIN ASPART 300 UNITS/3 ML INSULN.PEN SQ SCH ×2 (07:30→11:30)
[2017-09-16] MEDS ORDERED: IV NORMAL SALINE 1000ML BAG 1,000 ML IV PRN ×2 (07:51)
[2017-09-16] MEDS ORDERED: DIALYSIS PATIENT. MC PRN (08:00)
[2017-09-16] MEDS ORDERED: ACETAMINOPHEN 500 MG TABLET PO PRN (08:00)
[2017-09-16] MEDS ORDERED: cloNIDine HCL 0.1 MG TABLET PO PRN (08:00)
[2017-09-16] MEDS: SEVELAMER CARBONATE 800 MG TABLET. PO SCH ×2 (08:00→13:38)
[2017-09-16] MEDS ORDERED: LABETALOL 20 MG/4 ML DISP.SYRIN. IVP PRN (08:00)
[2017-09-16] MEDS ORDERED: MIDODRINE 5 MG TABLET PO ONE (08:00)
[2017-09-16] MEDS ORDERED: diphenhydrAMINE 50 MG/ML VIAL IV PRN ×2 (08:00)
[2017-09-16] MEDS ORDERED: ALBUMIN HUMAN 25% 200 ML IV PRN (08:00)
[2017-09-16] MEDS: BUDESONIDE 0.5 MG/2 ML NEBU. NEB SCH (09:23)
[2017-09-16] MEDS: IPRATRPIUM/ALBUTEROL 0.5/2.5MG 3 ML NEBU. NEB SCH (09:23)
--- NOTE | 2017-09-16 10:58 | DISCH ---
DISCHARGE WITH HOME HEALTH DISCHARGE INFORMATION: Discharge Date: Sep 16, 2017 Final Diagnosis: Problems Medical Problems: (1) Accelerated hypertension Status: Acute (2) Depression Status: Acute (3) End stage renal disease Status: Acute Condition on Discharge: Stable HOME HEALTH: Face to Face: I certify this patient is under my care and that I, or my nurse practitioner working with me, had a face to face encounter that meets the physician face to face encounter requirements with this patient on [09/16/17]. Medical Condition(s): HTN Detention For: Assess/Skilled Observatio Physical Therapy For: Evalulation/Treatment Occupational Therapy For: Evaluation/Treatment Patient meets Homebound Statu: Limited distance walking FOLLOW-UP: Follow up with: Dr. Klein on Monday CERTIFICATION STATEMENT: Certification Statement: Certification Statement: Based on the above finding, I certify that this patient is confined to the home and needs intermittent fci care, physical therapy and/or speech therapy, or continues to need occupational therapy.~ This patient is under my care, and I have initiated the establishment of the plan of care.~ This patient will be followed by myself or a community physician who will periodically review the plan of care. VÍCTOR SINGLETON APRN Sep 16, 2017 10:58
--- NOTE | 2017-09-16 11:01 | DISCH ---
DISCHARGE DISCHARGE DATE: Sep 16, 2017 FINAL DIAGNOSIS Problems Medical Problems: (1) Accelerated hypertension Status: Acute (2) Depression Status: Acute (3) End stage renal disease Status: Acute CONDITION ON DISCHARGE: Stable HOME HEALTH: Yes PT. HAS FUNCTIONAL LIMITATIONS: Yes FACE TO FACE ENCOUNTER: Yes POST DISCHARGE ORDERS ACTIVITY ORDERS: Activity as tolerated WEIGHT BEARING STATUS: Full weight bearing DIET AFTER DISCHARGE: Cardiac (renal dialysis diet ) CHECKS AFTER DISCHARGE COMMENTS: Check Blood sugar daily in morning fasting FOLLOW-UP PHYSICIAN FOLLOW-UP: Dr. Klein on Monday TREATMENT/EQUIPMENT ORDERS ADAPTIVE EQUIPMENT NEEDED: None VÍCTOR SINGLETON APRN Sep 16, 2017 11:01
[2017-09-16] MEDS ORDERED: ACET325T9 PO (11:03)
[2017-09-16] MEDS ORDERED: CITA10TA8 PO (11:03)
[2017-09-16] MEDS ORDERED: MIRT15TA3 PO (11:03)
[2017-09-16] MEDS ORDERED: TRAM50TA PO (11:04)
--- NOTE | 2017-09-16 11:24 | PDOC ---
IM PROGRESS NOTES- Subjective Subjective feels better. Objective Objective no acute distress, alert Vitals Vital Signs Date Time Temp Pulse Resp B/P (MAP) Pulse Ox O2 Delivery O2 Flow Rate FiO2 09/16/17 09:23 95 Room Air 09/16/17 07:00 98.4 67 18 143/82 (102) 98.4 09/15/17 15:30 2.0 Physical Exam Physical Exam General appearance - alert,well appearing, and in no distress Mental Status - alert, oriented to person, place, and time, affect appropriate to mood Head - normal Chest - coarse wheezes posterior Heart - S1 and S2 normal Abdomen - soft, nontender, nondistended, no masses or organomegaly Neurological - no acute focal neurological deficits noted. Musculoskeletal - no muscular tenderness noted Extremities - no pedal edema Skin - warm and dry Labs Laboratory Tests Test 09/14/17 14:18 09/14/17 16:47 09/14/17 20:31 09/15/17 03:54 Glucose (Fingerstick) 86 mg/dL (70-99) 179 mg/dL (70-99) 112 mg/dL (70-99) White Blood Count 5.2 x10^3/uL (4.0-11.0) Red Blood Count 4.67 x10^6/uL (4.30-5.70) Hemoglobin 11.6 g/dL (13.0-17.5) Hematocrit 36.1 % (39.0-53.0) Mean Corpuscular Volume 77 fL (79-100) Mean Corpuscular Hemoglobin 25 pg (25-35) Mean Corpuscular Hemoglobin Concent 32 g/dL (31-37) Red Cell Distribution Width 16.3 % (11.5-14.5) Platelet Count 155 x10^3/uL (140-400) Neutrophils (%) (Auto) 55 % (31-73) Lymphocytes (%) (Auto) 28 % (24-48) Monocytes (%) (Auto) 14 % (0-9) Eosinophils (%) (Auto) 2 % (0-3) Basophils (%) (Auto) 1 % (0-3) Neutrophils # (Auto) 2.9 x10^3uL (1.8-7.7) Lymphocytes # (Auto) 1.5 x10^3/uL (1.0-4.8) Monocytes # (Auto) 0.7 x10^3/uL (0.0-1.1) Eosinophils # (Auto) 0.1 x10^3/uL (0.0-0.7) Basophils # (Auto) 0.1 x10^3/uL (0.0-0.2) Sodium Level 135 mmol/L (136-145) Potassium Level 4.3 mmol/L (3.5-5.1) Chloride Level 96 mmol/L (98-107) Carbon Dioxide Level 33 mmol/L (21-32) Anion Gap 6 (6-14) Blood Urea Nitrogen 23 mg/dL (8-26) Creatinine 7.0 mg/dL (0.7-1.3) Estimated GFR (Cockcroft-Gault) 9.7 BUN/Creatinine Ratio 3 (6-20) Glucose Level 101 mg/dL (70-99) Calcium Level 8.9 mg/dL (8.5-10.1) Total Bilirubin 0.5 mg/dL (0.2-1.0) Aspartate Amino Transf (AST/SGOT) 29 U/L (15-37) Alanine Aminotransferase (ALT/SGPT) 22 U/L (16-63) Alkaline Phosphatase 103 U/L (46-116) Total Protein 6.9 g/dL (6.4-8.2) Albumin 3.1 g/dL (3.4-5.0) Albumin/Globulin Ratio 0.8 (1.0-1.7) Prostate Specific Antigen 1.04 ng/mL (0.00-4.00) Test 09/15/17 07:29 09/15/17 11:18 09/15/17 14:46 09/15/17 16:32 Glucose (Fingerstick) 105 mg/dL (70-99) 123 mg/dL (70-99) 92 mg/dL (70-99) Prothrombin Time 13.9 SEC (11.7-14.0) Prothromb Time International Ratio 1.1 (0.8-1.1) Test 09/16/17 04:50 09/16/17 07:21 White Blood Count 4.6 x10^3/uL (4.0-11.0) Red Blood Count 4.45 x10^6/uL (4.30-5.70) Hemoglobin 11.0 g/dL (13.0-17.5) Hematocrit 34.3 % (39.0-53.0) Mean Corpuscular Volume 77 fL (79-100) Mean Corpuscular Hemoglobin 25 pg (25-35) Mean Corpuscular Hemoglobin Concent 32 g/dL (31-37) Red Cell Distribution Width 16.1 % (11.5-14.5) Platelet Count 150 x10^3/uL (140-400) Neutrophils (%) (Auto) 44 % (31-73) Lymphocytes (%) (Auto) 34 % (24-48) Monocytes (%) (Auto) 17 % (0-9) Eosinophils (%) (Auto) 3 % (0-3) Basophils (%) (Auto) 2 % (0-3) Neutrophils # (Auto) 2.0 x10^3uL (1.8-7.7) Lymphocytes # (Auto) 1.5 x10^3/uL (1.0-4.8) Monocytes # (Auto) 0.8 x10^3/uL (0.0-1.1) Eosinophils # (Auto) 0.1 x10^3/uL (0.0-0.7) Basophils # (Auto) 0.1 x10^3/uL (0.0-0.2) Prothrombin Time 13.9 SEC (11.7-14.0) Prothromb Time International Ratio 1.1 (0.8-1.1) Sodium Level 136 mmol/L (136-145) Potassium Level 4.4 mmol/L (3.5-5.1) Chloride Level 96 mmol/L (98-107) Carbon Dioxide Level 35 mmol/L (21-32) Anion Gap 5 (6-14) Blood Urea Nitrogen 36 mg/dL (8-26) Creatinine 9.5 mg/dL (0.7-1.3) Estimated GFR (Cockcroft-Gault) 6.8 BUN/Creatinine Ratio 4 (6-20) Glucose Level 94 mg/dL (70-99) Calcium Level 9.0 mg/dL (8.5-10.1) Total Bilirubin 0.4 mg/dL (0.2-1.0) Aspartate Amino Transf (AST/SGOT) 23 U/L (15-37) Alanine Aminotransferase (ALT/SGPT) 19 U/L (16-63) Alkaline Phosphatase 99 U/L (46-116) Total Protein 6.8 g/dL (6.4-8.2) Albumin 3.1 g/dL (3.4-5.0) Albumin/Globulin Ratio 0.8 (1.0-1.7) Glucose (Fingerstick) 78 mg/dL (70-99) Laboratory Tests Test 09/15/17 11:18 09/15/17 14:46 09/15/17 16:32 09/16/17 04:50 Glucose (Fingerstick) 123 mg/dL (70-99) 92 mg/dL (70-99) Prothrombin Time 13.9 SEC (11.7-14.0) 13.9 SEC (11.7-14.0) Prothromb Time International Ratio 1.1 (0.8-1.1) 1.1 (0.8-1.1) White Blood Count 4.6 x10^3/uL (4.0-11.0) Red Blood Count 4.45 x10^6/uL (4.30-5.70) Hemoglobin 11.0 g/dL (13.0-17.5) Hematocrit 34.3 % (39.0-53.0) Mean Corpuscular Volume 77 fL (79-100) Mean Corpuscular Hemoglobin 25 pg (25-35) Mean Corpuscular Hemoglobin Concent 32 g/dL (31-37) Red Cell Distribution Width 16.1 % (11.5-14.5) Platelet Count 150 x10^3/uL (140-400) Neutrophils (%) (Auto) 44 % (31-73) Lymphocytes (%) (Auto) 34 % (24-48) Monocytes (%) (Auto) 17 % (0-9) Eosinophils (%) (Auto) 3 % (0-3) Basophils (%) (Auto) 2 % (0-3) Neutrophils # (Auto) 2.0 x10^3uL (1.8-7.7) Lymphocytes # (Auto) 1.5 x10^3/uL (1.0-4.8) Monocytes # (Auto) 0.8 x10^3/uL (0.0-1.1) Eosinophils # (Auto) 0.1 x10^3/uL (0.0-0.7) Basophils # (Auto) 0.1 x10^3/uL (0.0-0.2) Sodium Level 136 mmol/L (136-145) Potassium Level 4.4 mmol/L (3.5-5.1) Chloride Level 96 mmol/L (98-107) Carbon Dioxide Level 35 mmol/L (21-32) Anion Gap 5 (6-14) Blood Urea Nitrogen 36 mg/dL (8-26) Creatinine 9.5 mg/dL (0.7-1.3) Estimated GFR (Cockcroft-Gault) 6.8 BUN/Creatinine Ratio 4 (6-20) Glucose Level 94 mg/dL (70-99) Calcium Level 9.0 mg/dL (8.5-10.1) Total Bilirubin 0.4 mg/dL (0.2-1.0) Aspartate Amino Transf (AST/SGOT) 23 U/L (15-37) Alanine Aminotransferase (ALT/SGPT) 19 U/L (16-63) Alkaline Phosphatase 99 U/L (46-116) Total Protein 6.8 g/dL (6.4-8.2) Albumin 3.1 g/dL (3.4-5.0) Albumin/Globulin Ratio 0.8 (1.0-1.7) Test 09/16/17 07:21 Glucose (Fingerstick) 78 mg/dL (70-99) Meds Current Medications Acetaminophen (Tylenol) 500 mg 1X PRN PRN PO MILD PAIN / TEMP; Start 09/16/17 at 08:00; Stop 09/17/17 at 07:59 Albumin Human 200 ml @ 200 mls/hr 1X PRN PRN IV Hypotension; Start 09/16/17 at 08:00; Stop 09/16/17 at 13:59 Clonidine HCl (Catapres) 0.1 mg 1X PRN PRN PO SBP > 180; Start 09/16/17 at 08: 00; Stop 09/17/17 at 07:59 Diphenhydramine HCl (Benadryl) 25 mg 1X PRN PRN IV ITCHING; Start 09/16/17 at 08:00; Stop 09/17/17 at 07:59 Diphenhydramine HCl (Benadryl) 25 mg 1X PRN PRN IV ITCHING; Start 09/16/17 at 08:00; Stop 09/17/17 at 07:59 Fentanyl Citrate (Fentanyl 2ml Vial) 25 mcg 1X ONCE IV ; Start 09/15/17 at 15: 45; Stop 09/15/17 at 15:46; Status DC Fentanyl Citrate (Fentanyl 5ml Vial) 25 mcg 1X ONCE IV Last administered on t 15:36; Start 09/15/17 at 15:45; Stop 09/15/17 at 15:45; Status DC Fentanyl Citrate (Fentanyl 5ml Vial) 250 mcg STK-MED ONCE .ROUTE ; Start at 15:09; Stop 09/15/17 at 15:10; Status DC Flumazenil (Romazicon) 0.5 mg STK-MED ONCE IV ; Start 09/15/17 at 15:09; Stop 09/15/17 at 15:10; Status DC Info (PHARMACY MONITORING -- do not chart) 1 each PRN DAILY PRN MC SEE COMMENTS ; Start 09/16/17 at 08:00; Status UNV Labetalol HCl (Normodyne) 10 mg PRN Q1HR PRN IVP SBP > 180; Start 09/16/17 at 08:00; Stop 09/17/17 at 07:59 Lidocaine/Sodium Bicarbonate (Buffered Lidocaine 1%) 20 ml 1X ONCE IJ Last administered on 09/15/17 15:35; Start 09/15/17 at 15:45; Stop 09/15/17 at 15 :46; Status DC Lidocaine/Sodium Bicarbonate (Buffered Lidocaine 1%) 20 ml STK-MED ONCE IJ ; Start 09/15/17 at 15:17; Stop 09/15/17 at 15:18; Status DC Midazolam HCl (Versed) 2 mg 1X ONCE IV Last administered on 09/15/17t 15:36; Start 09/15/17 at 15:45; Stop 09/15/17 at 15:46; Status DC Midazolam HCl (Versed) 5 mg STK-MED ONCE .ROUTE ; Start 09/15/17 at 15:09; Stop 09/15/17 at 15:10; Status DC Midodrine (Proamatine) 5 mg 1X ONCE PO ; Start 09/16/17 at 08:00; Stop at 08:01; Status DC Naloxone HCl (Narcan) 0.4 mg STK-MED ONCE .ROUTE ; Start 09/15/17 at 15:10; Stop 09/15/17 at 15:11; Status DC Sodium Chloride 1,000 ml @ 400 mls/hr Q2H30M PRN IV PATENCY; Start 09/16/17 at 07:51; Stop 09/16/17 at 19:50 Sodium Chloride 1,000 ml @ 1,000 mls/hr Q1H PRN IV hypotension; Start at 07:51; Stop 09/16/17 at 13:50 Assessment Assessment 1. acute on chronic diastolic/systolic CHF EF35-40% 2. hypertensive urgency 3. depression/insomnia 4. DM II ESRD diet controlled \ 5. ESRD HD TTS 6. hyperlipidemia 7. anemia CKD/Fe def 8. weight loss 9. constipation 10. secondary hyperparathyroidism 11. h/o NSTEMI March 2017 12. moderate chronic PCL malnutrition PLAN: 09/15/17 CHF - wt 152.06 coarse wheezing posterior DM II BS 101-179 no insulin wt loss - CT abd pelvis w/ contrast neg GI -question of lytic lesions thoracic/ lumbar spine -consult Dr. Bob Had bone marrow biopsy yesterday due to reported bone marrow infiltration. MRI Lumbar spine : 1. Severe endplate irregularly with adjacent marrow signal abnormality at L5-S1, and to lesser extent, L4-L5. This is likely due to advanced degenerative change or the sequela of prior discitis/osteomyelitis. The degree of marrow edema and absence of fluid within the disc spaces does not suggest active discitis/osteomyelitis. 2. Multilevel degenerative change throughout the lumbar spine, described in detail above. This results in foraminal stenosis primarily at the lower lumbar levels. 3. Decreased T1 marrow signal intensity. The differential includes anemia, obesity, chronic cigarette smoking history as well as a marrow infiltrative process. There are superimposed areas of signal change within the marrow which are degenerative or due to prominent Schmorl's nodes. No convincing lytic or sclerotic metastasis is seen, with evaluation limited due to the absence of contrast. 4. Pars defects L5-S1. 5. Renal atrophy and multiple renal cysts. MRI Thoracic Spine- 1. Severe endplate irregularly with adjacent marrow signal abnormality at T9-T10. The differential includes advanced degenerative change as well as the sequela of prior discitis/osteomyelitis. The degree of marrow edema at this level and absence of fluid within the disc space does not favor active discitis/osteomyelitis. 2. Multilevel degenerative change throughout the cervical and thoracic spine, described in detail above. 3. Diffusely decreased T1 marrow signal intensity. The differential includes anemia, obesity, chronic cigarette smoking history as well as neoplastic and nonneoplastic marrow infiltrative processes. There is no focal osseous lesion to suggest a lytic or sclerotic metastasis. Evaluation is limited due to the absence of contrast. 4. 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 Nocturnal Sat RA study 09/13 invalid -he was awake all night -it will need repeated - d/w Art RT insomnia -improved with increase in Remeron, continue Celexa for depression 09/14/17 CHF - wt 157# hypertensive urgency improved ESRD - in patient hemodialysis DM II - diet controlled wt loss - CT abd w and w/o contrast pending RA nocturnal sat delayed due to not sleeping last night -will need need repeated Admit 09/13/17 CHF - admit wt 158#, cardiology consult hypertensive urgency - improved, continue home meds depression/insomnia -Remeron and celexa initiated ESRD - in patient HD DM II -office records indicate N70/30 insulin bid, last admit reviewed--Hba1c 5.7 off insulin --DC levemir, continue SSI weight loss - 04/11/17 181.3# ([facility] discharge), office visit 09/04/17 161.4#, admit PMC 158#. Will obtain CT scan abdomen pelvis with IV contrast to evaluate prior to dialysis. dyspnea on waking - check RA nocturnal sat to eval prior to discharge. Doing better.Walking well. Ok to discharge he will go home with his sister in law. Discharge with [facility].see in office next Monday. Discharge Management - 35 minutes. For more details regarding further plans, please refer to the orders. Plan Plan For more details regarding further plans, please refer to the orders. Nutrition Consultation Dietary Evaluation: Recommendations by RD: Increase Calorie Intake, Protein supplementation Comments: continue Novasource Renal TID Expected Outcomes/Goals: PO intake to meet > 75% est needs- not met, goal ongoing Interpretation of weight loss: >10% in 6 months Malnutrition Findings: Food and Nutrition Intake (Mod: <75% est energy req 7days Weight Status: Appropriate BI LOBATO MD Sep 16, 2017 11:24
--- NOTE | 2017-09-16 13:13 | PDOC ---
PROGRESS NOTES Subjective Subjective HPI - Bone lesions. These could be osteolytic lesions versus benign lesions. MRI was more suggestive of a degenerative benign process. However, there was also a comment of possible bone marrow infiltration ROS - no CP Objective Objective Vital Signs Date Time Temp Pulse Resp B/P (MAP) Pulse Ox O2 Delivery O2 Flow Rate FiO2 09/16/17 09:23 95 Room Air 09/16/17 07:00 98.4 67 18 143/82 (102) 98.4 09/15/17 15:30 2.0 Physical Exam General: Alert, Oriented X3, No acute distress Neuro: Normal speech Psych/Mental Status: Mental status NL Assessment Assessment Problems Medical Problems: (1) Accelerated hypertension Status: Acute (2) Depression Status: Acute (3) End stage renal disease Status: Acute IMPRESSION AND PLAN: 1. Bone lesions. These could be osteolytic lesions versus benign lesions. MRI was more suggestive of a degenerative benign process. However, there was also a comment of possible bone marrow infiltration. Hence, I will proceed with a bone marrow aspiration and biopsy for further evaluation done 09/15/17. I would also obtain serum protein electrophoresis and immunofixation studies. I discussed in detail with the patient and he understands and agrees with the plan. I also discussed with Dr Klein. 2. Anemia, secondary to end-stage renal disease. Continue to monitor. 3. End-stage renal disease. Appreciate Nephrology evaluation. He is on hemodialysis. 4. Weight loss - Ct C/A/P - no malignancy Comment Review of Relevant I have reviewed the following items connie (where applicable) has been applied. Labs Laboratory Tests Test 09/14/17 14:18 09/14/17 16:47 09/14/17 20:31 09/15/17 03:54 Glucose (Fingerstick) 86 mg/dL (70-99) 179 mg/dL (70-99) 112 mg/dL (70-99) White Blood Count 5.2 x10^3/uL (4.0-11.0) Red Blood Count 4.67 x10^6/uL (4.30-5.70) Hemoglobin 11.6 g/dL (13.0-17.5) Hematocrit 36.1 % (39.0-53.0) Mean Corpuscular Volume 77 fL (79-100) Mean Corpuscular Hemoglobin 25 pg (25-35) Mean Corpuscular Hemoglobin Concent 32 g/dL (31-37) Red Cell Distribution Width 16.3 % (11.5-14.5) Platelet Count 155 x10^3/uL (140-400) Neutrophils (%) (Auto) 55 % (31-73) Lymphocytes (%) (Auto) 28 % (24-48) Monocytes (%) (Auto) 14 % (0-9) Eosinophils (%) (Auto) 2 % (0-3) Basophils (%) (Auto) 1 % (0-3) Neutrophils # (Auto) 2.9 x10^3uL (1.8-7.7) Lymphocytes # (Auto) 1.5 x10^3/uL (1.0-4.8) Monocytes # (Auto) 0.7 x10^3/uL (0.0-1.1) Eosinophils # (Auto) 0.1 x10^3/uL (0.0-0.7) Basophils # (Auto) 0.1 x10^3/uL (0.0-0.2) Sodium Level 135 mmol/L (136-145) Potassium Level 4.3 mmol/L (3.5-5.1) Chloride Level 96 mmol/L (98-107) Carbon Dioxide Level 33 mmol/L (21-32) Anion Gap 6 (6-14) Blood Urea Nitrogen 23 mg/dL (8-26) Creatinine 7.0 mg/dL (0.7-1.3) Estimated GFR (Cockcroft-Gault) 9.7 BUN/Creatinine Ratio 3 (6-20) Glucose Level 101 mg/dL (70-99) Calcium Level 8.9 mg/dL (8.5-10.1) Total Bilirubin 0.5 mg/dL (0.2-1.0) Aspartate Amino Transf (AST/SGOT) 29 U/L (15-37) Alanine Aminotransferase (ALT/SGPT) 22 U/L (16-63) Alkaline Phosphatase 103 U/L (46-116) Total Protein 6.9 g/dL (6.4-8.2) Albumin 3.1 g/dL (3.4-5.0) Albumin/Globulin Ratio 0.8 (1.0-1.7) Prostate Specific Antigen 1.04 ng/mL (0.00-4.00) Test 10/27/17 07:29 09/15/17 11:18 09/15/17 14:46 09/15/17 16:32 Glucose (Fingerstick) 105 mg/dL (70-99) 123 mg/dL (70-99) 92 mg/dL (70-99) Prothrombin Time 13.9 SEC (11.7-14.0) Prothromb Time International Ratio 1.1 (0.8-1.1) Test 09/16/17 04:50 09/16/17 07:21 White Blood Count 4.6 x10^3/uL (4.0-11.0) Red Blood Count 4.45 x10^6/uL (4.30-5.70) Hemoglobin 11.0 g/dL (13.0-17.5) Hematocrit 34.3 % (39.0-53.0) Mean Corpuscular Volume 77 fL (79-100) Mean Corpuscular Hemoglobin 25 pg (25-35) Mean Corpuscular Hemoglobin Concent 32 g/dL (31-37) Red Cell Distribution Width 16.1 % (11.5-14.5) Platelet Count 150 x10^3/uL (140-400) Neutrophils (%) (Auto) 44 % (31-73) Lymphocytes (%) (Auto) 34 % (24-48) Monocytes (%) (Auto) 17 % (0-9) Eosinophils (%) (Auto) 3 % (0-3) Basophils (%) (Auto) 2 % (0-3) Neutrophils # (Auto) 2.0 x10^3uL (1.8-7.7) Lymphocytes # (Auto) 1.5 x10^3/uL (1.0-4.8) Monocytes # (Auto) 0.8 x10^3/uL (0.0-1.1) Eosinophils # (Auto) 0.1 x10^3/uL (0.0-0.7) Basophils # (Auto) 0.1 x10^3/uL (0.0-0.2) Prothrombin Time 13.9 SEC (11.7-14.0) Prothromb Time International Ratio 1.1 (0.8-1.1) Sodium Level 136 mmol/L (136-145) Potassium Level 4.4 mmol/L (3.5-5.1) Chloride Level 96 mmol/L (98-107) Carbon Dioxide Level 35 mmol/L (21-32) Anion Gap 5 (6-14) Blood Urea Nitrogen 36 mg/dL (8-26) Creatinine 9.5 mg/dL (0.7-1.3) Estimated GFR (Cockcroft-Gault) 6.8 BUN/Creatinine Ratio 4 (6-20) Glucose Level 94 mg/dL (70-99) Calcium Level 9.0 mg/dL (8.5-10.1) Total Bilirubin 0.4 mg/dL (0.2-1.0) Aspartate Amino Transf (AST/SGOT) 23 U/L (15-37) Alanine Aminotransferase (ALT/SGPT) 19 U/L (16-63) Alkaline Phosphatase 99 U/L (46-116) Total Protein 6.8 g/dL (6.4-8.2) Albumin 3.1 g/dL (3.4-5.0) Albumin/Globulin Ratio 0.8 (1.0-1.7) Glucose (Fingerstick) 78 mg/dL (70-99) Laboratory Tests Test 09/15/17 14:46 09/15/17 16:32 09/16/17 04:50 09/16/17 07:21 Prothrombin Time 13.9 SEC (11.7-14.0) 13.9 SEC (11.7-14.0) Prothromb Time International Ratio 1.1 (0.8-1.1) 1.1 (0.8-1.1) Glucose (Fingerstick) 92 mg/dL (70-99) 78 mg/dL (70-99) White Blood Count 4.6 x10^3/uL (4.0-11.0) Red Blood Count 4.45 x10^6/uL (4.30-5.70) Hemoglobin 11.0 g/dL (13.0-17.5) Hematocrit 34.3 % (39.0-53.0) Mean Corpuscular Volume 77 fL (79-100) Mean Corpuscular Hemoglobin 25 pg (25-35) Mean Corpuscular Hemoglobin Concent 32 g/dL (31-37) Red Cell Distribution Width 16.1 % (11.5-14.5) Platelet Count 150 x10^3/uL (140-400) Neutrophils (%) (Auto) 44 % (31-73) Lymphocytes (%) (Auto) 34 % (24-48) Monocytes (%) (Auto) 17 % (0-9) Eosinophils (%) (Auto) 3 % (0-3) Basophils (%) (Auto) 2 % (0-3) Neutrophils # (Auto) 2.0 x10^3uL (1.8-7.7) Lymphocytes # (Auto) 1.5 x10^3/uL (1.0-4.8) Monocytes # (Auto) 0.8 x10^3/uL (0.0-1.1) Eosinophils # (Auto) 0.1 x10^3/uL (0.0-0.7) Basophils # (Auto) 0.1 x10^3/uL (0.0-0.2) Sodium Level 136 mmol/L (136-145) Potassium Level 4.4 mmol/L (3.5-5.1) Chloride Level 96 mmol/L (98-107) Carbon Dioxide Level 35 mmol/L (21-32) Anion Gap 5 (6-14) Blood Urea Nitrogen 36 mg/dL (8-26) Creatinine 9.5 mg/dL (0.7-1.3) Estimated GFR (Cockcroft-Gault) 6.8 BUN/Creatinine Ratio 4 (6-20) Glucose Level 94 mg/dL (70-99) Calcium Level 9.0 mg/dL (8.5-10.1) Total Bilirubin 0.4 mg/dL (0.2-1.0) Aspartate Amino Transf (AST/SGOT) 23 U/L (15-37) Alanine Aminotransferase (ALT/SGPT) 19 U/L (16-63) Alkaline Phosphatase 99 U/L (46-116) Total Protein 6.8 g/dL (6.4-8.2) Albumin 3.1 g/dL (3.4-5.0) Albumin/Globulin Ratio 0.8 (1.0-1.7) Medications Current Medications Alprazolam (Xanax) 1 mg 1X ONCE PO Last administered on 09/12/17t 10:47; Start 09/12/17 at 09:45; Stop 09/12/17 at 09:46; Status DC Amlodipine Besylate (Norvasc) 10 mg 1X ONCE PO Last administered on 10:46; Start 09/12/17 at 09:45; Stop 09/12/17 at 09:46; Status DC Lisinopril (Prinivil) 40 mg 1X ONCE PO Last administered on 09/12/17 09:45; Start 09/12/17 at 09:45; Stop 09/12/17 at 09:46; Status DC Nicardipine HCl 50 mg/Sodium Chloride 270 ml @ 0 mls/hr CONT PRN IV SEE I/O RECORD Last administered on 09/12/17 11:18; Start 09/12/17 at 10:30; Stop at 13:15; Status DC Sodium Chloride 1,000 ml @ 1,000 mls/hr Q1H PRN IV hypotension; Start at 15:33; Stop 09/12/17 at 21:32; Status DC Sodium Chloride 1,000 ml @ 400 mls/hr Q2H30M PRN IV PATENCY; Start 09/12/17 at 15:33; Stop 09/13/17 at 03:32; Status DC Info (PHARMACY MONITORING -- do not chart) 1 each PRN DAILY PRN MC SEE COMMENTS ; Start 09/12/17 at 15:45; Stop 09/12/17 at 15:45; Status DC Info (PHARMACY MONITORING -- do not chart) 1 each PRN DAILY PRN MC SEE COMMENTS ; Start 09/12/17 at 15:45 Amlodipine Besylate (Norvasc) 10 mg DAILY PO Last administered on 09/15/17 08 :11; Start 09/13/17 at 09:00 Atorvastatin Calcium (Lipitor) 20 mg HS PO Last administered on 09/15/17 20: 55; Start 09/12/17 at 21:45 Carvedilol (Coreg) 12.5 mg BID PO ; Start 09/13/17 at 09:00; Stop 09/13/17 at 09:00; Status DC Lisinopril (Prinivil) 40 mg BID PO ; Start 09/12/17 at 21:45; Status Cancel Ondansetron HCl (Zofran) 4 mg PRN Q6HRS PRN IV NAUSEA/VOMITING Last administered on 09/15/17 08:19; Start 09/12/17 at 21:45 Acetaminophen (Tylenol) 650 mg PRN Q8HRS PRN PO PAIN Last administered on 09/15 12:17; Start 09/12/17 at 21:45 Carvedilol (Coreg) 12.5 mg BIDWMEALS PO Last administered on 09/15/17 17:44; Start 09/12/17 at 22:00 Lisinopril (Prinivil) 40 mg BID PO Last administered on 09/15/17 20:56; Start 09/12/17 at 22:00 Alprazolam (Xanax) 1 mg 1X ONCE PO Last administered on 09/12/17 23:47; Start 09/12/17 at 23:45; Stop 09/12/17 at 23:46; Status DC Insulin Aspart (NovoLOG) TIDAC SQ ; Start 09/13/17 at 08:30 Citalopram Hydrobromide (CeleXA) 10 mg DAILY PO Last administered on 08:12; Start 09/13/17 at 10:00 Mirtazapine (Remeron) 7.5 mg QHS PO Last administered on 09/13/17 22:20; Start 09/13/17 at 21:00; Stop 09/14/17 at 08:46; Status DC Budesonide (Pulmicort) 0.5 mg RTBID NEB Last administered on 09/16/17 09:23; Start 09/13/17 at 10:00 Albuterol/ Ipratropium (Duoneb) 3 ml RTBID NEB Last administered on 09/16/17 09:23; Start 09/13/17 at 20:00 Sevelamer Carbonate (Renvela) 800 mg TIDWMEALS PO Last administered on 17:43; Start 09/13/17 at 12:00 Insulin Detemir (Levemir) 20 units DAILY08 SQ ; Start 09/13/17 at 10:30; Stop 09/13/17 at 13:15; Status DC Insulin Detemir (Levemir) 10 units QHS SQ ; Start 09/13/17 at 21:00; Stop at 21:00; Status DC Lorazepam (Ativan) 0.5 mg 1X ONCE PO Last administered on 09/14/17 02:23; Start 09/14/17 at 02:00; Stop 09/14/17 at 02:01; Status DC Iohexol (Omnipaque 240 Mg/ml) 30 ml 1X ONCE PO ; Start 09/14/17 at 08:30; Stop 09/14/17 at 08:31; Status DC Iohexol (Omnipaque 300 Mg/ml) 75 ml 1X ONCE IV Last administered on 08:30; Start 09/14/17 at 08:30; Stop 09/14/17 at 08:31; Status DC Info (Do NOT chart on this entry -- for MONITORING) 1 each PRN DAILY PRN MC SEE COMMENTS; Start 09/14/17 at 08:15; Stop 09/16/17 at 08:14; Status DC Mirtazapine (Remeron) 15 mg QHS PO Last administered on 09/15/17 20:55; Start 09/14/17 at 21:00 Sodium Chloride 1,000 ml @ 1,000 mls/hr Q1H PRN IV hypotension; Start at 10:20; Stop 09/14/17 at 16:19; Status DC Albumin Human 200 ml @ 200 mls/hr 1X PRN PRN IV Hypotension; Start 09/14/17 at 10:30; Stop 09/14/17 at 16:29; Status DC Diphenhydramine HCl (Benadryl) 25 mg 1X PRN PRN IV ITCHING; Start 09/14/17 at 10:30; Stop 09/15/17 at 10:29; Status DC Labetalol HCl (Normodyne) 10 mg PRN Q1HR PRN IVP SBP > 180; Start 09/14/17 at 10:30; Stop 09/15/17 at 10:29; Status DC Sodium Chloride 1,000 ml @ 400 mls/hr Q2H30M PRN IV PATENCY; Start 09/14/17 at 10:20; Stop 09/14/17 at 22:19; Status DC Info (PHARMACY MONITORING -- do not chart) 1 each PRN DAILY PRN MC SEE COMMENTS ; Start 09/14/17 at 10:30; Stop 09/14/17 at 10:32; Status DC Info (PHARMACY MONITORING -- do not chart) 1 each PRN DAILY PRN MC SEE COMMENTS ; Start 09/14/17 at 10:30; Status UNV Midazolam HCl (Versed) 5 mg STK-MED ONCE .ROUTE ; Start 09/15/17 at 15:09; Stop 09/15/17 at 15:10; Status DC Fentanyl Citrate (Fentanyl 5ml Vial) 250 mcg STK-MED ONCE .ROUTE ; Start at 15:09; Stop 09/15/17 at 15:10; Status DC Flumazenil (Romazicon) 0.5 mg STK-MED ONCE IV ; Start 09/15/17 at 15:09; Stop 09/15/17 at 15:10; Status DC Naloxone HCl (Narcan) 0.4 mg STK-MED ONCE .ROUTE ; Start 09/15/17 at 15:10; Stop 09/15/17 at 15:11; Status DC Lidocaine/Sodium Bicarbonate (Buffered Lidocaine 1%) 20 ml STK-MED ONCE IJ ; Start 09/15/17 at 15:17; Stop 09/15/17 at 15:18; Status DC Lidocaine/Sodium Bicarbonate (Buffered Lidocaine 1%) 20 ml 1X ONCE IJ Last administered on 09/15/17t 15:35; Start 09/15/17 at 15:45; Stop 09/15/17 at 15 :46; Status DC Midazolam HCl (Versed) 2 mg 1X ONCE IV Last administered on 09/15/17t 15:36; Start 09/15/17 at 15:45; Stop 09/15/17 at 15:46; Status DC Fentanyl Citrate (Fentanyl 5ml Vial) 25 mcg 1X ONCE IV Last administered on t 15:36; Start 09/15/17 at 15:45; Stop 09/15/17 at 15:45; Status DC Fentanyl Citrate (Fentanyl 2ml Vial) 25 mcg 1X ONCE IV ; Start 09/15/17 at 15: 45; Stop 09/15/17 at 15:46; Status DC Sodium Chloride 1,000 ml @ 1,000 mls/hr Q1H PRN IV hypotension; Start at 07:51; Stop 09/16/17 at 13:50 Albumin Human 200 ml @ 200 mls/hr 1X PRN PRN IV Hypotension; Start 09/16/17 at 08:00; Stop 09/16/17 at 13:59 Midodrine (Proamatine) 5 mg 1X ONCE PO ; Start 09/16/17 at 08:00; Stop at 08:01; Status DC Acetaminophen (Tylenol) 500 mg 1X PRN PRN PO MILD PAIN / TEMP; Start 09/16/17 at 08:00; Stop 09/17/17 at 07:59 Diphenhydramine HCl (Benadryl) 25 mg 1X PRN PRN IV ITCHING; Start 09/16/17 at 08:00; Stop 09/17/17 at 07:59 Diphenhydramine HCl (Benadryl) 25 mg 1X PRN PRN IV ITCHING; Start 09/16/17 at 08:00; Stop 09/17/17 at 07:59 Labetalol HCl (Normodyne) 10 mg PRN Q1HR PRN IVP SBP > 180; Start 09/16/17 at 08:00; Stop 09/17/17 at 07:59 Clonidine HCl (Catapres) 0.1 mg 1X PRN PRN PO SBP > 180; Start 09/16/17 at 08: 00; Stop 09/17/17 at 07:59 Sodium Chloride 1,000 ml @ 400 mls/hr Q2H30M PRN IV PATENCY; Start 09/16/17 at 07:51; Stop 09/16/17 at 19:50 Info (PHARMACY MONITORING -- do not chart) 1 each PRN DAILY PRN MC SEE COMMENTS ; Start 09/16/17 at 08:00; Status UNV Active Scripts Active Tramadol Hcl 50 Mg Tablet 1 Tab PO PRN Q6HRS Mirtazapine 15 Mg Tablet 15 Mg PO QHS Celexa (Citalopram Hydrobromide) 10 Mg Tablet 10 Mg PO DAILY Tylenol (Acetaminophen) 325 Mg Tablet 650 Mg PO PRN Q8HRS PRN Lisinopril 40 Mg Tablet 40 Mg PO BID 30 Days Amlodipine Besylate 10 Mg Tablet 10 Mg PO DAILY 30 Days Carvedilol 12.5 Mg Tablet 1 Tab PO BID 30 Days Reported Calcium Acetate 667 Mg Tablet 667 Mg PO TIDWMEALS Calcitriol 0.5 Mcg Capsule 1 Cap PO DAILY Atorvastatin Calcium 20 Mg Tablet 1 Tab PO DAILY Renvela (Sevelamer Carbonate) 800 Mg Tablet 2 Tab PO TID Multivitamins (Multivitamin) 1 Each Tablet 1 Tab PO DAILY Vitals/I & O Vital Sign - Last 24 Hours 09/15/17 09/15/17 09/15/17 09/15/17 15:00 15:23 15:25 15:30 Temp 98.1 98.1 Pulse 74 77 77 75 Resp 20 16 16 16 B/P (MAP) 116/69 (85) Pulse Ox 96 95 95 92 O2 Delivery Room Air Room Air Room Air Nasal Cannula O2 Flow Rate 2.0 09/15/17 09/15/17 09/15/17 09/15/17 15:34 15:36 17:44 19:31 Pulse 75 75 Resp 16 16 B/P (MAP) 131/80 Pulse Ox 95 94 O2 Delivery Room Air Room Air Room Air 09/15/17 09/15/17 09/15/17 09/15/17 19:32 20:35 20:56 23:28 Temp 98.6 98.5 98.6 98.5 Pulse 70 70 69 Resp 18 16 B/P (MAP) 108/73 (85) 108/73 110/66 (81) Pulse Ox 96 95 94 O2 Delivery Room Air Room Air Room Air 09/16/17 09/16/17 09/16/17 09/16/17 03:15 07:00 08:00 09:23 Temp 98.4 98.4 98.4 98.4 Pulse 71 67 Resp 18 18 B/P (MAP) 121/74 (90) 143/82 (102) Pulse Ox 96 97 95 O2 Delivery Room Air Room Air Room Air Room Air Nutrition Consultation Dietary Evaluation: Recommendations by RD: Increase Calorie Intake, Protein supplementation Comments: continue Novasource Renal TID Expected Outcomes/Goals: PO intake to meet > 75% est needs- not met, goal ongoing Interpretation of weight loss: >10% in 6 months Malnutrition Findings: Food and Nutrition Intake (Mod: <75% est energy req 7days Weight Status: Appropriate FAMILIA HAMEED MD Sep 16, 2017 13:13
[2017-09-16 13:30] VITALS: BP 166/90
--- NOTE | 2017-09-16 13:31 | PDOC ---
SUBJECTIVE ROS F/up for ESRD Did HD earlier today and doing/ feeling well - feels readyt o go ho me CVS: no Orthopnea, no CP RESP: no SOB, no JOSUE GI: no Nausea, no Vomiting : no Dysuria, no Urgency OBJECTIVE Vital Signs Vital Signs Date Time Temp Pulse Resp B/P (MAP) Pulse Ox O2 Delivery O2 Flow Rate FiO2 09/16/17 09:23 95 Room Air 09/16/17 07:00 98.4 67 18 143/82 (102) 98.4 09/15/17 15:30 2.0 PHYSICAL EXAM Physical Exam GEN: Awake, Oriented x 3, In no distress EYES: Vision Unchanged, Conjunctiva Normal EN: No EN Drainage, Mucous Membranes moist NECK: no JVD, min JVP, Supple, no Thyromegaly CVS: S1S2, + Murmur, No Gallop, No Rub,no Edema RESP: no Rales, no Rhonchi,no Acc. Muscle Use GI: BS + ve, NO Bruit, Non Tender, Non Distended : no CVA tenderness, no Suprapubic Tenderness DIAGNOSIS/ASSESSMENT Assessment & Plan ESRD: Hd done earlier today. Will ct dialysis as per OP schedule ( TTSat) ANEMIA; Aranap as ordered, Transfuse with next HD as needed HTN: Better controlled on Current BP meds regimen BONE & MINERAL: ct Phos binders and alter regimen as OP Discussed Plan of Care with pt at bedside Problems: COMMENT/RELEVANT DATA Meds Current Medications Medications (Trade) Dose Ordered Sig/Thuan Start Time Stop Time Status Last Admin Dose Admin Acetaminophen (Tylenol) 500 mg 1X PRN PRN 09/16/17 08:00 09/17/17 07:59 Albumin Human 200 ml @ 200 mls/hr 1X PRN PRN 09/16/17 08:00 09/16/17 13:59 Albuterol/ Ipratropium (Duoneb) 3 ml RTBID 09/13/17 20:00 09/16/17 09:23 3 ML Alprazolam (Xanax) 1 mg 1X ONCE 09/12/17 23:45 09/12/17 23:46 DC 09/12/17 23:47 1 MG Amlodipine Besylate (Norvasc) 10 mg DAILY 09/13/17 09:00 09/15/17 08:11 10 MG Atorvastatin Calcium (Lipitor) 20 mg HS 09/12/17 21:45 09/15/17 20:55 20 MG Budesonide (Pulmicort) 0.5 mg RTBID 09/13/17 10:00 09/16/17 09:23 0.5 MG Carvedilol (Coreg) 12.5 mg BIDWMEALS 09/12/17 22:00 09/15/17 17:44 12.5 MG Citalopram Hydrobromide (CeleXA) 10 mg DAILY 09/13/17 10:00 09/15/17 08:12 10 MG Clonidine HCl (Catapres) 0.1 mg 1X PRN PRN 09/16/17 08:00 09/17/17 07:59 Diphenhydramine HCl (Benadryl) 25 mg 1X PRN PRN 09/16/17 08:00 09/17/17 07:59 Fentanyl Citrate (Fentanyl 2ml Vial) 25 mcg 1X ONCE 09/15/17 15:45 09/15/17 15:46 DC Fentanyl Citrate (Fentanyl 5ml Vial) 25 mcg 1X ONCE 09/15/17 15:45 09/15/17 15:45 DC 09/15/17 15:36 25 MCG Flumazenil (Romazicon) 0.5 mg STK-MED ONCE 09/15/17 15:09 09/15/17 15:10 DC Info (Do NOT chart on this entry -- for MONITORING) 1 each PRN DAILY PRN 09/14/17 08:15 09/16/17 08:14 DC Info (PHARMACY MONITORING -- do not chart) 1 each PRN DAILY PRN 09/16/17 08:00 UNV Insulin Aspart (NovoLOG) TIDAC 09/13/17 08:30 Insulin Detemir (Levemir) 10 units QHS 09/13/17 21:00 09/13/17 21:00 DC Iohexol (Omnipaque 240 Mg/ml) 30 ml 1X ONCE 09/14/17 08:30 09/14/17 08:31 DC Iohexol (Omnipaque 300 Mg/ml) 75 ml 1X ONCE 09/14/17 08:30 09/14/17 08:31 DC 09/14/17 08:30 75 ML Labetalol HCl (Normodyne) 10 mg PRN Q1HR PRN 09/16/17 08:00 09/17/17 07:59 Lidocaine/Sodium Bicarbonate (Buffered Lidocaine 1%) 20 ml 1X ONCE 09/15/17 15:45 09/15/17 15:46 DC 09/15/17 15:35 20 ML Lisinopril (Prinivil) 40 mg BID 09/12/17 22:00 09/15/17 20:56 40 MG Lorazepam (Ativan) 0.5 mg 1X ONCE 09/14/17 02:00 09/14/17 02:01 DC 09/14/17 02:23 0.5 MG Midazolam HCl (Versed) 2 mg 1X ONCE 09/15/17 15:45 09/15/17 15:46 DC 09/15/17 15:36 2 MG Midodrine (Proamatine) 5 mg 1X ONCE 09/16/17 08:00 09/16/17 08:01 DC Mirtazapine (Remeron) 15 mg QHS 09/14/17 21:00 09/15/17 20:55 15 MG Naloxone HCl (Narcan) 0.4 mg STK-MED ONCE 09/15/17 15:10 09/15/17 15:11 DC Nicardipine HCl 50 mg/Sodium Chloride 270 ml @ 0 mls/hr CONT PRN 09/12/17 10:30 09/13/17 13:15 DC 09/12/17 11:18 0 MLS/HR Ondansetron HCl (Zofran) 4 mg PRN Q6HRS PRN 09/12/17 21:45 09/15/17 08:19 4 MG Sevelamer Carbonate (Renvela) 800 mg TIDWMEALS 09/13/17 12:00 09/15/17 17:43 800 MG Sodium Chloride 1,000 ml @ 400 mls/hr Q2H30M PRN 09/16/17 07:51 09/16/17 19:50 Lab Laboratory Tests Test 09/15/17 14:46 09/15/17 16:32 09/16/17 04:50 09/16/17 07:21 Prothrombin Time 13.9 SEC (11.7-14.0) 13.9 SEC (11.7-14.0) Prothromb Time International Ratio 1.1 (0.8-1.1) 1.1 (0.8-1.1) Glucose (Fingerstick) 92 mg/dL (70-99) 78 mg/dL (70-99) White Blood Count 4.6 x10^3/uL (4.0-11.0) Red Blood Count 4.45 x10^6/uL (4.30-5.70) Hemoglobin 11.0 g/dL (13.0-17.5) Hematocrit 34.3 % (39.0-53.0) Mean Corpuscular Volume 77 fL (79-100) Mean Corpuscular Hemoglobin 25 pg (25-35) Mean Corpuscular Hemoglobin Concent 32 g/dL (31-37) Red Cell Distribution Width 16.1 % (11.5-14.5) Platelet Count 150 x10^3/uL (140-400) Neutrophils (%) (Auto) 44 % (31-73) Lymphocytes (%) (Auto) 34 % (24-48) Monocytes (%) (Auto) 17 % (0-9) Eosinophils (%) (Auto) 3 % (0-3) Basophils (%) (Auto) 2 % (0-3) Neutrophils # (Auto) 2.0 x10^3uL (1.8-7.7) Lymphocytes # (Auto) 1.5 x10^3/uL (1.0-4.8) Monocytes # (Auto) 0.8 x10^3/uL (0.0-1.1) Eosinophils # (Auto) 0.1 x10^3/uL (0.0-0.7) Basophils # (Auto) 0.1 x10^3/uL (0.0-0.2) Sodium Level 136 mmol/L (136-145) Potassium Level 4.4 mmol/L (3.5-5.1) Chloride Level 96 mmol/L (98-107) Carbon Dioxide Level 35 mmol/L (21-32) Anion Gap 5 (6-14) Blood Urea Nitrogen 36 mg/dL (8-26) Creatinine 9.5 mg/dL (0.7-1.3) Estimated GFR (Cockcroft-Gault) 6.8 BUN/Creatinine Ratio 4 (6-20) Glucose Level 94 mg/dL (70-99) Calcium Level 9.0 mg/dL (8.5-10.1) Total Bilirubin 0.4 mg/dL (0.2-1.0) Aspartate Amino Transf (AST/SGOT) 23 U/L (15-37) Alanine Aminotransferase (ALT/SGPT) 19 U/L (16-63) Alkaline Phosphatase 99 U/L (46-116) Total Protein 6.8 g/dL (6.4-8.2) Albumin 3.1 g/dL (3.4-5.0) Albumin/Globulin Ratio 0.8 (1.0-1.7) ROSANA STEWART MD Sep 16, 2017 13:31
[2017-09-16] MEDS: CARVEDILOL 12.5 MG TABLET. PO SCH (13:39)
[2017-09-16] MEDS: amLODIPine BESYLATE 10 MG TABLET PO SCH (13:40)
[2017-09-16] MEDS: LISINOPRIL 40 MG TABLET. PO SCH (13:40)
[2017-09-16] MEDS: CITALOPRAM 10 MG TABLET. PO SCH (13:40)
[2017-09-16 15:00] VITALS: BP 114/72
[2017-09-17 15:10] LABS: KAPPA LAMBDA RATIO 1.42 (0.26-1.65)
[2017-09-19 08:23] LABS: ALPHA 1 0.2 g/dL (0.0-0.4); ALPHA 2 0.6 g/dL (0.4-1.0); BETA 0.7 g/dL (0.7-1.3); GAMMA 1.3 g/dL (0.4-1.8); M-SPIKE Not Observed g/dL (Not Observed); PROTEIN TOTAL 6.4 g/dL (6.0-8.5)
[2017-09-19 09:19] LABS: IMMUNOGLOBULIN A 273 mg/dL (61-437); IMMUNOGLOBULIN G 1036 mg/dL (700-1600); IMMUNOGLOBULIN M 413 mg/dL (20-172)
--- NOTE | 2017-09-20 10:40 | PDOC3 ---
IM DISCHARGE SUMMARY Date of Admission Date of Admission Date of Admission: Sep 12, 2017 at 10:18 Date of Discharge Date of Discharge 09/16/17 Primary Diagnosis Primary Diagnosis 1. acute on chronic diastolic/systolic CHF EF35-40% 2. hypertensive urgency 3. depression/insomnia 4. DM II ESRD diet controlled \ 5. ESRD HD TTS 6. hyperlipidemia 7. anemia CKD/Fe def 8. weight loss 9. constipation 10. secondary hyperparathyroidism 11. h/o NSTEMI March 2017 12. moderate chronic PCL malnutrition 13. bone lesions Problems: Consults Consults Amandeep Guajardo MD Procedures Procedures CT-guided bone marrow biopsy. 09/15/2017 3:44 PM Indication: bone lesions, eval for myeloma Discussion: The risks and benefits of the procedure, including but not limited to, bleeding and infection were discussed patient. Informed consent was obtained. The patient was brought to the CT scanner and placed in the prone position. A timeout procedure was performed. Grading Supervisor CT imaging of the pelvis demonstrated left ilium amenable to bone marrow biopsy. The overlying soft tissues were prepped and draped using maximum sterile barrier technique. 1% lidocaine without epinephrine was administered for local anesthesia. Under intermittent CT guidance, an OncControl needle was advanced into the bone marrow of the left iliac crest. 2 Aspirates and 1 core biopsy samples were obtained. Samples were delivered to pathology was present at the time of procedure. The needle was removed and manual pressure held to achieve hemostasis. No immediate complications were identified. The procedure was performed under conscious sedation including continuous cardiopulmonary monitoring via dedicated sedation nurse. Sedation time: 20 minutes Impression: Successful CT-guided bone marrow biopsy of the left iliac crest . PQRS Compliance Statement: One or more of the following individualized dose reduction techniques were utilized for this examination: 1. Automated exposure control 2. Adjustment of the mA and/or kV according to patient size 3. Use of iterative reconstruction technique ICTATED and SIGNED BY: ELI LEONARDO MD DATE: 09/15/17 6425 CC: BI KLEIN MD; FAMILIA HAMEED MD ~ Labs Labs See EMR Brief hospital course Brief hospital course This 62 year old male who presented with shortness of breath was admitted. The following is a summary of his treatment: PLAN: CHF stable Discharge wt 145.06# bone lesions - BM biopsy pending - f/u with Dr. Hameed Nocturnal RA study not done-attempted one and it was not accurate due to awake most of the night. DM controlled with diet BS 94-126 insomnia -continue Remeron and Celexa F/U Dr. Klein 3-5 days. Plan DC home with HHN, PT and OT. Please see discharge orders. 09/15/17 CHF - wt 152.06 coarse wheezing posterior DM II BS 101-179 no insulin wt loss - CT abd pelvis w/ contrast neg GI -question of lytic lesions thoracic/ lumbar spine -consult Dr. Hameed Nocturnal Sat RA study 09/13 invalid -he was awake all night -it will need repeated - d/w Art RT insomnia -improved with increase in Remeron, continue Celexa for depression lytic lesions - Dr. Hameed consult - MRI LS ant thoracic spine completed -BM biopsy 09/14/17 for reported bone marrow infiltration LS MRI w/o contrast: 1. Severe endplate irregularly with adjacent marrow signal abnormality at L5-S1, and to lesser extent, L4-L5. This is likely due to advanced degenerative change or the sequela of prior discitis/osteomyelitis. The degree of marrow edema and absence of fluid within the disc spaces does not suggest active discitis/osteomyelitis. 2. Multilevel degenerative change throughout the lumbar spine, described in detail above. This results in foraminal stenosis primarily at the lower lumbar levels. 3. Decreased T1 marrow signal intensity. The differential includes anemia, obesity, chronic cigarette smoking history as well as a marrow infiltrative process. There are superimposed areas of signal change within the marrow which are degenerative or due to prominent Schmorl's nodes. No convincing lytic or sclerotic metastasis is seen, with evaluation limited due to the absence of contrast. 4. Pars defects L5-S1. 5. Renal atrophy and multiple renal cysts. Thoracic lumbar w/o contrast: 1. Severe endplate irregularly with adjacent marrow signal abnormality at T9-T10. The differential includes advanced degenerative change as well as the sequela of prior discitis/osteomyelitis. The degree of marrow edema at this level and absence of fluid within the disc space does not favor active discitis/osteomyelitis. 2. Multilevel degenerative change throughout the cervical and thoracic spine, described in detail above. 3. Diffusely decreased T1 marrow signal intensity. The differential includes anemia, obesity, chronic cigarette smoking history as well as neoplastic and nonneoplastic marrow infiltrative processes. There is no focal osseous lesion to suggest a lytic or sclerotic metastasis. Evaluation is limited due to the absence of contrast. 4. 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 09/14/17 CHF - wt 157# hypertensive urgency improved ESRD - in patient hemodialysis DM II - diet controlled wt loss - CT abd w and w/o contrast pending RA nocturnal sat delayed due to not sleeping last night -will need need repeated Admit 09/13/17 CHF - admit wt 158#, cardiology consult hypertensive urgency - improved, continue home meds depression/insomnia -Remeron and celexa initiated ESRD - in patient HD DM II -office records indicate N70/30 insulin bid, last admit reviewed--Hba1c 5.7 off insulin --DC levemir, continue SSI weight loss - 04/11/17 181.3# ([facility] discharge), office visit 09/04/17 161.4#, admit PMC 158#. Will obtain CT scan abdomen pelvis with IV contrast to evaluate prior to dialysis. dyspnea on waking - check RA nocturnal sat to eval prior to discharge. For more details regarding further plans, please refer to the orders. Social issues -was incarcerated for dealing drugs - he was not using drugs. Homeless since released from [facility] November. SNU at discharge for weakness -would benefit from additional PT OT Plan For more details regarding the past history, family history, social history, surgical history and other details, please refer to History and Physical. Medications Medications reviewed and reconciled for discharge. Allergy Allergies Coded Allergies Type Severity Reaction Last Updated Verified No Known Drug Allergies 04/13/17 No Follow up in 3-5 days. DISPOSITION: Home health services Comments Discharge Management - 35 minutes. For other details please refer to discharge instructions VÍCTOR SINGLETON APRN Sep 20, 2017 10:40
== END 2017-09-16 15:43 | disposition home health service (06) | DRG 840 ==
LOC: ER 09:11 → ED HOLD 10:18 → 1 WEST ICU 12:26 → 6 SOUTH 09-13 16:22
PROVIDERS: ADMIT Internal Medicine; ATTEND Internal Medicine
PROC: 07DR3ZX Extraction of Iliac Bone Marrow, Percutaneous Approach, Diagnostic (ICD-10-PCS; principal; 2017-09-15)
DX: C90.00 Multiple myeloma not having achieved remission (principal); I50.43 Acute on chronic combined systolic (congestive) and diastolic (congestive) heart failure; I13.2 Hypertensive heart and chronic kidney disease with heart failure and with stage 5 chronic kidney disease, or end stage renal disease; E11.22 Type 2 diabetes mellitus with diabetic chronic kidney disease; I27.20 Pulmonary hypertension, unspecified; E44.0 Moderate protein-calorie malnutrition; N25.81 Secondary hyperparathyroidism of renal origin; N18.6 End stage renal disease; E46 Unspecified protein-calorie malnutrition; I50.42 Chronic combined systolic (congestive) and diastolic (congestive) heart failure; I16.0 Hypertensive urgency; D63.1 Anemia in chronic kidney disease; Z68.21 Body mass index [BMI] 21.0-21.9, adult; E61.1 Iron deficiency; E78.00 Pure hypercholesterolemia, unspecified; E78.5 Hyperlipidemia, unspecified; F32.9 Major depressive disorder, single episode, unspecified; F41.9 Anxiety disorder, unspecified; I25.2 Old myocardial infarction; J44.9 Chronic obstructive pulmonary disease, unspecified; K59.00 Constipation, unspecified; Z59.0 Homelessness; Z82.49 Family history of ischemic heart disease and other diseases of the circulatory system; Z86.73 Personal history of transient ischemic attack (TIA), and cerebral infarction without residual deficits; Z87.891 Personal history of nicotine dependence; Z91.19 Patient's noncompliance with other medical treatment and regimen; Z99.2 Dependence on renal dialysis; E21.3 Hyperparathyroidism, unspecified
CPT/HCPCS: 36415; 38221; 71010; 71250; 72146; 72148; 74177; 77012; 80048; 80053; 80329; 82553; 82784; 82962; 83520; 83735; 84165; 84443; 84484; 85025; 85610; 86334; 87641; 88184; 88185; 88237; 93005; 94250; 94640; 94760; 94799; 96365; 99152; G0103; G0364; G0480; J1815; J2250; J2405; J3010; J7050; J7620; J7626; Q9967; 97530; 97535; 99291-25; J7030

== ENCOUNTER → 2017-10-23 | Day surgery (SDC) | payer MEDICARE ==
[~2017-10-23] MED LIST changes: -AMLO10TA2 PO; -ATOR20TA58 PO; -CALC0.5C PO; -CALC667T PO; -CARV12.52 PO; +GLYCOPYRROLATE 1 MG/5 ML VIAL.; +HYDROmorphone 2 MG/ML VIAL IV; +LIDOCAINE 1% PF 2 ML VIAL. ID; +LIDOCAINE 2% PF Vial for OR 5 ML VIAL.; -LISI40TA PO; -METO10TA81 PO; +METOPROLOL TARTRATE 5 MG/5 ML VIAL.; +MORPHINE SULFATE 2 MG/ML DISP.SYRIN. IV; -MULT1TAB52 PO; -NPH,100V SQ; +ONDANSETRON PF 4 MG/2 ML VIAL. IV; +PROCHLORPERAZINE 10 MG/2 ML VIAL. IV; +PROPOFOL 40 ML IV; -SEVE800T9 PO; +fentaNYL PF VIAL 100 MCG/2 ML VIAL IV
[2017-10-23] MEDS: IV RINGERS,LACTATED 1000ML 1,000 ML IV (10:03)
[2017-10-23 10:04] LABS: POC GLUCOSE 124 mg/dL (70-99)
== END | disposition home or self-care (01) ==
LOC: ENDOS 09:32
DX: Z12.11 Encounter for screening for malignant neoplasm of colon (principal); K29.70 Gastritis, unspecified, without bleeding; E78.00 Pure hypercholesterolemia, unspecified; J44.9 Chronic obstructive pulmonary disease, unspecified; I13.2 Hypertensive heart and chronic kidney disease with heart failure and with stage 5 chronic kidney disease, or end stage renal disease; E11.22 Type 2 diabetes mellitus with diabetic chronic kidney disease; N18.6 End stage renal disease; I50.9 Heart failure, unspecified; R41.9 Unspecified symptoms and signs involving cognitive functions and awareness; F32.9 Major depressive disorder, single episode, unspecified; Z86.39 Personal history of other endocrine, nutritional and metabolic disease; Z99.2 Dependence on renal dialysis; Z86.73 Personal history of transient ischemic attack (TIA), and cerebral infarction without residual deficits; Z72.89 Other problems related to lifestyle; Z86.69 Personal history of other diseases of the nervous system and sense organs
CPT/HCPCS: 43239; 82962; 88305; 88342; J2704; J3490

== ENCOUNTER 2018-05-25 05:51 | Inpatient (IN) | payer MEDICARE ==
[2018-05-25] MEDS ORDERED: ONDANSETRON PF 4 MG/2 ML VIAL. (06:34)
[2018-05-25 06:36] LABS: ADD MAN DIFF? NO
[2018-05-25] MEDS: ONDANSETRON PF 4 MG/2 ML VIAL. IV (06:36)
[2018-05-25 06:42] LABS: BASO # 0.1 x10^3/uL (0.0-0.2); BASO % 1 % (0-3); EOS % 0 % (0-3); HEMOGLOBIN 16.1 g/dL (13.0-17.5); LYMPH # 0.7 x10^3/uL (1.0-4.8); LYMPH % 10 % (24-48); MEAN CORPUSCULAR HEMOGLOBIN 27 pg (25-35); MEAN CORPUSCULAR HGB CONC 33 g/dL (31-37); MEAN CORPUSCULAR VOLUME 81 fL (79-100); MONO # 0.5 x10^3/uL (0.0-1.1); MONO % 6 % (0-9); NEUT # 6.3 x10^3uL (1.8-7.7); NEUT % 83 % (31-73); PLATELET COUNT 185 x10^3/uL (140-400); RED BLOOD COUNT 6.02 x10^6/uL (4.30-5.70); RED CELL DISTRIBUTION WIDTH 15.7 % (11.5-14.5); WHITE BLOOD COUNT 7.6 x10^3/uL (4.0-11.0)
[2018-05-25] MEDS: IV NORMAL SALINE 250ML 250 ML IV ×2 (07:06→09:19)
[2018-05-25 07:26] LABS: ANION GAP 14 (6-14); BLOOD UREA NITROGEN 57 mg/dL (8-26); CALCIUM 10.4 mg/dL (8.5-10.1); CARBON DIOXIDE 31 mmol/L (21-32); CHLORIDE 86 mmol/L (98-107); CREATININE 16.1 mg/dL (0.7-1.3); GFR 3.7; GLUCOSE 156 mg/dL (70-99); SODIUM 131 mmol/L (136-145)
[2018-05-25 07:34] LABS: POTASSIUM 6.3 mmol/L (3.5-5.1)
[2018-05-25 07:35] LABS: TROPONINI < 0.017 ng/mL (0.000-0.055)
[2018-05-25] MEDS: CALCIUM GLUCONATE 1,000 MG/10 ML VIAL. IVP (08:30)
[2018-05-25] MEDS ORDERED: CALCIUM CHLORIDE 1,000 MG/10 ML DISP.SYRIN (08:59)
[2018-05-25] MEDS: CALCIUM CHLORIDE 1,000 MG/10 ML DISP.SYRIN IV (09:20)
[2018-05-25] MEDS: SODIUM POLYSTYRENE SULFONATE 15 GM/60 ML ORAL.SUSP. PO (09:32)
[2018-05-25] MEDS: INSULIN REGULAR 100 UNIT/ML 3ML VIAL. IV (09:36)
[2018-05-25] MEDS: DEXTROSE 50% 25 GM / 50ML DISP.SYRIN. IV (09:45)
[2018-05-25] MEDS ORDERED: DIALYSIS PATIENT. MC ×2 (16:00)
[2018-05-25 17:28] LABS: THYROID STIM HORMONE (TSH) 0.662 uIU/mL (0.358-3.74)
[2018-05-25 17:29] LABS: VITAMIN-B12 984 pg/mL (247-911)
[2018-05-25] MEDS ORDERED: DEXTROSE 50% 25 GM / 50ML DISP.SYRIN. IV (18:15)
[2018-05-25] MEDS ORDERED: ACETAMINOPHEN 325 MG TABLET. PO (18:30)
[2018-05-25] MEDS: SEVELAMER CARBONATE 800 MG TABLET. PO (19:00)
[2018-05-25] MEDS: CARVEDILOL 12.5 MG TABLET. PO (20:23)
[2018-05-25] MEDS: MIRTAZAPINE 15 MG TABLET PO (20:23)
[2018-05-25] MEDS: CHOLECALCIFEROL (VITAMIN D3) 5,000 UNIT CAPSULE PO (20:23)
[2018-05-25] MEDS: LISINOPRIL 20 MG TABLET PO (20:24)
[2018-05-25] MEDS: traMADol 50 MG TABLET PO (20:24)
[2018-05-25 20:45] LABS: POC GLUCOSE 158 mg/dL (70-99)
[2018-05-26] MEDS: traMADol 50 MG TABLET PO (02:29)
[2018-05-26 05:21] LABS: ADD MAN DIFF? NO
[2018-05-26 05:38] LABS: BASO # 0.1 x10^3/uL (0.0-0.2); BASO % 1 % (0-3); EOS % 0 % (0-3); HEMATOCRIT 46.9 % (39.0-53.0); LYMPH # 1.8 x10^3/uL (1.0-4.8); LYMPH % 24 % (24-48); MEAN CORPUSCULAR HEMOGLOBIN 27 pg (25-35); MEAN CORPUSCULAR HGB CONC 32 g/dL (31-37); MEAN CORPUSCULAR VOLUME 83 fL (79-100); MONO # 1.1 x10^3/uL (0.0-1.1); MONO % 15 % (0-9); NEUT # 4.5 x10^3uL (1.8-7.7); NEUT % 60 % (31-73); PLATELET COUNT 155 x10^3/uL (140-400); RED BLOOD COUNT 5.68 x10^6/uL (4.30-5.70); RED CELL DISTRIBUTION WIDTH 16.2 % (11.5-14.5); WHITE BLOOD COUNT 7.5 x10^3/uL (4.0-11.0)
[2018-05-26 05:53] LABS: ANION GAP 13 (6-14); BLOOD UREA NITROGEN 41 mg/dL (8-26); CALCIUM 9.2 mg/dL (8.5-10.1); CARBON DIOXIDE 31 mmol/L (21-32); CHLORIDE 95 mmol/L (98-107); CREATININE 12.7 mg/dL (0.7-1.3); GFR 4.9; GLUCOSE 122 mg/dL (70-99); POTASSIUM 4.5 mmol/L (3.5-5.1); SODIUM 139 mmol/L (136-145)
[2018-05-26] MEDS ORDERED: diphenhydrAMINE 50 MG/ML VIAL IV (07:00)
[2018-05-26] MEDS ORDERED: IV NORMAL SALINE 1000ML BAG 1,000 ML IV ×2 (07:00)
[2018-05-26] MEDS ORDERED: ACETAMINOPHEN 500 MG TABLET PO (07:00)
[2018-05-26 07:42] LABS: POC GLUCOSE 127 mg/dL (70-99)
[2018-05-26] MEDS: CALCIUM ACETATE 667 MG CAPSULE PO ×3 (08:00→17:40)
[2018-05-26] MEDS: INSULIN LISPRO 300 UNITS/3 ML INSULN.PEN. SQ ×3 (08:00→17:00)
[2018-05-26] MEDS: SEVELAMER CARBONATE 800 MG TABLET. PO ×3 (08:00→17:43)
[2018-05-26] MEDS: CARVEDILOL 12.5 MG TABLET. PO ×2 (08:00→17:00)
[2018-05-26] MEDS: LISINOPRIL 20 MG TABLET PO (08:08)
[2018-05-26] MEDS: amLODIPine BESYLATE 10 MG TABLET PO (08:13)
[2018-05-26] MEDS ORDERED: DIALYSIS PATIENT. MC ×2 (08:45)
[2018-05-26] MEDS ORDERED: ALBUMIN HUMAN 25% 100 ML IV ×2 (10:45→11:00)
[2018-05-26] MEDS: ALBUMIN HUMAN 25% 200 ML IV (11:38)
[2018-05-26] MEDS: CITALOPRAM 10 MG TABLET. PO (13:57)
[2018-05-26] MEDS: MULTIVITAMIN with MINERAL TABLET. PO (13:57)
[2018-05-26] MEDS: ATORVASTATIN CALCIUM 20 MG TABLET PO (13:57)
[2018-05-26] MEDS: CALCITRIOL 0.25 MCG CAPSULE. PO (13:58)
[2018-05-26] MEDS: CHOLECALCIFEROL (VITAMIN D3) 5,000 UNIT CAPSULE PO (13:58)
[2018-05-26 14:04] LABS: POC GLUCOSE 157 mg/dL (70-99)
[2018-05-26 16:43] LABS: POC GLUCOSE 75 mg/dL (70-99)
[2018-05-26] MEDS ORDERED: DARBEPOETIN ALFA 60 MCG/0.3 ML DISP.SYRIN. SQ (21:00)
[2018-05-26 21:56] LABS: POC GLUCOSE 158 mg/dL (70-99)
[2018-05-28] MEDS ORDERED: IRON SUCROSE COMPLEX 200 MG in IV NORMAL SALINE 100ML 100 ML IV (09:00)
== END 2018-05-26 20:30 | disposition left against medical advice (07) | DRG 70 ==
LOC: ER 05:51 → 6 SOUTH 11:09
PROC: 5A1D70Z Performance of Urinary Filtration, Intermittent, Less than 6 Hours Per Day (ICD-10-PCS; principal; 2018-05-25)
DX: G93.41 Metabolic encephalopathy (principal); N18.6 End stage renal disease; I13.2 Hypertensive heart and chronic kidney disease with heart failure and with stage 5 chronic kidney disease, or end stage renal disease; E11.22 Type 2 diabetes mellitus with diabetic chronic kidney disease; E11.40 Type 2 diabetes mellitus with diabetic neuropathy, unspecified; E78.00 Pure hypercholesterolemia, unspecified; E78.5 Hyperlipidemia, unspecified; E87.5 Hyperkalemia; I50.9 Heart failure, unspecified; Z82.49 Family history of ischemic heart disease and other diseases of the circulatory system; Z86.73 Personal history of transient ischemic attack (TIA), and cerebral infarction without residual deficits; Z99.2 Dependence on renal dialysis; E21.3 Hyperparathyroidism, unspecified; F12.90 Cannabis use, unspecified, uncomplicated; F32.9 Major depressive disorder, single episode, unspecified; K52.9 Noninfective gastroenteritis and colitis, unspecified; I25.2 Old myocardial infarction; G35 Multiple sclerosis; Z53.21 Procedure and treatment not carried out due to patient leaving prior to being seen by health care provider
CPT/HCPCS: 36415; 70450; 70551; 71045; 80048; 82306; 82607; 82962; 84443; 84484; 85025; 93005; 96361; 96374; 96375; 97112-GP; 97116-GP; 97162-GP; 99285; 99285-25; J1815; J2405; J3490; J7042; J7050; P9046

== ENCOUNTER 2020-10-23 15:11 | Inpatient (IN) | payer OTHER, MEDICAID ==
[~2020-10-23] VITALS: Ht 175.3 cm; Wt 57.0 kg
[~2020-10-23 15:11] MED LIST changes: +ACET325T9 PO; +AMLO-187 PO; +ATOR20TA58 PO; +CALC0.5C8 PO; +CALC667T4 PO; +CARV12.5 PO; +CARV12.511 PO; +CARV25TA2 PO; +CEPH250C PO; +CITA10TA4 PO; +CITA10TA8 PO; +Diclofenac Sodium TP; +GABA100C6 PO; -GLYCOPYRROLATE 1 MG/5 ML VIAL.; +HYDR-2761 PO; +HYDR-2869 PO; -HYDROmorphone 2 MG/ML VIAL IV; +LACT1CAP19 PO; +LIDO700A21 TD; -LIDOCAINE 1% PF 2 ML VIAL. ID; -LIDOCAINE 2% PF Vial for OR 5 ML VIAL.; +LISI-130 PO; +METO10TA81 PO; -METOPROLOL TARTRATE 5 MG/5 ML VIAL.; +MIRT15TA3 PO; +MIRT45TA58 PO; -MORPHINE SULFATE 2 MG/ML DISP.SYRIN. IV; +MULT-445 PO; +NPH,100V SQ; +OMEP20CA16 PO; -ONDANSETRON PF 4 MG/2 ML VIAL. IV; -PROCHLORPERAZINE 10 MG/2 ML VIAL. IV; -PROPOFOL 40 ML IV; +SEVE800T9 PO; +TIZA2TAB4 PO; +TRAM50TA PO; -fentaNYL PF VIAL 100 MCG/2 ML VIAL IV
[2020-10-23 16:11] LABS: BASO % 0 % (0-3); EOS # 0.1 x10^3/uL (0.0-0.7); EOS % 1 % (0-3); HEMATOCRIT 39.4 % (39.0-53.0); HEMOGLOBIN 12.3 g/dL (13.0-17.5); LYMPH # 1.7 x10^3/uL (1.0-4.8); LYMPH % 29 % (24-48); MEAN CORPUSCULAR HEMOGLOBIN 25 pg (25-35); MEAN CORPUSCULAR HGB CONC 31 g/dL (31-37); MEAN CORPUSCULAR VOLUME 78 fL (79-100); MONO # 0.6 x10^3/uL (0.0-1.1); MONO % 10 % (0-9); NEUT # 3.5 x10^3/uL (1.8-7.7); NEUT % 60 % (31-73); PLATELET COUNT 136 x10^3/uL (140-400); RED BLOOD COUNT 5.03 x10^6/uL (4.30-5.70); WHITE BLOOD COUNT 5.9 x10^3/uL (4.0-11.0)
[2020-10-23 16:26] LABS: ALBUMIN 3.2 g/dL (3.4-5.0); ALBUMIN/GLOBULIN RATIO 0.7 (1.0-1.7); CALCIUM 9.2 mg/dL (8.5-10.1); CREATININE 7.9 mg/dL (0.7-1.3); GFR 8.3; MAGNESIUM 2.9 mg/dL (1.8-2.4); TOTAL BILIRUBIN 0.5 mg/dL (0.2-1.0); TOTAL PROTEIN 7.5 g/dL (6.4-8.2)
[2020-10-23 16:53] LABS: POTASSIUM 6.2 mmol/L (3.5-5.1)
[2020-10-23] MEDS ORDERED: SODIUM BICARB ADULT 8.4% 50 MEQ/50 ML DISP.SYRIN. IV ONE (17:00)
[2020-10-23] MEDS ORDERED: DEXTROSE 50% 25 GM / 50ML DISP.SYRIN. IV ONE (17:00)
[2020-10-23] MEDS ORDERED: INSULIN REGULAR 100 UNIT/ML 3ML VIAL. IV ONE (17:00)
--- NOTE | 2020-10-23 18:01 | PHYS DOC ---
Past Medical History Past Medical History: CVA, Depression, Diabetes-Type II, High Cholesterol, Hypertension, Renal Failure Additional Past Medical Histor: UNKNOWN MEDICAL HISTORY Past Surgical History: Other Additional Past Surgical Histo: DIALYSIS SHUNT PLACED IN RUE Smoking Status: Current Every Day Smoker Additional Information: 1/2 PACK/DAY Alcohol Use: None Drug Use: Marijuana General Adult EDM: Chief Complaint: ABNORMAL LABS HPI: HPI: Patient is a 65-year-old male with end-stage renal failure on hemodialysis every Monday and Monday, he presented to ER today because he was told that his potassium level was high and he would need to go to the ER for treatment instead of going to the dialysis today. His last hemodialysis was on Monday. Patient denies any headache, no chest pain, no abdominal pain, no nausea vomiting, no cough, no fever, no trouble breathing. Patient said he feels just fine. Review of Systems: Review of Systems: Constitutional: Denies fever or chills. [] Eyes: Denies change in visual acuity. [] HENT: Denies nasal congestion or sore throat. [] Respiratory: Denies cough or shortness of breath. [] Cardiovascular: Denies chest pain or edema. [] GI: Denies abdominal pain, nausea, vomiting, bloody stools or diarrhea. [] : Denies dysuria. [] Musculoskeletal: Denies back pain or joint pain. [] Integument: Denies rash. [] Neurologic: Denies headache, focal weakness or sensory changes. [] Endocrine: Denies polyuria or polydipsia. [] Lymphatic: Denies swollen glands. [] Psychiatric: Denies depression or anxiety. [] Heart Score: Risk Factors: Risk Factors: DM, Current or recent (<one month) smoker, HTN, HLP, family history of CAD, obesity. Risk Scores: Score 0 - 3: 2.5% MACE over next 6 weeks - Discharge Home Score 4 - 6: 20.3% MACE over next 6 weeks - Admit for Clinical Observation Score 7 - 10: 72.7% MACE over next 6 weeks - Early Invasive Strategies Current Medications: Current Medications Medications (Trade) Dose Ordered Sig/Thuan Start Time Stop Time Status Last Admin Dose Admin Dextrose (Dextrose 50%-Water Syringe) 25 gm 1X ONCE 10/23/20 17:00 12/4/20 17:01 DC 10/23/20 17:29 25 GM Insulin Human Regular (HumuLIN R VIAL) 10 unit 1X ONCE 10/23/20 17:00 10/23/20 17:01 DC 10/23/20 17:30 10 UNIT Sodium Bicarbonate (Sodium Bicarb Adult 8.4% Syr) 50 meq 1X ONCE 10/23/20 17:00 10/23/20 17:01 DC 10/23/20 17:28 50 MEQ Allergies: Allergies: Allergies Coded Allergies Type Severity Reaction Last Updated Verified No Known Drug Allergies 10/23/17 No Physical Exam: PE: Constitutional: Well developed, well nourished, no acute distress, non-toxic appearance. [] HENT: Normocephalic, atraumatic, bilateral external ears normal, oropharynx moist, no oral exudates, nose normal. [] Eyes: PERRLA, EOMI, conjunctiva normal, no discharge. [] Neck: Normal range of motion, no tenderness, supple, no stridor. [] Cardiovascular:Heart rate regular rhythm, no murmur [] Lungs & Thorax: Bilateral breath sounds clear to auscultation [] Abdomen: Bowel sounds normal, soft, no tenderness, no masses, no pulsatile masses. [] Skin: Warm, dry, no erythema, no rash. [] Back: No tenderness, no CVA tenderness. [] Extremities: No tenderness, no cyanosis, no clubbing, ROM intact, no edema. [] Neurologic: Alert and oriented X 3, normal motor function, normal sensory function, no focal deficits noted. [] Psychologic: Affect normal, judgement normal, mood normal. [] Current Patient Data: Labs: Laboratory Tests Test 10/23/20 15:55 White Blood Count 5.9 x10^3/uL (4.0-11.0) Red Blood Count 5.03 x10^6/uL (4.30-5.70) Hemoglobin 12.3 g/dL (13.0-17.5) L Hematocrit 39.4 % (39.0-53.0) Mean Corpuscular Volume 78 fL (79-100) L Mean Corpuscular Hemoglobin 25 pg (25-35) Mean Corpuscular Hemoglobin Concent 31 g/dL (31-37) Red Cell Distribution Width 15.0 % (11.5-14.5) H Platelet Count 136 x10^3/uL (140-400) L Neutrophils (%) (Auto) 60 % (31-73) Lymphocytes (%) (Auto) 29 % (24-48) Monocytes (%) (Auto) 10 % (0-9) H Eosinophils (%) (Auto) 1 % (0-3) Basophils (%) (Auto) 0 % (0-3) Neutrophils # (Auto) 3.5 x10^3/uL (1.8-7.7) Lymphocytes # (Auto) 1.7 x10^3/uL (1.0-4.8) Monocytes # (Auto) 0.6 x10^3/uL (0.0-1.1) Eosinophils # (Auto) 0.1 x10^3/uL (0.0-0.7) Basophils # (Auto) 0.0 x10^3/uL (0.0-0.2) Sodium Level 133 mmol/L (136-145) L Potassium Level 6.2 mmol/L (3.5-5.1) *H Chloride Level 94 mmol/L (98-107) L Carbon Dioxide Level 30 mmol/L (21-32) Anion Gap 9 (6-14) Blood Urea Nitrogen 51 mg/dL (8-26) H Creatinine 7.9 mg/dL (0.7-1.3) H Estimated GFR (Cockcroft-Gault) 8.3 BUN/Creatinine Ratio 6 (6-20) Glucose Level 135 mg/dL (70-99) H Calcium Level 9.2 mg/dL (8.5-10.1) Magnesium Level 2.9 mg/dL (1.8-2.4) H Total Bilirubin 0.5 mg/dL (0.2-1.0) Aspartate Amino Transferase (AST) 30 U/L (15-37) Alanine Aminotransferase (ALT) 22 U/L (16-63) Alkaline Phosphatase 81 U/L (46-116) Total Protein 7.5 g/dL (6.4-8.2) Albumin 3.2 g/dL (3.4-5.0) L Albumin/Globulin Ratio 0.7 (1.0-1.7) L Laboratory Tests 10/23/20 15:55 Laboratory Tests 10/23/20 15:55 Vital Signs: Vital Signs Date Time Temp Pulse Resp B/P (MAP) Pulse Ox O2 Delivery O2 Flow Rate FiO2 10/23/20 15:33 98.5 70 18 206/112 (143) 100 Room Air 98.5 EKG: EKG: [] Radiology/Procedures: Radiology/Procedures: [] Course & Med Decision Making: Course & Med Decision Making Pertinent Labs and Imaging studies reviewed. (See chart for details) Patient is a 65-year-old male with end-stage renal failure on hemodialysis every Monday and Monday, he presented to ER today because he was told that his potassium level was high and he would need to go to the ER for treatment i nstead of going to the dialysis today. His last hemodialysis was on Monday. Patient denies any headache, no chest pain, no abdominal pain, no nausea vomiting, no cough, no fever, no trouble breathing. Patient said he feels just fine. Patient blood pressure in the ER was elevated, her potassium level was elevated to 6.2. Patient was given medication to keep the potassium level, patient will need to be admitted to the hospital for hemodialysis. Discussed with his family physician Dr. Lott who agrees to admit the patient Dragon Disclaimer: Larisa Disclaimer: This electronic medical record was generated, in whole or in part, using a voice recognition dictation system. Departure Departure Impression: Primary Impression: Hyperkalemia Additional Impressions: ESRD (end stage renal disease) on dialysis Hypertension Disposition: ADMITTED INPT THIS HOSP Admitting Physician: Nesha Lott Condition: STABLE Referrals: BI LOBATO MD (PCP) ERIN STEINER DO Oct 23, 2020 18:01
[2020-10-23] MEDS ORDERED: MORPHINE SULFATE 4 MG/ML VIAL. IV PRN (18:15)
[2020-10-23] MEDS ORDERED: ONDANSETRON PF 4 MG/2 ML VIAL. IV PRN (18:15)
[2020-10-23] MEDS ORDERED: ACETAMINOPHEN 325 MG TABLET. PO PRN (19:30)
[2020-10-23] MEDS: GABAPENTIN 100 MG CAPSULE. PO SCH (20:39)
[2020-10-23] MEDS: LACTOBACILLUS RHAMNOSUS GG 1 CAPSULE. PO SCH (20:39)
[2020-10-23] MEDS ORDERED: PATCH REMOVAL. MC SCH (21:00)
[2020-10-23] MEDS ORDERED: ATORVASTATIN CALCIUM 20 MG TABLET PO SCH (21:00)
[2020-10-23] MEDS: HYDROcodone/APAP 5/325MG 1 TAB TABLET PO PRN (21:35)
[2020-10-24 02:00] VITALS: BP 174/105
[2020-10-24 03:00] VITALS: BP 170/97
[2020-10-24 07:00] VITALS: BP 182/99
[2020-10-24 08:17] LABS: BASO # 0.1 x10^3/uL (0.0-0.2); BASO % 1 % (0-3); EOS # 0.1 x10^3/uL (0.0-0.7); EOS % 1 % (0-3); LYMPH # 2.1 x10^3/uL (1.0-4.8); LYMPH % 35 % (24-48); MEAN CORPUSCULAR HEMOGLOBIN 25 pg (25-35); MEAN CORPUSCULAR HGB CONC 32 g/dL (31-37); MEAN CORPUSCULAR VOLUME 78 fL (79-100); MONO # 0.8 x10^3/uL (0.0-1.1); MONO % 13 % (0-9); NEUT % 50 % (31-73); PLATELET COUNT 129 x10^3/uL (140-400); RED CELL DISTRIBUTION WIDTH 15.3 % (11.5-14.5)
[2020-10-24 08:46] LABS: CREATININE 8.4 mg/dL (0.7-1.3); GFR 7.8
[2020-10-24 08:57] LABS: POTASSIUM 6.5 mmol/L (3.5-5.1)
[2020-10-24] MEDS ORDERED: LIDOCAINE (700MG/PATCH) PATCH. TD SCH (09:00)
[2020-10-24] MEDS ORDERED: CITALOPRAM 10 MG TABLET. PO SCH (09:00)
[2020-10-24] MEDS: SEVELAMER CARBONATE 800 MG TABLET. PO SCH ×2 (09:29→17:01)
[2020-10-24] MEDS: GABAPENTIN 100 MG CAPSULE. PO SCH (09:29)
[2020-10-24] MEDS: LACTOBACILLUS RHAMNOSUS GG 1 CAPSULE. PO SCH (09:29)
--- NOTE | 2020-10-24 12:03 | PDOC2 ---
CONSULT Date of Consult Date of Consult DATE: 10/24/20 TIME: 11:57 Reason for Consult Reason for Consult: ESRD, needs dialysis, hyperkalemia Referring Physician Referring Physician: Gil Identification/Chief Complaint Chief Complaint Hyperkalemia Source Source: Chart review, Patient History of Present Illness Reason for Visit: Patient is a 65-year-old -[place] gentleman who dialyzes at [facility] under the care of Dr. France. He dialyzes on a Monday basis. He was called by the dialysis unit to go to the hospital since his potassium was extremely elevated. He does not remember what number he was given and so he did not get dialysis at his outpatient date place and time and instead present to the hospital here for further evaluation. In the ER at 1555 his potassium was 6.2. Neither my partner or I were called for a renal consult until this morning when he had a critical potassium of 6.5 and I was called by the floor nurse to arrange for his dialysis. Patient claims he is asymptomatic. Denies any complaints. Denies nausea or vomiting at this time. He claims he follows his diet as he has been told by his dietitian. He has been on dialysis for almost 10 years. He does not know what the precise etiology of his ESRD is. Past Medical History Cardiovascular: CAD, CHF, HTN, Hyperlipidemia, Other Pulmonary: COPD GI: No pertinent hx Heme/Onc: Anemia NOS Hepatobiliary: No pertinent hx Psych: Anxiety, Depression Musculoskeletal: Osteoarthritis, Other Rheumatologic: No pertinent hx Infectious disease: No pertinent hx Renal/: Chronic renal failure Endocrine: Diabetes, Hyperparathyroidism Past Surgical History Past Surgical History: Other Family History Family History: Cancer, Diabetes Social History Lives: Alone Current Problem List Problem List Problems Medical Problems: (1) ESRD (end stage renal disease) on dialysis Status: Acute (2) Hypertension Status: Acute Current Medications Current Medications Current Medications Sodium Bicarbonate (Sodium Bicarb Adult 8.4% Syr) 50 meq 1X ONCE IV Last administered on 10/23/20at 17:28; Start 10/23/20 at 17:00; Stop 10/23/20 at 17:01; Status DC Dextrose (Dextrose 50%-Water Syringe) 25 gm 1X ONCE IV Last administered on 10/23/20at 17:29; Start 10/23/20 at 17:00; Stop 10/23/20 at 17:01; Status DC Insulin Human Regular (HumuLIN R VIAL) 10 unit 1X ONCE IV Last administered on 10/23/20 17:30; Start 10/23/20 at 17:00; Stop 10/23/20 at 17:01; Status DC Ondansetron HCl (Zofran) 4 mg PRN Q8HRS PRN IV NAUSEA/VOMITING; Start 10/23/20 at 18:15; Stop 10/24/20 at 18:14 Morphine Sulfate (Morphine Sulfate) 4 mg PRN Q2HR PRN IV PAIN; Start 10/23/20 at 18:15; Stop 10/24/20 at 18:14 Acetaminophen (Tylenol) 650 mg PRN Q6HRS PRN PO MILD PAIN / TEMP > 100.3'F; Start 10/23/20 at 19:30 Atorvastatin Calcium (Lipitor) 20 mg QHS PO Last administered on 10/23/20at 20:39; Start 10/23/20 at 21:00 Citalopram Hydrobromide (CeleXA) 10 mg DAILY PO Last administered on 10/24/20 09:00; Start 10/24/20 at 09:00 Gabapentin (Neurontin) 100 mg BID PO Last administered on 10/24/20 09:29; Start 10/23/20 at 21:00 Hydralazine HCl (Apresoline) 50 mg TID PO Last administered on 10/24/20 09:29; Start 10/23/20 at 21:00 Acetaminophen/ Hydrocodone Bitart (Lortab 5/325) 1 tab PRN Q6HRS PRN PO MODERATE TO SEVERE PAIN Last administered on 10/23/20at 21:35; Start 10/23/20 at 19:30 Lactobacillus Rhamnosus (Culturelle) 1 cap BID PO Last administered on 10/24/20 09:29; Start 10/23/20 at 21:00 Lidocaine (Lidoderm) 1 patch DAILY TD ; Start 10/24/20 at 09:00 Sevelamer Carbonate (Renvela) 800 mg BIDWMEALS PO Last administered on 10/24/20 09:29; Start 10/24/20 at 08:00 Miscellaneous (Lidoderm Patch Removal) 1 ea QHS MC Last administered on 10/23/20at 21:00; Start 10/23/20 at 21:00 Active Scripts Active Cephalexin 250 Mg Capsule 250 Mg PO BID 7 Days Culturelle (Lactobacillus Rhamnosus Gg) 1 Each Cap.sprink 1 Cap PO BID Lidocaine PATCH (Lidocaine) 1 Each Adh..patch 1 Patch TD DAILY 30 Days [Diclofenac Sodium] 100 GM Gel..gram. 1 Navarro TP BID Hydralazine Hcl 50 Mg Tablet 1 Tab PO TID Tylenol (Acetaminophen) 325 Mg Tablet 650 Mg PO PRN Q6HRS PRN 30 Days Hydrocodone-Apap 5-325 (Hydrocodone Bit/Acetaminophen) 1 Tab Tablet 1 Tab PO PRN Q6HRS PRN 15 Days Reported Carvedilol 25 Mg Tablet 25 Mg PO BIDWMEALS Mirtazapine 45 Mg Tablet 30 Mg PO PRN QHS PRN Tizanidine Hcl 2 Mg Tablet 1 Tab PO PRN QHS PRN Omeprazole 20 Mg Capsule.dr 20 Mg PO DAILY Gabapentin 100 Mg Capsule 100 Mg PO BID Citalopram Hbr (Citalopram Hydrobromide) 10 Mg Tablet 10 PO DAILY Renvela (Sevelamer Carbonate) 800 Mg Tablet 1 Tab PO BIDWMEALS 30 Days Atorvastatin Calcium 20 Mg Tablet 1 Tab PO DAILY Allergies Allergies: Coded Allergies: No Known Drug Allergies (Unverified , 10/23/17) ROS Review of System Negative other than mentioned in HPI Physical Exam Physical Exam General Appearance: Awake Alert Oriented x 3 In no Distress Eyes: VIsion Unchanged Conjunctiva Normal EN: No EN Drainage Mucous Memb. moist Neck: no JVD + JVP Supple no Thyromegaly CVS: S1 S2 Soft Murmur No Gallop No Rub no Edema Resp: no Rales no Rhonchi no Acc. Muscle use GI: BAS +ve NO Bruit Non Tender Non Distended : no CVA tenderness; no Suprapubic Tenderness SKIN: no Rashes Breast Exam deferred Mu.Sk: Adequate ROM min Muscle Atrophy Heme: Unable to palpate Obvious LAD no palp Splenomegaly NEURO: Good Strength and Tone Cranial Nerves II - XII grossly intact Psych: ? Depressed no Active hallucination Vital Signs Vital Signs Date Time Temp Pulse Resp B/P (MAP) Pulse Ox O2 Delivery O2 Flow Rate FiO2 10/24/20 09:29 78 182/99 10/24/20 08:00 Room Air 10/24/20 07:00 98.3 18 93 98.3 Assessment & Plan ESRD: Dialysis as below F 180 NR 3.5 Hrs 2 K 2.5 Ca 140 Na 30 HC03 Qb 350 + Qd 500+ Heparin 0 Units Uf to dry weight as tolerated May give 25-50 gms of 25% Albumin if needed to maintain Hemodynamic stability Treatment plan reviewed and discussed with clearance diver Microcytic anemia in the setting of renal failure: No need for Epogen at this time for hemoglobin greater than 10. Transfuse with next HD as needed. Malignant HTN: Current BP meds reviewed and have not been administered in light of her upcoming dialysis. Will get to dry weight and reevaluate need for alteration in blood pressure medication regimen. Hyperkalemia: Unclear etiology from patient's report. Dietitian will be consulted to educate patient regarding his diet Bone & Mineral: Follow phosphorus levels and alter binder regimen as needed Discussed Plan of Care and prognosis etc. at length with patient. Patient will be reevaluated on dialysis Labs Labs Laboratory Tests Test 10/23/20 15:55 10/24/20 07:21 White Blood Count 5.9 x10^3/uL (4.0-11.0) 6.0 x10^3/uL (4.0-11.0) Red Blood Count 5.03 x10^6/uL (4.30-5.70) 4.50 x10^6/uL (4.30-5.70) Hemoglobin 12.3 g/dL (13.0-17.5) 11.0 g/dL (13.0-17.5) Hematocrit 39.4 % (39.0-53.0) 35.0 % (39.0-53.0) Mean Corpuscular Volume 78 fL (79-100) 78 fL (79-100) Mean Corpuscular Hemoglobin 25 pg (25-35) 25 pg (25-35) Mean Corpuscular Hemoglobin Concent 31 g/dL (31-37) 32 g/dL (31-37) Red Cell Distribution Width 15.0 % (11.5-14.5) 15.3 % (11.5-14.5) Platelet Count 136 x10^3/uL (140-400) 129 x10^3/uL (140-400) Neutrophils (%) (Auto) 60 % (31-73) 50 % (31-73) Lymphocytes (%) (Auto) 29 % (24-48) 35 % (24-48) Monocytes (%) (Auto) 10 % (0-9) 13 % (0-9) Eosinophils (%) (Auto) 1 % (0-3) 1 % (0-3) Basophils (%) (Auto) 0 % (0-3) 1 % (0-3) Neutrophils # (Auto) 3.5 x10^3/uL (1.8-7.7) 3.0 x10^3/uL (1.8-7.7) Lymphocytes # (Auto) 1.7 x10^3/uL (1.0-4.8) 2.1 x10^3/uL (1.0-4.8) Monocytes # (Auto) 0.6 x10^3/uL (0.0-1.1) 0.8 x10^3/uL (0.0-1.1) Eosinophils # (Auto) 0.1 x10^3/uL (0.0-0.7) 0.1 x10^3/uL (0.0-0.7) Basophils # (Auto) 0.0 x10^3/uL (0.0-0.2) 0.1 x10^3/uL (0.0-0.2) Sodium Level 133 mmol/L (136-145) 134 mmol/L (136-145) Potassium Level 6.2 mmol/L (3.5-5.1) 6.5 mmol/L (3.5-5.1) Chloride Level 94 mmol/L (98-107) 93 mmol/L (98-107) Carbon Dioxide Level 30 mmol/L (21-32) 31 mmol/L (21-32) Anion Gap 9 (6-14) 10 (6-14) Blood Urea Nitrogen 51 mg/dL (8-26) 58 mg/dL (8-26) Creatinine 7.9 mg/dL (0.7-1.3) 8.4 mg/dL (0.7-1.3) Estimated GFR (Cockcroft-Gault) 8.3 7.8 BUN/Creatinine Ratio 6 (6-20) Glucose Level 135 mg/dL (70-99) 65 mg/dL (70-99) Calcium Level 9.2 mg/dL (8.5-10.1) 9.0 mg/dL (8.5-10.1) Magnesium Level 2.9 mg/dL (1.8-2.4) Total Bilirubin 0.5 mg/dL (0.2-1.0) Aspartate Amino Transf (AST/SGOT) 30 U/L (15-37) Alanine Aminotransferase (ALT/SGPT) 22 U/L (16-63) Alkaline Phosphatase 81 U/L (46-116) Total Protein 7.5 g/dL (6.4-8.2) Albumin 3.2 g/dL (3.4-5.0) Albumin/Globulin Ratio 0.7 (1.0-1.7) Laboratory Tests Test 10/23/20 15:55 10/24/20 07:21 White Blood Count 5.9 x10^3/uL (4.0-11.0) 6.0 x10^3/uL (4.0-11.0) Red Blood Count 5.03 x10^6/uL (4.30-5.70) 4.50 x10^6/uL (4.30-5.70) Hemoglobin 12.3 g/dL (13.0-17.5) 11.0 g/dL (13.0-17.5) Hematocrit 39.4 % (39.0-53.0) 35.0 % (39.0-53.0) Mean Corpuscular Volume 78 fL (79-100) 78 fL (79-100) Mean Corpuscular Hemoglobin 25 pg (25-35) 25 pg (25-35) Mean Corpuscular Hemoglobin Concent 31 g/dL (31-37) 32 g/dL (31-37) Red Cell Distribution Width 15.0 % (11.5-14.5) 15.3 % (11.5-14.5) Platelet Count 136 x10^3/uL (140-400) 129 x10^3/uL (140-400) Neutrophils (%) (Auto) 60 % (31-73) 50 % (31-73) Lymphocytes (%) (Auto) 29 % (24-48) 35 % (24-48) Monocytes (%) (Auto) 10 % (0-9) 13 % (0-9) Eosinophils (%) (Auto) 1 % (0-3) 1 % (0-3) Basophils (%) (Auto) 0 % (0-3) 1 % (0-3) Neutrophils # (Auto) 3.5 x10^3/uL (1.8-7.7) 3.0 x10^3/uL (1.8-7.7) Lymphocytes # (Auto) 1.7 x10^3/uL (1.0-4.8) 2.1 x10^3/uL (1.0-4.8) Monocytes # (Auto) 0.6 x10^3/uL (0.0-1.1) 0.8 x10^3/uL (0.0-1.1) Eosinophils # (Auto) 0.1 x10^3/uL (0.0-0.7) 0.1 x10^3/uL (0.0-0.7) Basophils # (Auto) 0.0 x10^3/uL (0.0-0.2) 0.1 x10^3/uL (0.0-0.2) Sodium Level 133 mmol/L (136-145) 134 mmol/L (136-145) Potassium Level 6.2 mmol/L (3.5-5.1) 6.5 mmol/L (3.5-5.1) Chloride Level 94 mmol/L (98-107) 93 mmol/L (98-107) Carbon Dioxide Level 30 mmol/L (21-32) 31 mmol/L (21-32) Anion Gap 9 (6-14) 10 (6-14) Blood Urea Nitrogen 51 mg/dL (8-26) 58 mg/dL (8-26) Creatinine 7.9 mg/dL (0.7-1.3) 8.4 mg/dL (0.7-1.3) Estimated GFR (Cockcroft-Gault) 8.3 7.8 BUN/Creatinine Ratio 6 (6-20) Glucose Level 135 mg/dL (70-99) 65 mg/dL (70-99) Calcium Level 9.2 mg/dL (8.5-10.1) 9.0 mg/dL (8.5-10.1) Magnesium Level 2.9 mg/dL (1.8-2.4) Total Bilirubin 0.5 mg/dL (0.2-1.0) Aspartate Amino Transf (AST/SGOT) 30 U/L (15-37) Alanine Aminotransferase (ALT/SGPT) 22 U/L (16-63) Alkaline Phosphatase 81 U/L (46-116) Total Protein 7.5 g/dL (6.4-8.2) Albumin 3.2 g/dL (3.4-5.0) Albumin/Globulin Ratio 0.7 (1.0-1.7) Review All relevant outside records, renal labs, imaging studies, telemetry/EKG's were reviewed. ROSANA STEWART MD Oct 24, 2020 12:03
--- NOTE | 2020-10-24 12:11 | PDOC ---
Dialysis Progress Note Date of Service: DATE: 10/24/20 TIME: 12:10 Dialysis Note Dialysis Note Seen on Hemodialysis, tolerating treatment Well Vitals on Hemodialysis: 173 / 93 74 afeb General Appearance: Awake: Alert Oriented x 3 Neck: No JVD or JVP Chest: CTA Willian Heart: S1 S2 Abdomen - Soft NTND Extremities - No Edema ESRD: Dialysis as previously ordered Okay to discharge after dialysis Vitals Vital Signs Vital Signs Date Time Temp Pulse Resp B/P (MAP) Pulse Ox O2 Delivery O2 Flow Rate FiO2 10/24/20 09:29 78 182/99 10/24/20 08:00 Room Air 10/24/20 07:00 98.3 18 93 98.3 Labs Last Labs Laboratory Tests Test 10/23/20 15:55 10/24/20 07:21 White Blood Count 5.9 x10^3/uL (4.0-11.0) 6.0 x10^3/uL (4.0-11.0) Red Blood Count 5.03 x10^6/uL (4.30-5.70) 4.50 x10^6/uL (4.30-5.70) Hemoglobin 12.3 g/dL (13.0-17.5) 11.0 g/dL (13.0-17.5) Hematocrit 39.4 % (39.0-53.0) 35.0 % (39.0-53.0) Mean Corpuscular Volume 78 fL (79-100) 78 fL (79-100) Mean Corpuscular Hemoglobin 25 pg (25-35) 25 pg (25-35) Mean Corpuscular Hemoglobin Concent 31 g/dL (31-37) 32 g/dL (31-37) Red Cell Distribution Width 15.0 % (11.5-14.5) 15.3 % (11.5-14.5) Platelet Count 136 x10^3/uL (140-400) 129 x10^3/uL (140-400) Neutrophils (%) (Auto) 60 % (31-73) 50 % (31-73) Lymphocytes (%) (Auto) 29 % (24-48) 35 % (24-48) Monocytes (%) (Auto) 10 % (0-9) 13 % (0-9) Eosinophils (%) (Auto) 1 % (0-3) 1 % (0-3) Basophils (%) (Auto) 0 % (0-3) 1 % (0-3) Neutrophils # (Auto) 3.5 x10^3/uL (1.8-7.7) 3.0 x10^3/uL (1.8-7.7) Lymphocytes # (Auto) 1.7 x10^3/uL (1.0-4.8) 2.1 x10^3/uL (1.0-4.8) Monocytes # (Auto) 0.6 x10^3/uL (0.0-1.1) 0.8 x10^3/uL (0.0-1.1) Eosinophils # (Auto) 0.1 x10^3/uL (0.0-0.7) 0.1 x10^3/uL (0.0-0.7) Basophils # (Auto) 0.0 x10^3/uL (0.0-0.2) 0.1 x10^3/uL (0.0-0.2) Sodium Level 133 mmol/L (136-145) 134 mmol/L (136-145) Potassium Level 6.2 mmol/L (3.5-5.1) 6.5 mmol/L (3.5-5.1) Chloride Level 94 mmol/L (98-107) 93 mmol/L (98-107) Carbon Dioxide Level 30 mmol/L (21-32) 31 mmol/L (21-32) Anion Gap 9 (6-14) 10 (6-14) Blood Urea Nitrogen 51 mg/dL (8-26) 58 mg/dL (8-26) Creatinine 7.9 mg/dL (0.7-1.3) 8.4 mg/dL (0.7-1.3) Estimated GFR (Cockcroft-Gault) 8.3 7.8 BUN/Creatinine Ratio 6 (6-20) Glucose Level 135 mg/dL (70-99) 65 mg/dL (70-99) Calcium Level 9.2 mg/dL (8.5-10.1) 9.0 mg/dL (8.5-10.1) Magnesium Level 2.9 mg/dL (1.8-2.4) Total Bilirubin 0.5 mg/dL (0.2-1.0) Aspartate Amino Transf (AST/SGOT) 30 U/L (15-37) Alanine Aminotransferase (ALT/SGPT) 22 U/L (16-63) Alkaline Phosphatase 81 U/L (46-116) Total Protein 7.5 g/dL (6.4-8.2) Albumin 3.2 g/dL (3.4-5.0) Albumin/Globulin Ratio 0.7 (1.0-1.7) Laboratory Tests Test 10/23/20 15:55 10/24/20 07:21 White Blood Count 5.9 x10^3/uL (4.0-11.0) 6.0 x10^3/uL (4.0-11.0) Red Blood Count 5.03 x10^6/uL (4.30-5.70) 4.50 x10^6/uL (4.30-5.70) Hemoglobin 12.3 g/dL (13.0-17.5) 11.0 g/dL (13.0-17.5) Hematocrit 39.4 % (39.0-53.0) 35.0 % (39.0-53.0) Mean Corpuscular Volume 78 fL (79-100) 78 fL (79-100) Mean Corpuscular Hemoglobin 25 pg (25-35) 25 pg (25-35) Mean Corpuscular Hemoglobin Concent 31 g/dL (31-37) 32 g/dL (31-37) Red Cell Distribution Width 15.0 % (11.5-14.5) 15.3 % (11.5-14.5) Platelet Count 136 x10^3/uL (140-400) 129 x10^3/uL (140-400) Neutrophils (%) (Auto) 60 % (31-73) 50 % (31-73) Lymphocytes (%) (Auto) 29 % (24-48) 35 % (24-48) Monocytes (%) (Auto) 10 % (0-9) 13 % (0-9) Eosinophils (%) (Auto) 1 % (0-3) 1 % (0-3) Basophils (%) (Auto) 0 % (0-3) 1 % (0-3) Neutrophils # (Auto) 3.5 x10^3/uL (1.8-7.7) 3.0 x10^3/uL (1.8-7.7) Lymphocytes # (Auto) 1.7 x10^3/uL (1.0-4.8) 2.1 x10^3/uL (1.0-4.8) Monocytes # (Auto) 0.6 x10^3/uL (0.0-1.1) 0.8 x10^3/uL (0.0-1.1) Eosinophils # (Auto) 0.1 x10^3/uL (0.0-0.7) 0.1 x10^3/uL (0.0-0.7) Basophils # (Auto) 0.0 x10^3/uL (0.0-0.2) 0.1 x10^3/uL (0.0-0.2) Sodium Level 133 mmol/L (136-145) 134 mmol/L (136-145) Potassium Level 6.2 mmol/L (3.5-5.1) 6.5 mmol/L (3.5-5.1) Chloride Level 94 mmol/L (98-107) 93 mmol/L (98-107) Carbon Dioxide Level 30 mmol/L (21-32) 31 mmol/L (21-32) Anion Gap 9 (6-14) 10 (6-14) Blood Urea Nitrogen 51 mg/dL (8-26) 58 mg/dL (8-26) Creatinine 7.9 mg/dL (0.7-1.3) 8.4 mg/dL (0.7-1.3) Estimated GFR (Cockcroft-Gault) 8.3 7.8 BUN/Creatinine Ratio 6 (6-20) Glucose Level 135 mg/dL (70-99) 65 mg/dL (70-99) Calcium Level 9.2 mg/dL (8.5-10.1) 9.0 mg/dL (8.5-10.1) Magnesium Level 2.9 mg/dL (1.8-2.4) Total Bilirubin 0.5 mg/dL (0.2-1.0) Aspartate Amino Transf (AST/SGOT) 30 U/L (15-37) Alanine Aminotransferase (ALT/SGPT) 22 U/L (16-63) Alkaline Phosphatase 81 U/L (46-116) Total Protein 7.5 g/dL (6.4-8.2) Albumin 3.2 g/dL (3.4-5.0) Albumin/Globulin Ratio 0.7 (1.0-1.7) Assessment Assessment Problems Medical Problems: (1) ESRD (end stage renal disease) on dialysis Status: Acute (2) Hypertension Status: Acute Plan Plan of Care Problems Medical Problems: (1) ESRD (end stage renal disease) on dialysis Status: Acute (2) Hypertension Status: Acute ROSANA STEWART MD Oct 24, 2020 12:11
[2020-10-24] MEDS: HYDROcodone/APAP 5/325MG 1 TAB TABLET PO PRN (12:12)
--- NOTE | 2020-10-24 12:27 | PDOC ---
Provider Note Date of Service: DATE: 10/24/20 TIME: 12:26 Provider Note Pt seen .H&P dictated.#[id number]. Justifications for Admission Other Justification DOMINIQUE ZIEGLER MD Oct 24, 2020 12:27
[2020-10-24] MEDS ORDERED: DIALYSIS PATIENT. MC PRN ×2 (12:45)
[2020-10-24] MEDS ORDERED: tiZANidine 4 MG TABLET. PO PRN (12:45)
[2020-10-24] MEDS ORDERED: PANTOPRAZOLE 40 MG TABLET.DR. PO SCH (13:00)
[2020-10-24] MEDS ORDERED: ALBUMIN HUMAN 25% 200 ML IV PRN (13:00)
[2020-10-24] MEDS ORDERED: IV NORMAL SALINE 1000ML BAG 1,000 ML IV PRN ×2 (13:00)
[2020-10-24] MEDS ORDERED: DICLOFENAC SODIUM 1% TOPICAL GEL 100GM TUBE. TP SCH (13:00)
--- NOTE | 2020-10-24 13:27 | HP ---
ADMIT DATE: 10/23/2020 ATTENDING PHYSICIAN: Dr. Joyce Klein. HISTORY OF PRESENT ILLNESS: The patient is a 65-year-old male who is on dialysis for last 10 years and usually goes to Dialysis Center in [facility] under Dr. France. He was dialyzed Monday and Monday. For some reason, he had some blood drawn and said his potassium was high and he was recommended to come to the hospital and he usually goes to dialysis on Monday, Monday and Monday and he came to the hospital and his potassium was 6.2 and Renal was consulted. He was given insulin and bicarb to bring the potassium down, but it went up to 6.5 this morning. The patient is being dialyzed today. Renal was consulted. PAST MEDICAL HISTORY: As mentioned, the patient was in the hospital 3 weeks ago for abdominal pain, gastroenteritis. PAST MEDICAL HISTORY: Diabetes, hypertension, stroke, COPD, renal failure, noncompliance. PAST SURGICAL HISTORY: Dialysis access. ALLERGIES: LISINOPRIL. FAMILY HISTORY: Cancer in the lung in the mother, diabetes in the family. SOCIAL HISTORY: Lives alone. Ex-smoker. ALLERGIES: No known drug allergies. MEDICATIONS: He used to be on Coreg 25 mg twice a day, mirtazapine 30 mg at bedtime, omeprazole 20 mg daily, tizanidine 2 mg at bedtime, diclofenac, atorvastatin 20 mg daily, citalopram 10 mg daily, gabapentin 100 mg twice a day, hydralazine 50 mg 3 times daily, hydrocodone for pain, lidocaine patch daily, Renvela 800 mg twice a day. REVIEW OF SYSTEMS: The patient denies any chest pain, shortness of breath and he is anxious to go back to his place and rest of the 14-system was reviewed and negative. PHYSICAL EXAMINATION: VITAL SIGNS: At the time of admission shows temperature 98, pulse 70, respirations 18, blood pressure 206/112. HEENT: Head is atraumatic. Pupils equal. Oral cavity, no teeth. NECK: Supple. Thyroid not enlarged. JVD not elevated. CHEST: Symmetrical. CARDIOVASCULAR: S1, S2. LUNGS: Clear. ABDOMEN: Soft, bowel sounds present, no mass palpable. EXTERNAL GENITALIA: No Watts. RECTAL: Deferred. EXTREMITIES: No calf tenderness, no edema. Pulses 1+. The patient has AV shunt in the right arm that has good thrill. NEUROLOGIC: No focal deficits noted. LABORATORY DATA: Shows a white count of 6, hemoglobin 12, platelets 136. Electrolytes show sodium 133, potassium 6.2, chloride 94, bicarb 30, BUN 51, creatinine 7.9. Potassium went up to 6.5 today. LFTs were normal. FINAL IMPRESSION: 1. Hyperkalemia. 2. End-stage renal disease, on hemodialysis. 3. Noncompliance. 4. Malignant hypertension. 5. Diabetes, off medication. 6. Chronic obstructive pulmonary disease. 7. Hyperlipidemia. PLAN: At this time, was admitted to the hospital. The patient was given sodium bicarb and insulin to bring the potassium down. In spite of that it did not improve, was taken to dialysis this morning. Renal is consulted. Blood pressure has been trending down. The patient has been noncompliant. He has ran out of her discharge medications. We will watch and see how he does for the next 24 hours and we did a chest x-ray and EKG. DOMINIQUE ZIEGLER MD DR: OSORIO/jose alberto JOB#: [id number] / [id number]
[2020-10-24] MEDS ORDERED: CARVEDILOL 12.5 MG TABLET. PO SCH (17:00)
[2020-10-24 17:01] VITALS: BP 205/107
--- NOTE | 2020-10-24 19:10 | NUR ---
Patient left AMA. Iv removed and patient wheeled down to taxi. 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
[2020-10-24] MEDS ORDERED: MIRTAZAPINE 15 MG TABLET PO PRN (20:00)
== END 2020-10-24 19:00 | disposition left against medical advice (07) | DRG 640 ==
LOC: ER 15:11 → 5 NORTH 18:00
PROVIDERS: ADMIT Internal Medicine; ATTEND Internal Medicine
PROC: 5A1D70Z Performance of Urinary Filtration, Intermittent, Less than 6 Hours Per Day (ICD-10-PCS; principal; 2020-10-23)
DX: E87.5 Hyperkalemia (principal); N18.6 End stage renal disease; E78.00 Pure hypercholesterolemia, unspecified; E78.5 Hyperlipidemia, unspecified; I25.10 Atherosclerotic heart disease of native coronary artery without angina pectoris; I50.9 Heart failure, unspecified; J44.9 Chronic obstructive pulmonary disease, unspecified; Z83.3 Family history of diabetes mellitus; Z86.73 Personal history of transient ischemic attack (TIA), and cerebral infarction without residual deficits; Z87.891 Personal history of nicotine dependence; Z91.19 Patient's noncompliance with other medical treatment and regimen; Z99.2 Dependence on renal dialysis; D64.9 Anemia, unspecified; E21.3 Hyperparathyroidism, unspecified; F32.9 Major depressive disorder, single episode, unspecified; F41.9 Anxiety disorder, unspecified; M19.90 Unspecified osteoarthritis, unspecified site; Z53.29 Procedure and treatment not carried out because of patient's decision for other reasons
CPT/HCPCS: 36415; 80048; 80053; 83735; 85025; J1815; J3490; G0378

== ENCOUNTER 2020-12-06 00:45 | Inpatient (IN) | payer MEDICARE, MEDICAID ==
[~2020-12-06] VITALS: Ht 172.7 cm; Wt 67.0 kg
[2020-12-06] VITALS (7 sets, daily range): BP systolic 110–144; BP diastolic 66–82
[~2020-12-06 00:45] MED LIST changes: +MIRT-7 PO; +MIRT-8 PO; -MIRT15TA3 PO; +TIZA-58 PO; -TIZA2TAB4 PO
[2020-12-06 01:10] LABS: BASO % 1 % (0-3); EOS # 0.1 x10^3/uL (0.0-0.7); EOS % 2 % (0-3); HEMOGLOBIN 9.6 g/dL (13.0-17.5); LYMPH # 1.6 x10^3/uL (1.0-4.8); LYMPH % 29 % (24-48); MEAN CORPUSCULAR HEMOGLOBIN 25 pg (25-35); MEAN CORPUSCULAR HGB CONC 32 g/dL (31-37); MEAN CORPUSCULAR VOLUME 78 fL (79-100); MONO # 0.6 x10^3/uL (0.0-1.1); MONO % 10 % (0-9); NEUT # 3.2 x10^3/uL (1.8-7.7); NEUT % 59 % (31-73); PLATELET COUNT 138 x10^3/uL (140-400); RED BLOOD COUNT 3.86 x10^6/uL (4.30-5.70); RED CELL DISTRIBUTION WIDTH 15.3 % (11.5-14.5); WHITE BLOOD COUNT 5.5 x10^3/uL (4.0-11.0)
--- NOTE | 2020-12-06 01:11 | PHYS DOC ---
Past Medical History Past Medical History: CVA, Depression, Diabetes-Type II, High Cholesterol, Hypertension, Renal Failure Past Surgical History: Other Additional Past Surgical Histo: DIALYSIS SHUNT PLACED IN RUE Smoking Status: Current Every Day Smoker Alcohol Use: None Drug Use: Marijuana General Adult EDM: Chief Complaint: MECHANICAL FALL HPI: HPI: Patient is a 65 year old male, with PMHx of diabetes, ESRD on dialysis, and hypertension, that presents to the ED via EMS after a fall at home. Patient is a poor historian. Patient states he was transferring himself from his wheelchair and he fell and could not get up. He reports hitting his head on the floor and now has a headache. He is unsure if is on blood thinners. He reports missing dialysis on Monday because the van never picked him up. He was last dialyzed on Monday. He states for the last couple of weeks he has been "so weak", that he is having trouble transferring himself from bed to wheelchair. He also complains of low back and bilateral lower leg pain, which is chronic but worsening. He also states he has been having trouble getting to the bathroom, because of his weakness for the last 3 months. Patient still produces a little urine. Pt denies SOB, CP, palpations, or blurry vision. Review of Systems: Review of Systems: Constitutional: Denies fever or chills Eyes: Denies redness or eye pain HENT: Denies nasal congestion or sore throat Respiratory: Denies cough or shortness of breath Cardiovascular: Denies chest pain or palpitations GI: Denies abdominal pain, nausea, or vomiting : Denies dysuria or hematuria Musculoskeletal: Positive for back pain and bilateral lower leg pain. Integument: Denies rash or skin lesions Neurologic: Positive for headache and general weakness. No sensory changes Complete systems were reviewed and found to be within normal limits, except as documented in this note. Current Medications: Current Medications Medications (Trade) Dose Ordered Sig/Thuan Start Time Stop Time Status Last Admin Dose Admin Hydralazine HCl (Apresoline Inj) 20 mg 1X ONCE 12/06/20 01:30 12/06/20 01:31 Allergies: Allergies: Allergies Coded Allergies Type Severity Reaction Last Updated Verified No Known Drug Allergies 10/23/17 No Physical Exam: PE: Constitutional: Well developed, well nourished, no acute distress, non-toxic appearance HENT: Normocephalic, atraumatic Eyes: PERRL, EOMI, conjunctiva normal, no discharge Neck: Normal range of motion, no midline tenderness, supple Lungs & Thorax: No respiratory distress, equal chest rise and fall. Crackles heard at anterior posts. Abdomen: Soft, no tenderness Skin: Warm, dry, no erythema, no rash Back: No midline tenderness, bilateral paraspinal tenderness noted, no CVA tenderness Extremities: Left glenohumeral tenderness, ROM limited to left shoulder primarily with abduction, no edema. Fistula located in right upper arm. Neurologic: Alert and oriented X 3, normal motor function, normal sensory function, no focal deficits noted. Generalized muscle weakness. Psychologic: Affect normal, judgment normal EKG: EKG: Time: 0108 Impression: Sinus rhythm with a pulse of 70. peaked T waves on V3-V6. QRS 142. QTc 489. Radiology/Procedures: Radiology/Procedures: PROCEDURE: PORTABLE CHEST 1V EXAM: XR CHEST 1V 12/06/2020 1:28 AM CLINICAL INDICATION: Weakness COMPARISON: Chest radiograph 12/16/2019 TECHNIQUE: AP upright view of the chest FINDINGS: The cardiomediastinal silhouette is normal. Lungs are adequately expanded. Nodular opacity at the right lung base has been seen on prior exams and may be a nipple shadow. No consolidation, pleural effusion, or pneumothorax. There is severe left glenohumeral osteoarthrosis IMPRESSION: . No acute cardiopulmonary abnormality. Electronically signed by: Michela Cordero MD (12/06/2020 3:28 AM) [id number] PROCEDURE: CT HEAD AND CERVICAL SPINE WO EXAM: CT head and cervical spine without contrast INDICATION: Weakness, pain, fall COMPARISON: CT head 11/27/2019 TECHNIQUE: Axial CT imaging through the head and cervical spine without intravenous contrast. Sagittal and coronal reformats were obtained. One or more of the following individualized dose reduction techniques were utilized for this examination: 1. Automated exposure control 2. Adjustment of the mA and/or kV according to patient size 3. Use of iterative reconstruction technique. FINDINGS: CT head: The ventricles and sulci are mildly enlarged, reflecting age-related volume loss. There is a mild burden of periventricular and deep hypoattenuating white matter lesions. Hampton-white matter differentiation is maintained. There is no intracranial hemorrhage, acute infarct, or mass lesion. Basal cisterns are clear. There are calcifications in the intracranial internal carotid arteries. The skull and scalp are intact. Paranasal sinuses and mastoid air cells are clear. Globes and orbits are intact.. CT cervical spine: No acute fracture. Alignment is normal. The craniocervical junction and atlantoaxial interval are maintained. There are erosions of the base of the dens. There is severe disc space narrowing at C5-C6 through T1-T2 and erosive endplate changes. Small anterior osteophytes at multiple levels. Milder disc space narrowing at C3-C4 and C4-C5. Moderate facet arthrosis on the right at C3- C4 resulting in moderate foraminal narrowing. There is moderate foraminal narrowing on the right at C4-C5 and bilaterally at C5-C6 and C6-C7. Severe left lateral foraminal narrowing at C7-T1. There is prevertebral fluid from C2 through C4-C5 on the right and some calcification anterior to the inferior endplate of C2 on the right. There are calcifications in the cervical carotid arteries. IMPRESSION: 1. No acute intracranial abnormality. 2. No definite acute osseous abnormality. 3. Prevertebral fluid on the right and some prevertebral calcifications at C2- C3. This may be related to calcific tendinitis of the longus colli muscle, however in the setting of trauma/fall ligamentous injury is not excluded. Consider MRI to further evaluate for ligamentous injury. 4. Moderate to severe degenerative disc disease. Electronically signed by: Michela Cordero MD (12/06/2020 2:05 AM) [id number] PROCEDURE: SHOULDER 2+V LEFT EXAM: XR SHOULDER_LEFT 2+ VIEWS 12/06/2020 3:25 AM CLINICAL INDICATION: Pain status post fall COMPARISON: None TECHNIQUE: 3 views of the left shoulder FINDINGS: No acute fracture. Alignment is normal. There is severe glenohumeral joint space narrowing with [id number] articulation and multiple subchondral cyst in the humeral head and glenoid. Mild acromial clavicular degenerative joint disease. The subacromial space is maintained. There are few radiopaque foreign bodies in the left chest wall. Vascular calcifications are seen in the left upper extremity. IMPRESSION: 1. No acute osseous abnormality of the shoulder. 2. Severe glenohumeral osteoarthrosis. Electronically signed by: Michela Cordero MD (12/06/2020 5:19 AM) [id number] Course & Med Decision Making: Course & Med Decision Making Pertinent Labs and Imaging studies reviewed. (See chart for details) Patient presents after a fall from his wheel chair at home. Patient reports missing dialysis on Monday as well as generalized weakness for the last few w eeks. CT head/cervical spine obtained due to complaint of head injury with headache. CT head without acute process. CT cervical spine with findings of caclifications and some fluid present. Radology cannot exclude ligamentous injury. Patient with full ROM of neck without bony tenderness. EKG with peaked T waves. Labs obtained and posted to chart. Hyperkalemia noted. Hyperkalemia addressed with calcium gluconate, insulin/dextrose, and continuos Albuterol nebulizer. Patient requiring admission for further evaluation and treatment. Consulted nephrology, Dr. Gonzalez, who stated patient should be place in the ICU. Spoke with patient's PCP- Dr. Klein, who stated due to multiple episodes of the patient leaving the hospital AMA, pt was released from his service. Dr. Klein requested patient be admitted to hospitalist service. Discussed with Dr. Varela (hospitalist) who is in agreement with admission. Discussed findings and plan with patient, who acknowledges understanding and agreement. Larisa Disclaimer: Larisa Disclaimer: This electronic medical record was generated, in whole or in part, using a voice recognition dictation system. Departure Departure Impression: Primary Impression: Hyperkalemia Additional Impressions: ESRD (end stage renal disease) Left shoulder strain Qualified Codes: S46.912A - Strain of unspecified muscle, fascia and tendon at shoulder and upper arm level, left arm, initial encounter Disposition: ADMITTED INPT THIS HOSP Admitting Physician: BONI (Avery) Condition: GUARDED Referrals: BI KLEIN MD (PCP) Critical Care Time Critical care time was 30 minutes which includes time at bedside, spent in discussion of patient's care with specialists and/or family members, with interpretation of laboratory and/or radiological studies and is exclusive of procedures. ASAEL JEAN DO Dec 06, 2020 01:11
[2020-12-06 01:20] LABS: PROTHROMBIN TIME PATIENT 14.2 SEC (11.7-14.0)
[2020-12-06 01:26] LABS: ALBUMIN/GLOBULIN RATIO 0.7 (1.0-1.7); CALCIUM 8.9 mg/dL (8.5-10.1); CREATININE 11.5 mg/dL (0.7-1.3); GFR 5.4; TOTAL BILIRUBIN 0.4 mg/dL (0.2-1.0); TOTAL PROTEIN 7.4 g/dL (6.4-8.2)
[2020-12-06 01:29] LABS: POTASSIUM 9.2 mmol/L (3.5-5.1)
[2020-12-06] MEDS ORDERED: hydrALAZINE 20 MG/ML VIAL. IVP ONE (01:30)
[2020-12-06] MEDS ORDERED: fentaNYL PF VIAL 100 MCG/2 ML VIAL IV ONE (01:30)
[2020-12-06] MEDS ORDERED: ALBUTEROL SULFATE 2.5 MG/3 ML NEBU. CONT NEB ONE (02:00)
[2020-12-06] MEDS ORDERED: DEXTROSE 50% 25 GM / 50ML DISP.SYRIN. IV ONE (02:00)
[2020-12-06] MEDS ORDERED: DEXTROSE 50% 25 GM / 50ML DISP.SYRIN. IV PRN (02:00)
[2020-12-06] MEDS ORDERED: CALCIUM GLUCONATE 1,000 MG/10 ML VIAL. IVP ONE (02:00)
[2020-12-06] MEDS ORDERED: INSULIN REGULAR 100 UNIT/ML 3ML VIAL. IV ONE (02:00)
--- NOTE | 2020-12-06 02:08 | RAD ---
EXAM: CT head and cervical spine without contrast INDICATION: Weakness, pain, fall COMPARISON: CT head 11/27/2019 TECHNIQUE: Axial CT imaging through the head and cervical spine without intravenous contrast. Sagitta l and coronal reformats were obtained. One or more of the following individualized dose reduction techniques were utilized for this examinat ion: 1. Automated exposure control 2. Adjustment of the mA and/or kV according to patient size 3. Use of iterative reconstruction technique. FINDINGS: CT head: The ventricles and sulci are mildly enlarged, reflecting age-related volume loss. There is a mild bur den of periventricular and deep hypoattenuating white matter lesions. Hampton-white matter differentiat ion is maintained. There is no intracranial hemorrhage, acute infarct, or mass lesion. Basal cisterns are clear. There are calcifications in the intracranial internal carotid arteries. The skull and scalp are intact. Paranasal sinuses and mastoid air cells are clear. Globes and orbits are intact.. CT cervical spine: No acute fracture. Alignment is normal. The craniocervical junction and atlantoaxial interval are felipa ntained. There are erosions of the base of the dens. There is severe disc space narrowing at C5-C6 th rough T1-T2 and erosive endplate changes. Small anterior osteophytes at multiple levels. Milder disc space narrowing at C3-C4 and C4-C5. Moderate facet arthrosis on the right at C3-C4 resulting in moder ate foraminal narrowing. There is moderate foraminal narrowing on the right at C4-C5 and bilaterally at C5-C6 and C6-C7. Severe left lateral foraminal narrowing at C7-T1. There is prevertebral fluid fro m C2 through C4-C5 on the right and some calcification anterior to the inferior endplate of C2 on the right. There are calcifications in the cervical carotid arteries. IMPRESSION: 1. No acute intracranial abnormality. 2. No definite acute osseous abnormality. 3. Prevertebral fluid on the right and some prevertebral calcifications at C2-C3. This may be related to calcific tendinitis of the longus colli muscle, however in the setting of trauma/fall ligamentous injury is not excluded. Consider MRI to further evaluate for ligamentous injury. 4. Moderate to severe degenerative disc disease. Electronically signed by: Michela Cordero MD (12/06/2020 2:05 AM) [id number]
[2020-12-06] MEDS ORDERED: MORPHINE SULFATE 4 MG/ML VIAL. IV ONE ×2 (03:00→05:00)
[2020-12-06] MEDS ORDERED: DIALYSIS PATIENT. MC PRN ×2 (03:30)
[2020-12-06] MEDS ORDERED: hydrALAZINE 20 MG/ML VIAL. IVP PRN (03:30)
[2020-12-06] MEDS ORDERED: IV NORMAL SALINE 1000ML BAG 1,000 ML IV PRN ×2 (03:30)
[2020-12-06] MEDS ORDERED: ALBUMIN HUMAN 25% 200 ML IV PRN (03:30)
--- NOTE | 2020-12-06 03:30 | RAD ---
EXAM: XR CHEST 1V 12/06/2020 1:28 AM CLINICAL INDICATION: Weakness COMPARISON: Chest radiograph 12/16/2019 TECHNIQUE: AP upright view of the chest FINDINGS: The cardiomediastinal silhouette is normal. Lungs are adequately expanded. Nodular opacity at the right lung base has been seen on prior exams and may be a nipple shadow. No consolidation, pl eural effusion, or pneumothorax. There is severe left glenohumeral osteoarthrosis IMPRESSION: . No acute cardiopulmonary abnormality. Electronically signed by: Michela Cordero MD (12/06/2020 3:28 AM) [id number]
--- NOTE | 2020-12-06 05:21 | RAD ---
EXAM: XR SHOULDER_LEFT 2+ VIEWS 12/06/2020 3:25 AM CLINICAL INDICATION: Pain status post fall COMPARISON: None TECHNIQUE: 3 views of the left shoulder FINDINGS: No acute fracture. Alignment is normal. There is severe glenohumeral joint space narrowing with [id number] articulation and multiple subchondral cyst in the humeral head and glenoid. Mild a cromial clavicular degenerative joint disease. The subacromial space is maintained. There are few radiopaque foreign bodies in the left chest wall. Vascular calcifications are seen in t he left upper extremity. IMPRESSION: 1. No acute osseous abnormality of the shoulder. 2. Severe glenohumeral osteoarthrosis. Electronically signed by: Michela Cordero MD (12/06/2020 5:19 AM) [id number]
--- NOTE | 2020-12-06 05:33 | NUR ---
Pt up from ED to Dialysis room for emergent dialysis. Pt alert and oriented. Placed on monitor, Vital signs stable. SR. Dialysis nurse immediately started running pt on dialysis. Limited assessment due to this. Patient comfortable with no complaints at this time.
[2020-12-06 07:40] LABS: CALCIUM 8.5 mg/dL (8.5-10.1); CREATININE 5.4 mg/dL (0.7-1.3); GFR 12.9; POTASSIUM 4.2 mmol/L (3.5-5.1)
[2020-12-06] MEDS: INSULIN LISPRO 300 UNITS/3 ML VIAL. SQ SCH ×3 (08:00→17:00)
--- NOTE | 2020-12-06 11:23 | PDOC1 ---
History and Physical Date of Admission Date of Admission DATE: 12/06/20 TIME: 11:23 Identification/Chief Complaint Chief Complaint HE STATES DR LOBATO terminated his care recently, confirmed by ER TODAY SEEN IN ER AFTER FALL presented to the ED via EMS after a fall at home. he was transferring himself from his wheelchair and he fell and could not get up. He reports hitting his head on the floor and now has a headache. He reports missing dialysis on Monday because the van never picked him up. He was last dialyzed on Monday. He states for the last couple of weeks he has been "so weak", that he is having trouble transferring himself from bed to wheelchair. also complains of low back and bilateral lower leg pain, which is chronic but worsening. 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 2017 MRI Past Medical History Past Medical History Past Medical History Past Medical History Past Medical History: CVA, Depression, Diabetes-Type II, High Cholesterol, Hypertension, Renal Failure Past Surgical History: Other Additional Past Surgical Histo: DIALYSIS SHUNT PLACED IN RUE Smoking Status: Current Every Day Smoker Alcohol Use: None Drug Use: Marijuana The patient was last admitted here in 11-08 . He has a history of frequent falls; bilateral foot drops; recurrent UTI; end-stage renal disease, on hemodialysis; severe noncompliance; diabetes mellitus, type 2 with peripheral neuropathy; coronary artery disease; COPD; history of CVA; osteoarthritis hyperlipidemia. left against medical advice on several occasions. PAST SURGICAL HISTORY: The patient has dialysis access. ALLERGIES: THE PATIENT IS ALLERGIC TO LISINOPRIL. FAMILY HISTORY: Mother had carcinoma of lung and diabetes mellitus type 2. SOCIAL HISTORY: The patient is an ex-smoker, smoked 1 pack per day for 41 years. No history of drug abuse or alcoholism. fhx HTN Cardiovascular: CAD, CHF, HTN, Hyperlipidemia, Other Pulmonary: COPD GI: No pertinent hx Heme/Onc: Anemia NOS Hepatobiliary: No pertinent hx Psych: Anxiety, Depression Musculoskeletal: Osteoarthritis, Other Rheumatologic: No pertinent hx Infectious disease: No pertinent hx Renal/: Chronic renal failure Endocrine: Diabetes, Hyperparathyroidism Past Surgical History Past Surgical History: Other Family History Family History: Cancer, Diabetes Current Problem List Problem List Problems Medical Problems: (1) Left shoulder strain Status: Acute Cardiovascular: CAD, CHF, HTN, Hyperlipidemia, Other Pulmonary: COPD GI: No pertinent hx Heme/Onc: Anemia NOS Hepatobiliary: No pertinent hx Psych: Anxiety, Depression Musculoskeletal: Osteoarthritis, Other Rheumatologic: No pertinent hx Infectious disease: No pertinent hx Renal/: Chronic renal failure Endocrine: Diabetes, Hyperparathyroidism Past Surgical History Past Surgical History: Other Family History Family History: Cancer, Diabetes, Hypertension Social History Smoke: Quit ALCOHOL: none Drugs: None Current Problem List Problem List Problems Medical Problems: (1) Left shoulder strain Status: Acute Current Medications Current Medications Current Medications Hydralazine HCl (Apresoline Inj) 20 mg 1X ONCE IVP Last administered on 12/06/20at 01:37; Start 12/06/20 at 01:30; Stop 12/06/20 at 01:31; Status DC Fentanyl Citrate (Fentanyl 2ml Vial) 50 mcg 1X ONCE IV Last administered on 12/06/20at 01:36; Start 12/06/20 at 01:30; Stop 12/06/20 at 01:31; Status DC Calcium Gluconate (Calcium Gluconate) 1,000 mg 1X ONCE IVP Last administered on 12/06/20at 02:02; Start 12/06/20 at 02:00; Stop 12/06/20 at 02:01; Status DC Dextrose (Dextrose 50%-Water Syringe) 25 gm 1X ONCE IV Last administered on 12/06/20at 02:15; Start 12/06/20 at 02:00; Stop 12/06/20 at 02:01; Status DC Insulin Human Regular (HumuLIN R VIAL) 10 unit 1X ONCE IV Last administered on 12/06/20at 02:16; Start 12/06/20 at 02:00; Stop 12/06/20 at 02:01; Status DC Albuterol Sulfate (Ventolin Neb Soln) 10 mg 1X ONCE CONT NEB Last administered on 12/06/20at 02:54; Start 12/06/20 at 02:00; Stop 12/06/20 at 02:01; Status DC Insulin Human Lispro (HumaLOG) 0-5 UNITS TIDWMEALS SQ ; Start 12/06/20 at 08:00 Dextrose (Dextrose 50%-Water Syringe) 12.5 gm PRN Q15MIN PRN IV SEE COMMENTS; Start 12/06/20 at 02:00 Morphine Sulfate (Morphine Sulfate) 4 mg 1X ONCE IV Last administered on 12/06/20at 03:37; Start 12/06/20 at 03:00; Stop 12/06/20 at 03:01; Status DC Hydralazine HCl (Apresoline Inj) 10 mg PRN Q4HRS PRN IVP ELEVATED BP, SEE COMMENTS; Start 12/06/20 at 03:30 Sodium Chloride 1,000 ml @ 1,000 mls/hr Q1H PRN IV hypotension; Start 12/06/20 at 03:30; Stop 12/06/20 at 09:29; Status DC Albumin Human 200 ml @ 200 mls/hr 1X PRN PRN IV Hypotension; Start 12/06/20 at 03:30; Stop 12/06/20 at 09:29; Status DC Sodium Chloride 1,000 ml @ 400 mls/hr Q2H30M PRN IV PATENCY; Start 12/06/20 at 03:30; Stop 12/06/20 at 15:29 Info (PHARMACY MONITORING -- do not chart) 1 each PRN DAILY PRN MC SEE COMMENTS; Start 12/06/20 at 03:30 Info (PHARMACY MONITORING -- do not chart) 1 each PRN DAILY PRN MC SEE COMMENTS; Start 12/06/20 at 03:30; Status UNV Morphine Sulfate (Morphine Sulfate) 6 mg 1X ONCE IV Last administered on 12/06/20at 04:50; Start 12/06/20 at 05:00; Stop 12/06/20 at 05:01; Status DC Active Scripts Active [Diclofenac Sodium] 100 GM Gel..gram. 1 Navarro TP BID Hydralazine Hcl 50 Mg Tablet 1 Tab PO TID Tylenol (Acetaminophen) 325 Mg Tablet 650 Mg PO PRN Q6HRS PRN 30 Days Hydrocodone-Apap 5-325 (Hydrocodone Bit/Acetaminophen) 1 Tab Tablet 1 Tab PO PRN Q6HRS PRN 15 Days Reported Mirtazapine 30 Mg Tablet 1 Tab PO QHS Carvedilol 25 Mg Tablet 25 Mg PO BIDWMEALS Omeprazole 20 Mg Capsule.dr 20 Mg PO DAILY Gabapentin 100 Mg Capsule 100 Mg PO BID Citalopram Hbr (Citalopram Hydrobromide) 10 Mg Tablet 10 PO DAILY Renvela (Sevelamer Carbonate) 800 Mg Tablet 1 Tab PO BIDWMEALS 30 Days Atorvastatin Calcium 20 Mg Tablet 1 Tab PO DAILY Allergies Allergies: Coded Allergies: No Known Drug Allergies (Unverified , 10/23/17) ROS Review of System Constitutional: Denies fever or chills Eyes: Denies redness or eye pain HENT: Denies nasal congestion or sore throat Respiratory: Denies cough or shortness of breath Cardiovascular: Denies chest pain or palpitations GI: Denies abdominal pain, nausea, or vomiting : Denies dysuria or hematuria Musculoskeletal: Positive for back pain and bilateral lower leg pain.LEFT SHOULDER AND ARM PAIN Integument: Denies rash or skin lesions Neurologic: Positive for headache and general weakness. No sensory changes 14 PT ROS OTHERWISE NEG General: YES: Fatigue Gastrointestinal: No Nausea, No Vomiting, No Abdominal Pain, No Diarrhea, No Constipation, No Melena, No Hematochezia, No Other Musculoskeletal: Yes Gait Disturbance, Yes Joint Stiffness Physical Exam Physical Exam Constitutional: Well developed, well nourished, no acute distress, non-toxic appearance HENT: Normocephalic, atraumatic Eyes: PERRL, EOMI, conjunctiva normal, no discharge Neck: Normal range of motion, no midline tenderness, supple Lungs & Thorax: No respiratory distress, equal chest rise and fall. Crackles heard at anterior posts. Abdomen: Soft, no tenderness Skin: Warm, dry, no erythema, no rash Back: No midline tenderness, bilateral paraspinal tenderness noted, no CVA tenderness Extremities: Left glenohumeral tenderness, ROM limited to left shoulder primarily with abduction, no edema. Fistula located in right upper arm. Neurologic: Alert and oriented X 3, normal motor function, normal sensory function, no focal deficits noted. Generalized muscle weakness. Psychologic: Affect normal, judgment normal General: Alert, Oriented X3, Cooperative, No acute distress HEENT: EOMI Lungs: Clear to auscultation Heart: no thrills Breasts: Not examined Abdomen: Normal bowel sounds, Soft, No tenderness Rectal Exam: not examined Extremities: No cyanosis Neuro: Normal speech, Cranial nerves 3-12 NL Psych/Mental Status: Mental status NL, Mood NL Vitals Vitals Vital Signs Date Time Temp Pulse Resp B/P (MAP) Pulse Ox O2 Delivery O2 Flow Rate FiO2 12/06/20 06:00 84 19 110/77 (88) 96 Room Air 12/06/20 05:09 98.7 98.7 Labs Labs EXAM: Thoracic spine MRI without contrast. HISTORY: Chronic pain. Lytic lesions. TECHNIQUE: Multiplanar, multisequence magnetic resonance imaging of the thoracic spine was performed without contrast. Intravenous contrast could not be administered due to severe renal insufficiency. COMPARISON: None. FINDINGS: There is slight reversal of cervical lordosis. There is minimal anterolisthesis at the upper thoracic vertebral levels. The vertebral bodies are normal in height. There is no acute or subacute fracture. There is diffusely decreased T1 marrow signal intensity. There is T1 and T2 hyperintensity and increased signal on inversion recovery images within T9 and T10. There is associated severe T9-T10 endplate irregularity with anterior osteophytosis and Schmorl's node formation. There is additional endplate remodeling at the majority of the cervical and thoracic levels with superimposed endplate Schmorl's nodes. There is deformation of the cervical and thoracic spinal cord at multiple levels due to central canal stenosis, described in detail below. There is linear T2 hyperintensity within the spinal cord extending from the inferior aspect of C7 to the mid aspect of T1, likely due to a prominent central canal or slight syringohydromyelia. No additional convincing spinal cord lesion is seen on axial images. There are multiple cysts within the visualized portions of the kidneys. At C7-T1, there is a disc bulge and endplate remodeling. There is mild facet arthropathy. There is mild anterolisthesis. There is mild right and moderate left foraminal stenosis. At T1-T2, T2-T3, T3-T4, T4-T5, T5-T6, T6-T7, T7-T8, there are minimal disc bulges. There is mild anterior predominant endplate osteophytosis. There is no significant foraminal or central canal stenosis. At T8-T9, there is a shallow left paracentral disc protrusion superimposed on a disc bulge and anterior predominant endplate osteophytosis. There is no stenosis. At T9-T10, there is a shallow left paracentral to foraminal disc protrusion superimposed on a disc bulge and anterior predominant endplate osteophytosis. There is severe endplate irregularity at this level. There is slight hypertrophy of the ligamentum flavum. There is [id number] bilateral foraminal stenosis. There is minimal central canal stenosis. At T10-T11, there is a diffuse disc bulge and endplate osteophytosis. There is hypertrophy of the ligamentum flavum. There is moderate right greater than left foraminal stenosis. There is moderate central canal stenosis with slight deformation of the spinal cord. At T11-T12, there is no stenosis. IMPRESSION: 1. Severe endplate irregularly with adjacent marrow signal abnormality at T9-T10. The differential includes advanced degenerative change as well as the sequela of prior discitis/osteomyelitis. The degree of marrow edema at this level and absence of fluid within the disc space does not favor active discitis/osteomyelitis. 2. Multilevel degenerative change throughout the cervical and thoracic spine, described in detail above. 3. Diffusely decreased T1 marrow signal intensity. The differential includes anemia, obesity, chronic cigarette smoking history as well as neoplastic and nonneoplastic marrow infiltrative processes. There is no focal osseous lesion to suggest a lytic or sclerotic metastasis. Evaluation is limited due to the absence of contrast. 4. 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 Electronically signed by: Evelyne Mead MD (09/15/2017 10:28 AM) [id number] DICTATED and SIGNED BY: EVELYNE MEAD MD DATE: 09/15/17 1017 CC: BI LOBATO MD ~ Laboratory Tests Test 12/06/20 00:57 12/06/20 01:49 12/06/20 07:10 White Blood Count 5.5 x10^3/uL (4.0-11.0) Red Blood Count 3.86 x10^6/uL (4.30-5.70) Hemoglobin 9.6 g/dL (13.0-17.5) Hematocrit 30.0 % (39.0-53.0) Mean Corpuscular Volume 78 fL (79-100) Mean Corpuscular Hemoglobin 25 pg (25-35) Mean Corpuscular Hemoglobin Concent 32 g/dL (31-37) Red Cell Distribution Width 15.3 % (11.5-14.5) Platelet Count 138 x10^3/uL (140-400) Neutrophils (%) (Auto) 59 % (31-73) Lymphocytes (%) (Auto) 29 % (24-48) Monocytes (%) (Auto) 10 % (0-9) Eosinophils (%) (Auto) 2 % (0-3) Basophils (%) (Auto) 1 % (0-3) Neutrophils # (Auto) 3.2 x10^3/uL (1.8-7.7) Lymphocytes # (Auto) 1.6 x10^3/uL (1.0-4.8) Monocytes # (Auto) 0.6 x10^3/uL (0.0-1.1) Eosinophils # (Auto) 0.1 x10^3/uL (0.0-0.7) Basophils # (Auto) 0.0 x10^3/uL (0.0-0.2) Prothrombin Time 14.2 SEC (11.7-14.0) Prothromb Time International Ratio 1.1 (0.8-1.1) Activated Partial Thromboplast Time 36 SEC (24-38) Sodium Level 134 mmol/L (136-145) 137 mmol/L (136-145) Potassium Level 9.2 mmol/L (3.5-5.1) 4.2 mmol/L (3.5-5.1) Chloride Level 96 mmol/L (98-107) 98 mmol/L (98-107) Carbon Dioxide Level 26 mmol/L (21-32) 28 mmol/L (21-32) Anion Gap 12 (6-14) 11 (6-14) Blood Urea Nitrogen 116 mg/dL (8-26) 51 mg/dL (8-26) Creatinine 11.5 mg/dL (0.7-1.3) 5.4 mg/dL (0.7-1.3) Estimated GFR (Cockcroft-Gault) 5.4 12.9 BUN/Creatinine Ratio 10 (6-20) Glucose Level 131 mg/dL (70-99) 94 mg/dL (70-99) Lactic Acid Level 0.9 mmol/L (0.4-2.0) Calcium Level 8.9 mg/dL (8.5-10.1) 8.5 mg/dL (8.5-10.1) Magnesium Level 3.1 mg/dL (1.8-2.4) Total Bilirubin 0.4 mg/dL (0.2-1.0) Aspartate Amino Transf (AST/SGOT) 32 U/L (15-37) Alanine Aminotransferase (ALT/SGPT) 25 U/L (16-63) Alkaline Phosphatase 59 U/L (46-116) Creatine Kinase 314 U/L (39-308) Creatine Kinase MB (Mass) 6.1 ng/mL (0.0-3.6) Creatine Kinase MB Relative Index 1.9 % (0-4) Troponin I Quantitative < 0.017 ng/mL (0.000-0.055) Total Protein 7.4 g/dL (6.4-8.2) Albumin 3.0 g/dL (3.4-5.0) Albumin/Globulin Ratio 0.7 (1.0-1.7) Glucose (Fingerstick) 106 mg/dL (70-99) Laboratory Tests Test 12/06/20 00:57 12/06/20 01:49 12/06/20 07:10 White Blood Count 5.5 x10^3/uL (4.0-11.0) Red Blood Count 3.86 x10^6/uL (4.30-5.70) Hemoglobin 9.6 g/dL (13.0-17.5) Hematocrit 30.0 % (39.0-53.0) Mean Corpuscular Volume 78 fL (79-100) Mean Corpuscular Hemoglobin 25 pg (25-35) Mean Corpuscular Hemoglobin Concent 32 g/dL (31-37) Red Cell Distribution Width 15.3 % (11.5-14.5) Platelet Count 138 x10^3/uL (140-400) Neutrophils (%) (Auto) 59 % (31-73) Lymphocytes (%) (Auto) 29 % (24-48) Monocytes (%) (Auto) 10 % (0-9) Eosinophils (%) (Auto) 2 % (0-3) Basophils (%) (Auto) 1 % (0-3) Neutrophils # (Auto) 3.2 x10^3/uL (1.8-7.7) Lymphocytes # (Auto) 1.6 x10^3/uL (1.0-4.8) Monocytes # (Auto) 0.6 x10^3/uL (0.0-1.1) Eosinophils # (Auto) 0.1 x10^3/uL (0.0-0.7) Basophils # (Auto) 0.0 x10^3/uL (0.0-0.2) Prothrombin Time 14.2 SEC (11.7-14.0) Prothromb Time International Ratio 1.1 (0.8-1.1) Activated Partial Thromboplast Time 36 SEC (24-38) Sodium Level 134 mmol/L (136-145) 137 mmol/L (136-145) Potassium Level 9.2 mmol/L (3.5-5.1) 4.2 mmol/L (3.5-5.1) Chloride Level 96 mmol/L (98-107) 98 mmol/L (98-107) Carbon Dioxide Level 26 mmol/L (21-32) 28 mmol/L (21-32) Anion Gap 12 (6-14) 11 (6-14) Blood Urea Nitrogen 116 mg/dL (8-26) 51 mg/dL (8-26) Creatinine 11.5 mg/dL (0.7-1.3) 5.4 mg/dL (0.7-1.3) Estimated GFR (Cockcroft-Gault) 5.4 12.9 BUN/Creatinine Ratio 10 (6-20) Glucose Level 131 mg/dL (70-99) 94 mg/dL (70-99) Lactic Acid Level 0.9 mmol/L (0.4-2.0) Calcium Level 8.9 mg/dL (8.5-10.1) 8.5 mg/dL (8.5-10.1) Magnesium Level 3.1 mg/dL (1.8-2.4) Total Bilirubin 0.4 mg/dL (0.2-1.0) Aspartate Amino Transf (AST/SGOT) 32 U/L (15-37) Alanine Aminotransferase (ALT/SGPT) 25 U/L (16-63) Alkaline Phosphatase 59 U/L (46-116) Creatine Kinase 314 U/L (39-308) Creatine Kinase MB (Mass) 6.1 ng/mL (0.0-3.6) Creatine Kinase MB Relative Index 1.9 % (0-4) Troponin I Quantitative < 0.017 ng/mL (0.000-0.055) Total Protein 7.4 g/dL (6.4-8.2) Albumin 3.0 g/dL (3.4-5.0) Albumin/Globulin Ratio 0.7 (1.0-1.7) Glucose (Fingerstick) 106 mg/dL (70-99) Images Images Aortic Valve AoV Peak Nikos. 147.3cm/s AoV VTI 26.0cm AO Peak GR. 8.7mmHg LVOT VTI 19.63cm AO Mean GR. 6mmHg JAZZMINE (VTI) 2.60cm2 Mitral Valve MV E Velocity 78.3cm/s MV DECEL TIME 134ms MV A Velocity 100.9cm/s E/A Ratio 0.8 TDI Lateral E' P. V 5.66cm/s Medial E' P. V 4.76cm/s E/Lateral E' 13.8 E/Medial E' 16.4 Tricuspid Valve TR P. Velocity 319cm/s RAP ESTIMATE 15mmHg TR Peak Gr. 41mmHg RVSP 56mmHg LEFT VENTRICLE The left ventricle is normal size. There is mild concentric left ventricular hypertrophy. The Ejection Fraction is 35-40%. The systolic function is moderately impaired. There is global hypokinesis of the left ventricle with moderate inferior and infero-septal hypokinesis. Transmitral Doppler flow pattern is Grade I-abnormal relaxation pattern. RIGHT VENTRICLE The right ventricle is normal size. The right ventricular systolic function is normal. ATRIA The left atrium size is normal. The right atrium size is normal. The interatrial septum is intact with no evidence for an atrial septal defect or patent foramen ovale as noted on 2-D or Doppler imaging. AORTIC VALVE The aortic valve is calcified but opens well and is trileaflet. Doppler and Color Flow revealed no significant aortic regurgitation. There is no significant aortic valvular stenosis. MITRAL VALVE The mitral valve is normal in structure and function. There is no evidence of mitral valve prolapse. There is no mitral valve stenosis. Doppler and Color-flow revealed trace mitral regurgitation. TRICUSPID VALVE The tricuspid valve is normal in structure and function. Doppler and Color Flow revealed trace to mild tricuspid regurgitation. There is moderate pulmonary hypertension. The PA pressure was estimated at 56 mmHg. There is no tricuspid valve stenosis. PULMONIC VALVE Doppler and Color Flow revealed no pulmonic valvular regurgitation. There is no pulmonic valvular stenosis. GREAT VESSELS The aortic root is normal in size. The ascending aorta is not well seen. The IVC is dilated and collapses <50% with inspiration. PERICARDIAL EFFUSION There is no evidence of significant pericardial effusion. Critical Notification Critical Value: No <Conclusion> The Ejection Fraction is 35-40%. The systolic function is moderately impaired. There is global hypokinesis of the left ventricle with moderate inferior and infero-septal hypokinesis. Doppler and Color Flow revealed trace to mild tricuspid regurgitation. There is moderate pulmonary hypertension. The PA pressure was estimated at 56 mmHg. DICTATED and SIGNED BY: CELSO CRUZ MD DATE: 04/11/17 1305 CC: ELIZABETH ESCOBEDO III DO; CAPO CHEATHAM MANAGER CALL; CELSO CRUZ MD; NO PCP ~ PATIENT: ERICKSON AMEOUNT: [id number] : 1955 LOCATION: ER AGE: 65 SEX: M EXAM STATUS: REG ER ORD. PHYSICIAN: ASAEL JEAN DO REASON: weakness, pain, falls PROCEDURE: CT HEAD AND CERVICAL SPINE WO EXAM: CT head and cervical spine without contrast INDICATION: Weakness, pain, fall COMPARISON: CT head 11/27/2019 TECHNIQUE: Axial CT imaging through the head and cervical spine without intravenous contrast. Sagittal and coronal reformats were obtained. One or more of the following individualized dose reduction techniques were utilized for this examination: 1. Automated exposure control 2. Adjustment of the mA and/or kV according to patient size 3. Use of iterative reconstruction technique. FINDINGS: CT head: The ventricles and sulci are mildly enlarged, reflecting age-related volume loss. There is a mild burden of periventricular and deep hypoattenuating white matter lesions. Hampton-white matter differentiation is maintained. There is no intracranial hemorrhage, acute infarct, or mass lesion. Basal cisterns are clear. There are calcifications in the intracranial internal carotid arteries. The skull and scalp are intact. Paranasal sinuses and mastoid air cells are clear. Globes and orbits are intact.. CT cervical spine: No acute fracture. Alignment is normal. The craniocervical junction and atlantoaxial interval are maintained. There are erosions of the base of the dens. There is severe disc space narrowing at C5-C6 through T1-T2 and erosive endplate changes. Small anterior osteophytes at multiple levels. Milder disc space narrowing at C3-C4 and C4-C5. Moderate facet arthrosis on the right at C3- C4 resulting in moderate foraminal narrowing. There is moderate foraminal narrowing on the right at C4-C5 and bilaterally at C5-C6 and C6-C7. Severe left lateral foraminal narrowing at C7-T1. There is prevertebral fluid from C2 through C4-C5 on the right and some calcification anterior to the inferior endplate of C2 on the right. There are calcifications in the cervical carotid arteries. IMPRESSION: 1. No acute intracranial abnormality. 2. No definite acute osseous abnormality. 3. Prevertebral fluid on the right and some prevertebral calcifications at C2- C3. This may be related to calcific tendinitis of the longus colli muscle, however in the setting of trauma/fall ligamentous injury is not excluded. Consider MRI to further evaluate for ligamentous injury. 4. Moderate to severe degenerative disc disease. Electronically signed by: Archana Cordero MD (12/06/2020 2:05 AM) [id number] PATIENT: CARMELITARYAN: [id number] : 1955 LOCATION: ED HOLD AGE: 65 SEX: M EXAM STATUS: ADM IN ORD. PHYSICIAN: ASAEL JEAN DO REASON: pain s/p fall PROCEDURE: SHOULDER 2+V LEFT EXAM: XR SHOULDER_LEFT 2+ VIEWS 12/06/2020 3:25 AM CLINICAL INDICATION: Pain status post fall COMPARISON: None TECHNIQUE: 3 views of the left shoulder FINDINGS: No acute fracture. Alignment is normal. There is severe glenohumeral joint space narrowing with [id number] articulation and multiple subchondral cyst in the humeral head and glenoid. Mild acromial clavicular degenerative joint disease. The subacromial space is maintained. There are few radiopaque foreign bodies in the left chest wall. Vascular calcifications are seen in the left upper extremity. IMPRESSION: 1. No acute osseous abnormality of the shoulder. 2. Severe glenohumeral osteoarthrosis. Electronically signed by: Archana Cordero MD (12/06/2020 5:19 AM) [id number] DICTATED and SIGNED BY: ARCHANA CORDERO MD DATE: 12/06/20 [id number] 0Signed PATIENT: CARMELITARYAN: [id number] : 1955 LOCATION: ED HOLD AGE: 65 SEX: M EXAM STATUS: ADM IN ORD. PHYSICIAN: ASAEL JEAN DO REASON: weakness PROCEDURE: PORTABLE CHEST 1V EXAM: XR CHEST 1V 12/06/2020 1:28 AM CLINICAL INDICATION: Weakness COMPARISON: Chest radiograph 12/16/2019 TECHNIQUE: AP upright view of the chest FINDINGS: The cardiomediastinal silhouette is normal. Lungs are adequately expanded. Nodular opacity at the right lung base has been seen on prior exams and may be a nipple shadow. No consolidation, pleural effusion, or pneumothorax. There is severe left glenohumeral osteoarthrosis IMPRESSION: . No acute cardiopulmonary abnormality. Electronically signed by: Archana Cordero MD (12/06/2020 3:28 AM) [id number] DICTATED and SIGNED BY: ARCHANA CORDERO MD DATE: 12/06/20 [id number] 0 VTE Prophylaxis Ordered VTE Prophylaxis Devices: No VTE Pharmacological Prophylaxi: Yes Assessment/Plan Assessment/Plan Impression: Hyperkalemia DUE TO NONCOMPLIANCE WITH DIALYSIS NONCOMPLIANCE with missed dialysis ESRD (end stage renal disease) Left shoulder strain, PAIN abnormal ct of cervical spine History of recurrent falls. Weight loss. Bilateral foot drop. Diabetes mellitus type 2 with peripheral neuropathy. Coronary artery disease. 2017 ECHO Ejection Fraction is 35-40%. The systolic function is moderately impaired.global hypokinesis of the left ventricle with moderate inferior and infero-septal hypokinesis. mild tricuspid regurgitation. SEVERE pul monary hypertension. The PA pressure was estimated at 56 mmHg. Chronic obstructive pulmonary disease. History of cerebrovascular accident Osteoarthritis. Hyperlipidemia. 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 2017 MRI ADMITTED > 48 HR NEED consult nephrology Consult neurology re abnormal ct of cervical spine, pain clinical research monitor PT/OT CONSULT CARDIOLOGY HEPARIN DVT PROPHYLAXIS 74 MIN PT EXAM, CHART REVIEW, > 50% OF TIME SPENT WITH EXAM, CHART REVIEW, PT CARE COORDINATION Justifications for Admission Other Justification HAIDER FERRARI MD Dec 06, 2020 11:23
[2020-12-06] MEDS ORDERED: guaiFENesin ORAL 200 MG/10 ML LIQUID. PO PRN (12:00)
[2020-12-06] MEDS ORDERED: DOCUSATE SODIUM 100 MG CAPSULE. PO PRN (12:00)
[2020-12-06] MEDS ORDERED: ALBUTEROL SULFATE 2.5 MG/3 ML NEBU. NEB PRN (12:00)
[2020-12-06] MEDS ORDERED: 0.9 % SODIUM CHLORIDE 10 ML DISP.SYRIN. IV PRN (12:00)
[2020-12-06] MEDS ORDERED: HYDROcodone/APAP 5/325MG 1 TAB TABLET PO PRN (12:00)
[2020-12-06] MEDS ORDERED: ACETAMINOPHEN 325 MG TABLET. PO PRN ×2 (12:00)
[2020-12-06] MEDS: HEPARIN for SUB-Q USE 5,000 UNIT/ML VIAL. SQ SCH ×2 (14:00→21:35)
--- NOTE | 2020-12-06 14:18 | EKG ---
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
--- NOTE | 2020-12-06 14:28 | CONS ---
DATE OF CONSULTATION: 12/06/2020 REQUESTING PHYSICIAN: Hospitalist. REASON FOR CONSULTATION: Renal failure. HISTORY OF PRESENT ILLNESS: A 65-year-old gentleman with end-stage renal disease, hemodialysis dependent on Monday, Monday, Monday. Presented to the Emergency Department having sustained a fall. He was found to be profoundly hyperkalemic. He is admitted in the setting of the same. He dialyzed on the Monday prior to his admission, but missed his dialysis treatment on Monday prior to this admission. The patient has undergone emergent dialysis for severe hyperkalemia with improvement. PAST MEDICAL HISTORY: Diabetes mellitus; hypertension; end-stage renal disease, hemodialysis dependent on Monday, Monday, Monday; anemia of chronic kidney disease; secondary hyperparathyroidism; renal disease; hyperlipidemia; CVA; vascular access, right upper extremity. ALLERGIES: None. MEDICATIONS: Reviewed per medication list. FAMILY HISTORY: Noncontributory. SOCIAL HISTORY: The patient resides with assistance. He is an everyday smoker and also uses marijuana. REVIEW OF SYSTEMS: No headache, sinus problem, nasal drainage, epistaxis, change in vision or hearing. No difficulty swallowing. No fever, chills, cough, sputum, hemoptysis. No chest pain, shortness of breath, PND, orthopnea, dyspnea on exertion. No abdominal pain. No nausea, vomiting, diarrhea. No seizures or malignancies. He has had generalized weakness. PHYSICAL EXAMINATION: GENERAL APPEARANCE: The patient is awakened. HEENT: Clear. NECK: No increased JVD. No thyromegaly, masses or adenopathy. LUNGS: Clear. CARDIAC: Without S3 or rub. ABDOMEN: Soft, nontender, no bruits. EXTREMITIES: Without edema. NEUROPSYCHIATRIC: Follows appropriately. LABORATORY DATA: White count 5.5, hemoglobin 9.6, hematocrit 30%. Lab on admission, sodium 134, potassium 9.2, chloride 96, CO2 of 26, BUN 116, creatinine 11.5. Followup laboratory; sodium 137, potassium 4.2, chloride 98, CO2 of 28, BUN 51, creatinine 5.4. IMPRESSION: 1. End-stage renal disease secondary to diabetes mellitus and hypertensive nephrosclerosis. 2. Hyperkalemia due to missed dialysis treatment and dietary indiscretion. RECOMMENDATIONS: 1. Ongoing dialysis on Monday, Monday and Monday. 2. Epogen for anemia of chronic kidney disease. ASAEL LOPEZ MD DR: MAYI/jose alberto JOB#: [id number] / [id number]
[2020-12-06] MEDS ORDERED: SEVELAMER CARBONATE 800 MG TABLET. PO SCH (17:00)
[2020-12-06] MEDS ORDERED: CARVEDILOL 12.5 MG TABLET. PO SCH (17:00)
[2020-12-06] MEDS ORDERED: GABAPENTIN 100 MG CAPSULE. PO SCH (21:00)
--- NOTE | 2020-12-06 23:49 | CONS ---
DATE OF CONSULTATION: 12/06/2020 REFERRING PHYSICIAN: Dr. Sierra. REASON FOR CONSULTATION: Abnormal cervical spine CT scan and possible myelopathy with bilateral leg weakness. HISTORY OF PRESENT ILLNESS: The patient is a 65-year-old man, who presented to the Emergency Department after a fall. He was transferring himself from his wheelchair and he fell to the ground, unable to get up. He has been extremely weak the last several days. He did strike his head on the floor with this fall and did complain of a headache. He missed dialysis on Monday because he states his van never picked him up. His last dialysis would have been 12/02/2020. He has felt weaker over the last few weeks. He has had more difficulty transferring himself and more falls. He has been having trouble getting to the bathroom. 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 PAST MEDICAL HISTORY: 1. History of stroke. 2. Depression. 3. Type 2 diabetes. 4. Hyperlipidemia. 5. Hypertension. 6. Chronic renal failure, on hemodialysis. 7. Fistula placement in right arm. 8. Tobacco abuse. ALLERGIES: No known allergies to drugs. MEDICINES PRIOR ADMISSION: Tylenol 650 mg every 6 hours as needed, atorvastatin 20 mg, carvedilol 25 mg twice per day, citalopram 10 mg, gabapentin 100 mg twice per day, hydralazine 50 mg 3 times per day, hydrocodone/acetaminophen every 6 hours as needed, mirtazapine 30 mg, omeprazole 20 mg, Renvela 800 mg twice per day with meals and diclofenac sodium gel as needed. FAMILY HISTORY: Mother had carcinoma of her lung and diabetes type 2. SOCIAL HISTORY: He is an ex-smoker, smoking 1 pack of cigarettes a day for 41 years. He does not drink alcohol. He has smoked marijuana. REVIEW OF SYSTEMS: He does not currently complain of any headache. There has been no change of vision or hearing. He is not aware of any cognitive loss. He has been able to chew and swallow. He is not complaining of shortness of breath or chest pain. He does not have abdominal pain. He has a great deal of bone and joint pain, especially in the shoulders, hips and knees. He has not had fever or rash. He has had recent diarrhea. He produces very little urine. He does have numbness in his feet and legs. He does not complain of swelling. He does have quite a few sores on his legs and bleeds. He does not have any psychiatric complaints. PHYSICAL EXAMINATION: VITAL SIGNS: The blood pressure was 129/70, pulse 89, respirations 18, temperature 99.6 degrees Fahrenheit orally. Oximetry was 95% on room air. His weight was 67 kilograms, height 68 inches with a calculated body mass index of 22.5. GENERAL: He was alert, awake and cooperative. Speech was fluent and clear. He had a good fund of recent and remote knowledge. Attention and concentration was intact. He was oriented. He appeared extremely under nourished. He was well groomed. NEUROLOGIC: Examination of the cranial nerves revealed visual be were full to confrontation. Extraocular movements were intact. The eyes were conjugate. Pursuit movements were smooth and saccadic eye movements were without dysmetria. Pupils were 2 mm. Funduscopic exam was not possible due to myosis. Facial sensation was intact. The muscles of mastication and facial expression were powerful symmetrically. Hearing was intact to finger rub. The palate arched symmetrically and the tongue was midline with full motion. Sternocleidomastoid and trapezius were powerful. Muscle bulk was normal. Tone was increased on the left leg with some rigidity. Oumar: Fairly full in the right upper extremity and the left arm, he had good learning support aide. He had slightly diminished left elbow flexion and extension, severe weakness of left arm abduction, but complained bitterly of left shoulder pain. Lower extremity: He had hip flexors were weak bilaterally. Knee flexors were extremely weak bilaterally. Hip extensors were weak bilaterally. Left leg was a little weaker than the right. He had diminished dorsi and plantar flexion. Reflexes are 2/4 in the upper extremities. He still had knee reflexes and he had unsustained clonus at the right ankle and a few beats of clonus at the left ankle. Toes were not up or downgoing. Coordination testing with [id number] was well performed. Fine motor movements was fair. Sensory exam was intact in the upper extremities to pain, light touch, proprioception, graphesthesia, cold thermal and vibration. There was no extinction to double simultaneous stimulation. He had marked sensory shading in the legs. Proprioception was absent. Sharp was perceived at the level of the knee as was cold thermal. Vibration was perceived at the level of the knee. Gait was not testable. NECK: Auscultation of the carotid arteries did not reveal a bruit. HEART: Rhythm was regular, without murmur. EXTREMITIES: Peripheral pulses were symmetric in the wrists, diminished in the feet. There was no edema or cyanosis. He had sores on his legs at different levels, were healing. LABORATORY RESULTS: CBC was performed, 12/06/2020, revealing a normal white blood count. Hemoglobin was diminished at 9.6, hematocrit 30 and platelet count 138. Chemistries were performed 12/06/2020. This revealed a normal sodium of 137. Potassium initially was 9.2 on admission, but after dialysis, had come down to 4.2. Chloride and CO2 were normal. BUN was 51 and creatinine 5.4 after dialysis. Prior to dialysis, BUN was 116 and creatinine was 11.5. Most recent fingerstick glucose was 125. Magnesium was 3.1. Lactic acid most recently was 0.9. Calcium was normal. Liver enzymes were not elevated. CPK was elevated at 314. Troponin was not elevated. Total protein was normal, but albumin was low at 3. PT/INR was 1.1 and PTT was 36. DIAGNOSTIC RESULTS: Left shoulder x-ray was performed, 12/06/2020, revealing no acute osseous abnormality of the shoulder. There was severe glenohumeral osteoarthritis. CT scan of the head and cervical spine was performed without contrast on 12/06/2020. There was no acute intracranial abnormality. There was no definite acute osseous abnormality. Prevertebral fluid on the right and some prevertebral calcifications at C2-C3 were noted. This may be related to calcific tendonitis of the longus colli muscle; however, in the setting of trauma/fall, ligamentous injury is not excluded. Consider MRI to fully evaluate for ligamentous injury. [id number] degenerative disk disease. Chest x-ray was performed, 12/06/2020, and revealed no acute cardiopulmonary abnormality. IMPRESSION: The patient is a 65-year-old man with a multitude of health issues. He has been noncompliant with dialysis and came in with a critically elevated potassium. He received extensive dialysis and this problem has been corrected. He continues to be extremely weak in his legs. He has a very advanced neuropathy, but despite the neuropathy, he still has some hyperreflexia. This would suggest likely a cervical myelopathy or perhaps a thoracic myelopathy, which may have been a consequence of the falls. The duration of this is unknown. He is currently quite weak in his legs. RECOMMENDATIONS: We will proceed with an MRI of the cervical and thoracic spines to look for evidence of myelopathy and ligamentous injury. If this were negative, we could look into MRI head, but on his CAT scan did not reveal any acute abnormality and this did not appear to be lateralizing. He has severely impaired balance, which is not correctable because of his advanced neuropathy and severe wasting way of all of his muscles. I appreciate being involved in his care. TALITA PAUL MD DR: PARIS/jose alberto JOB#: [id number] / [id number] YVON Aceves MD
--- NOTE | 2020-12-07 03:44 | NUR ---
Pt. has been angry and upset all night because he wants to go home. He can be verbally aggressive and demanding @ times. 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 He pulled it off and threw it on the floor.
[2020-12-07] MEDS: HEPARIN for SUB-Q USE 5,000 UNIT/ML VIAL. SQ SCH (06:00)
[2020-12-07 07:00] VITALS: BP 163/85
[2020-12-07 07:24] LABS: BASO # 0.1 x10^3/uL (0.0-0.2); BASO % 1 % (0-3); EOS # 0.1 x10^3/uL (0.0-0.7); EOS % 1 % (0-3); HEMATOCRIT 28.5 % (39.0-53.0); LYMPH # 1.6 x10^3/uL (1.0-4.8); LYMPH % 31 % (24-48); MEAN CORPUSCULAR HEMOGLOBIN 25 pg (25-35); MEAN CORPUSCULAR HGB CONC 32 g/dL (31-37); MEAN CORPUSCULAR VOLUME 78 fL (79-100); MONO # 0.7 x10^3/uL (0.0-1.1); MONO % 14 % (0-9); NEUT # 2.7 x10^3/uL (1.8-7.7); NEUT % 53 % (31-73); PLATELET COUNT 124 x10^3/uL (140-400); RED BLOOD COUNT 3.64 x10^6/uL (4.30-5.70); RED CELL DISTRIBUTION WIDTH 15.6 % (11.5-14.5); WHITE BLOOD COUNT 5.1 x10^3/uL (4.0-11.0)
[2020-12-07] MEDS ORDERED: PANTOPRAZOLE 40 MG TABLET.DR. PO SCH (07:30)
[2020-12-07 07:53] LABS: ALBUMIN 2.6 g/dL (3.4-5.0); ALBUMIN/GLOBULIN RATIO 0.7 (1.0-1.7); CREATININE 6.8 mg/dL (0.7-1.3); GFR 9.9; TOTAL BILIRUBIN 0.5 mg/dL (0.2-1.0); TOTAL PROTEIN 6.6 g/dL (6.4-8.2)
[2020-12-07 07:58] LABS: POTASSIUM 6.3 mmol/L (3.5-5.1)
--- NOTE | 2020-12-07 08:20 | NUR ---
Patient to dialysis per bed, took cell phone with him.
--- NOTE | 2020-12-07 08:29 | PDOC ---
[employer] PROGRESS NOTE Date of Service DOS: DATE: 12/07/20 TIME: 08:24 Chief Complaint Chief Complaint Hyperkalemia DUE TO NONCOMPLIANCE WITH DIALYSIS NONCOMPLIANCE with missed dialysis ESRD (end stage renal disease) Left shoulder strain, PAIN abnormal ct of cervical spine History of recurrent falls. Weight loss. Bilateral foot drop. Diabetes mellitus type 2 with peripheral neuropathy. Coronary artery disease. 2017 ECHO Ejection Fraction is 35-40%. The systolic function is moderately impaired.global hypokinesis of the left ventricle with moderate inferior and infero-septal hypokinesis. mild tricuspid regurgitation. SEVERE pulmonary hypertension. The PA pressure was estimated at 56 mmHg. Chronic obstructive pulmonary disease. History of cerebrovascular accident Osteoarthritis. Hyperlipidemia. 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 he was transferring himself from his wheelchair and he fell and could not get up. He reports hitting his head on the floor and now has a headache. He reports missing dialysis on Monday because the van never picked him up. He was last dialyzed on Monday. He states for the last couple of weeks he has been "so weak", that he is having trouble transferring himself from bed to wheelchair. also complains of low back and bilateral lower leg pain, which is chronic but worsening. 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 2017 MRI 12/07: Patient seen and evaluated. Denies any fevers or nausea. Some hypokalemia this morning, which will be removed during morning dialysis session. MRI cervical and thoracic spine pending. Vitals/I&O Vitals/I&O: Vital Signs Date Time Temp Pulse Resp B/P (MAP) Pulse Ox O2 Delivery O2 Flow Rate FiO2 12/07/20 07:00 98.5 78 18 163/85 (111) 96 Room Air 98.5 I & O 12/06/20 12/06/20 12/07/20 15:00 23:00 07:00 Intake Total 720 ml 290 ml 150 ml Balance 720 ml 290 ml 150 ml Physical Exam General: Alert, Cooperative, No acute distress Heart: Regular rate Lungs: Clear Abdomen: Normal bowel sounds, Soft, No tenderness Extremities: No cyanosis Skin: No significant lesion Labs Labs: Laboratory Tests Test 12/06/20 17:56 12/06/20 19:51 12/07/20 06:30 12/07/20 06:35 Glucose (Fingerstick) 125 mg/dL (70-99) 103 mg/dL (70-99) White Blood Count 5.1 x10^3/uL (4.0-11.0) Red Blood Count 3.64 x10^6/uL (4.30-5.70) Hemoglobin 9.0 g/dL (13.0-17.5) Hematocrit 28.5 % (39.0-53.0) Mean Corpuscular Volume 78 fL (79-100) Mean Corpuscular Hemoglobin 25 pg (25-35) Mean Corpuscular Hemoglobin Concent 32 g/dL (31-37) Red Cell Distribution Width 15.6 % (11.5-14.5) Platelet Count 124 x10^3/uL (140-400) Neutrophils (%) (Auto) 53 % (31-73) Lymphocytes (%) (Auto) 31 % (24-48) Monocytes (%) (Auto) 14 % (0-9) Eosinophils (%) (Auto) 1 % (0-3) Basophils (%) (Auto) 1 % (0-3) Neutrophils # (Auto) 2.7 x10^3/uL (1.8-7.7) Lymphocytes # (Auto) 1.6 x10^3/uL (1.0-4.8) Monocytes # (Auto) 0.7 x10^3/uL (0.0-1.1) Eosinophils # (Auto) 0.1 x10^3/uL (0.0-0.7) Basophils # (Auto) 0.1 x10^3/uL (0.0-0.2) Sodium Level 136 mmol/L (136-145) Potassium Level 6.3 mmol/L (3.5-5.1) Chloride Level 99 mmol/L (98-107) Carbon Dioxide Level 29 mmol/L (21-32) Anion Gap 8 (6-14) Blood Urea Nitrogen 50 mg/dL (8-26) Creatinine 6.8 mg/dL (0.7-1.3) Estimated GFR (Cockcroft-Gault) 9.9 BUN/Creatinine Ratio 7 (6-20) Glucose Level 71 mg/dL (70-99) Calcium Level 9.0 mg/dL (8.5-10.1) Total Bilirubin 0.5 mg/dL (0.2-1.0) Aspartate Amino Transf (AST/SGOT) 27 U/L (15-37) Alanine Aminotransferase (ALT/SGPT) 19 U/L (16-63) Alkaline Phosphatase 47 U/L (46-116) Total Protein 6.6 g/dL (6.4-8.2) Albumin 2.6 g/dL (3.4-5.0) Albumin/Globulin Ratio 0.7 (1.0-1.7) Test 12/07/20 07:41 Glucose (Fingerstick) 113 mg/dL (70-99) Assessment and Plan Assessmemt and Plan Problems Medical Problems: (1) Left shoulder strain Status: Acute Comment Review of Relevant I have reviewed the following items connie (where applicable) has been applied. Medications: Current Medications Medications (Trade) Dose Ordered Sig/Thuan Route PRN Reason Start Time Stop Time Status Last Admin Dose Admin Gabapentin (Neurontin) 100 mg BID PO 12/06/20 21:00 12/06/20 21:28 Hydralazine HCl (Apresoline) 50 mg TID PO 12/06/20 14:00 12/06/20 21:29 Acetaminophen/ Hydrocodone Bitart (Lortab 5/325) 1 tab PRN Q6HRS PRN PO PAIN 12/06/20 12:00 12/06/20 21:36 Sevelamer Carbonate (Renvela) 800 mg BIDWMEALS PO 12/06/20 17:00 12/06/20 18:00 Carvedilol (Coreg) 25 mg BIDWMEALS PO 12/06/20 17:00 12/06/20 18:00 Heparin Sodium (Porcine) (Heparin Sodium) 5,000 unit Q8HRS SQ 12/06/20 14:00 12/06/20 21:35 Justifications for Admission General Conditions Poss tachycardia?: Yes Justification for admission: Patient has tachycardia (> 100 beats per minute) which is not readily corrected by appropriate treatment within 12 to 24 hours. SEVERE HYPERKALEMIA Reduced urine output?: Yes Justification of admission: Patient has tachycardia (> 100 beats per minute) or hypotension (SBP < 90 mm Hg) leading to inadequate systemic perfusion as indicated by reduced urine output. SEVERE HYPERKALEMIA Other Justification SAMMIE STAFFORD MD Dec 07, 2020 08:29
[2020-12-07] MEDS ORDERED: IV NORMAL SALINE 1000ML BAG 1,000 ML IV PRN ×2 (08:30)
[2020-12-07] MEDS ORDERED: DIALYSIS PATIENT. MC PRN (08:30)
[2020-12-07] MEDS ORDERED: ATORVASTATIN CALCIUM 20 MG TABLET PO SCH (09:00)
[2020-12-07] MEDS ORDERED: DICLOFENAC SODIUM 1% TOPICAL GEL 100GM TUBE. TP SCH (09:00)
[2020-12-07] MEDS ORDERED: CITALOPRAM 10 MG TABLET. PO SCH (09:00)
--- NOTE | 2020-12-07 11:32 | PDOC2 ---
HARPER MCKEON YARN HAULER 12/07/20 1132: CARDIAC CONSULT DATE OF CONSULT Date of Consult DATE: 12/07/20 TIME: 11:25 REASON FOR CONSULT Reason for Consult: cardiomyopathy Frequent falls REFERRING PHYSICIAN Referring Physician: Dr. Sierra SOURCE Source: Chart review HISTORY OF PRESENT ILLNESS HISTORY OF PRESENT ILLNESS This is a 65 yo male who presented secondary to weakness and fall. Was transferring to wheelchair and fell. Has been more weak recently. Has a history of cardiomyopathy, which prompted this consult. Patient angry, wanting to leav AMA. Presently on scooting on floor to leave. States there is nothing wrong with his heart and will not provide any additional information. PAST MEDICAL HISTORY Cardiovascular: CHF, HTN, Hyperlipidemia Pulmonary: COPD CENTRAL NERVOUS SYSTEM: CVA, Periperal neuropathy GI: GERD Psych: Anxiety, Depression Renal/: Chronic renal failure (ESRD on HD) Endocrine: Diabetes PAST SURGICAL HISTORY Past Surgical History: Other (RUE vascular access ) FAMILY HISTORY Family History: Cancer, Diabetes, Hypertension SOCIAL HISTORY Smoke: <1 pack per day ALCOHOL: other (quit ) Drugs: Marijuana Lives: with Family CURRENT MEDICATIONS CURRENT MEDICATIONS Current Medications Medications (Trade) Dose Ordered Sig/Thuan Route PRN Reason Start Time Stop Time Status Last Admin Dose Admin Gabapentin (Neurontin) 100 mg BID PO 12/06/20 21:00 12/06/20 21:28 Hydralazine HCl (Apresoline) 50 mg TID PO 12/06/20 14:00 12/06/20 21:29 Acetaminophen/ Hydrocodone Bitart (Lortab 5/325) 1 tab PRN Q6HRS PRN PO PAIN 12/06/20 12:00 12/06/20 21:36 Sevelamer Carbonate (Renvela) 800 mg BIDWMEALS PO 12/06/20 17:00 12/06/20 18:00 Carvedilol (Coreg) 25 mg BIDWMEALS PO 12/06/20 17:00 12/06/20 18:00 Heparin Sodium (Porcine) (Heparin Sodium) 5,000 unit Q8HRS SQ 12/06/20 14:00 12/06/20 21:35 ALLERGIES ALLERGIES: Coded Allergies: No Known Drug Allergies (Unverified , 10/23/17) ROS Review of System 14 point ROS conducted with pertinent positives noted above in HPI PHYSICAL EXAM General: Alert, No acute distress HEENT: Atraumatic Heart: Other (not on tele) Extremities: No edema Neuro: Normal speech Psych/Mental Status: Other (aggressive, aggitated ) MUSCULOSKELETAL: Osteoarthritic changes both hands VITALS/I&O VITALS/I&O: Vital Signs Date Time Temp Pulse Resp B/P (MAP) Pulse Ox O2 Delivery O2 Flow Rate FiO2 12/07/20 07:00 98.5 78 18 163/85 (111) 96 Room Air 98.5 I & O 12/06/20 12/06/20 12/07/20 15:00 23:00 07:00 Intake Total 720 ml 290 ml 150 ml Balance 720 ml 290 ml 150 ml LABS Lab: Laboratory Tests Test 12/06/20 17:56 12/06/20 19:51 12/07/20 06:30 12/07/20 06:35 Glucose (Fingerstick) 125 mg/dL (70-99) H 103 mg/dL (70-99) H White Blood Count 5.1 x10^3/uL (4.0-11.0) Red Blood Count 3.64 x10^6/uL (4.30-5.70) L Hemoglobin 9.0 g/dL (13.0-17.5) L Hematocrit 28.5 % (39.0-53.0) L Mean Corpuscular Volume 78 fL (79-100) L Mean Corpuscular Hemoglobin 25 pg (25-35) Mean Corpuscular Hemoglobin Concent 32 g/dL (31-37) Red Cell Distribution Width 15.6 % (11.5-14.5) H Platelet Count 124 x10^3/uL (140-400) L Neutrophils (%) (Auto) 53 % (31-73) Lymphocytes (%) (Auto) 31 % (24-48) Monocytes (%) (Auto) 14 % (0-9) H Eosinophils (%) (Auto) 1 % (0-3) Basophils (%) (Auto) 1 % (0-3) Neutrophils # (Auto) 2.7 x10^3/uL (1.8-7.7) Lymphocytes # (Auto) 1.6 x10^3/uL (1.0-4.8) Monocytes # (Auto) 0.7 x10^3/uL (0.0-1.1) Eosinophils # (Auto) 0.1 x10^3/uL (0.0-0.7) Basophils # (Auto) 0.1 x10^3/uL (0.0-0.2) Sodium Level 136 mmol/L (136-145) Potassium Level 6.3 mmol/L (3.5-5.1) #*H Chloride Level 99 mmol/L (98-107) Carbon Dioxide Level 29 mmol/L (21-32) Anion Gap 8 (6-14) Blood Urea Nitrogen 50 mg/dL (8-26) H Creatinine 6.8 mg/dL (0.7-1.3) H Estimated GFR (Cockcroft-Gault) 9.9 BUN/Creatinine Ratio 7 (6-20) Glucose Level 71 mg/dL (70-99) Calcium Level 9.0 mg/dL (8.5-10.1) Total Bilirubin 0.5 mg/dL (0.2-1.0) Aspartate Amino Transferase (AST) 27 U/L (15-37) Alanine Aminotransferase (ALT) 19 U/L (16-63) Alkaline Phosphatase 47 U/L (46-116) Total Protein 6.6 g/dL (6.4-8.2) Albumin 2.6 g/dL (3.4-5.0) L Albumin/Globulin Ratio 0.7 (1.0-1.7) L Test 12/07/20 07:41 Glucose (Fingerstick) 113 mg/dL (70-99) H Laboratory Tests 12/07/20 06:30 Laboratory Tests 12/07/20 06:35 ECHOCARDIOGRAM ECHOCARDIOGRAM <Conclusion> The Ejection Fraction is 35-40%. The systolic function is moderately impaired. There is global hypokinesis of the left ventricle with moderate inferior and infero-septal hypokinesis. Doppler and Color Flow revealed trace to mild tricuspid regurgitation. There is moderate pulmonary hypertension. The PA pressure was estimated at 56 mmHg. DATE: 04/11/17 1303 STRESS TEST STRESS TEST Conclusion 1. Regadenoson cardioisotope stress test did not show any evidence of ischemia or infarct. 2. Normal left ventricular systolic function with ejection fraction calculated at 62%. 3. Low risk for cardiac events. DATE: 04/14/17 1328 ASSESSMENT/PLAN ASSESSMENT/PLAN 1. Weakness, mechanical fall 2. ERSD on HD; uremic. missed Monday due to transportation issue 3. Hyperkalemia 4. Cardiomyopathy; Echo 2017 with LVEF 35-40%. 5. Chronic systolic CHF; appears compensated 6. Hypertension; controlled 7. Hyperlipidemia 8. Diabetes, II Recommendations Fluid offloading via HD Compensated from a CV standpoint Leaving A FINN BURGER MD 12/07/20 1846: CARDIAC CONSULT ASSESSMENT/PLAN ASSESSMENT/PLAN Patient seen and examined I agree with our nurse practitioners assessment and plan as above. End-stage renal disease. Missed Fridays dialysis run. Being dialyzed this morning. Hyperkalemia. Dialysis as above. Compensated chronic systolic heart failure. Dialysis as above. Echo in 2017 with an ejection fraction of 35 to 40%. Patient now leaving [facility]. Will attempt to follow-up as an outpatient. Controlled hypertension. Continue present treatment. Hyperlipidemia. Again continue present treatment. HARPER MCKEON APRN Dec 07, 2020 11:32 FINN BURGER MD Dec 07, 2020 18:46
--- NOTE | 2020-12-07 11:44 | PDOC ---
DATE OF SERVICE DATE: 12/07/20 TIME: 11:44 SUBJECTIVE ROS seen on HD, no complaints States he will leave AMA OBJECTIVE Vital Signs Vital Signs Date Time Temp Pulse Resp B/P (MAP) Pulse Ox O2 Delivery O2 Flow Rate FiO2 12/07/20 07:00 98.5 78 18 163/85 (111) 96 Room Air 98.5 I & 0 Intake and Output 12/07/20 07:00 Intake Total 1160 ml Balance 1160 ml Intake Oral 1160 ml PHYSICAL EXAM Physical Exam GENERAL: NAD HEENT: OM moist Neck supple Lungs CTA, Non labored CV S1S2 ABDOMEN: Soft, nontender, EXTREMITIES: No edema. Psych Agitated No harrsi DIAGNOSIS/ASSESSMENT Assessment & Plan ESRD - on HD MWF under Dr. Harrison's care Seen on dialysis, tolerating well, continue as ordered, Alcides Carranza HyperKalemia- chronic , non compliance with HD Severe noncompliance. Left shoulder strain, PAIN Abnormal ct of cervical spine Diabetes mellitus type 2 with neuropathy. History of recurrent falls. Bilateral foot drops. Coronary artery disease. Chronic obstructive pulmonary disease. History of cerebrovascular accident COMMENT/RELEVANT DATA Meds Current Medications Medications (Trade) Dose Ordered Sig/Thuan Start Time Stop Time Status Last Admin Dose Admin Acetaminophen (Tylenol) 650 mg PRN Q4HRS PRN 12/06/20 12:00 Cancel Acetaminophen/ Hydrocodone Bitart (Lortab 5/325) 1 tab PRN Q6HRS PRN 12/06/20 12:00 12/06/20 21:36 1 TAB Albumin Human 200 ml @ 200 mls/hr 1X PRN PRN 12/06/20 03:30 12/06/20 09:29 DC Albuterol Sulfate (Ventolin Neb Soln) 2.5 mg PRN Q4HRS PRN 12/06/20 12:00 Atorvastatin Calcium (Lipitor) 20 mg DAILY 12/07/20 09:00 Calcium Gluconate (Calcium Gluconate) 1,000 mg 1X ONCE 12/06/20 02:00 12/06/20 02:01 DC 12/06/20 02:02 1,000 MG Carvedilol (Coreg) 25 mg BIDWMEALS 12/06/20 17:00 12/06/20 18:00 25 MG Citalopram Hydrobromide (CeleXA) 20 mg DAILY 12/07/20 09:00 Dextrose (Dextrose 50%-Water Syringe) 12.5 gm PRN Q15MIN PRN 12/06/20 02:00 Diclofenac Sodium (Voltaren) 1 rene BID 12/07/20 09:00 Docusate Sodium (Colace) 100 mg PRN BID PRN 12/06/20 12:00 Fentanyl Citrate (Fentanyl 2ml Vial) 50 mcg 1X ONCE 12/06/20 01:30 12/06/20 01:31 DC 12/06/20 01:36 50 MCG Gabapentin (Neurontin) 100 mg BID 12/06/20 21:00 12/06/20 21:28 100 MG Guaifenesin (Robitussin) 200 mg PRN Q4HRS PRN 12/06/20 12:00 Heparin Sodium (Porcine) (Heparin Sodium) 5,000 unit Q8HRS 12/06/20 14:00 12/06/20 21:35 5,000 UNIT Hydralazine HCl (Apresoline Inj) 10 mg PRN Q4HRS PRN 12/06/20 03:30 Hydralazine HCl (Apresoline) 50 mg TID 12/06/20 14:00 12/06/20 21:29 50 MG Info (PHARMACY MONITORING -- do not chart) 1 each PRN DAILY PRN 12/07/20 08:30 Insulin Human Lispro (HumaLOG) 0-5 UNITS TIDWMEALS 12/06/20 08:00 12/06/20 13:02 2 UNITS Insulin Human Regular (HumuLIN R VIAL) 10 unit 1X ONCE 12/06/20 02:00 12/06/20 02:01 DC 12/06/20 02:16 10 UNIT Morphine Sulfate (Morphine Sulfate) 6 mg 1X ONCE 12/06/20 05:00 12/06/20 05:01 DC 12/06/20 04:50 6 MG Pantoprazole Sodium (Protonix) 40 mg DAILYAC 12/07/20 07:30 Sevelamer Carbonate (Renvela) 800 mg BIDWMEALS 12/06/20 17:00 12/06/20 18:00 800 MG Sodium Chloride 1,000 ml @ 400 mls/hr Q2H30M PRN 12/07/20 08:30 12/07/20 20:29 Sodium Chloride (Normal Saline Flush) 3 ml QSHIFT PRN 12/06/20 12:00 Lab Laboratory Tests Test 12/06/20 17:56 12/06/20 19:51 12/07/20 06:30 12/07/20 06:35 Glucose (Fingerstick) 125 mg/dL (70-99) 103 mg/dL (70-99) White Blood Count 5.1 x10^3/uL (4.0-11.0) Red Blood Count 3.64 x10^6/uL (4.30-5.70) Hemoglobin 9.0 g/dL (13.0-17.5) Hematocrit 28.5 % (39.0-53.0) Mean Corpuscular Volume 78 fL (79-100) Mean Corpuscular Hemoglobin 25 pg (25-35) Mean Corpuscular Hemoglobin Concent 32 g/dL (31-37) Red Cell Distribution Width 15.6 % (11.5-14.5) Platelet Count 124 x10^3/uL (140-400) Neutrophils (%) (Auto) 53 % (31-73) Lymphocytes (%) (Auto) 31 % (24-48) Monocytes (%) (Auto) 14 % (0-9) Eosinophils (%) (Auto) 1 % (0-3) Basophils (%) (Auto) 1 % (0-3) Neutrophils # (Auto) 2.7 x10^3/uL (1.8-7.7) Lymphocytes # (Auto) 1.6 x10^3/uL (1.0-4.8) Monocytes # (Auto) 0.7 x10^3/uL (0.0-1.1) Eosinophils # (Auto) 0.1 x10^3/uL (0.0-0.7) Basophils # (Auto) 0.1 x10^3/uL (0.0-0.2) Sodium Level 136 mmol/L (136-145) Potassium Level 6.3 mmol/L (3.5-5.1) Chloride Level 99 mmol/L (98-107) Carbon Dioxide Level 29 mmol/L (21-32) Anion Gap 8 (6-14) Blood Urea Nitrogen 50 mg/dL (8-26) Creatinine 6.8 mg/dL (0.7-1.3) Estimated GFR (Cockcroft-Gault) 9.9 BUN/Creatinine Ratio 7 (6-20) Glucose Level 71 mg/dL (70-99) Calcium Level 9.0 mg/dL (8.5-10.1) Total Bilirubin 0.5 mg/dL (0.2-1.0) Aspartate Amino Transf (AST/SGOT) 27 U/L (15-37) Alanine Aminotransferase (ALT/SGPT) 19 U/L (16-63) Alkaline Phosphatase 47 U/L (46-116) Total Protein 6.6 g/dL (6.4-8.2) Albumin 2.6 g/dL (3.4-5.0) Albumin/Globulin Ratio 0.7 (1.0-1.7) Test 12/07/20 07:41 Glucose (Fingerstick) 113 mg/dL (70-99) Results All relevant outside records, renal labs, imaging studies, telemetry/EKG's were reviewed. Justicifation of Admission Dx: Justifications for Admission: Justification of Admission Dx: Yes KIRA UGALDE MD Dec 07, 2020 11:44
--- NOTE | 2020-12-07 12:10 | NUR ---
Patient left AMA, picked up by admission liaison. Patient was taken out in wheelchair accompanied by staff member and security. Dr Garcia was notified that patient was going to leave AMA. Patient signed AMA form. No belongings were left in room when patient left. Director Women has been notified.
--- NOTE | 2020-12-07 14:06 | NUR ---
YASMEEN following for discharge planning. Spoke with RN and reviewed chart. Pt left AMA per RN. No further needs. Addendum: 12/07/20 at 1409 by JUAN PABLO ARANA Pt does outpatient dialysis at [facility] and has a history of leaving from medical facilities AMA per chart review. Pt at high risk for readmission.
--- NOTE | 2020-12-07 14:52 | PDOC ---
Provider Note Date of Service: DATE: 12/07/20 TIME: 14:52 Provider Note Patient left AMA Justifications for Admission General Conditions Poss tachycardia?: Yes Justification for admission: Patient has tachycardia (> 100 beats per minute) which is not readily corrected by appropriate treatment within 12 to 24 hours. SEVERE HYPERKALEMIA Reduced urine output?: Yes Justification of admission: Patient has tachycardia (> 100 beats per minute) or hypotension (SBP < 90 mm Hg) leading to inadequate systemic perfusion as indicated by reduced urine output. SEVERE HYPERKALEMIA Other Justification YVON MCCRACKEN MD Dec 07, 2020 14:52
--- NOTE | 2020-12-07 19:51 | PDOC3 ---
Discharge Summary Visit Information Date of Admission: Dec 06, 2020 Date of Discharge: Dec 07, 2020 Final Diagnosis Problems Medical Problems: (1) Left shoulder strain Status: Acute Brief Hospital Course Allergies Allergies Coded Allergies Type Severity Reaction Last Updated Verified No Known Drug Allergies 10/23/17 No Vital Signs Vital Signs Date Time Temp Pulse Resp B/P (MAP) Pulse Ox O2 Delivery O2 Flow Rate FiO2 12/07/20 08:00 Room Air 12/07/20 07:00 98.5 78 18 163/85 (111) 96 98.5 Lab Results Laboratory Tests Test 12/06/20 00:57 12/06/20 01:49 12/06/20 07:10 12/06/20 17:56 White Blood Count 5.5 x10^3/uL (4.0-11.0) Red Blood Count 3.86 x10^6/uL (4.30-5.70) Hemoglobin 9.6 g/dL (13.0-17.5) Hematocrit 30.0 % (39.0-53.0) Mean Corpuscular Volume 78 fL (79-100) Mean Corpuscular Hemoglobin 25 pg (25-35) Mean Corpuscular Hemoglobin Concent 32 g/dL (31-37) Red Cell Distribution Width 15.3 % (11.5-14.5) Platelet Count 138 x10^3/uL (140-400) Neutrophils (%) (Auto) 59 % (31-73) Lymphocytes (%) (Auto) 29 % (24-48) Monocytes (%) (Auto) 10 % (0-9) Eosinophils (%) (Auto) 2 % (0-3) Basophils (%) (Auto) 1 % (0-3) Neutrophils # (Auto) 3.2 x10^3/uL (1.8-7.7) Lymphocytes # (Auto) 1.6 x10^3/uL (1.0-4.8) Monocytes # (Auto) 0.6 x10^3/uL (0.0-1.1) Eosinophils # (Auto) 0.1 x10^3/uL (0.0-0.7) Basophils # (Auto) 0.0 x10^3/uL (0.0-0.2) Prothrombin Time 14.2 SEC (11.7-14.0) Prothromb Time International Ratio 1.1 (0.8-1.1) Activated Partial Thromboplast Time 36 SEC (24-38) Sodium Level 134 mmol/L (136-145) 137 mmol/L (136-145) Potassium Level 9.2 mmol/L (3.5-5.1) 4.2 mmol/L (3.5-5.1) Chloride Level 96 mmol/L (98-107) 98 mmol/L (98-107) Carbon Dioxide Level 26 mmol/L (21-32) 28 mmol/L (21-32) Anion Gap 12 (6-14) 11 (6-14) Blood Urea Nitrogen 116 mg/dL (8-26) 51 mg/dL (8-26) Creatinine 11.5 mg/dL (0.7-1.3) 5.4 mg/dL (0.7-1.3) Estimated GFR (Cockcroft-Gault) 5.4 12.9 BUN/Creatinine Ratio 10 (6-20) Glucose Level 131 mg/dL (70-99) 94 mg/dL (70-99) Lactic Acid Level 0.9 mmol/L (0.4-2.0) Calcium Level 8.9 mg/dL (8.5-10.1) 8.5 mg/dL (8.5-10.1) Magnesium Level 3.1 mg/dL (1.8-2.4) Total Bilirubin 0.4 mg/dL (0.2-1.0) Aspartate Amino Transf (AST/SGOT) 32 U/L (15-37) Alanine Aminotransferase (ALT/SGPT) 25 U/L (16-63) Alkaline Phosphatase 59 U/L (46-116) Creatine Kinase 314 U/L (39-308) Creatine Kinase MB (Mass) 6.1 ng/mL (0.0-3.6) Creatine Kinase MB Relative Index 1.9 % (0-4) Troponin I Quantitative < 0.017 ng/mL (0.000-0.055) Total Protein 7.4 g/dL (6.4-8.2) Albumin 3.0 g/dL (3.4-5.0) Albumin/Globulin Ratio 0.7 (1.0-1.7) Glucose (Fingerstick) 106 mg/dL (70-99) 125 mg/dL (70-99) Test 12/06/20 19:51 12/07/20 06:30 12/07/20 06:35 12/07/20 07:41 Glucose (Fingerstick) 103 mg/dL (70-99) 113 mg/dL (70-99) White Blood Count 5.1 x10^3/uL (4.0-11.0) Red Blood Count 3.64 x10^6/uL (4.30-5.70) Hemoglobin 9.0 g/dL (13.0-17.5) Hematocrit 28.5 % (39.0-53.0) Mean Corpuscular Volume 78 fL (79-100) Mean Corpuscular Hemoglobin 25 pg (25-35) Mean Corpuscular Hemoglobin Concent 32 g/dL (31-37) Red Cell Distribution Width 15.6 % (11.5-14.5) Platelet Count 124 x10^3/uL (140-400) Neutrophils (%) (Auto) 53 % (31-73) Lymphocytes (%) (Auto) 31 % (24-48) Monocytes (%) (Auto) 14 % (0-9) Eosinophils (%) (Auto) 1 % (0-3) Basophils (%) (Auto) 1 % (0-3) Neutrophils # (Auto) 2.7 x10^3/uL (1.8-7.7) Lymphocytes # (Auto) 1.6 x10^3/uL (1.0-4.8) Monocytes # (Auto) 0.7 x10^3/uL (0.0-1.1) Eosinophils # (Auto) 0.1 x10^3/uL (0.0-0.7) Basophils # (Auto) 0.1 x10^3/uL (0.0-0.2) Sodium Level 136 mmol/L (136-145) Potassium Level 6.3 mmol/L (3.5-5.1) Chloride Level 99 mmol/L (98-107) Carbon Dioxide Level 29 mmol/L (21-32) Anion Gap 8 (6-14) Blood Urea Nitrogen 50 mg/dL (8-26) Creatinine 6.8 mg/dL (0.7-1.3) Estimated GFR (Cockcroft-Gault) 9.9 BUN/Creatinine Ratio 7 (6-20) Glucose Level 71 mg/dL (70-99) Calcium Level 9.0 mg/dL (8.5-10.1) Total Bilirubin 0.5 mg/dL (0.2-1.0) Aspartate Amino Transf (AST/SGOT) 27 U/L (15-37) Alanine Aminotransferase (ALT/SGPT) 19 U/L (16-63) Alkaline Phosphatase 47 U/L (46-116) Total Protein 6.6 g/dL (6.4-8.2) Albumin 2.6 g/dL (3.4-5.0) Albumin/Globulin Ratio 0.7 (1.0-1.7) Laboratory Tests Test 12/06/20 19:51 12/07/20 06:30 12/07/20 06:35 12/07/20 07:41 Glucose (Fingerstick) 103 mg/dL (70-99) 113 mg/dL (70-99) White Blood Count 5.1 x10^3/uL (4.0-11.0) Red Blood Count 3.64 x10^6/uL (4.30-5.70) Hemoglobin 9.0 g/dL (13.0-17.5) Hematocrit 28.5 % (39.0-53.0) Mean Corpuscular Volume 78 fL (79-100) Mean Corpuscular Hemoglobin 25 pg (25-35) Mean Corpuscular Hemoglobin Concent 32 g/dL (31-37) Red Cell Distribution Width 15.6 % (11.5-14.5) Platelet Count 124 x10^3/uL (140-400) Neutrophils (%) (Auto) 53 % (31-73) Lymphocytes (%) (Auto) 31 % (24-48) Monocytes (%) (Auto) 14 % (0-9) Eosinophils (%) (Auto) 1 % (0-3) Basophils (%) (Auto) 1 % (0-3) Neutrophils # (Auto) 2.7 x10^3/uL (1.8-7.7) Lymphocytes # (Auto) 1.6 x10^3/uL (1.0-4.8) Monocytes # (Auto) 0.7 x10^3/uL (0.0-1.1) Eosinophils # (Auto) 0.1 x10^3/uL (0.0-0.7) Basophils # (Auto) 0.1 x10^3/uL (0.0-0.2) Sodium Level 136 mmol/L (136-145) Potassium Level 6.3 mmol/L (3.5-5.1) Chloride Level 99 mmol/L (98-107) Carbon Dioxide Level 29 mmol/L (21-32) Anion Gap 8 (6-14) Blood Urea Nitrogen 50 mg/dL (8-26) Creatinine 6.8 mg/dL (0.7-1.3) Estimated GFR (Cockcroft-Gault) 9.9 BUN/Creatinine Ratio 7 (6-20) Glucose Level 71 mg/dL (70-99) Calcium Level 9.0 mg/dL (8.5-10.1) Total Bilirubin 0.5 mg/dL (0.2-1.0) Aspartate Amino Transf (AST/SGOT) 27 U/L (15-37) Alanine Aminotransferase (ALT/SGPT) 19 U/L (16-63) Alkaline Phosphatase 47 U/L (46-116) Total Protein 6.6 g/dL (6.4-8.2) Albumin 2.6 g/dL (3.4-5.0) Albumin/Globulin Ratio 0.7 (1.0-1.7) Brief Hospital Course Mr. Doran is a 65 old male who presented with hyperkalemia secondary to HD noncompliance, weakness, fall at home, and possible cervical or thoracic myelopathy. Consultation was placed to Nephrology and Neurology. He received HD with correction of his electrolyte abnormalities. Cervical and thoracic MRI was planned, however patient left AMA. Discharge Information Condition at Discharge: Comment (Left AMA) Disposition/Orders: Other (Left AMA) Scheduled Atorvastatin Calcium (Atorvastatin Calcium) 20 Mg Tablet, 1 TAB PO DAILY, #30 Ref 5 (Reported) Entered as Reported by: GEMMA EVANS on 04/11/171948 Last Action: Continued on 12/06/20 115 by HAIDER FERRARI MD Carvedilol (Carvedilol) 25 Mg Tablet, 25 MG PO BIDWMEALS for CARDIAC, (Reported) Entered as Reported by: MITRA HAMILTON on 10/06/202145 Last Action: Converted on 12/06/20 1151 by HAIDER FERRARI MD Citalopram Hydrobromide (Citalopram Hbr) 10 Mg Tablet, 10 PO DAILY for depression, (Reported) Entered as Reported by: Jeffrey Barksdale on 12/09/19 075 Last Action: Continued on 12/06/20 115 by HAIDER FERRARI MD Gabapentin (Gabapentin) 100 Mg Capsule, 100 MG PO BID for neuropathy, (Reported) Entered as Reported by: Jeffrey Barksdale on 12/09/19 0759 Last Action: Continued on 12/06/20 115 by HAIDER FERRARI MD Hydralazine Hcl (Hydralazine Hcl) 50 Mg Tablet, 1 TAB PO TID for HTN, #90 Ref 5 Prescribed by: BI LOBATO on 12/18/19 1034 Last Action: Continued on 12/06/20 115 by HAIDER FERRARI MD Mirtazapine (Mirtazapine) 30 Mg Tablet, 1 TAB PO QHS for insomnia, (Reported) Entered as Reported by: Davey Valdovinos on 11/18/202202 Last Action: HELD on 12/06/201150 by HAIDER FERRARI MD Omeprazole (Omeprazole) 20 Mg Capsule.dr, 20 MG PO DAILY for antiacid, (Reported) Entered as Reported by: Jeffrey Barksdale on 12/09/19 0759 Last Action: Converted on 12/06/201150 by HAIDER FERRARI MD Sevelamer Carbonate (Renvela) 800 Mg Tablet, 1 TAB PO BIDWMEALS for kindeys for 30 Days, #60 Ref 0 (Reported) Entered as Reported by: CLEMENT JACOB on 11/27/19 1830 Last Action: Continued on 12/06/20 115 by HAIDER FERRARI MD [Diclofenac Sodium] 100 GM GEL..GRAM., 1 RADHA TP BID for arthritis Prescribed by: BI LOBATO on 10/08/20 1041 Last Action: Converted on 12/06/201150 by HAIDER FERRARI MD Scheduled PRN Acetaminophen (Tylenol) 325 Mg Tablet, 650 MG PO PRN Q6HRS PRN for MILD PAIN / TEMP for 30 Days, #120 Prescribed by: BI LOBATO on 12/10/19 1040 Last Action: Continued on 12/06/20 1151 by HAIDER FERRARI MD Hydrocodone Bit/Acetaminophen (Hydrocodone-Apap 5-325 ) 1 Tab Tablet, 1 TAB PO PRN Q6HRS PRN for PAIN for 15 Days, #60 Prescribed by: BI LOBATO on 12/10/19 1040 Last Action: Continued on 12/06/20 1151 by HAIDER FERRARI MD Justicifation of Admission Dx: Justifications for Admission: Justification of Admission Dx: Yes SAMMIE STAFFORD MD Dec 07, 2020 19:51
== END 2020-12-07 12:03 | disposition left against medical advice (07) | DRG 640 ==
LOC: ER 00:45 → ED HOLD 02:38 → 5 NORTH 09:30
PROVIDERS: ADMIT Internal Medicine; ATTEND Internal Medicine
PROC: 5A1D70Z Performance of Urinary Filtration, Intermittent, Less than 6 Hours Per Day (ICD-10-PCS; principal; 2020-12-06)
PROC: 5A1D70Z Performance of Urinary Filtration, Intermittent, Less than 6 Hours Per Day (ICD-10-PCS; 2020-12-07)
DX: E87.5 Hyperkalemia (principal); N18.6 End stage renal disease; I13.2 Hypertensive heart and chronic kidney disease with heart failure and with stage 5 chronic kidney disease, or end stage renal disease; N25.81 Secondary hyperparathyroidism of renal origin; G95.89 Other specified diseases of spinal cord; E11.22 Type 2 diabetes mellitus with diabetic chronic kidney disease; I25.10 Atherosclerotic heart disease of native coronary artery without angina pectoris; I50.9 Heart failure, unspecified; J44.9 Chronic obstructive pulmonary disease, unspecified; E11.42 Type 2 diabetes mellitus with diabetic polyneuropathy; Z91.15 Patient's noncompliance with renal dialysis; S46.912A Strain of unspecified muscle, fascia and tendon at shoulder and upper arm level, left arm, initial encounter; X58.XXXA Exposure to other specified factors, initial encounter; W18.39XA Other fall on same level, initial encounter; Y93.89 Activity, other specified; Y92.89 Other specified places as the place of occurrence of the external cause; Y99.8 Other external cause status; Z88.8 Allergy status to other drugs, medicaments and biological substances; Z53.29 Procedure and treatment not carried out because of patient's decision for other reasons
CPT/HCPCS: 36415; 70450; 71045; 72125; 73030; 80048; 80053; 82553; 82962; 83605; 83735; 84484; 85025; 85610; 85730; 87040; 93005; 94644; 96374; 96375; 96376; J0360; J0610; J1644; J1815; J2270; J3010; 99291-25; G0378; J7613

== ENCOUNTER 2020-12-27 15:57 | Inpatient (IN) | payer MEDICARE, MEDICAID ==
[2020-12-27] VITALS (8 sets, daily range): BP systolic 93–204; BP diastolic 51–107
[~2020-12-27] VITALS: Ht 172.7 cm; Wt 64.7 kg
[~2020-12-27 15:57] MED LIST changes: -MIRT-7 PO; -MIRT-8 PO; +MIRT15TA3 PO; +MIRT30TA3 PO
[2020-12-27] MEDS ORDERED: hydrALAZINE 20 MG/ML VIAL. IVP ONE (16:15)
--- NOTE | 2020-12-27 16:31 | RAD ---
AP chest. HISTORY: Short of air AP view was taken of the chest. There are hazy bilateral infiltrates or pulmonary edema with mild wor sening compared to the study from December 06. There is thickening along the minor fissure on the righ t. There is arthritis in the left shoulder. IMPRESSION: 1. Mild hazy infiltrates or edema. 2. Slight thickening along the minor fissure. Electronically signed by: Binh Oneal MD (12/27/2020 4:29 PM) [facility]
--- NOTE | 2020-12-27 16:49 | PHYS DOC ---
Past Medical History Past Medical History: CVA, Depression, Diabetes-Type II, High Cholesterol, Hypertension, Renal Failure, Other Additional Past Medical Histor: UNKNOWN MEDICAL HISTORY Past Surgical History: Other Additional Past Surgical Histo: DIALYSIS SHUNT PLACED IN RUE Smoking Status: Current Every Day Smoker Alcohol Use: None Additional Information: UNKNOWN Drug Use: Marijuana Social History Narrative: UNKNOWN General Adult EDM: Chief Complaint: SHORTNESS OF BREATH HPI: HPI: Patient is a 65 year old male who was brought here by EMS from home due to trouble breathing and loss of sense of smell and taste since yesterday. Patient had end-stage renal failure, on hemodialysis every Monday and Monday. Patient did not go to have his dialysis on Monday because he did not feel well. Patient denies any headache, no chest pain, no abdominal pain, no nausea vomiting. Review of Systems: Review of Systems: Constitutional: Denies fever or chills. [] Eyes: Denies change in visual acuity. [] HENT: Denies nasal congestion or sore throat. [] Respiratory: Denies cough, positive for trouble breathing. Cardiovascular: Denies chest pain or edema. [] GI: Denies abdominal pain, nausea, vomiting, bloody stools or diarrhea. [] : Denies dysuria. [] Musculoskeletal: Denies back pain or joint pain. [] Integument: Denies rash. [] Neurologic: Denies headache, focal weakness or sensory changes. [] Endocrine: Denies polyuria or polydipsia. [] Lymphatic: Denies swollen glands. [] Psychiatric: Denies depression or anxiety. [] Heart Score: Risk Factors: Risk Factors: DM, Current or recent (<one month) smoker, HTN, HLP, family history of CAD, obesity. Risk Scores: Score 0 - 3: 2.5% MACE over next 6 weeks - Discharge Home Score 4 - 6: 20.3% MACE over next 6 weeks - Admit for Clinical Observation Score 7 - 10: 72.7% MACE over next 6 weeks - Early Invasive Strategies Current Medications: Current Medications Medications (Trade) Dose Ordered Sig/Thuan Start Time Stop Time Status Last Admin Dose Admin Hydralazine HCl (Apresoline Inj) 20 mg 1X ONCE 12/27/20 16:15 12/27/20 16:16 DC 12/27/20 16:25 20 MG Allergies: Allergies: Allergies Coded Allergies Type Severity Reaction Last Updated Verified No Known Drug Allergies 10/23/17 No Physical Exam: PE: Constitutional: Well developed, well nourished, no acute distress, non-toxic appearance. [] HENT: Normocephalic, atraumatic, bilateral external ears normal, oropharynx moist, no oral exudates, nose normal. [] Eyes: PERRLA, EOMI, conjunctiva normal, no discharge. [] Neck: Normal range of motion, no tenderness, supple, no stridor. [] Cardiovascular:Heart rate regular rhythm, no murmur [] Lungs & Thorax: Bilateral breath sounds clear to auscultation [] Abdomen: Bowel sounds normal, soft, no tenderness, no masses, no pulsatile masses. [] Skin: Warm, dry, no erythema, no rash. [] Back: No tenderness, no CVA tenderness. [] Extremities: No tenderness, no cyanosis, no clubbing, ROM intact, no edema. [] Neurologic: Patient is somnolent confused disoriented to time and place, normal motor function, normal sensory function, no focal deficits noted. [] Psychologic: Affect normal, judgement normal, mood normal. [] Current Patient Data: Labs: Laboratory Tests Test 12/27/20 17:05 White Blood Count 8.2 x10^3/uL Red Blood Count 4.42 x10^6/uL Hemoglobin 11.1 g/dL Hematocrit 34.9 % Mean Corpuscular Volume 79 fL Mean Corpuscular Hemoglobin 25 pg Mean Corpuscular Hemoglobin Concent 32 g/dL Red Cell Distribution Width 15.7 % Platelet Count 202 x10^3/uL Neutrophils (%) (Auto) 74 % Lymphocytes (%) (Auto) 15 % Monocytes (%) (Auto) 9 % Eosinophils (%) (Auto) 0 % Basophils (%) (Auto) 2 % Neutrophils # (Auto) 6.0 x10^3/uL Lymphocytes # (Auto) 1.2 x10^3/uL Monocytes # (Auto) 0.7 x10^3/uL Eosinophils # (Auto) 0.0 x10^3/uL Basophils # (Auto) 0.1 x10^3/uL Sodium Level 134 mmol/L Potassium Level 8.3 mmol/L Chloride Level 97 mmol/L Carbon Dioxide Level 26 mmol/L Anion Gap 11 Blood Urea Nitrogen 89 mg/dL Creatinine 10.6 mg/dL Estimated GFR (Cockcroft-Gault) 5.9 BUN/Creatinine Ratio 8 Glucose Level 105 mg/dL Calcium Level 9.4 mg/dL Magnesium Level 3.0 mg/dL Total Bilirubin 0.5 mg/dL Aspartate Amino Transf (AST/SGOT) 31 U/L Alanine Aminotransferase (ALT/SGPT) 21 U/L Alkaline Phosphatase 64 U/L Troponin I Quantitative < 0.017 ng/mL [id number] Natriuretic Peptide 11837 pg/mL Total Protein 7.9 g/dL Albumin 3.2 g/dL Albumin/Globulin Ratio 0.7 Current Medications Medications (Trade) Dose Ordered Sig/Thuan Route PRN Reason Start Time Stop Time Status Last Admin Dose Admin Hydralazine HCl (Apresoline Inj) 20 mg 1X ONCE IVP 12/27/20 16:15 12/27/20 16:16 DC 12/27/20 16:25 Calcium Chloride (Calcium Chloride) 1,000 mg 1X ONCE IV 12/27/20 17:45 12/27/20 17:46 DC 12/27/20 17:59 Sodium Bicarbonate (Sodium Bicarb Adult 8.4% Syr) 50 meq 1X ONCE IV 12/27/20 17:45 12/27/20 17:46 DC 12/27/20 17:58 Dextrose (Dextrose 50%-Water Syringe) 25 gm 1X ONCE IV 12/27/20 17:45 12/27/20 17:46 DC 12/27/20 17:59 Insulin Human Regular (HumuLIN R VIAL) 10 unit 1X ONCE IV 12/27/20 17:45 12/27/20 17:46 DC 12/27/20 18:00 Ondansetron HCl (Zofran) 4 mg PRN Q8HRS PRN IV NAUSEA/VOMITING 12/27/20 18:00 12/28/20 17:59 Hydralazine HCl (Apresoline) 50 mg TID PO 12/27/20 21:00 Vital Signs: Vital Signs Date Time Temp Pulse Resp B/P (MAP) Pulse Ox O2 Delivery O2 Flow Rate FiO2 12/27/20 16:25 77 192/109 12/27/20 15:57 97.6 28 100 Nasal Cannula 2.0 97.6 EKG: EKG: EKG was done at 1619, rate of 79 bpm, sinus rhythm, left bundle branch block Radiology/Procedures: Radiology/Procedures: [][facility] [address] [place] [address] IMAGING REPORT Signed PATIENT: ERICKSON MAEOUNT: [id number] : 1955 LOCATION: ER AGE: 65 SEX: M EXAM STATUS: PRE ER ORD. PHYSICIAN: ERIN STEINER DO REASON: SOA PROCEDURE: PORTABLE CHEST 1V AP chest. HISTORY: Short of air AP view was taken of the chest. There are hazy bilateral infiltrates or pulmonary edema with mild worsening compared to the study from December 06. There is thickening along the minor fissure on the right. There is arthritis in the left shoulder. IMPRESSION: 1. Mild hazy infiltrates or edema. 2. Slight thickening along the minor fissure. Electronically signed by: Binh Oneal MD (12/27/2020 4:29 PM) [facility] DICTATED and SIGNED BY: BINH ONEAL MD DATE: 12/27/20 [id number] Course & Med Decision Making: Course & Med Decision Making Pertinent Labs and Imaging studies reviewed. (See chart for details) Patient is a 65-year-old male with end-stage renal failure, he missed his dialysis yesterday, presented to ER with trouble breathing and altered mental status. Patient is hypotensive, his potassium level was 8.3. Patient was given medication in ER for the hypercholesterolemia, discussed with the knitting machine operator helper on-call Dr. Gonzalez who will call the team in for urgent hemodialysis tonight. Patient will be admitted to Dr. Lott in the ICU. Discussed with Dr. Lott at 610 pm. Critical care time was [45] minutes which includes time at bedside, spent in discussion of patient's care with specialist and/or family members, with interpretation of laboratory and/or radiological studies and is exclusive of procedures. Dragon Disclaimer: Dragon Disclaimer: This electronic medical record was generated, in whole or in part, using a voice recognition dictation system. Departure Departure Impression: Primary Impression: Hyperkalemia Additional Impressions: Hypertensive urgency ESRD (end stage renal disease) on dialysis Person under investigation for COVID-19 Disposition: 09 ADMITTED INPT THIS HOSP Admitting Physician: Nesha Lott Condition: STABLE Referrals: BI LOBATO MD (PCP) ERIN STEINER DO Dec 27, 2020 16:49
[2020-12-27 17:19] LABS: BASO # 0.1 x10^3/uL (0.0-0.2); BASO % 2 % (0-3); EOS % 0 % (0-3); HEMATOCRIT 34.9 % (39.0-53.0); HEMOGLOBIN 11.1 g/dL (13.0-17.5); LYMPH # 1.2 x10^3/uL (1.0-4.8); LYMPH % 15 % (24-48); MEAN CORPUSCULAR HEMOGLOBIN 25 pg (25-35); MEAN CORPUSCULAR HGB CONC 32 g/dL (31-37); MEAN CORPUSCULAR VOLUME 79 fL (79-100); MONO # 0.7 x10^3/uL (0.0-1.1); MONO % 9 % (0-9); NEUT % 74 % (31-73); PLATELET COUNT 202 x10^3/uL (140-400); RED BLOOD COUNT 4.42 x10^6/uL (4.30-5.70); RED CELL DISTRIBUTION WIDTH 15.7 % (11.5-14.5); WHITE BLOOD COUNT 8.2 x10^3/uL (4.0-11.0)
[2020-12-27 17:35] LABS: ALBUMIN 3.2 g/dL (3.4-5.0); ALBUMIN/GLOBULIN RATIO 0.7 (1.0-1.7); CALCIUM 9.4 mg/dL (8.5-10.1); CREATININE 10.6 mg/dL (0.7-1.3); GFR 5.9; TOTAL BILIRUBIN 0.5 mg/dL (0.2-1.0); TOTAL PROTEIN 7.9 g/dL (6.4-8.2)
[2020-12-27 17:39] LABS: POTASSIUM 8.3 mmol/L (3.5-5.1)
[2020-12-27] MEDS ORDERED: SODIUM BICARB ADULT 8.4% 50 MEQ/50 ML DISP.SYRIN. IV ONE (17:45)
[2020-12-27] MEDS ORDERED: INSULIN REGULAR 100 UNIT/ML 3ML VIAL. IV ONE (17:45)
[2020-12-27] MEDS ORDERED: CALCIUM CHLORIDE 1,000 MG/10 ML DISP.SYRIN IV ONE (17:45)
[2020-12-27] MEDS ORDERED: DEXTROSE 50% 25 GM / 50ML DISP.SYRIN. IV ONE (17:45)
[2020-12-27] MEDS ORDERED: ONDANSETRON PF 4 MG/2 ML VIAL. IV PRN (18:00)
[2020-12-27] MEDS ORDERED: DIALYSIS PATIENT. MC PRN (19:30)
[2020-12-27] MEDS ORDERED: IV NORMAL SALINE 1000ML BAG 1,000 ML IV PRN ×2 (19:30)
[2020-12-27] MEDS ORDERED: diphenhydrAMINE 50 MG/ML VIAL IV PRN ×2 (19:30)
[2020-12-27] MEDS ORDERED: LIDOCAINE 1% PF 2 ML VIAL. INJ PRN (19:30)
[2020-12-27] MEDS ORDERED: ALBUMIN HUMAN 25% 200 ML IV PRN (19:30)
--- NOTE | 2020-12-27 20:21 | NUR ---
Patient arrived to ICU #105 from ED. Report received from SERGE Aldana at shift change. PUI and emergent dialysis required. developmental training counselor notified by . Called lab at confirm if patient Covid swabbed and lab stated that patient was and will be sent off. Patient alert to verbal, Lethargic and unable to answer admission questions. Notified Frank Doran, patient's son, of admission and gave consent for dialysis. Patient unable to confirm DPOA at time of call. Dr. Lott called unit to notify patient is no longer a patient of . Message left for Dr. Short for acceptance of patient. Will continue to monitor.
[2020-12-28] VITALS (20 sets, daily range): BP systolic 85–155; BP diastolic 50–91
[2020-12-28 07:01] LABS: ALBUMIN 2.6 g/dL (3.4-5.0); ALBUMIN/GLOBULIN RATIO 0.6 (1.0-1.7); CALCIUM 9.1 mg/dL (8.5-10.1); CREATININE 6.4 mg/dL (0.7-1.3); GFR 10.6; TOTAL BILIRUBIN 0.4 mg/dL (0.2-1.0); TOTAL PROTEIN 6.7 g/dL (6.4-8.2)
[2020-12-28 07:02] LABS: POTASSIUM 5.6 mmol/L (3.5-5.1)
[2020-12-28] MEDS ORDERED: IV NORMAL SALINE 1000ML BAG 1,000 ML IV PRN ×2 (08:15)
[2020-12-28] MEDS ORDERED: ALBUMIN HUMAN 25% 200 ML IV PRN (08:15)
[2020-12-28] MEDS ORDERED: DIALYSIS PATIENT. MC PRN ×2 (08:15)
[2020-12-28] MEDS ORDERED: HYDROcodone/APAP 5/325MG 1 TAB TABLET PO PRN (09:00)
[2020-12-28] MEDS ORDERED: ACETAMINOPHEN 325 MG TABLET. PO PRN (09:00)
[2020-12-28] MEDS: CITALOPRAM 10 MG TABLET. PO SCH (09:57)
[2020-12-28] MEDS: GABAPENTIN 100 MG CAPSULE. PO SCH ×2 (09:58→20:22)
[2020-12-28] MEDS: CARVEDILOL 12.5 MG TABLET. PO SCH ×2 (09:58→19:04)
[2020-12-28] MEDS: DICLOFENAC SODIUM 1% TOPICAL GEL 100GM TUBE. TP SCH ×2 (10:00→21:00)
--- NOTE | 2020-12-28 11:21 | PDOC2 ---
CONSULT Date of Consult Date of Consult DATE: 12/28/20 TIME: 11:07 Reason for Consult Reason for Consult: ESRD /Severe Non compliance Source Source: Chart review, Patient History of Present Illness Reason for Visit: Patient is a 65 year old AA male who was brought here by EMS from home due to trouble breathing and loss of sense of smell and taste since Monday . Patient had end-stage renal failure, on hemodialysis every Monday and Monday. Patient did not go to have his dialysis on Monday because he did not feel well. Patient denies any headache, no chest pain, no abdominal pain, no nausea vomiting. Past Medical History Cardiovascular: CHF, HTN, Hyperlipidemia Pulmonary: COPD CENTRAL NERVOUS SYSTEM: CVA, Periperal neuropathy GI: GERD Heme/Onc: Anemia NOS Hepatobiliary: No pertinent hx Psych: Anxiety, Depression Musculoskeletal: Osteoarthritis, Other Rheumatologic: No pertinent hx Infectious disease: No pertinent hx Renal/: Chronic renal failure Endocrine: Diabetes Past Surgical History Past Surgical History: Other Family History Family History: Cancer, Diabetes, Hypertension Social History ALCOHOL: other Drugs: Marijuana Lives: with Family Current Problem List Problem List Problems Medical Problems: (1) ESRD (end stage renal disease) on dialysis Status: Acute (2) Hypertensive urgency Status: Acute (3) Person under investigation for COVID-19 Status: Acute Current Medications Current Medications Current Medications Hydralazine HCl (Apresoline Inj) 20 mg 1X ONCE IVP Last administered on 12/27/20at 16:25; Start 12/27/20 at 16:15; Stop 12/27/20 at 16:16; Status DC Calcium Chloride (Calcium Chloride) 1,000 mg 1X ONCE IV Last administered on 12/27/20at 17:59; Start 12/27/20 at 17:45; Stop 12/27/20 at 17:46; Status DC Sodium Bicarbonate (Sodium Bicarb Adult 8.4% Syr) 50 meq 1X ONCE IV Last administered on 12/27/20at 17:58; Start 12/27/20 at 17:45; Stop 12/27/20 at 17:46; Status DC Dextrose (Dextrose 50%-Water Syringe) 25 gm 1X ONCE IV Last administered on 12/27/20at 17:59; Start 12/27/20 at 17:45; Stop 12/27/20 at 17:46; Status DC Insulin Human Regular (HumuLIN R VIAL) 10 unit 1X ONCE IV Last administered on 12/27/20at 18:00; Start 12/27/20 at 17:45; Stop 12/27/20 at 17:46; Status DC Ondansetron HCl (Zofran) 4 mg PRN Q8HRS PRN IV NAUSEA/VOMITING; Start 12/27/20 at 18:00; Stop 12/28/20 at 17:59 Hydralazine HCl (Apresoline) 50 mg TID PO Last administered on 12/28/20at 09:58; Start 12/27/20 at 21:00 Sodium Chloride 1,000 ml @ 1,000 mls/hr Q1H PRN IV hypotension; Start 12/27/20 at 19:30; Stop 12/28/20 at 01:29; Status DC Albumin Human 200 ml @ 200 mls/hr 1X PRN PRN IV Hypotension; Start 12/27/20 at 19:30; Stop 12/28/20 at 01:29; Status DC Diphenhydramine HCl (Benadryl) 25 mg 1X PRN PRN IV ITCHING; Start 12/27/20 at 19:30; Stop 12/28/20 at 19:29 Diphenhydramine HCl (Benadryl) 25 mg 1X PRN PRN IV ITCHING; Start 12/27/20 at 19:30; Stop 12/28/20 at 19:29 Sodium Chloride 1,000 ml @ 400 mls/hr Q2H30M PRN IV PATENCY; Start 12/27/20 at 19:30; Stop 12/28/20 at 07:29; Status DC Lidocaine HCl (Xylocaine-Mpf 1% 2ml Vial) 2 ml 1X PRN PRN INJ FOR DIALYSIS; Start 12/27/20 at 19:30; Stop 12/28/20 at 19:29 Info (PHARMACY MONITORING -- do not chart) 1 each PRN DAILY PRN MC SEE COMMENTS; Start 12/27/20 at 19:30 Sodium Chloride 1,000 ml @ 1,000 mls/hr Q1H PRN IV hypotension; Start 12/28/20 at 08:15; Stop 12/28/20 at 14:14 Albumin Human 200 ml @ 200 mls/hr 1X PRN PRN IV Hypotension; Start 12/28/20 at 08:15; Stop 12/28/20 at 14:14 Sodium Chloride 1,000 ml @ 400 mls/hr Q2H30M PRN IV PATENCY; Start 12/28/20 at 08:15; Stop 12/28/20 at 20:14 Info (PHARMACY MONITORING -- do not chart) 1 each PRN DAILY PRN MC SEE COMMENTS; Start 12/28/20 at 08:15; Status UNV Info (PHARMACY MONITORING -- do not chart) 1 each PRN DAILY PRN MC SEE COMMENTS; Start 12/28/20 at 08:15; Status UNV Acetaminophen (Tylenol) 650 mg PRN Q6HRS PRN PO MILD PAIN / TEMP > 100.3'F; Start 12/28/20 at 09:00 Atorvastatin Calcium (Lipitor) 20 mg QHS PO ; Start 12/28/20 at 21:00 Citalopram Hydrobromide (CeleXA) 10 mg DAILY PO Last administered on 12/28/20at 09:57; Start 12/28/20 at 09:00 Gabapentin (Neurontin) 100 mg BID PO Last administered on 12/28/20at 09:58; Start 12/28/20 at 09:00 Hydralazine HCl (Apresoline) 50 mg TID PO ; Start 12/28/20 at 09:00; Stop 12/28/20 at 09:11; Status DC Acetaminophen/ Hydrocodone Bitart (Lortab 5/325) 1 tab PRN Q6HRS PRN PO PAIN; Start 12/28/20 at 09:00 Sevelamer Carbonate (Renvela) 800 mg BIDWMEALS PO ; Start 12/28/20 at 17:00 Carvedilol (Coreg) 25 mg BIDWMEALS PO Last administered on 12/28/20at 09:58; Start 12/28/20 at 10:00 Mirtazapine (Remeron) 30 mg QHS PO ; Start 12/28/20 at 21:00 Pantoprazole Sodium (Protonix) 40 mg DAILYAC PO ; Start 12/29/20 at 07:30 Diclofenac Sodium (Voltaren) 1 navarro BID TP ; Start 12/28/20 at 10:00 Active Scripts Active [Diclofenac Sodium] 100 GM Gel..gram. 1 Navarro TP BID Hydralazine Hcl 50 Mg Tablet 1 Tab PO TID Tylenol (Acetaminophen) 325 Mg Tablet 650 Mg PO PRN Q6HRS PRN 30 Days Hydrocodone-Apap 5-325 (Hydrocodone Bit/Acetaminophen) 1 Tab Tablet 1 Tab PO PRN Q6HRS PRN 15 Days Reported Mirtazapine 30 Mg Tablet 1 Tab PO QHS Carvedilol 25 Mg Tablet 25 Mg PO BIDWMEALS Omeprazole 20 Mg Capsule.dr 20 Mg PO DAILY Gabapentin 100 Mg Capsule 100 Mg PO BID Citalopram Hbr (Citalopram Hydrobromide) 10 Mg Tablet 10 PO DAILY Renvela (Sevelamer Carbonate) 800 Mg Tablet 1 Tab PO BIDWMEALS 30 Days Atorvastatin Calcium 20 Mg Tablet 1 Tab PO DAILY Allergies Allergies: Coded Allergies: No Known Drug Allergies (Unverified , 10/23/17) ROS Review of System As per HPI, rest of the ROS is negative. Poor Historian . Physical Exam Physical Exam GENERAL: NAD HEENT: OM moist Neck supple Lungs CTA, Non labored CV S1S2 ABDOMEN: Soft, nontender, EXTREMITIES: No edema. CN grossly normal No harris Vital Signs Vital Signs Date Time Temp Pulse Resp B/P (MAP) Pulse Ox O2 Delivery O2 Flow Rate FiO2 12/28/20 10:00 86 23 147/76 (99) 100 Room Air 12/28/20 08:00 98.5 98.5 12/28/20 07:00 2.0 Assessment & Plan ESRD - on HD MWF under Dr. Harrison's care Emergent HD last night for Hyperkalemia. Chronic non compliance, frequent hospitalizations, Known to Leave AMA and being aggressive , Dialysis today , discussed treatment plan with Luis Miguel Seen on dialysis, tolerating well, continue as ordered, Alcides Carranza HyperKalemia- chronic , Emergent HD last night with K 8 POA , non compliance with HD K mildly elevated , Dialysis today as well Ac Resp failure POA - CXr hazy bilateral infiltrates or pulmonary edema with mild worsening. Emergent HD last night . Currently on RA Severe noncompliance. Diabetes mellitus type 2 with neuropathy. Bilateral foot drops. Coronary artery disease. Chronic obstructive pulmonary disease. History of cerebrovascular accident Labs Labs Laboratory Tests Test 12/27/20 17:05 12/27/20 21:57 12/28/20 05:52 White Blood Count 8.2 x10^3/uL (4.0-11.0) Red Blood Count 4.42 x10^6/uL (4.30-5.70) Hemoglobin 11.1 g/dL (13.0-17.5) Hematocrit 34.9 % (39.0-53.0) Mean Corpuscular Volume 79 fL (79-100) Mean Corpuscular Hemoglobin 25 pg (25-35) Mean Corpuscular Hemoglobin Concent 32 g/dL (31-37) Red Cell Distribution Width 15.7 % (11.5-14.5) Platelet Count 202 x10^3/uL (140-400) Neutrophils (%) (Auto) 74 % (31-73) Lymphocytes (%) (Auto) 15 % (24-48) Monocytes (%) (Auto) 9 % (0-9) Eosinophils (%) (Auto) 0 % (0-3) Basophils (%) (Auto) 2 % (0-3) Neutrophils # (Auto) 6.0 x10^3/uL (1.8-7.7) Lymphocytes # (Auto) 1.2 x10^3/uL (1.0-4.8) Monocytes # (Auto) 0.7 x10^3/uL (0.0-1.1) Eosinophils # (Auto) 0.0 x10^3/uL (0.0-0.7) Basophils # (Auto) 0.1 x10^3/uL (0.0-0.2) Sodium Level 134 mmol/L (136-145) 135 mmol/L (136-145) Potassium Level 8.3 mmol/L (3.5-5.1) 4.9 mmol/L (3.5-5.1) 5.6 mmol/L (3.5-5.1) Chloride Level 97 mmol/L (98-107) 97 mmol/L (98-107) Carbon Dioxide Level 26 mmol/L (21-32) 32 mmol/L (21-32) Anion Gap 11 (6-14) 6 (6-14) Blood Urea Nitrogen 89 mg/dL (8-26) 48 mg/dL (8-26) Creatinine 10.6 mg/dL (0.7-1.3) 6.4 mg/dL (0.7-1.3) Estimated GFR (Cockcroft-Gault) 5.9 10.6 BUN/Creatinine Ratio 8 (6-20) 8 (6-20) Glucose Level 105 mg/dL (70-99) 121 mg/dL (70-99) Calcium Level 9.4 mg/dL (8.5-10.1) 9.1 mg/dL (8.5-10.1) Magnesium Level 3.0 mg/dL (1.8-2.4) Total Bilirubin 0.5 mg/dL (0.2-1.0) 0.4 mg/dL (0.2-1.0) Aspartate Amino Transf (AST/SGOT) 31 U/L (15-37) 28 U/L (15-37) Alanine Aminotransferase (ALT/SGPT) 21 U/L (16-63) 19 U/L (16-63) Alkaline Phosphatase 64 U/L (46-116) 59 U/L (46-116) Troponin I Quantitative < 0.017 ng/mL (0.000-0.055) FE-Ari-R-Type Natriuretic Peptide 19390 pg/mL (0-124) Total Protein 7.9 g/dL (6.4-8.2) 6.7 g/dL (6.4-8.2) Albumin 3.2 g/dL (3.4-5.0) 2.6 g/dL (3.4-5.0) Albumin/Globulin Ratio 0.7 (1.0-1.7) 0.6 (1.0-1.7) Laboratory Tests Test 12/27/20 17:05 12/27/20 21:57 12/28/20 05:52 White Blood Count 8.2 x10^3/uL (4.0-11.0) Red Blood Count 4.42 x10^6/uL (4.30-5.70) Hemoglobin 11.1 g/dL (13.0-17.5) Hematocrit 34.9 % (39.0-53.0) Mean Corpuscular Volume 79 fL (79-100) Mean Corpuscular Hemoglobin 25 pg (25-35) Mean Corpuscular Hemoglobin Concent 32 g/dL (31-37) Red Cell Distribution Width 15.7 % (11.5-14.5) Platelet Count 202 x10^3/uL (140-400) Neutrophils (%) (Auto) 74 % (31-73) Lymphocytes (%) (Auto) 15 % (24-48) Monocytes (%) (Auto) 9 % (0-9) Eosinophils (%) (Auto) 0 % (0-3) Basophils (%) (Auto) 2 % (0-3) Neutrophils # (Auto) 6.0 x10^3/uL (1.8-7.7) Lymphocytes # (Auto) 1.2 x10^3/uL (1.0-4.8) Monocytes # (Auto) 0.7 x10^3/uL (0.0-1.1) Eosinophils # (Auto) 0.0 x10^3/uL (0.0-0.7) Basophils # (Auto) 0.1 x10^3/uL (0.0-0.2) Sodium Level 134 mmol/L (136-145) 135 mmol/L (136-145) Potassium Level 8.3 mmol/L (3.5-5.1) 4.9 mmol/L (3.5-5.1) 5.6 mmol/L (3.5-5.1) Chloride Level 97 mmol/L (98-107) 97 mmol/L (98-107) Carbon Dioxide Level 26 mmol/L (21-32) 32 mmol/L (21-32) Anion Gap 11 (6-14) 6 (6-14) Blood Urea Nitrogen 89 mg/dL (8-26) 48 mg/dL (8-26) Creatinine 10.6 mg/dL (0.7-1.3) 6.4 mg/dL (0.7-1.3) Estimated GFR (Cockcroft-Gault) 5.9 10.6 BUN/Creatinine Ratio 8 (6-20) 8 (6-20) Glucose Level 105 mg/dL (70-99) 121 mg/dL (70-99) Calcium Level 9.4 mg/dL (8.5-10.1) 9.1 mg/dL (8.5-10.1) Magnesium Level 3.0 mg/dL (1.8-2.4) Total Bilirubin 0.5 mg/dL (0.2-1.0) 0.4 mg/dL (0.2-1.0) Aspartate Amino Transf (AST/SGOT) 31 U/L (15-37) 28 U/L (15-37) Alanine Aminotransferase (ALT/SGPT) 21 U/L (16-63) 19 U/L (16-63) Alkaline Phosphatase 64 U/L (46-116) 59 U/L (46-116) Troponin I Quantitative < 0.017 ng/mL (0.000-0.055) TP-Fss-D-Type Natriuretic Peptide 72332 pg/mL (0-124) Total Protein 7.9 g/dL (6.4-8.2) 6.7 g/dL (6.4-8.2) Albumin 3.2 g/dL (3.4-5.0) 2.6 g/dL (3.4-5.0) Albumin/Globulin Ratio 0.7 (1.0-1.7) 0.6 (1.0-1.7) Review All relevant outside records, renal labs, imaging studies, telemetry/EKG's were reviewed. Images Images CxR- AP view was taken of the chest. There are hazy bilateral infiltrates or pulmonary edema with mild worsening compared to the study from December 06. There is thickening along the minor fissure on the right. There is arthritis in the left shoulder. IMPRESSION: 1. Mild hazy infiltrates or edema. 2. Slight thickening along the minor fissure. KIRA UGALDE MD Dec 28, 2020 11:21
--- NOTE | 2020-12-28 12:04 | EKG ---
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
--- NOTE | 2020-12-28 12:20 | HP ---
ADMIT DATE: 12/27/2020 CHIEF COMPLAINT: Shortness of breath. HISTORY OF PRESENT ILLNESS: The patient is a pleasant 65-year-old who presented to the ER with shortness of breath. While in the ER, we have noticed that potassium was high at 8.3. The patient has been admitted for emergent dialysis. PAST MEDICAL HISTORY: CVA, history of depression, diabetes, hyperlipidemia, hypertension, renal failure, noncompliance, dialysis catheter, tobacco abuse. ALLERGIES: None. FAMILY HISTORY: Diabetes. SOCIAL HISTORY: The patient does smoke. No drink or drugs. MEDICATIONS: Reviewed, please refer to the MRAD. REVIEW OF SYSTEMS: GENERAL: No history of weight change, weakness or fevers. SKIN: No bruising, hair changes or rashes. EYES: No blurred, double or loss of vision. NOSE AND THROAT: No history of nosebleeds, hoarseness or sore throat. HEART: No history of palpitations, chest pain or shortness of breath on exertion. LUNGS: The patient complains of shortness of breath. GASTROINTESTINAL: Denies changes in appetite, nausea, vomiting, diarrhea or constipation. GENITOURINARY: No history of frequency, urgency, hesitancy or nocturia. NEUROLOGIC: Denies history of numbness, tingling, tremor or weakness. PSYCHIATRIC: No history of panic, anxiety or depression. ENDOCRINE: No history of heat or cold intolerance, polyuria or polydipsia. EXTREMITIES: Denies muscle weakness, joint pain, pain on walking or stiffness. PHYSICAL EXAMINATION: VITALS: Within normal limits and are stable. GENERAL: No apparent distress. Alert and oriented. HEENT: Normal cephalic atraumatic, external auditory canals are patent EYES: Extraocular muscles are intact, pupils are equally round and reactive to light and accommodation MUSCULOSKELETAL: Well developed, well nourished, good range of motion ENDOCRINE: No thyromegaly was palpated LYMPHATICS: No cervical chain or axillary nodes were noted HEMATOPOIETIC: No bruising NECK: Supple, no JVD, no thyromegaly was noted. LUNGS: The patient has crackles. HEART: RRR, S1, S2 present. Peripheral pulses intact, no obvious murmurs were noted. ABDOMEN: Soft, nontender. Positive bowel sounds no organomegaly, normal bowel sounds. EXTREMITIES: Without any cyanosis, clubbing, or edema. Pedal pulses intact, Homans sign is negative. NEUROLOGIC: Normal speech, normal tone. A & O x3, moves all extremities, no obvious focal deficits. PSYCHIATRIC: Normal affect, normal mood. Stable. SKIN: No ulcerations or rashes, good skin turgor, no jaundice. VASCULAR: Good capillary refill, neurovascular bundle appears to be intact. IMAGING: Chest x-ray shows vascular congestion. LABORATORY DATA: Potassium is 8.3. ASSESSMENT AND PLAN: Renal failure, hyperkalemia, hyponatremia. The patient has been admitted. We have started emergent dialysis. Trend labs, home meds, DVT prophylaxis. Full code. Sliding scale insulin, IV albumin. P.r.n. Benadryl. CC TIME: 31 minutes. ELIZABETH ESCOBEDO DO DR: CHOLO/jose alberto JOB#: [id number] / [id number]
--- NOTE | 2020-12-28 15:57 | NUR ---
SS following for discharge planning. SS reviewed pt chart and discussed with pt RN. Pt is from home and is currently on room air. Self pay. COVID19 test pending. Pt has outpatient dialysis at [facility], ; fax [phone], Monday, Monday, and Monday. Med assist following for self pay status. SS will continue to follow for discharge planning.
[2020-12-28] MEDS: SEVELAMER CARBONATE 800 MG TABLET. PO SCH (19:05)
[2020-12-28] MEDS ORDERED: MIRTAZAPINE 15 MG TABLET PO SCH (21:00)
[2020-12-28] MEDS ORDERED: ATORVASTATIN CALCIUM 20 MG TABLET PO SCH (21:00)
[2020-12-29 03:00] VITALS: BP 151/83
[2020-12-29] MEDS ORDERED: PANTOPRAZOLE 40 MG TABLET.DR. PO SCH (07:30)
[2020-12-29 07:43] VITALS: BP 170/91
[2020-12-29] MEDS: GABAPENTIN 100 MG CAPSULE. PO SCH (08:53)
[2020-12-29] MEDS: SEVELAMER CARBONATE 800 MG TABLET. PO SCH (08:53)
[2020-12-29] MEDS: CITALOPRAM 10 MG TABLET. PO SCH (08:54)
[2020-12-29] MEDS: CARVEDILOL 12.5 MG TABLET. PO SCH (08:54)
[2020-12-29] MEDS: DICLOFENAC SODIUM 1% TOPICAL GEL 100GM TUBE. TP SCH (09:00)
[2020-12-29 11:00] VITALS: BP 159/86
--- NOTE | 2020-12-29 12:07 | DISCH ---
DISCHARGE INSTRUCTIONS Condition on Discharge Condition on Discharge: Stable Activity After Discharge Activity Instructions for Disc: Activity as tolerated Exercise Instruction after Dis: Progress as tolerated Driving Instructions after Dis: Do not drive Weight Bearing Status after Di: As tolerated Diet after Discharge Diet after Discharge: Regular Diet Texture: Regular Liquid Texture: Thin Liquid Swallowing Supervision: None needed Checks after Discharge Checks after discharge: Check blood press - daily Follow-Up Follow up with: PCP within 2 weeks of discharge Follow Up With: Nephrology for your continuing of her hemodialysis Treatment/Equipment after DC Adaptive Equipment Issued: None TUNDE SEO MD Dec 29, 2020 12:07
--- NOTE | 2020-12-29 12:19 | PDOC ---
DATE OF SERVICE DATE: 12/29/20 TIME: 12:18 SUBJECTIVE ROS stable OBJECTIVE Vital Signs Vital Signs Date Time Temp Pulse Resp B/P (MAP) Pulse Ox O2 Delivery O2 Flow Rate FiO2 12/29/20 11:00 98.7 82 16 159/86 (110) 96 Room Air 98.7 12/28/20 20:00 2.0 I & 0 Intake and Output 12/29/20 07:00 Intake Total 1740 ml Balance 1740 ml Intake Oral 1740 ml # Bowel Movements 3 PHYSICAL EXAM Physical Exam GENERAL: NAD HEENT: OM moist Neck supple Lungs CTA, Non labored CV S1S2 ABDOMEN: Soft, nontender, EXTREMITIES: No edema. CN grossly normal No harris Vital Signs DIAGNOSIS/ASSESSMENT Assessment & Plan ESRD - on HD MWF under Dr. Harrison's care Emergent HD on 12/27 for Hyperkalemia. Chronic non compliance, frequent hospitaliz ations, Known to Leave AMA aggressive behavior , Dialyzed yesterday as well , Currently no emergent indication for HD HyperKalemia- chronic , Emergent HD last night with K 8 POA , non compliance with HD K mildly elevated , Dialysis today as well Ac Resp failure POA - CXr hazy bilateral infiltrates or pulmonary edema with mild worsening. Emergent HD last night . Currently on RA Severe noncompliance. Diabetes mellitus type 2 with neuropathy. Bilateral foot drops. Coronary artery disease. Chronic obstructive pulmonary disease. History of cerebrovascular accident COMMENT/RELEVANT DATA Meds Current Medications Medications (Trade) Dose Ordered Sig/Thuan Start Time Stop Time Status Last Admin Dose Admin Acetaminophen (Tylenol) 650 mg PRN Q6HRS PRN 12/28/20 09:00 Acetaminophen/ Hydrocodone Bitart (Lortab 5/325) 1 tab PRN Q6HRS PRN 12/28/20 09:00 Albumin Human 200 ml @ 200 mls/hr 1X PRN PRN 12/28/20 08:15 12/28/20 14:14 DC Atorvastatin Calcium (Lipitor) 20 mg QHS 12/28/20 21:00 12/28/20 20:22 20 MG Calcium Chloride (Calcium Chloride) 1,000 mg 1X ONCE 12/27/20 17:45 12/27/20 17:46 DC 12/27/20 17:59 1,000 MG Carvedilol (Coreg) 25 mg BIDWMEALS 12/28/20 10:00 12/29/20 08:54 25 MG Citalopram Hydrobromide (CeleXA) 10 mg DAILY 12/28/20 09:00 12/29/20 08:54 10 MG Dextrose (Dextrose 50%-Water Syringe) 25 gm 1X ONCE 12/27/20 17:45 12/27/20 17:46 DC 12/27/20 17:59 25 GM Diclofenac Sodium (Voltaren) 1 rene BID 12/28/20 10:00 Diphenhydramine HCl (Benadryl) 25 mg 1X PRN PRN 12/27/20 19:30 12/28/20 19:29 DC Gabapentin (Neurontin) 100 mg BID 12/28/20 09:00 12/29/20 08:53 100 MG Hydralazine HCl (Apresoline Inj) 20 mg 1X ONCE 12/27/20 16:15 12/27/20 16:16 DC 12/27/20 16:25 20 MG Hydralazine HCl (Apresoline) 50 mg TID 12/28/20 09:00 12/28/20 09:11 DC Info (PHARMACY MONITORING -- do not chart) 1 each PRN DAILY PRN 12/28/20 08:15 UNV Insulin Human Regular (HumuLIN R VIAL) 10 unit 1X ONCE 12/27/20 17:45 12/27/20 17:46 DC 12/27/20 18:00 10 UNIT Lidocaine HCl (Xylocaine-Mpf 1% 2ml Vial) 2 ml 1X PRN PRN 12/27/20 19:30 12/28/20 19:29 DC Mirtazapine (Remeron) 30 mg QHS 12/28/20 21:00 12/28/20 20:23 30 MG Ondansetron HCl (Zofran) 4 mg PRN Q8HRS PRN 12/27/20 18:00 12/28/20 17:59 DC Pantoprazole Sodium (Protonix) 40 mg DAILYAC 12/29/20 07:30 12/29/20 08:53 40 MG Sevelamer Carbonate (Renvela) 800 mg BIDWMEALS 12/28/20 17:00 12/29/20 08:53 800 MG Sodium Bicarbonate (Sodium Bicarb Adult 8.4% Syr) 50 meq 1X ONCE 12/27/20 17:45 12/27/20 17:46 DC 12/27/20 17:58 50 MEQ Sodium Chloride 1,000 ml @ 400 mls/hr Q2H30M PRN 12/28/20 08:15 12/28/20 20:14 DC Results All relevant outside records, renal labs, imaging studies, telemetry/EKG's were reviewed. Justicifation of Admission Dx: Justifications for Admission: Justification of Admission Dx: Yes KIRA UGALDE MD Dec 29, 2020 12:19
--- NOTE | 2020-12-29 13:41 | NUR ---
SW following for discharge planning. Spoke with RN and reviewed chart. Pt has a hx of noncompliance and leaving AMA. Pt COVID result negative. Pt to resume out-patient dialysis on MWF at [facility], (phone). SW notified the dialysis clinic of pt's discharge. Pt to discharge home today, self-care. SW arranged for [facility] transportation home today at 1330. No further SW needs at this time.
--- NOTE | 2020-12-29 16:28 | NUR ---
Discharge Note: RUSSEL MAE[address] [place] [address] Discharge instructions and discharge home medications reviewed with patient and a copy given. All questions have been answered and understanding verbalized. The following instructions and handouts were given: Take home meds as directed Resume hemodialysis as scheduled (-) Discussed about compliance and follow up with PCP Watch out for severe dyspnea, fever and severe weakness. Discontinued lines and drains: peripheral Iv intact, patient tolerated removal, no complications noted Patient discharged via wheelchair on room air at 1355 via [facility] transport.
--- NOTE | 2020-12-31 17:41 | PDOC3 ---
[facility]-Discharge Summary Date of Admission: Date of Admission: Dec 27, 2020 Date of Discharge: Date of Discharge: Dec 29, 2020 Discharge Diagnosis: Discharge Diagnosis: Renal failure, hyperkalemia, hyponatremia. Hospital Course: Hospital Course: 65-year-old who presented to the ER with shortness of breath. While in the ER, we have noticed that potassium was high at 8.3. The patient has been admitted for emergent dialysis. Patient underwent HD and his symptoms improved His potassium also improved from 8.3 to 5.6. No telemonitoring events. Patient will need to resume his regular MWF HD schedule. He has been known to be noncompliant and leaves AMA. Disposition: Disposition/Orders: D/C to Home Activity: Activity: Resume previous activity Diet: Diet: Renal Medications: Home Meds Active Scripts [Diclofenac Sodium 1% Topical] 100 GM GEL..GRAM. No Conflict Check, 1 RADHA TP BID for arthritis, EACH Prov:BI LOBATO MD 10/08/20 Hydralazine Hcl (HYDRALAZINE HCL) 50 Mg Tablet, 1 TAB PO TID for HTN, #90 TAB 5 Refills Prov:BI LOBATO MD 12/18/19 Acetaminophen (TYLENOL) 325 Mg Tablet, 650 MG PO PRN Q6HRS PRN for MILD PAIN / TEMP for 30 Days, #120 TAB Prov:BI LOBATO MD 12/10/19 Hydrocodone Bit/Acetaminophen (HYDROCODONE-APAP 5-325 ) 1 Tab Tablet, 1 TAB PO PRN Q6HRS PRN for PAIN for 15 Days, #60 TAB Prov:BI LOBATO MD 12/10/19 Reported Medications Mirtazapine (MIRTAZAPINE) 30 Mg Tablet, 1 TAB PO QHS for insomnia 11/18/20 Carvedilol (CARVEDILOL) 25 Mg Tablet, 25 MG PO BIDWMEALS for CARDIAC, TAB 10/06/20 Omeprazole (OMEPRAZOLE) 20 Mg Capsule.dr, 20 MG PO DAILY for antiacid 12/09/19 Gabapentin (Gabapentin) 100 Mg Capsule, 100 MG PO BID for neuropathy 12/09/19 Citalopram Hydrobromide (CITALOPRAM HBR) 10 Mg Tablet, 10 PO DAILY for depression 12/09/19 Sevelamer Carbonate (RENVELA) 800 Mg Tablet, 1 TAB PO BIDWMEALS for kindeys for 30 Days, #60 TAB 0 Refills 11/27/19 Atorvastatin Calcium (ATORVASTATIN CALCIUM) 20 Mg Tablet, 1 TAB PO DAILY, #30 TAB 5 Refills 04/11/17 Scheduled Atorvastatin Calcium (Atorvastatin Calcium), 1 TAB PO DAILY, (Reported) Carvedilol (Carvedilol), 25 MG PO BIDWMEALS, (Reported) Citalopram Hydrobromide (Citalopram Hbr), 10 PO DAILY, (Reported) Gabapentin (Gabapentin), 100 MG PO BID, (Reported) Hydralazine Hcl (Hydralazine Hcl), 1 TAB PO TID Mirtazapine (Mirtazapine), 1 TAB PO QHS, (Reported) Omeprazole (Omeprazole), 20 MG PO DAILY, (Reported) Sevelamer Carbonate (Renvela), 1 TAB PO BIDWMEALS, (Reported) [Diclofenac Sodium], 1 RADHA TP BID Scheduled PRN Acetaminophen (Tylenol), 650 MG PO PRN Q6HRS PRN for MILD PAIN / TEMP Hydrocodone Bit/Acetaminophen (Hydrocodone-Apap 5-325 ), 1 TAB PO PRN Q6HRS PRN for PAIN Total Time: Total Time: Total time spent was 28 minutes in preparing scripts, discharge planning with SW and RN, and preparing this discharge summary. Patient seen and examined on day of discharge. Justicifation of Admission Dx: Justifications for Admission: Justification of Admission Dx: Yes TUNDE SEO MD Dec 31, 2020 17:41
== END 2020-12-29 13:55 | disposition home or self-care (01) | DRG 189 ==
LOC: ER 15:57 → 1 WEST ICU 18:00 → 6 SOUTH 12-28 19:09
PROVIDERS: ADMIT Internal Medicine; ATTEND Internal Medicine
PROC: 5A1D70Z Performance of Urinary Filtration, Intermittent, Less than 6 Hours Per Day (ICD-10-PCS; principal; 2020-12-27)
PROC: 5A1D70Z Performance of Urinary Filtration, Intermittent, Less than 6 Hours Per Day (ICD-10-PCS; 2020-12-28)
DX: J96.00 Acute respiratory failure, unspecified whether with hypoxia or hypercapnia (principal); N18.6 End stage renal disease; I13.2 Hypertensive heart and chronic kidney disease with heart failure and with stage 5 chronic kidney disease, or end stage renal disease; E87.1 Hypo-osmolality and hyponatremia; I16.0 Hypertensive urgency; E87.5 Hyperkalemia; Z99.2 Dependence on renal dialysis; J44.9 Chronic obstructive pulmonary disease, unspecified; Z91.19 Patient's noncompliance with other medical treatment and regimen; Z20.822 Contact with and (suspected) exposure to COVID-19; E78.00 Pure hypercholesterolemia, unspecified; Z86.73 Personal history of transient ischemic attack (TIA), and cerebral infarction without residual deficits; E78.5 Hyperlipidemia, unspecified; F17.200 Nicotine dependence, unspecified, uncomplicated; Z82.49 Family history of ischemic heart disease and other diseases of the circulatory system; Z83.3 Family history of diabetes mellitus; F32.9 Major depressive disorder, single episode, unspecified; F41.9 Anxiety disorder, unspecified; E11.40 Type 2 diabetes mellitus with diabetic neuropathy, unspecified; M19.90 Unspecified osteoarthritis, unspecified site; K21.9 Gastro-esophageal reflux disease without esophagitis; I50.9 Heart failure, unspecified; E11.22 Type 2 diabetes mellitus with diabetic chronic kidney disease
CPT/HCPCS: 36415; 71045; 80053; 83735; 83880; 84132; 84484; 85025; 93005; 96374; 96375; J0360; J1815; J3490; U0003; 99291-25; G0378

== ENCOUNTER 2021-04-02 05:05 | Emergency (ER) | payer OTHER, MEDICAID ==
[~2021-04-02] VITALS: Ht 172.7 cm; Wt 61.4 kg
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
--- NOTE | 2021-04-02 05:47 | RAD ---
EXAM: 1. CT HEAD WITHOUT CONTRAST. 2. CT CERVICAL SPINE WITHOUT CONTRAST. HISTORY: Fall, trauma. TECHNIQUE: Computed tomography of the head and cervical spine was performed without intravenous contr ast. One or more of the following individualized dose reduction techniques were utilized for this exa mination: 1. Automated exposure control. 2. Adjustment of the mA and/or kV according to patient size. 3. Use of iterative reconstruction technique. COMPARISON: 12/06/2020. FINDINGS: There is no intracranial hemorrhage. Hypoattenuation within the periventricular white erin er indicates mild chronic microangiopathic change. Prominence of the lateral ventricles and hemispher ic sulci indicates mild atrophy. The visualized paranasal sinuses appear clear. The orbits are unremarkable. The temporal bones are un remarkable. The calvarium reveals no suspicious lesions. There are atherosclerotic calcifications of the internal carotid and vertebral arteries. Alignment is maintained. There are prominent subchondral cysts versus erosions within the dens. A fra cture of the right T1 transverse process does not appear acute and may be developmental. Degenerative disc disease is moderate to severe from C3 through T2. There is endplate irregularity from C3 throug h T2. There is also irregularity of the articular surfaces of the facet joints at multiple levels. Th ere is no prevertebral soft tissue swelling. At C2-3, left facet osteoarthritis is moderate. Left neural foraminal stenosis is mild. At C3-4, there is a small posterior disc bulge. Central canal stenosis appears moderate. Right facet osteoarthritis is severe. Uncovertebral osteoarthritis is mild bilaterally. Neural foraminal stenosis is moderate to severe on the right and moderate on the left. At C4-5, there is a small posterior disc bulge. Central canal stenosis appears moderate. Uncovertebra l osteoarthritis is mild bilaterally. Neural foraminal stenosis is moderate on the right. At C5-6, there is a small posterior disc-osteophyte complex. Uncovertebral osteoarthritis is mild to moderate bilaterally. Neural foraminal stenosis is moderate bilaterally. Central canal stenosis appea rs mild to moderate. At C6-7, there is a moderate posterior disc-osteophyte complex. Central canal stenosis appears mild. Neural foraminal stenosis is moderate bilaterally. Uncovertebral osteoarthritis is mild to moderate b ilaterally. IMPRESSION: 1. No acute intracranial findings. 2. Mild atrophy and chronic microangiopathic white matter change. 3. No cervical fracture or malalignment. For diffuse moderate to severe degenerative disc disease wit h endplate irregularity at most levels. There is also irregularity about the articular surfaces of th e atlantodental joint and facet joints. Correlate for inflammatory arthritides. 4. Multilevel central canal stenosis is mild to moderate as above. Neural foraminal stenosis is up to moderate/severe. Electronically signed by: Maggy Chapa MD (04/02/2021 5:45 AM) [facility]
--- NOTE | 2021-04-02 05:51 | RAD ---
EXAM: LEFT KNEE, 3 VIEWS. HISTORY: Fall, pain. COMPARISON: None. FINDINGS: No fractures are identified. Joint spaces are maintained. Alignment is normal. There is a small joint effusion. There are diffuse atherosclerotic calcifications. IMPRESSION: 1. No fracture. Small joint effusion. Electronically signed by: Maggy Chapa MD (04/02/2021 5:48 AM) [facility]
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
[2021-04-02 06:12] VITALS: BP 188/99
== END 2021-04-02 06:28 | disposition home or self-care (01) ==
LOC: ER 05:05
DX: R51.9 Headache, unspecified (principal); M25.562 Pain in left knee; G89.11 Acute pain due to trauma; M25.511 Pain in right shoulder; M25.512 Pain in left shoulder; M50.30 Other cervical disc degeneration, unspecified cervical region; E78.00 Pure hypercholesterolemia, unspecified; E11.22 Type 2 diabetes mellitus with diabetic chronic kidney disease; I12.9 Hypertensive chronic kidney disease with stage 1 through stage 4 chronic kidney disease, or unspecified chronic kidney disease; N18.9 Chronic kidney disease, unspecified; Z86.73 Personal history of transient ischemic attack (TIA), and cerebral infarction without residual deficits; Z87.891 Personal history of nicotine dependence; Z99.2 Dependence on renal dialysis; W18.39XA Other fall on same level, initial encounter; Y93.89 Activity, other specified; Y92.89 Other specified places as the place of occurrence of the external cause; Y99.8 Other external cause status
CPT/HCPCS: 70450; 71045; 72125; 73562; 99285-25

== ENCOUNTER → 2021-07-20 | Outpatient (CLI) | payer OTHER, MEDICAID ==
[~2021-07-20] MED LIST changes: +MIRT-7 PO; +MIRT-8 PO; -MIRT15TA3 PO; -MIRT30TA3 PO
--- NOTE | 2021-07-20 11:26 | RAD ---
CT HEAD INDICATION: Reason: PARESTHESIA OF RT LE, CONTRACTURE OF MUSCLE OF RT LEG, MYELOMA / Spl. Instruction s: / History: COMPARISON: 04/02/2021 Exposure: One or more of the following individualized dose reduction techniques were utilized for thi s examination: 1. Automated exposure control 2. Adjustment of the mA and/or kV according to patient size 3. Use of iterative reconstruction technique TECHNIQUE: 5 mm contiguous axial images were obtained from the skull base to the vertex in both bone and soft tissue algorithm. FINDINGS: Mild bilateral periventricular white matter hypodensities likely chronic small vessel ischemic diseas e. No evidence of acute intracranial hemorrhage. No extra-axial fluid collections. No mass effect or midline shift. Ventricular size is appropriate. Basal cisterns are patent. No fractures identified.Jack-white differentiation is preserved.Globes and orbits are within normal l imits. Paranasal sinuses and mastoid air cells are clear. IMPRESSION: No acute intracranial findings. Electronically signed by: Henrry Campa MD (07/20/2021 11:23 AM) [id number]
== END ==
LOC: CT 10:24
PROVIDERS: ATTEND Family Medicine
DX: C90.00 Multiple myeloma not having achieved remission (principal); M62.461 Contracture of muscle, right lower leg; R20.2 Paresthesia of skin
CPT/HCPCS: 70450